=== PATIENT | female | born 1935 | race Caucasian/White ===

== ENCOUNTER → 2016-12-11 | Outpatient (CLI) | payer MEDICARE, OTHER ==
[~2016-12-11] MED LIST: ASP81TEC PO; ATEN50TA PO; CALC-80 PO; CEFD300C PO; CEPH500C PO; CYAN10007 PO; HUMIRA IM; HYDR1TAB PO; IBUP-1773 PO; LISI20TA PO; MTF500T PO; MULT-608 PO; SIMV40TA2 PO; TR025C15 TP; USTE45DI SQ
--- NOTE | 2016-12-11 19:13 | Diagnostic Imaging Report ---
Bilateral diagnostic mammogram. The current study was also evaluated with a Computer Aided Detection (CAD) system. INDICATION: Follow-up complicated cystic lesion in the right breast. COMPARISON: 12/21/2015. FINDINGS: The breasts are composed of heterogeneously dense parenchyma which may decrease mammographic sensitivity. Benign-appearing calcifications are seen. Allowing for technique and positional differences, no suspicious change is seen. IMPRESSION: No significant change. ACR BI-RADS Category 2: Benign findings. Result letter will be mailed to the patient. Note: At least 10% of breast cancer is not imaged by mammography. Dictated by: Dictated on workstation # [id number]
--- NOTE | 2016-12-11 19:30 | Diagnostic Imaging Report ---
EXAMINATION: Right breast ultrasound. INDICATION: Hypoechoic lesion at the 3 o'clock zone. FINDINGS: At the 3:00 zone, 6 cm from the nipple, there is a 4 mm hypoechoic lesion with increased through transmission and no internal vascularity. When compared to November 2015 exam, no significant change is seen. This is suggestive of complicated cyst. It is even minimally smaller compared to prior measurements in favor of benign etiology as well. IMPRESSION: The findings are suggestive of complicated tiny cyst with no adverse development. ACR BI-RADS Category 2: Benign findings. Result letter will be mailed to the patient. Note: At least 10% of breast cancer is not imaged by mammography. Dictated by: Dictated on workstation # [id number]
== END ==
LOC: RAD 13:28
PROVIDERS: ATTEND Family Medicine
DX: Z12.31 Encounter for screening mammogram for malignant neoplasm of breast; R92.1 Mammographic calcification found on diagnostic imaging of breast
CPT/HCPCS: 77066

== ENCOUNTER 2017-03-19 10:15 | Outpatient (CLI) | payer MEDICARE, OTHER ==
[~2017-03-19] VITALS: Ht 157.5 cm; Wt 91.3 kg
[2017-03-19] MEDS ORDERED: CLOB15CR3 TP (10:33)
[2017-03-19] MEDS ORDERED: TOLTA4 PO (10:33)
[2017-03-19] MEDS ORDERED: LISI40TA PO (10:33)
[2017-03-19] MEDS ORDERED: SIMV40TA4 PO (10:33)
[2017-03-19] MEDS ORDERED: MULT1CAP27 PO (10:33)
[2017-03-19] MEDS ORDERED: ASPI-999 PO (10:33)
[2017-03-19] MEDS ORDERED: METF500T4 PO (10:33)
[2017-03-19] MEDS ORDERED: ATEN50TA PO (10:33)
[2017-03-19] MEDS ORDERED: USTE90DI SQ (10:33)
[2017-03-19 10:37] VITALS: BP 179/95
== END 2017-03-19 12:08 | disposition home or self-care (01) ==
LOC: PREOP 10:15
PROVIDERS: ATTEND Orthopaedic Surgery
DX: Z01.818 Encounter for other preprocedural examination (principal); Z11.2 Encounter for screening for other bacterial diseases; M23.201 Derangement of unspecified lateral meniscus due to old tear or injury, left knee; M23.204 Derangement of unspecified medial meniscus due to old tear or injury, left knee
CPT/HCPCS: 87081

== ENCOUNTER 2017-03-26 09:04 | Day surgery (SDC) | payer MEDICARE, OTHER ==
--- NOTE | 2017-03-18 14:08 | HISTORY AND PHYSICAL ---
DATE OF SERVICE: CHIEF COMPLAINT: Left knee arthroscopy. HISTORY OF PRESENT ILLNESS: The patient is a 81-year-old female with progressively worsening left knee pain, catching and locking. She reports pain on the medial aspect of her knee. She has undergone treatment with injections, anti-inflammatories and rest without relief. Radiographs reveal moderate joint space narrowing of the medial compartment. The patient understands that she has underlying arthrosis and that an arthroscopy will not cure her arthritic type symptoms. She understands that she may require total knee arthroplasty in the future, but due to functional impairment and failure to improve with conservative measures the patient has elected to proceed with surgical intervention. REVIEW OF SYSTEMS: No chest pain, no shortness of breath. No dysuria. PAST MEDICAL HISTORY: Hypertension, hyperlipidemia, borderline diabetes, psoriasis. PAST SURGICAL HISTORY: Hysterectomy and right knee arthroscopy. FAMILY HISTORY: Significant for lung disease and cancer. Her primary care provider is Dr. Sanders. MEDICATIONS: 1. Stelara. 2. Atenolol. 3. Metformin. 4. Simvastatin. 5. Lisinopril. 6. Aspirin. 7. Tolterodine. 8. B12. 9. Multivitamin. 10. Clobetasol. ALLERGIES: No known drug allergies. SOCIAL HISTORY: The patient drinks alcohol rarely. Denies tobacco use. PHYSICAL EXAMINATION: GENERAL: The patient is well developed, well-nourished in acute distress. HEENT: Normocephalic, atraumatic. Pupils are equal, round and reactive to light. Oropharynx is clear. NECK: Supple, with no lymphadenopathy. LUNGS: Clear to auscultation bilaterally. HEART: Regular rate and rhythm. ABDOMEN: Soft, nontender, nondistended. EXTREMITIES: The left knee demonstrates a mild effusion. There is no erythema or warmth. Range of motion is 0/2/120. She has negative anterior and posterior drawer. Negative Chapo. No varus valgus laxity. She is tender along the medial joint line, has pain medially with Kerline's. She has crepitus with knee range of motion. 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 PLAN: Left knee arthroscopy with partial meniscectomy. The risks, benefits, options, ramifications and recovery have been discussed at length with the patient. She understands and wishes to proceed. 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
[~2017-03-26] VITALS: Ht 157.5 cm; Wt 91.3 kg
[~2017-03-26 09:04] MED LIST changes: +ASPI-999 PO; +CLOB15CR3 TP; +LISI40TA PO; +METF500T4 PO; +MULT1CAP27 PO; +SIMV40TA4 PO; +TOLTA4 PO; +USTE90DI SQ
--- OUTSIDE RECORDS SUMMARY | 2017-03-26 09:08 | XMS REPORT | Continuity of Care Document ---
Author Author [facility] Organization [facility] Address Unknown Phone Unavailable Allergies Active Description Code Type Severity Reaction Onset Reported/Identified Relationship to Patient Clinical Status Yes No Known Drug Allergies [id number] Drug Allergy Unknown N/A 08/28/2010 Medications There is no data. 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00 09/19/2014 Ot 735.0 09/19/2014 Ot 754.52 09/19/2014 Ot V58.69 09/19/2014 Ot 610.0 09/19/2014 Ot V74.1 09/19/2014 Ot 793.82 09/19/2014 Ot V76.12 09/19/2014 DEZ MONTES DO S Ot V76.12 09/19/2014 VANBECELAERE, VERONICA M [employer] OPERATOR Ot 786.2 09/19/2014 DEZ MONTES DO S Ot 733.90 09/19/2014 VANBECELAERE, VERONICA M [employer] OPERATOR Ot V76.12 10/12/2014 VANBECELAERE, VERONICA M [employer] OPERATOR Ot 429.3 10/12/2014 VANBECELAERE, VERONICA M [employer] OPERATOR Ot 710.2 10/12/2014 VANBECELAERE, VERONICA M [employer] OPERATOR Ot V58.69 11/07/2014 VANBECELAERE, VERONICA M [employer] OPERATOR Ot 429.3 11/07/2014 VANBECELAERE, VERONICA M [employer] OPERATOR Ot 710.2 11/07/2014 VANBECELAERE, VERONICA M [employer] OPERATOR Ot V58.69 11/30/2014 Ot 611.72 11/30/2014 Ot V76.12 11/30/2014 Ot 793.89 11/30/2014 Ot 610.0 11/30/2014 Ot 735.0 11/30/2014 Ot V72.81 11/30/2014 Ot V74.8 11/30/2014 Ot 250.00 11/30/2014 Ot 735.0 11/30/2014 Ot 754.52 11/30/2014 Ot V58.69 11/30/2014 Ot 610.0 11/30/2014 Ot V74.1 11/30/2014 Ot 793.82 11/30/2014 Ot V76.12 11/30/2014 DEZ MONTES DO S Ot V76.12 11/30/2014 VANBECELAERE, VERONICA M [employer] OPERATOR Ot 786.2 11/30/2014 DEZ MONTES DO S Ot 733.90 11/30/2014 VANBECELAERE, VERONICA M [employer] OPERATOR Ot V76.12 11/30/2014 VANBECELAERE, VERONICA M [employer] OPERATOR Ot 429.3 11/30/2014 VANBECELAERE, VERONICA M [employer] OPERATOR Ot 710.2 11/30/2014 VANBECELAERE, VERONICA M [employer] OPERATOR Ot V58.69 11/30/2014 LINDSEYKAT DO, DEZ S Ot V76.12 12/14/2014 ORENDER DO, DEZ S Ot V76.12 03/01/2015 VANBECELAERE, VERONICA M [employer] OPERATOR Ot N95.0 03/01/2015 VANBECELAERE, VERONICA M [employer] OPERATOR Ot R93.4 03/02/2015 Ot 611.72 03/02/2015 Ot V76.12 03/02/2015 Ot 793.89 03/02/2015 Ot 610.0 03/02/2015 Ot 735.0 03/02/2015 Ot V72.81 03/02/2015 Ot V74.8 03/02/2015 Ot 250.00 03/02/2015 Ot 735.0 03/02/2015 Ot 754.52 03/02/2015 Ot V58.69 03/02/2015 Ot 610.0 03/02/2015 Ot V74.1 03/02/2015 Ot 793.82 03/02/2015 Ot V76.12 03/02/2015 [facility] DO, DEZ S Ot V76.12 03/02/2015 VANBECELAERE, VERONICA M [employer] OPERATOR Ot 786.2 03/02/2015 [facility] DO, DEZ S Ot 733.90 03/02/2015 VANBECELAERE, VERONICA M [employer] OPERATOR Ot V76.12 03/02/2015 VANBECELAERE, VERONICA M [employer] OPERATOR Ot 429.3 03/02/2015 VANBECELAERE, VERONICA M [employer] OPERATOR Ot 710.2 03/02/2015 VANBECELAERE, VERONICA M [employer] OPERATOR Ot V58.69 03/02/2015 [facility] DO, DEZ S Ot V76.12 03/02/2015 VANBECELAERE, VERONICA M [employer] OPERATOR Ot N95.0 03/02/2015 VANBECELAERE, VERONICA M [employer] OPERATOR Ot R93.4 03/02/2015 [facility] N93.9 03/02[facility]2015 [facility] Ot R93.8 03/02/2015 [facility] DOARUN Ot Z01.810 03/02/2015 FENECH DO, ARUN Wheeler Ot Z01.811 03/02/2015 FENECH DO, ARUN S Ot Z01.812 03/02/2015 FENECH DO, ARUN S Ot Z11.2 03/02/2015 FENECH DO, ARUN Wheeler Ot E66.9 OBESITY, UNSPECIFIED 03/02/2015 FENECH DO, ARUN S Ot N84.0 POLYP OF CORPUS UTERI 03/02/2015 FENECH DO, ARUN S Ot N95.0 POSTMENOPAUSAL BLEEDING 03/02/2015 FENECH DO, ARUN S Ot R93.8 ABNORMAL FINDINGS ON DIAGNOSTIC IMAGING 03/02/2015 FENECH DO, ARUN Wheeler Ot Z68.38 BODY MASS INDEX (BMI) 38.0-38.9, ADULT 03/02/2015 FENECH DO, ARUN S Ot 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 03/21/2015 VERONICA RUTH [employer] OPERATOR Ot N95.0 03/21/2015 VERONICA RUTH [employer] OPERATOR Ot R93.4 03/23/2015 FENECH DO, ARUN S Ot N93.9 03/23/2015 FENECH DO, ARUN S Ot R93.8 03/23/2015 FENECH DO, ARUN S Ot Z01.810 03/23/2015 FENECH DO, ARUN S Ot Z01.811 03/23/2015 FENECH DO, ARUN S Ot Z01.812 03/23/2015 FENECH DO, ARUN S Ot Z11.2 04/05/2015 FENECH DO, ARUN S Ot N93.9 04/05/2015 FENECH DO, ARUN S Ot R93.8 04/05/2015 FENECH DO, ARUN S Ot Z01.810 04/05/2015 FENECH DO, ARUN S Ot Z01.811 04/05/2015 FENECH DO, ARUN S Ot Z01.812 04/05/2015 FENECH DO, ARUN S Ot Z11.2 10/10/2015 DEZ MONTES DO Ot M25.562 PAIN IN LEFT KNEE 10/27/2015 DEZ MONTES DO Ot M25.562 PAIN IN LEFT KNEE 11/07/2015 Ot 735.0 HALLUX VALGUS 11/07/2015 Ot V72.81 EXAM-PRE- OPERATIVE CARDIOVASCULAR 11/07/2015 Ot V74.8 SCREEN- BACTERIAL DIS NEC 11/07/2015 Ot 250.00 DIAB STEPHANIE WO COMPL, TYPE II OR UNSPEC TY 11/07/2015 Ot 735.0 HALLUX VALGUS 11/07/2015 Ot 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 11/07/2015 Ot V58.69 OTH MED,LT, CURRENT USE 11/07/2015 Ot 610.0 SOLITARY CYST OF BREAST 11/07/2015 Ot V74.1 SCREENING- PULMONARY TB 11/07/2015 Ot 793.82 INCONCLUSIVE MAMMOGRAM 11/07/2015 Ot V76.12 OTH SCREEN MAMMO-MALIGN NEOPLASM OF NICK 11/07/2015 DEZ MONTES DO Ot V76.12 OTH SCREEN MAMMO-MALIGN NEOPLASM OF NICK 11/07/2015 VERONICA RUTH [employer] OPERATOR Ot 786.2 COUGH 11/07/2015 DEZ MONTES DO Ot 733.90 BONE CARTILAGE DIS NOS 11/07/2015 VERONICA RUTH [employer] OPERATOR Ot V76.12 OTH SCREEN MAMMO-MALIGN NEOPLASM OF NICK 11/07/2015 VERONICA RUTH [employer] OPERATOR Ot 429.3 CARDIOMEGALY 11/07/2015 VERONICA RUTH [employer] OPERATOR Ot 710.2 SICCA SYNDROME 11/07/2015 VERONICA RUTH [employer] OPERATOR Ot V58.69 OTH MED,LT,CURRENT USE 11/07/2015 DEZ MONTES DO Ot V76.12 OTH SCREEN MAMMO-MALIGN NEOPLASM OF NICK 11/07/2015 VERONICA RUTH [employer] OPERATOR Ot N95.0 POSTMENOPAUSAL BLEEDING 11/07/2015 VERONICA RUTH [employer] OPERATOR Ot R93.4 ABNORMAL FINDINGS ON DIAGNOSTIC IMAGING 11/07/2015 ARUN GRAHAM DO Ot N93.9 ABNORMAL UTERINE AND VAGINAL BLEEDING, U 11/07/2015 ARUN GRAHAM DO Ot R93.8 ABNORMAL FINDINGS ON DIAGNOSTIC IMAGING 11/07/2015 ARUN GRAHAM DO Ot Z01.810 ENCOUNTER FOR PREPROCEDURAL CARDIOVASCUL 11/07/2015 ARUN GRAHAM DO Ot Z01.811 ENCOUNTER FOR PREPROCEDURAL RESPIRATORY 11/07/2015 ARUN GRAHAM DO Ot Z01.812 ENCOUNTER FOR PREPROCEDURAL LABORATORY E 11/07/2015 ARUN GRAHAM DO Ot Z11.2 ENCOUNTER FOR SCREENING FOR OTHER BACTER 11/07/2015 DEZ MONTES DO Ot M25.562 PAIN IN LEFT KNEE 11/30/2015 Ot 735.0 HALLUX VALGUS 11/30/2015 Ot V72.81 EXAM-PRE- OPERATIVE CARDIOVASCULAR 11/30/2015 Ot V74.8 SCREEN- BACTERIAL DIS NEC 11/30/2015 Ot 250.00 DIAB STEPHANIE WO COMPL, TYPE II OR UNSPEC TY 11/30/2015 Ot 735.0 HALLUX VALGUS 11/30/2015 Ot 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 11/30/2015 Ot V58.69 OTH MED,LT, CURRENT USE 11/30/2015 Ot 610.0 SOLITARY CYST OF BREAST 11/30/2015 Ot V74.1 SCREENING- PULMONARY TB 11/30/2015 Ot 793.82 INCONCLUSIVE MAMMOGRAM 11/30/2015 Ot V76.12 OTH SCREEN MAMMO-MALIGN NEOPLASM OF NICK 11/30/2015 DEZ MONTES DO Ot V76.12 OTH SCREEN MAMMO-MALIGN NEOPLASM OF NICK 11/30/2015 VERONICA RUTH Ot 786.2 COUGH 11/30/2015 DEZ MONTES DO Ot 733.90 BONE CARTILAGE DIS NOS 11/30/2015 VERONICA RUTH [employer] OPERATOR Ot V76.12 OTH SCREEN MAMMO-MALIGN NEOPLASM OF NICK 11/30/2015 VERONICA RUTHP Ot 429.3 CARDIOMEGALY 11/30/2015 VERONICA RUTH [employer] OPERATOR Ot 710.2 SICCA SYNDROME 11/30/2015 VERONICA RUTH [employer] OPERATOR Ot V58.69 OTH MED,LT,CURRENT USE 11/30/2015 DEZ MONTES DO Ot V76.12 OTH SCREEN MAMMO-MALIGN NEOPLASM OF NICK 11/30/2015 VERONICA RUTH [employer] OPERATOR Ot N95.0 POSTMENOPAUSAL BLEEDING 11/30/2015 VERONICA RUTH [employer] OPERATOR Ot R93.4 ABNORMAL FINDINGS ON DIAGNOSTIC IMAGING 11/30/2015 ARUN GRAHAM DO Ot N93.9 ABNORMAL UTERINE AND VAGINAL BLEEDING, U 11/30/2015 ARUN GRAHAM DO Ot R93.8 ABNORMAL FINDINGS ON DIAGNOSTIC IMAGING 11/30/2015 GLADYS SOARES ARUN Wheeler Ot Z01.810 ENCOUNTER FOR PREPROCEDURAL CARDIOVASCUL 11/30/2015 GLADYS SOARES ARUN Wheeler Ot Z01.811 ENCOUNTER FOR PREPROCEDURAL RESPIRATORY 11/30/2015 GLADYS SOARES ARUN Liam Ot Z01.812 ENCOUNTER FOR PREPROCEDURAL LABORATORY E 11/30/2015 GLADYS SOARES ARUN Wheeler Ot Z11.2 ENCOUNTER FOR SCREENING FOR OTHER BACTER 11/30/2015 SIMON SOARESDEZ Ot M25.562 PAIN IN LEFT KNEE 12/01/2015 YOSELYN , DEZ S Ot Z12.31 ENCNTR SCREEN MAMMOGRAM FOR MALIGNANT NE 12/01/2015 YOSELYN DEZ S Ot Z12.31 ENCNTR SCREEN MAMMOGRAM FOR MALIGNANT NE 12/04/[facility] Ot Z12.31 ENCNTR SCREEN MAMMOGRAM FOR MALIGNANT NE 12/05/2015 LINDSEYND , DEZ S Ot Z12.31 ENCNTR SCREEN MAMMOGRAM FOR MALIGNANT NE 12/06/2015 LINDSEYND , DEZ S Ot Z12.31 ENCNTR SCREEN MAMMOGRAM FOR MALIGNANT NE 12/14/2015 YOSELYN , DEZ S Ot 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 12/14/2015 YOSELYN , DEZ S Ot N64.89 OTHER SPECIFIED DISORDERS OF BREAST 12/14/2015 LINDSEYND , DEZ S Ot 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 12/14/2015 LINDSEYND , DEZ S Ot N64.89 OTHER SPECIFIED DISORDERS OF BREAST 12/21/2015 LINDSEYND , DEZ S Ot Z12.31 ENCNTR SCREEN MAMMOGRAM FOR MALIGNANT NE 12/22/2015 YOSELYN , DEZ S Ot 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 12/22/2015 LINDSEYND , DEZ S Ot N64.89 OTHER SPECIFIED DISORDERS OF BREAST 03/13/2016 Ot 610.0 SOLITARY CYST OF BREAST 03/13/2016 Ot V74.1 SCREENING- PULMONARY TB 03/13/2016 Ot 793.82 INCONCLUSIVE MAMMOGRAM 03/13/2016 Ot V76.12 OTH SCREEN MAMMO-MALIGN NEOPLASM OF NICK 03/13/2016 DEZ MONTES DO Ot V76.12 OTH SCREEN MAMMO-MALIGN NEOPLASM OF NICK 03/13/2016 VERONICA RUTH [employer] OPERATOR Ot 786.2 COUGH 03/13/2016 DEZ MONTES DO Ot 733.90 BONE CARTILAGE DIS NOS 03/13/2016 VERONICA RUTH [employer] OPERATOR Ot V76.12 OTH SCREEN MAMMO-MALIGN NEOPLASM OF NICK 03/13/2016 KAYLADIALLO NAYAKSA Hammad E[employer] OPERATOR Ot 429.3 CARDIOMEGALY 03/13/2016 VERONICA RUTH M [employer] OPERATOR Ot 710.2 SICCA SYNDROME 03/13/2016 VERONICA RUTH [employer] OPERATOR Ot V58.69 OTH MED,LT,CURRENT USE 03/13/2016 DEZ MONTES DO Ot V76.12 OTH SCREEN MAMMO-MALIGN NEOPLASM OF NICK 03/13/2016 VERONICA RUTH [employer] OPERATOR Ot N95.0 POSTMENOPAUSAL BLEEDING 03/13/2016 VERONICA RUTH [employer] OPERATOR Ot R93.4 ABNORMAL FINDINGS ON DIAGNOSTIC IMAGING 03/13/2016 ARUN GRAHAM DO Ot N93.9 ABNORMAL UTERINE AND VAGINAL BLEEDING, U 03/13/2016 ARUN GRAHAM DO Ot R93.8 ABNORMAL FINDINGS ON DIAGNOSTIC IMAGING 03/13/2016 ARUN GRHAAM DO Ot Z01.810 ENCOUNTER FOR PREPROCEDURAL CARDIOVASCUL 03/13/2016 ARUN GRAHAM DO Ot Z01.811 ENCOUNTER FOR PREPROCEDURAL RESPIRATORY 03/13/2016 ARUN GRAHAM DO Ot Z01.812 ENCOUNTER FOR PREPROCEDURAL LABORATORY E 03/13/2016 ARUN GRAHAM DO Ot Z11.2 ENCOUNTER FOR SCREENING FOR OTHER BACTER 03/13/2016 DEZ MONTES DO, Ot M25.562 PAIN IN LEFT KNEE 03/13/2016 DEZ MONTES DO Ot Z12.31 ENCNTR SCREEN MAMMOGRAM FOR MALIGNANT NE 03/13/2016 DEZ MONTES DO Ot 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 03/13/2016 DEZ MONTES DO Ot N64.89 OTHER SPECIFIED DISORDERS OF BREAST 03/14/2016 DEZ MONTES DO Ot R92.8 OTH ABN AND INCONCLUSIVE FINDINGS ON DX 03/19/2016 DEZ MONTES DO Ot 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 03/19/2016 DEZ MONTES DO Ot N64.89 OTHER SPECIFIED DISORDERS OF BREAST 04/03/2016 DEZ MONTES DO Ot R92.8 OTH ABN AND INCONCLUSIVE FINDINGS ON DX 04/23/2016 DEZ MONTES DO Ot R92.8 OTH ABN AND INCONCLUSIVE FINDINGS ON DX 12/10/2016 DEZ MONTES DO Ot R92.1 MAMMOGRAPHIC CALCIFCN FOUND ON DIAGNOSTI 12/10/2016 DEZ MONTES DO Ot R92.1 MAMMOGRAPHIC CALCIFCN FOUND ON DIAGNOSTI 12/10/2016 Ot 793.82 INCONCLUSIVE MAMMOGRAM 12/10/2016 Ot V76.12 OTH SCREEN MAMMO-MALIGN NEOPLASM OF NICK 12/10/2016 DEZ MONTES DO Ot V76.12 OTH SCREEN MAMMO-MALIGN NEOPLASM OF NICK 12/10/2016 VERONICA RUTH [employer] OPERATOR Ot 786.2 COUGH 12/10/2016 DEZ MONTES DO S Ot 733.90 BONE CARTILAGE DIS NOS 12/10/2016 VERONICA RUTH [employer] OPERATOR Ot V76.12 OTH SCREEN MAMMO-MALIGN NEOPLASM OF NICK 12/10/2016 VERONICA RUTH [employer] OPERATOR Ot 429.3 CARDIOMEGALY 12/10/2016 VERONICA RUTH [employer] OPERATOR Ot 710.2 SICCA SYNDROME 12/10/2016 VERONICA RUTH [employer] OPERATOR Ot V58.69 OTH MED,LT,CURRENT USE 12/10/2016 DEZ MONTES DO Ot V76.12 OTH SCREEN MAMMO-MALIGN NEOPLASM OF NICK 12/10/2016 VERONICA RUTH [employer] OPERATOR Ot N95.0 POSTMENOPAUSAL BLEEDING 12/10/2016 VERONICA RUTH [employer] OPERATOR Ot R93.4 ABNORMAL FINDINGS ON DIAGNOSTIC IMAGING 12/10/2016 GLADYS SOARESARUN Ot N93.9 ABNORMAL UTERINE AND VAGINAL BLEEDING, U 12/10/2016 GLADYS SOARESARUN Ot R93.8 ABNORMAL FINDINGS ON DIAGNOSTIC IMAGING 12/10/2016 GLADYS SOARESARUN Ot Z01.810 ENCOUNTER FOR PREPROCEDURAL CARDIOVASCUL 12/10/2016 GLADYS SOARESARUN Ot Z01.811 ENCOUNTER FOR PREPROCEDURAL RESPIRATORY 12/10/2016 GLADYS SOARESARUN Ot Z01.812 ENCOUNTER FOR PREPROCEDURAL LABORATORY E 12/10/2016 GLADYS SAORESARUN Ot Z11.2 ENCOUNTER FOR SCREENING FOR OTHER BACTER 12/10/2016 [facility] Ot M25.562 PAIN IN LEFT KNEE [facility] ENCNTR SCREEN MAMMOGRAM FOR MALIGNANT NE 12/10/2016 [facility] 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 12/10/2016 [facility] N64.89 OTHER SPECIFIED DISORDERS OF BREAST 12/10/2016 [facility] R92.8 OTH ABN AND INCONCLUSIVE FINDINGS ON DX 12/10/2016 [facility] R92.1 MAMMOGRAPHIC CALCIFCN FOUND ON DIAGNOSTI 12/11/2016 [facility] DEZ Ot R92.1 MAMMOGRAPHIC CALCIFCN FOUND ON DIAGNOSTI 12/17/2016 [facility] MAMMOGRAPHIC CALCIFCN FOUND ON DIAGNOSTI 12/17/2016 [facility] Z12.31 ENCNTR SCREEN MAMMOGRAM FOR MALIGNANT NE 01/02/2017 [facility] R92.1 MAMMOGRAPHIC CALCIFCN FOUND ON DIAGNOSTI 01/02/2017 [facility] DEZ SOARES Ot Z12.31 ENCNTR SCREEN MAMMOGRAM FOR MALIGNANT NE 02/04/2017 [facility] DEZ SOARES Ot R92.1 MAMMOGRAPHIC CALCIFCN FOUND ON DIAGNOSTI 02/04/2017 [facility] Z12.31 ENCNTR SCREEN MAMMOGRAM FOR MALIGNANT NE Procedures There is no data. Results Test Result Range Methicillin resistant Staphylococcus aureus (MRSA) screening culture - 10:50 Methicillin resistant Staphylococcus aureus (MRSA) screening culture NEG NRG Encounters ACCT No. Visit Date/Time Discharge Status Pt. Type Provider Facility Loc./Unit Complaint [id number] 04/12/2014 14:05:34 04/12/2014 23:59:59 CLS Outpatient Annmarie Chaney [id number] 02/01/2014 12:31:26 02/01/2014 23:59:59 CLS Outpatient Annmarie Chaney [id number] 12/21/2013 11:22:01 12/21/2013 23:59:59 CLS Outpatient Annmarie Chaney [id number] 12/11/2016 13:28:00 12/11/2016 23:59:59 CLS Outpatient DEZ MONTES DO [facility] RAD BILATERAL MAMMOGRAM SCREENING BREAST CALCIFIED [id number] 03/13/2016 08:26:00 03/13/2016 23:59:59 CLS Outpatient DEZ MONTES DO [facility] RAD ABNORMAL MAMMO,RT BREAST DENSITY [id number] 12/13/2015 12:34:00 12/13/2015 23:59:59 CLS Outpatient DEZ MONTES DO [facility] RAD RT MEDICAL BREAST ASYMMETRY [id number] 11/30/2015 10:33:00 11/30/2015 23:59:59 CLS Outpatient DEZ MONTES DO [facility] RAD SCREENING [id number] 09/12/2015 12:17:00 09/12/2015 23:59:59 CLS Outpatient DEZ MONTES DO [facility] RAD LEFT KNEE PAIN [id number] 03/02/2015 09:18:00 03/02/2015 14:59:00 DIS Outpatient ARUN GRAHAM DO [facility] SDC DUB [id number] 02/27/2015 11:07:00 02/27/2015 23:59:59 CLS Outpatient ARUN GRAHAM DO [facility] PREOP DUB [id number] 02/07/2015 13:39:00 02/07/2015 23:59:59 CLS Outpatient VERONICA RUTH [employer] OPERATOR [facility] RAD POSTMENOPAUSAL BLEEDING [id number] 11/24/2014 09:19:00 11/24/2014 23:59:59 CLS Outpatient SIMON DEZ SOARES S [facility] RAD SCREENING [id number] 09/19/2014 11:50:00 09/19/2014 23:59:59 CLS Outpatient VERONICA RUTH [employer] [facility] RAD SENIOR CARE USE OF MEDICATION [id number] 11/18/2013 08:25:00 11/18/2013 23:59:59 CLS Outpatient VERONICA RUTH [employer] [facility] RAD SCREENING [id number] 05/13/2013 09:14:00 05/13/2013 23:59:59 CLS Outpatient LINDSEYKATDREA QUINTIN SOARESLINE S [facility] RAD OSTEOPENIA [id number] 03/02/2013 10:57:00 03/05/2013 12:30:00 DIS Inpatient QUINTIN MONTES DOLINE S [facility] 4TH PNEUMONIA [id number] 03/01/2013 12:08:00 03/01/2013 23:59:59 CLS Outpatient VERONICA RUTHP [facility] RAD COUGH,WHEEZING [id number] 11/17/2012 10:33:00 11/17/2012 23:59:59 CLS Outpatient LINDSEYQUINTIN DIEHL DOLINE S [facility] RAD SCREENING [id number] 03/26/2017 09:45:00 PEN El ENGLAND MD, ARUN Anguiano [facility] SDC LEFT KNEE TORN MEDIAL AND LATERAL MENISCUS [id number] 03/20/2017 15:10:00 Document Registration [id number] 09/19/2014 11:51:00 Document Registration [id number] 11/06/2011 12:44:00 Document Registration [id number] 03/21/2011 08:49:00 Document Registration [id number] 09/03/2010 05:38:00 Document Registration [id number] 08/28/2010 09:51:00 Document Registration [id number] 03/14/2010 12:48:00 Document Registration [id number] 12/06/2009 09:30:00 Document Registration [id number] 11/28/2009 08:33:00 Document Registration
[2017-03-26] MEDS ORDERED: ceFAZolin 1 GM/NS 50 ML IVPB IV ONE ×2 (09:15)
[2017-03-26 09:20] VITALS: BP 176/87
--- NOTE | 2017-03-26 09:32 | Progress Note-Pre Operative ---
Pre-Operative Progress Note H&P Reviewed The H&P was reviewed, patient examined and no changes noted. 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
--- NOTE | 2017-03-26 09:33 | Progress Note-Post Operative ---
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 Post-Operative Diagnosis right knee medial and lateral meniscus tears and chondromalacia of the medial femoral condyle, medial tibial plateau, lateral tibial plateau and patella Procedure & Operative Findings Date of Procedure 03/26/17 Procedure Performed/Findings right knee arthroscopic partial medial and lateral meniscectomies and chondroplasty of the medial femoral condyle, medial tibial plateau, lateral tibial plateau and patella Anesthesia Type GETA Estimated Blood Loss Estimated blood loss (mL): minimal Specimens/Packing Specimens Removed none Packing: none ARUN ENGLAND MD Mar 26, 2017 09:33
[2017-03-26] MEDS ORDERED: LACTATED RINGERS 1,000 ML IV PRN (09:42)
[2017-03-26] MEDS ORDERED: ceFAZolin INJECTION 1,000 MG in NS (IVPB) 50 ML IV ONE (09:45)
[2017-03-26] MEDS ORDERED: LIDOCAINE PF 2% 5 ML (XYLOCAINE) VIAL ONE (09:56)
[2017-03-26] MEDS ORDERED: proPOfol 200 MG/20 ML (DIPRIVAN) VIAL IV ONE (09:56)
[2017-03-26] MEDS ORDERED: ONDANSETRON 4 MG/2 ML (SDV) Z0FRAN ONE (09:56)
[2017-03-26] MEDS ORDERED: SEVOFLURANE (ULTANE) 15 ML INHAL SOLN ONE ×3 (09:56→12:06)
[2017-03-26] MEDS ORDERED: fentaNYL INJECTION 100 MCG/2 ML AMP ONE (09:56)
[2017-03-26] MEDS ORDERED: MIDAZOLAM 10 MG/2 ML (VERSED) VIAL ONE (09:57)
[2017-03-26] MEDS ORDERED: MIDAZOLAM 2 MG/2 ML (VERSED) VIAL ONE (09:57)
[2017-03-26] MEDS ORDERED: BUPIVACAINE 0.25% 30 ML (SENSORCAINE) VIAL ONE (10:07)
[2017-03-26] MEDS ORDERED: morphine PF (DURAMORPH) 10 MG/10 ML AMP ONE (10:07)
[2017-03-26] MEDS ORDERED: HYDROcodone/APAP 7.5 MG/325 MG (LORTAB, LORCET PLUS) TABLET PO PRN (11:30)
[2017-03-26] MEDS ORDERED: ONDANSETRON 4 MG/2 ML (SDV) Z0FRAN IVP PRN (12:15)
[2017-03-26] MEDS ORDERED: MEPERIDINE (DEMEROL) INJ 50 MG/ML IVP PRN (12:15)
[2017-03-26] MEDS ORDERED: fentaNYL INJECTION 100 MCG/2 ML AMP IVP PRN (12:15)
[2017-03-26] MEDS ORDERED: morphine INJ 10 MG/ML 1ML (SYR OR VIAL) IVP PRN (12:15)
[2017-03-26 12:50] VITALS: BP 176/87
[2017-03-26] MEDS ORDERED: HYDR-3816 PO (13:10)
[2017-03-26 13:20] VITALS: BP 175/79
--- NOTE | 2017-03-26 13:55 | Physical Therapy Ortho Eval ---
PT Orthopedic Evaluation Type of Surgery Knee Scope left knee WBAT Prior Level of Function Current Living Status: Spouse Locomotion (Upon Admit): Independent walker Subjective Subjective Patient in bed pre tx, no complaints of pain at rest but has slight pain with activity. Entry Into Home: Stairs With Railing Steps Into Home: 5 Objective Objective left knee flexion 40 degrees, extension +2 degrees Motor Control Motor Control: Motor Control WNL Strength NT Transfer Transfers (B, C, W/C) (FIM): 5 cues for hand placement and safety Gait Gait Assistive Device: Walker Standard Left Lower Extremity: Left Weight Bearing Status LLE: Weight Bearing/Tolerated Gait (FIM): 2 Distance: 100' Gait Level of Assist: 5 Summary/Comments SBA, cues for foot placement and safety, antalgic ambulation with a slightly flexed left knee Treatment Rendered Treatment: Therapeutic Exercises Exercise Instruction: Quad Sets, Heel Slides, Ankle Pumps Assessment/Goals Goal Time Frame: 1 Visit Plan Treatment Plan: Discharge PT/Family Agrees to Plan: Yes Time Time In: 1325 Time Out: 1345 Total Billed Treatment Time: 20 Billed Treatment Time 1 visit EVL 20' Yes PT/OT Therapy GCodes Therapy Functional Limitation: Physical Therapy Test(s)/Tool used to determine: Level of Assistance Scale Functional Limitation-Current Charge Code: MOBCUR Modifier: CI Functional Limitation-Goal Charge Code: MOBGOAL Modifier: CI Functional Limitation-D/C Charge Codes: MOBDC Modifier: CI CHANELL SEPULVEDA PT Mar 26, 2017 13:55
--- NOTE | 2017-03-26 14:33 | OPERATIVE REPORT ---
DATE OF SERVICE: 03/26/2017 PREOPERATIVE DIAGNOSES: 1. Left knee medial meniscal tear. 2. Left knee lateral meniscal tear. 3. Left knee chondromalacia medial femoral condyle. 4. Left knee chondromalacia medial tibial plateau. 5. Left knee chondromalacia of the patella. POSTOPERATIVE DIAGNOSES: 1. Left knee medial meniscal tear. 2. Left knee lateral meniscal tear. 3. Left knee chondromalacia medial femoral condyle. 4. Left knee chondromalacia medial tibial plateau. 5. Left knee chondromalacia of the patella. 6. Left knee chondromalacia of the lateral tibial plateau. PROCEDURES: 1. Left knee arthroscopic partial medial meniscectomy. 2. Left knee arthroscopic partial lateral meniscectomy. 3. Left knee arthroscopic chondroplasty of the medial femoral condyle. 4. Left knee arthroscopic chondroplasty of the medial tibial plateau. 5. Left knee arthroscopic chondroplasty of the patella. 6. Left knee arthroscopic chondroplasty of the lateral tibial plateau. SURGEON: Robert England MD TOUR DIRECTOR: Garth Spencer, who assisted throughout the procedure and closed the incisions. ANESTHESIA: General endotracheal by Sukumar Cole CRNA. TOURNIQUET TIME: Not applicable. ESTIMATED BLOOD LOSS: Minimal. DRAINS: None. COMPLICATIONS: None. POSTOPERATIVE PLANS: Routine arthroscopy protocol. The patient was transferred to the recovery room awake and in stable condition. STATEMENT OF MEDICAL NECESSITY: The patient is a 81-year-old female with complaints of left medial and lateral knee pain. Radiographs revealed advanced osteoarthritis. The patient complained of mechanical symptoms. She understood that a knee arthroplasty would be the ultimate treatment for her symptoms, but the patient did not desire a total knee arthroplasty. She understood that arthroscopy would potentially provide relief of her mechanical symptoms, would not alleviate her arthritic symptoms significantly. Examination under anesthesia revealed range of motion 0/2/130 with negative Chapo, negative anterior and posterior drawer. No varus valgus laxity, negative pivot shift. Arthroscopic findings, the patella demonstrated diffuse grade IV chondral loss centrally and 20 x 20 area with surrounding grade III chondral flaps. The trochlea demonstrated diffuse grade IV chondral loss centrally. The medial and lateral gutters were clear. The lateral compartment demonstrated grade III chondral flap centrally with the tibial plateau a 10 x 10 area. In addition, there was a degenerative horizontal cleavage tear of the posterior horn and body of the lateral meniscus involving approximately 1/3 of the posterior horn and body. The ACL and PCL were intact. Medial compartment demonstrated complex tear of the posterior horn of the medial meniscus from approximately 1/2 the posterior horn extending into the body. There were diffuse grade IV chondral loss over the femoral condyle and tibial plateau and 20 x 20 areas with surrounding grade III chondral flaps at the periphery. PROCEDURE: After risks and benefits of procedure were discussed and questions were answered, informed consent was placed in the chart. The operative site was confirmed preoperatively initialed by surgeon. The patient was then transferred to the operating room. After adequate levels of general endotracheal anesthetic were obtained. Timeout was called confirming the operative site. Examination under anesthesia was performed with the above findings noted. The left lower extremity was then prepped and draped in the usual sterile fashion. The knee joint was injected with 60 mL of fluid. A standard inferolateral portal was placed for the arthroscope and direct visualization and inferior medial portal was created. The menisci and cruciates were carefully probed with the above findings noted. The unstable chondral flaps on the patella were debrided with shaver back to a stable edge. Scope was then redirected into the lateral compartment where the unstable chondral flaps on the lateral tibial plateau were debrided with a shaver back to a stable edge, posterior horn and body lateral meniscus were debrided, body and a shaver removing approximately 1/3 of the posterior horn and body. This was carefully probed with no further tearing or instability noted. The scope was then redirected into the medial compartment. The unstable chondral flaps on the femoral condyle and medial tibial plateau were debrided with shaver back to a stable edge. The unstable medial meniscal tear was debrided with a biter and a shaver removing approximately 1/2 the posterior horn and body. This was carefully probed with no further tearing or instability noted. The knee was copiously irrigated. The portal sites were closed with 4-0 nylon simple interrupted fashion. Port sites were infiltrated with plain Marcaine. A soft dressing was applied and the patient was transferred to the recovery room awake and in stable condition. Job ID: [id number] DocumentID: [id number] Dictated Date: 03/26/2017 12:05:12 Regional Trainer Date: 03/26/2017 14:32:54 Dictated By: ROBERT ENGLAND MD
== END 2017-03-26 13:52 | disposition home or self-care (01) ==
LOC: SDC 09:04
PROVIDERS: ATTEND Orthopaedic Surgery
DX: M23.8X2 Other internal derangements of left knee (principal); M22.42 Chondromalacia patellae, left knee; I10 Essential (primary) hypertension; E78.5 Hyperlipidemia, unspecified; E11.9 Type 2 diabetes mellitus without complications; L40.9 Psoriasis, unspecified; Z79.899 Other long term (current) drug therapy; Z79.84 Long term (current) use of oral hypoglycemic drugs; Z79.82 Long term (current) use of aspirin; E66.9 Obesity, unspecified; Z68.36 Body mass index [BMI] 36.0-36.9, adult
CPT/HCPCS: 82962

== ENCOUNTER → 2017-12-16 | Outpatient (CLI) | payer MEDICARE, OTHER ==
[~2017-12-16] MED LIST changes: +HYDR-34 PO; +METF-397 PO; -METF500T4 PO
--- NOTE | 2017-12-16 13:16 | Diagnostic Imaging Report ---
INDICATION: Screening. TECHNIQUE: Screening digital mammography was performed bilaterally with a Computer Aided Detection (CAD) system. 3D tomosynthesis was also performed and reviewed. COMPARISON: 12/11/2016 back through 11/06/2011. FINDINGS: The fibroglandular tissue is heterogeneously dense bilaterally. There are scattered benign type calcifications. There is no dominant mass, spiculated lesion, or suspicious calcification identified. The skin, nipples, and axillae are unremarkable. IMPRESSION: Benign findings. ACR BI-RADS Category 2: Benign findings. Result letter will be mailed to the patient. Note: At least 10% of breast cancer is not imaged by mammography. Dictated by: Dictated on workstation # [id number]
== END ==
LOC: RAD 07:50
PROVIDERS: ATTEND Family Medicine
DX: Z12.31 Encounter for screening mammogram for malignant neoplasm of breast (principal)
CPT/HCPCS: 77067

== ENCOUNTER → 2018-01-26 | Outpatient (CLI) | payer MEDICARE, OTHER ==
[~2018-01-26] VITALS: Ht 157.5 cm; Wt 91.3 kg
== END | disposition home or self-care (01) ==
LOC: PREOP 06:51
PROVIDERS: ATTEND Specialist
DX: Z01.818 Encounter for other preprocedural examination (principal)

== ENCOUNTER 2018-01-30 09:51 | Day surgery (SDC) | payer MEDICARE, OTHER ==
[~2018-01-30] VITALS: Ht 157.5 cm; Wt 91.3 kg
[2018-01-30] MEDS: TETRACAINE 0.5% OPHTH SOLN 4 ML BTL (SINGLE DOSE ONLY) OU PRN ×4 (10:13→10:30)
[2018-01-30 10:15] VITALS: BP 192/94
[2018-01-30] MEDS ORDERED: MOXIFLOXACIN OPHTH SOLN 5 MG/ML 0.3 ML SYRINGE OP ONE (10:15)
[2018-01-30] MEDS ORDERED: POVIDONE (BETADINE) OPHTH SOLN 5% 30 ML OP ONE (10:15)
[2018-01-30] MEDS ORDERED: LIDOCAINE PF 1% 2 ML AMP IR PRN (10:15)
[2018-01-30] MEDS ORDERED: TIMOLOL MALEATE 0.5% 5 ML (TIMOPTIC) BTL OU PRN (10:15)
[2018-01-30] MEDS ORDERED: MIDAZOLAM 2 MG/2 ML (VERSED) VIAL ONE (10:16)
[2018-01-30] MEDS: PHENYLEPHRINE 10% OPHTH (NEO-SYN) 5 ML BTL OU SCH ×3 (10:21→10:30)
[2018-01-30] MEDS: CYCLOPENTOLATE 1% (CYCLOGYL) 2 ML DROPS OP SCH ×3 (10:21→10:30)
[2018-01-30] MEDS ORDERED: acetaZOLAMIDE ER 500 MG CAP (DIAMOX SEQUELS) PO ONE (11:00)
--- NOTE | 2018-01-30 11:13 | Ophthalmology Operative Report ---
Cataract removal/placement IOL PREOPERATIVE DIAGNOSIS: Cataract Right Eye POSTOPERATIVE DIAGNOSIS: Cataract Right Eye PROCEDURE: Cataract removal and placement of posterior chamber implant, right eye SURGEON: Anton Barrett ANESTHESIA: Topical with sedation COMPLICATIONS: None ESTIMATED BLOOD LOSS: Minimal DESCRIPTION OF PROCEDURE: After proper informed consent was obtained, the patient, a 82 female, was taken to the Operating Room and the right eye was anesthetized with tetracaine. The right eye was then prepped and draped in the usual manner. A wire lid speculum was placed. A paracentesis was made at the left hand position. Preservative free lidocaine was injected into the anterior chamber followed by viscoelastic. A clear corneal incision was made in the temporal position. A capsulorrhexis was preformed and the central nuclear and cortical material were removed. The posterior capsule was polished and Juan C [id number] 17.0 IOL was placed into the capsular bag. The residual viscoelastic was aspirated and balanced saline solution was injected into the anterior chamber. Moxifloxacin was injected into the anterior chamber. The wound was checked and found to be water tight. The patient tolerated the procedure well without complications. ANTON BARRETT MD Jan 30, 2018 11:13
--- NOTE | 2018-01-30 11:13 | Ophthalmologist Pre-Op Note ---
Pre-Operative Progress Note H&P Reviewed The H&P was reviewed, patient examined and no changes noted. Date H&P Reviewed: Jan 30, 2018 Time H&P Reviewed: 10:44 Pre-Op Dx Cataract, Right Eye JUANIS BARRETT MD Jan 30, 2018 11:13
--- NOTE | 2018-01-30 11:17 | Anesthesia-General Post-Op ---
MAC Patient Condition Mental Status/LOC: Same as Preop Cardiovascular: Satisfactory Nausea/Vomiting: Absent Respiratory: Satisfactory Pain: Controlled Complications: Absent Post Op Complications Complications None Follow Up Care/Instructions Patient Instructions None needed. Anesthesiology Discharge Order Discharge Order Patient is doing well, no complaints, stable vital signs, no apparent adverse anesthesia problems. No complications reported per nursing. SALOMÓN SHERMAN CRNA Jan 30, 2018 11:17
[2018-01-30 11:19] VITALS: BP 174/74
== END 2018-01-30 11:19 | disposition home or self-care (01) ==
LOC: SDC 09:51
PROVIDERS: ATTEND Specialist
DX: H25.11 Age-related nuclear cataract, right eye (principal); I10 Essential (primary) hypertension; L40.9 Psoriasis, unspecified; E11.9 Type 2 diabetes mellitus without complications; Z79.84 Long term (current) use of oral hypoglycemic drugs; Z79.82 Long term (current) use of aspirin; Z79.899 Other long term (current) drug therapy
CPT/HCPCS: 82962

== ENCOUNTER 2018-02-17 05:36 | Outpatient (CLI) | payer MEDICARE, OTHER ==
[~2018-02-17] VITALS: Ht 157.5 cm; Wt 91.3 kg
== END 2018-02-17 14:34 | disposition home or self-care (01) ==
LOC: PREOP 05:36
PROVIDERS: ATTEND Specialist
DX: Z01.818 Encounter for other preprocedural examination (principal)

== ENCOUNTER 2018-02-18 10:04 | Day surgery (SDC) | payer MEDICARE, OTHER ==
[~2018-02-18] VITALS: Ht 157.5 cm; Wt 91.3 kg
--- OUTSIDE RECORDS SUMMARY | 2018-02-18 10:09 | XMS REPORT | Continuity of Care Document ---
Author Author [facility] Organization [facility] Address Unknown Phone Unavailable Allergies Active Description Code Type Severity Reaction Onset Reported/Identified Relationship to Patient Clinical Status Yes No Known Drug Allergies [id number] Drug Allergy Unknown N/A 03/19/2017 Medications There is no data. 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79 OTH MALAISE FATIGUE 03/05/2013 SIMON SOARES TIFFANY S Ot 799.02 HYPOXEMIA 09/19/2014 Ot 611.72 09/19/2014 Ot V76.12 09/19/2014 Ot 793.89 09/19/2014 Ot 610.0 09/19/2014 Ot 735.0 09/19/2014 Ot V72.81 09/19/2014 Ot V74.8 09/19/2014 Ot 250.00 09/19/2014 Ot 735.0 09/19/2014 Ot 754.52 09/19/2014 Ot V58.69 09/19/2014 Ot 610.0 09/19/2014 Ot V74.1 09/19/2014 Ot 793.82 09/19/2014 Ot V76.12 09/19/2014 TIFFANY SANDERS DO S Ot V76.12 09/19/2014 VANBECELAERE, VERONICA M [employer] Ot 786.2 09/19/2014 TIFFANY SANDERS DO S Ot 733.90 09/19/2014 VANBECELAERE, VERONICA M [employer] Ot V76.12 10/12/2014 VANBECELAERE, VERONICA M [employer] Ot 429.3 10/12/2014 VANBECELAERE, VERONICA M [employer] Ot 710.2 10/12/2014 VANBECELAERE, VERNOICA M [employer] Ot V58.69 11/07/2014 VANBECELAERE, VERONICA M [employer] Ot 429.3 11/07/2014 VANBECELAERE, VERONICA M [employer] Ot 710.2 11/07/2014 VANBECELAERE, VERONICA M [employer] Ot V58.69 11/30/2014 Ot 611.72 11/30/2014 Ot V76.12 11/30/2014 Ot 793.89 11/30/2014 Ot 610.0 11/30/2014 Ot 735.0 11/30/2014 Ot V72.81 11/30/2014 Ot V74.8 11/30/2014 Ot 250.00 11/30/2014 Ot 735.0 11/30/2014 Ot 754.52 11/30/2014 Ot V58.69 11/30/2014 Ot 610.0 11/30/2014 Ot V74.1 11/30/2014 Ot 793.82 11/30/2014 Ot V76.12 11/30/2014 TIFFANY SANDERS DO S Ot V76.12 11/30/2014 VANBECELAERE, VERONICA M [employer] Ot 786.2 11/30/2014 TIFFANY SANDERS DO S Ot 733.90 11/30/2014 VANBECELAERE, VERONICA M [employer] Ot V76.12 11/30/2014 VANBECELAERE, VERONICA M [employer] Ot 429.3 11/30/2014 VANBECELAERE, VERONICA M [employer] Ot 710.2 11/30/2014 VANBECELAERE, VERONICA M [employer] Ot V58.69 11/30/2014 LINDSEYKAT DO, TIFFANY S Ot V76.12 12/14/2014 ORENDER DO, TIFFANY S Ot V76.12 03/01/2015 VANBECELAERE, VERONICA M [employer] Ot N95.0 03/01/2015 VANBECELAERE, VERONICA M [employer] Ot R93.4 03/02/2015 Ot 611.72 03/02/2015 Ot V76.12 03/02/2015 Ot 793.89 03/02/2015 Ot 610.0 03/02/2015 Ot 735.0 03/02/2015 Ot V72.81 03/02/2015 Ot V74.8 03/02/2015 Ot 250.00 03/02/2015 Ot 735.0 03/02/2015 Ot 754.52 03/02/2015 Ot V58.69 03/02/2015 Ot 610.0 03/02/2015 Ot V74.1 03/02/2015 Ot 793.82 03/02/2015 Ot V76.12 03/02/2015 [facility] DO, TIFFANY S Ot V76.12 03/02/2015 VANBECELAERE, VERONICA M [employer] Ot 786.2 03/02/2015 [facility] DO, TIFFANY S Ot 733.90 03/02/2015 VANBECELAERE, VERONICA M [employer] Ot V76.12 03/02/2015 VANBECELAERE, VERONICA M [employer] Ot 429.3 03/02/2015 VANBECELAERE, VERONICA M [employer] Ot 710.2 03/02/2015 VANBECELAERE, VERONICA M [employer] Ot V58.69 03/02/2015 [facility] DO, TIFFANY S Ot V76.12 03/02/2015 VANBECELAERE, VERONICA M [employer] Ot N95.0 03/02/2015 VANBECELAERE, VERONICA M [employer] Ot R93.4 03/02/2015 [facility] Ot N93.9 03/02/2015 [facility] Ot R93.8 03/02/2015 [facility] DOARUN Ot Z01.810 03/02/2015 FENECH DO, ARUN [...] FENECH DO, ARUN S Ot Z79.899 OTHER FRAME ALIGNER (CURRENT) DRUG THERAPY 03/21/2015 VERONICA RUTH [employer] Ot N95.0 03/21/2015 VERONICA RUTH [employer] Ot R93.4 03/23/2015 FENECH DO, ARUN S [...] FENECH DO, ARUN S Ot Z11.2 10/10/2015 TIFFANY SANDERS DO Ot M25.562 PAIN IN LEFT KNEE 10/27/2015 TIFFANY SANDERS DO Ot M25.562 PAIN IN LEFT KNEE [...] OTH SCREEN MAMMO-MALIGN NEOPLASM OF NICK 11/07/2015 TIFFANY SANDERS DO Ot V76.12 OTH SCREEN MAMMO-MALIGN NEOPLASM OF NICK 11/07/2015 VERONICA RUTH [employer] Ot 786.2 COUGH 11/07/2015 TIFFANY SANDERS DO Ot 733.90 BONE CARTILAGE DIS NOS 11/07/2015 VERONICA RUTH [employer] Ot V76.12 OTH SCREEN MAMMO-MALIGN NEOPLASM OF NICK 11/07/2015 VERONICA RUTH [employer] Ot 429.3 CARDIOMEGALY 11/07/2015 VERONICA RUTH [employer] Ot 710.2 SICCA SYNDROME 11/07/2015 VERONICA RUTH [employer] Ot V58.69 OTH MED,LT,CURRENT USE 11/07/2015 TIFFANY SANDERS DO Ot V76.12 OTH SCREEN MAMMO-MALIGN NEOPLASM OF NICK 11/07/2015 VERONICA RUTH [employer] Ot N95.0 POSTMENOPAUSAL BLEEDING 11/07/2015 VERONICA RUTH [employer] Ot R93.4 ABNORMAL FINDINGS ON DIAGNOSTIC IMAGING [...] ENCOUNTER FOR SCREENING FOR OTHER BACTER 11/07/2015 TIFFANY SANDERS DO Ot M25.562 PAIN IN LEFT KNEE [...] OTH SCREEN MAMMO-MALIGN NEOPLASM OF NICK 11/30/2015 TIFFANY SANDERS DO Ot V76.12 OTH SCREEN MAMMO-MALIGN NEOPLASM OF NICK 11/30/2015 VERONICA RUTH Ot 786.2 COUGH 11/30/2015 TIFFANY SANDERS DO Ot 733.90 BONE CARTILAGE DIS NOS 11/30/2015 VERONICA RUTH [employer] Ot V76.12 OTH SCREEN MAMMO-MALIGN NEOPLASM OF NICK 11/30/2015 VERONICA RUTHP Ot 429.3 CARDIOMEGALY 11/30/2015 VERONICA RUTH [employer] Ot 710.2 SICCA SYNDROME 11/30/2015 VERONICA RUTH [employer] Ot V58.69 OTH MED,LT,CURRENT USE 11/30/2015 TIFFANY SANDERS DO Ot V76.12 OTH SCREEN MAMMO-MALIGN NEOPLASM OF NICK 11/30/2015 VERONICA RUTH [employer] Ot N95.0 POSTMENOPAUSAL BLEEDING 11/30/2015 VERONICA RUTH [employer] Ot R93.4 ABNORMAL FINDINGS ON DIAGNOSTIC IMAGING [...] FOR SCREENING FOR OTHER BACTER 11/30/2015 SIMON SOARESTIFFANY Ot M25.562 PAIN IN LEFT KNEE 12/01/2015 YOSELYN , TIFFANY S Ot Z12.31 ENCNTR SCREEN MAMMOGRAM FOR MALIGNANT NE 12/01/2015 YOSELYN TIFFANY S Ot Z12.31 ENCNTR SCREEN MAMMOGRAM FOR MALIGNANT NE 12/04/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 12/14/2015 LINDSEYND , TIFFANY S Ot N64.89 OTHER SPECIFIED DISORDERS OF BREAST 12/21/2015 LINDSEYND , TIFFANY S Ot Z12.31 ENCNTR SCREEN MAMMOGRAM FOR MALIGNANT NE 12/22/2015 YOSELYN , TIFFANY S Ot 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 12/22/2015 LINDSEYND , TIFFANY S Ot N64.89 OTHER SPECIFIED DISORDERS OF BREAST 03/13/2016 Ot 610.0 SOLITARY CYST OF BREAST 03/13/2016 Ot V74.1 SCREENING- PULMONARY TB 03/13/2016 Ot 793.82 INCONCLUSIVE MAMMOGRAM 03/13/2016 Ot V76.12 OTH SCREEN MAMMO-MALIGN NEOPLASM OF NICK 03/13/2016 TIFFANY SANDERS DO Ot V76.12 OTH SCREEN MAMMO-MALIGN NEOPLASM OF NICK 03/13/2016 VERONICA RUTH [employer] Ot 786.2 COUGH 03/13/2016 TIFFANY SANDERS DO Ot 733.90 BONE CARTILAGE DIS NOS 03/13/2016 VERONICA RUTH [employer] Ot V76.12 OTH SCREEN MAMMO-MALIGN NEOPLASM OF NICK 03/13/2016 KAYLADIALLO NAYAKSA Hammad [employer] Ot 429.3 CARDIOMEGALY 03/13/2016 VERONICA RUTH M [employer] Ot 710.2 SICCA SYNDROME 03/13/2016 VERONICA RUTH [employer] Ot V58.69 OTH MED,LT,CURRENT USE 03/13/2016 TIFFANY SANDERS DO Ot V76.12 OTH SCREEN MAMMO-MALIGN NEOPLASM OF NICK 03/13/2016 VERONICA RUTH [employer] Ot N95.0 POSTMENOPAUSAL BLEEDING 03/13/2016 VERONICA RUTH [employer] Ot R93.4 ABNORMAL FINDINGS ON DIAGNOSTIC IMAGING 03/13/2016 ARUN GRAHAM DO Ot N93.9 ABNORMAL UTERINE AND VAGINAL BLEEDING, U 03/13/2016 ARUN GRAHAM DO Ot R93.8 ABNORMAL FINDINGS ON DIAGNOSTIC IMAGING 03/13/2016 ARUN GRAHAM DO Ot Z01.810 ENCOUNTER FOR PREPROCEDURAL CARDIOVASCUL 03/13/2016 ARUN GRAHAM DO Ot Z01.811 ENCOUNTER FOR PREPROCEDURAL RESPIRATORY 03/13/2016 ARUN GRAHAM DO Ot Z01.812 ENCOUNTER FOR PREPROCEDURAL LABORATORY E 03/13/2016 AURN GRAHAM DO Ot Z11.2 ENCOUNTER FOR SCREENING FOR OTHER BACTER 03/13/2016 TIFFANY SANDERS DO, Ot M25.562 PAIN IN LEFT KNEE 03/13/2016 TIFFANY SANDERS DO Ot Z12.31 ENCNTR SCREEN MAMMOGRAM FOR MALIGNANT NE 03/13/2016 TIFFANY SANDERS DO Ot 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 03/13/2016 TIFFANY SANDERS DO Ot N64.89 OTHER SPECIFIED DISORDERS OF BREAST 03/14/2016 TIFFANY SANDERS DO Ot R92.8 OTH ABN AND INCONCLUSIVE FINDINGS ON DX 03/19/2016 TIFFANY SANDERS DO Ot 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 03/19/2016 TIFFANY SANDERS DO Ot N64.89 OTHER SPECIFIED DISORDERS OF BREAST 04/03/2016 TIFFANY SANDERS DO Ot R92.8 OTH ABN AND INCONCLUSIVE FINDINGS ON DX 04/23/2016 TIFFANY SANDERS DO Ot R92.8 OTH ABN AND INCONCLUSIVE FINDINGS ON DX 12/10/2016 TIFFANY SANDERS DO Ot R92.1 MAMMOGRAPHIC CALCIFCN FOUND ON DIAGNOSTI 12/10/2016 TIFFANY SANDERS DO Ot R92.1 MAMMOGRAPHIC CALCIFCN FOUND ON DIAGNOSTI 12/10/2016 Ot 793.82 INCONCLUSIVE MAMMOGRAM 12/10/2016 Ot V76.12 OTH SCREEN MAMMO-MALIGN NEOPLASM OF NICK 12/10/2016 TIFFANY SANDERS DO Ot V76.12 OTH SCREEN MAMMO-MALIGN NEOPLASM OF NICK 12/10/2016 VERONICA RUTH [employer] Ot 786.2 COUGH 12/10/2016 TIFFANY SANDERS DO S Ot 733.90 BONE CARTILAGE DIS NOS 12/10/2016 VERONICA RUTH [employer] Ot V76.12 OTH SCREEN MAMMO-MALIGN NEOPLASM OF NICK 12/10/2016 VERONICA RUTH [employer] Ot 429.3 CARDIOMEGALY 12/10/2016 VERONICA RUTH [employer] Ot 710.2 SICCA SYNDROME 12/10/2016 VERONICA RUTH [employer] Ot V58.69 OTH MED,LT,CURRENT USE 12/10/2016 TIFFANY SANDERS DO Ot V76.12 OTH SCREEN MAMMO-MALIGN NEOPLASM OF NICK 12/10/2016 VERONICA RUTH [employer] Ot N95.0 POSTMENOPAUSAL BLEEDING 12/10/2016 VERONICA RUTH [employer] Ot R93.4 ABNORMAL FINDINGS ON DIAGNOSTIC IMAGING 12/10/2016 GLADYS SOARES ARUN Liam Ot N93.9 ABNORMAL UTERINE AND VAGINAL BLEEDING, U 12/10/2016 GLADYS SOARESARUN Ot R93.8 ABNORMAL FINDINGS ON DIAGNOSTIC IMAGING 12/10/2016 GLADYS SOARESARUN Ot Z01.810 ENCOUNTER FOR PREPROCEDURAL CARDIOVASCUL 12/10/2016 GLADYS SOARESARUN Ot Z01.811 ENCOUNTER FOR PREPROCEDURAL RESPIRATORY 12/10/2016 GLADYS SOARESARUN Ot Z01.812 ENCOUNTER FOR PREPROCEDURAL LABORATORY E 12/10/2016 GLADYS SOARESARUN Ot Z11.2 ENCOUNTER FOR SCREENING FOR OTHER BACTER 12/10/2016 YOSELYN TIFFANY Ot M25.562 PAIN IN LEFT KNEE 12/10/2016 [facility] TIFFANY Ot Z12.31 ENCNTR SCREEN MAMMOGRAM FOR MALIGNANT NE 12/10/2016 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 TIFFANY Ot R92.1 MAMMOGRAPHIC CALCIFCN FOUND ON DIAGNOSTI 12/11/2016 [facility] TIFF[facility] Ot R92.1 MAMMOGRAPHIC CALCIFCN FOUND ON DIAGNOSTI 12/17/2016 [facility] TIFF[facility] Ot R92.1 MAMMOGRAPHIC CALCIFCN FOUND ON DIAGNOSTI 12/17/2016 [facility] TIFFANY Ot Z12.31 ENCNTR SCREEN MAMMOGRAM FOR MALIGNANT NE 01/02/2017 LINDSEYND TIFFANY Ot R92.1 MAMMOGRAPHIC CALCIFCN FOUND ON DIAGNOSTI 01/02/2017 LINDSEYND TIFFANY SOARES Ot Z12.31 ENCNTR SCREEN MAMMOGRAM FOR MALIGNANT NE 02/04/2017 [facility] TIFF[facility] Ot R92.1 MAMMOGRAPHIC CALCIFCN FOUND ON DIAGNOSTI 02/04/2017 LINDSEYND TIFFANY Ot Z12.31 ENCNTR SCREEN MAMMOGRAM FOR MALIGNANT NE 03/18/2017 Ot 793.82 INCONCLUSIVE MAMMOGRAM 03/18/2017 Ot V76.12 OTH SCREEN MAMMO-MALIGN NEOPLASM OF NICK 03/18/2017 TIFFANY SANDERS DO Ot V76.12 OTH SCREEN MAMMO-MALIGN NEOPLASM OF NICK 03/18/2017 VERONICA RUTH [employer] Ot 786.2 COUGH 03/18/2017 TIFFANY SANDERS DO Ot 733.90 BONE CARTILAGE DIS NOS 03/18/2017 VERONICA RUTH [employer] Ot V76.12 OTH SCREEN MAMMO-MALIGN NEOPLASM OF NICK 03/18/2017 VERONICA RUTH [employer] Ot 429.3 CARDIOMEGALY 03/18/2017 VERONICA RUTH [employer] Ot 710.2 SICCA SYNDROME 03/18/2017 VERONICA RUTH [employer] Ot V58.69 OTH MED,LT,CURRENT USE 03/18/2017 TIFFANY SANDERS DO Ot V76.12 OTH SCREEN MAMMO-MALIGN NEOPLASM OF NICK 03/18/2017 VERONICA RUTH [employer] Ot N95.0 POSTMENOPAUSAL BLEEDING 03/18/2017 VERONICA RUTH [employer] Ot R93.4 ABNORMAL FINDINGS ON DIAGNOSTIC IMAGING 03/18/2017 ARUN GRAHAM DO Ot N93.9 ABNORMAL UTERINE AND VAGINAL BLEEDING, U 03/18/2017 ARUN GRAHAM DO Ot R93.8 ABNORMAL FINDINGS ON DIAGNOSTIC IMAGING 03/18/2017 ARUN GRAHAM DO Ot Z01.810 ENCOUNTER FOR PREPROCEDURAL CARDIOVASCUL 03/18/2017 ARUN GRAHAM DO Ot Z01.811 ENCOUNTER FOR PREPROCEDURAL RESPIRATORY 03/18/2017 ARUN GRAHAM DO Ot Z01.812 ENCOUNTER FOR PREPROCEDURAL LABORATORY E 03/18/2017 ARUN GRAHAM DO Ot Z11.2 ENCOUNTER FOR SCREENING FOR OTHER BACTER 03/18/2017 TIFFANY SANDERS DO Ot M25.562 PAIN IN LEFT KNEE 03/18/2017 TIFFANY SANDERS DO Ot Z12.31 ENCNTR SCREEN MAMMOGRAM FOR MALIGNANT NE 03/18/2017 TIFFANY SANDERS DO Ot 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 03/18/2017 TIFFANY SANDERS DO Ot N64.89 OTHER SPECIFIED DISORDERS OF BREAST 03/18/2017 TIFFANY SANDERS DO Ot R92.8 OTH ABN AND INCONCLUSIVE FINDINGS ON DX 03/18/2017 TIFFANY SANDERS DO Ot R92.1 MAMMOGRAPHIC CALCIFCN FOUND ON DIAGNOSTI 03/18/2017 QUINTIN SANDERS DOLINE Liam Ot Z12.31 ENCNTR SCREEN MAMMOGRAM FOR MALIGNANT NE 03/19/2017 Ot 793.82 INCONCLUSIVE MAMMOGRAM 03/19/2017 Ot V76.12 OTH SCREEN MAMMO-MALIGN NEOPLASM OF NICK 03/19/2017 KEYUR SANDERS DOZANDRA Wheeler Ot V76.12 OTH SCREEN MAMMO-MALIGN NEOPLASM OF NICK 03/19/2017 VERONICA RUTH [employer] Ot 786.2 COUGH 03/19/2017 QUINTIN SANDERS DOLINE Liam Ot 733.90 BONE CARTILAGE DIS NOS 03/19/2017 VERONICA RUTH [employer] Ot V76.12 OTH SCREEN MAMMO-MALIGN NEOPLASM OF NICK 03/19/2017 VERONICA RUTH [employer] Ot 429.3 CARDIOMEGALY 03/19/2017 VERONICA RUTH [employer] Ot 710.2 SICCA SYNDROME 03/19/2017 VERONICA RUTH [employer] Ot V58.69 OTH MED,LT,CURRENT USE 03/19/2017 QUINTIN SANDERS DOLINE Liam Ot V76.12 OTH SCREEN MAMMO-MALIGN NEOPLASM OF NICK 03/19/2017 VERONICA RUTH [employer] Ot N95.0 POSTMENOPAUSAL BLEEDING 03/19/2017 VERONICA RUTH [employer] Ot R93.4 ABNORMAL FINDINGS ON DIAGNOSTIC IMAGING 03/19/2017 ARUN GRAHAM DO Ot N93.9 ABNORMAL UTERINE AND VAGINAL BLEEDING, U 03/19/2017 ARUN GRAHAM DO Ot R93.8 ABNORMAL FINDINGS ON DIAGNOSTIC IMAGING 03/19/2017 AURN GRAHAM DO Ot Z01.810 ENCOUNTER FOR PREPROCEDURAL CARDIOVASCUL 03/19/2017 ARUN GRAHAM DO Ot Z01.811 ENCOUNTER FOR PREPROCEDURAL RESPIRATORY 03/19/2017 ARUN GRAHAM DO Ot Z01.812 ENCOUNTER FOR PREPROCEDURAL LABORATORY E 03/19/2017 ARUN GRAHAM DO Ot Z11.2 ENCOUNTER FOR SCREENING FOR OTHER BACTER 03/19/2017 SIMON SOARES TIFFANY Liam Ot M25.562 PAIN IN LEFT KNEE 03/19/2017 SIMON SOARES TIFFANY Liam Ot Z12.31 ENCNTR SCREEN MAMMOGRAM FOR MALIGNANT NE 03/19/2017 SIMON SOARES TIFFANY Liam Ot 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 03/19/2017 SIMON SOARES TIFFANY Liam Ot N64.89 OTHER SPECIFIED DISORDERS OF BREAST 03/19/2017 SIMON SOARES TIFFANY Liam Ot R92.8 OTH ABN AND INCONCLUSIVE FINDINGS ON DX 03/19/2017 SIMON SOARES TIFFANY S Ot R92.1 MAMMOGRAPHIC CALCIFCN FOUND ON DIAGNOSTI 03/19/2017 SIMON SOARESTIFFANY Ot Z12.31 ENCNTR SCREEN MAMMOGRAM FOR MALIGNANT NE 03/19/2017 ARUN ENGLAND MD Ot M23.201 DERANGEMENT OF UNSP LAT MENSC DUE TO OLD 03/19/2017 ARUN ENGLAND MD Ot M23.204 DERANG OF UNSP MEDIAL MENISCUS DUE TO OL 03/19/2017 ARUN ENGLAND MD Ot Z01.818 ENCOUNTER FOR OTHER PREPROCEDURAL EXAMIN 03/19/2017 ARUN ENGLAND MD Ot Z11.2 ENCOUNTER FOR SCREENING FOR OTHER BACTER 03/20/2017 ARUN ENGLAND MD Ot M23.201 DERANGEMENT OF UNSP LAT MENSC DUE TO OLD 03/20/2017 ARUN ENGLAND MD Ot M23.204 DERANG OF UNSP MEDIAL MENISCUS DUE TO OL 03/20/2017 ARUN ENGLADN MD Ot Z01.818 ENCOUNTER FOR OTHER PREPROCEDURAL EXAMIN 03/20/2017 ARUN ENGLAND MD Ot Z11.2 ENCOUNTER FOR SCREENING FOR OTHER BACTER 03/26/2017 ARUN ENGLAND MD Ot E11.9 TYPE 2 DIABETES MELLITUS WITHOUT COMPLIC 03/26/2017 ARUN ENGLAND MD Ot E66.9 OBESITY, UNSPECIFIED 03/26/2017 ARUN ENGLAND MD Ot E78.5 HYPERLIPIDEMIA, UNSPECIFIED 03/26/2017 ARUN ENGLAND MD Ot I10 ESSENTIAL (PRIMARY) HYPERTENSION 03/26/2017 ARUN ENGLAND MD Ot L40.9 PSORIASIS, UNSPECIFIED 03/26/2017 ARUN ENGLAND MD, Ot M22.42 CHONDROMALACIA PATELLAE, LEFT KNEE 03/26/2017 ARUN ENGLAND MD, Ot M23.8X2 OTHER INTERNAL DERANGEMENTS OF LEFT KNEE 03/26/2017 ARUN ENGLAND MD, Ot Z68.36 BODY MASS INDEX (BMI) 36.0-36.9, ADULT 03/26/2017 ARUN ENGLAND MD, Ot Z79.82 FRAME ALIGNER (CURRENT) USE OF ASPIRIN 03/26/2017 ARUN ENGLAND MD, Ot Z79.84 FRAME ALIGNER (CURRENT) USE OF ORAL HYPOGLYC 03/26/2017 ARUN ENGLAND MD, Ot Z79.899 OTHER PRISON (CURRENT) DRUG THERAPY 03/28/2017 ARUN ENGLAND MD, Ot E11.9 TYPE 2 DIABETES MELLITUS WITHOUT COMPLIC 03/28/2017 ARUN ENGLAND MD Ot E66.9 OBESITY, UNSPECIFIED 03/28/2017 ARUN ENGLAND MD Ot E78.5 HYPERLIPIDEMIA, UNSPECIFIED 03/28/2017 ARUN ENGLAND MD Ot I10 ESSENTIAL (PRIMARY) HYPERTENSION 03/28/2017 ARUN ENGLAND MD Ot L40.9 PSORIASIS, UNSPECIFIED 03/28/2017 ARUN ENGLAND MD, Ot M22.42 CHONDROMALACIA PATELLAE, LEFT KNEE 03/28/2017 ARUN ENGLAND MD, Ot M23.8X2 OTHER INTERNAL DERANGEMENTS OF LEFT KNEE 03/28/2017 ARUN ENGLAND MD, Ot Z68.36 BODY MASS INDEX (BMI) 36.0-36.9, ADULT 03/28/2017 ARUN ENGLAND MD, Ot Z79.82 FRAME ALIGNER (CURRENT) USE OF ASPIRIN 03/28/2017 ARUN ENGLAND MD, Ot Z79.84 FRAME ALIGNER (CURRENT) USE OF ORAL HYPOGLYC 03/28/2017 ARUN ENGLAND MD, Ot Z79.899 OTHER FRAME ALIGNER (CURRENT) DRUG THERAPY 05/11/2017 TIFFANY SANDERS DO Ot R92.1 MAMMOGRAPHIC CALCIFCN FOUND ON DIAGNOSTI 05/11/2017 ORENDER DO, TIFFANY S Ot Z12.31 ENCNTR SCREEN MAMMOGRAM FOR MALIGNANT NE 05/14/2017 SIMON SOARES, TIFFANY S Ot R92.1 MAMMOGRAPHIC CALCIFCN FOUND ON DIAGNOSTI 05/14/2017 LINDSEYNDER , TIFFANY S Ot Z12.31 ENCNTR SCREEN MAMMOGRAM FOR MALIGNANT NE 07/14/2017 LINDSEYND , TIFFANY S Ot R92.1 MAMMOGRAPHIC CALCIFCN FOUND ON DIAGNOSTI 07/14/2017 LINDSEYND , TIFFANY S Ot Z12.31 ENCNTR SCREEN MAMMOGRAM FOR MALIGNANT NE 10/16/2017 LINDSEYND , TIFFANY S Ot R92.1 MAMMOGRAPHIC CALCIFCN FOUND ON DIAGNOSTI 10/16/2017 LINDSEYND , TIFFANY S Ot Z12.31 ENCNTR SCREEN MAMMOGRAM FOR MALIGNANT NE 12/16/2017 SIMON SOARES, TIFFANY S Ot V76.12 OTH SCREEN MAMMO-MALIGN NEOPLASM OF NICK 12/16/2017 ANGELINAPIERCEVERONICA [employer] Ot 786.2 COUGH 12/16/2017 SIMON SOARESTIFFANY S Ot 733.90 BONE CARTILAGE DIS NOS 12/16/2017 KAYLAVERONICA NAYAK M [employer] Ot V76.12 OTH SCREEN MAMMO-MALIGN NEOPLASM OF NICK 12/16/2017 KAYLAMALINIVERONICA [employer] Ot 429.3 CARDIOMEGALY 12/16/2017 VERONICA RUTH [employer] Ot 710.2 SICCA SYNDROME 12/16/2017 VERONICA RUTH [employer] Ot V58.69 OTH MED,LT,CURRENT USE 12/16/2017 SIMON SOARESTIFFANY S Ot V76.12 OTH SCREEN MAMMO-MALIGN NEOPLASM OF NICK 12/16/2017 ANGELINAPAOLOVERONICA FORTUNE [employer] Ot N95.0 POSTMENOPAUSAL BLEEDING 12/16/2017 VERONICA RUTHP Ot R93.4 ABNORMAL FINDINGS ON DIAGNOSTIC IMAGING 12/16/2017 ARUN GRAHAM DO Ot N93.9 ABNORMAL UTERINE AND VAGINAL BLEEDING, U 12/16/2017 ARUN GRAHAM DO Ot R93.8 ABNORMAL FINDINGS ON DIAGNOSTIC IMAGING 12/16/2017 ARUN GRAHAM DO Ot Z01.810 ENCOUNTER FOR PREPROCEDURAL CARDIOVASCUL 12/16/2017 ARUN GRAHAM DO S Ot Z01.811 ENCOUNTER FOR PREPROCEDURAL RESPIRATORY 12/16/2017 GLADYS SOARES, ARUN Wheeler Ot Z01.812 ENCOUNTER FOR PREPROCEDURAL LABORATORY E 12/16/2017 GLADYS SOARESARUN Ot Z11.2 ENCOUNTER FOR SCREENING FOR OTHER BACTER 12/16/2017 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 12/16/2017 [facility], TIFFANY S Ot N64.89 OTHER SPECIFIED DISORDERS OF BREAST 12/16/2017 [facility], TIFFANY S Ot R92.8 OTH ABN AND INCONCLUSIVE FINDINGS ON DX 12/16/2017 [facility] S Ot R92.1 MAMMOGRAPHIC CALCIFCN FOUND ON DIAGNOSTI 12/16/2017 [facility], TIFFANY S Ot Z12.31 ENCNTR SCREEN MAMMOGRAM FOR MALIGNANT NE 12/16/2017 [facility] S Ot Z12.31 ENCNTR SCREEN MAMMOGRAM FOR MALIGNANT NE 12/17/2017 [facility], TIFFANY S Ot Z12.31 ENCNTR SCREEN MAMMOGRAM FOR MALIGNANT NE 01/06/2018 [facility], TIFFANY S Ot Z12.31 ENCNTR SCREEN MAMMOGRAM FOR MALIGNANT NE 01/28/2018 JUANIS BARRETT MD Ot Z01.818 ENCOUNTER FOR OTHER PREPROCEDURAL EXAMIN 01/30/2018 JUANIS BARRETT MD Ot E11.9 TYPE 2 DIABETES MELLITUS WITHOUT COMPLIC 01/30/2018 JUANIS BARRETT MD Ot H25.11 AGE-RELATED NUCLEAR CATARACT, RIGHT EYE 01/30/2018 JUANIS BARRETT MD Ot I10 ESSENTIAL (PRIMARY) HYPERTENSION 01/30/2018 JUANIS BARRETT MD Ot L40.9 PSORIASIS, UNSPECIFIED 01/30/2018 JUANIS BARRETT MD Ot Z79.82 FRAME ALIGNER (CURRENT) USE OF ASPIRIN 01/30/2018 JUANIS BARRETT MD Ot Z79.84 PRISON (CURRENT) USE OF ORAL HYPOGLYC 01/30/2018 JUANIS BARRETT MD Ot Z79.899 OTHER FRAME ALIGNER (CURRENT) DRUG THERAPY 02/03/2018 JUANIS BARRETT MD Ot E11.9 TYPE 2 DIABETES MELLITUS WITHOUT COMPLIC 02/03/2018 JUANIS BARRETT MD Ot H25.11 AGE-RELATED NUCLEAR CATARACT, RIGHT EYE 02/03/2018 JUANIS BARRETT MD Ot I10 ESSENTIAL (PRIMARY) HYPERTENSION 02/03/2018 JUANIS BARRETT MD Ot L40.9 PSORIASIS, UNSPECIFIED 02/03/2018 JUANIS BARRETT MD, Ot Z79.82 PRISON (CURRENT) USE OF ASPIRIN 02/03/2018 JUANIS BARRETT MD Ot Z79.84 PRISON (CURRENT) USE OF ORAL HYPOGLYC 02/03/2018 JUANIS BARRETT MD, Ot Z79.899 OTHER FRAME ALIGNER (CURRENT) DRUG THERAPY Procedures There is no data. Results Test Result Range Methicillin resistant Staphylococcus aureus (MRSA) screening culture - 10:50 Methicillin resistant Staphylococcus aureus (MRSA) screening culture NEG NRG Capillary blood glucose measurement by glucometer (mass/volume) - 03/26/17 09: 16 Capillary blood glucose measurement by glucometer (mass/volume) 99 mg/dL 70-110 Capillary blood glucose measurement by glucometer (mass/volume) - 01/30/18 10: 24 Capillary blood glucose measurement by glucometer (mass/volume) 93 mg/dL 70-110 Encounters ACCT No. Visit Date/Time Discharge Status Pt. Type Provider Facility Loc./Unit Complaint [id number] 04/12/2014 14:05:34 04/12/2014 23:59:59 CLS Outpatient Annmarie Chaney [id number] 02/01/2014 12:31:26 02/01/2014 23:59:59 CLS Outpatient Annmarie Chaney [id number] 12/21/2013 11:22:01 12/21/2013 23:59:59 CLS Outpatient Annmarie Chaney 05/201712/04/2017 23:27:50 12/04/2017 23:59:59 CLS Outpatient Tiffany Sanders [id number] 01/30/2018 09:51:00 01/30/2018 11:19:00 DIS Outpatient JUANIS BARRETT MD Via [facility] CATARACT RIGHT EYE [id number] 01/26/2018 06:51:00 01/26/2018 23:59:59 CLS Outpatient JUANIS BARRETT MD Via [facility] PREOP CATARACT RIGHT EYE [id number] 12/16/2017 07:50:00 12/16/2017 23:59:59 CLS Outpatient TIFFANY SANDERS DO Via [facility] RAD SCREENING [id number] 03/26/2017 09:04:00 03/26/2017 13:52:00 DIS Outpatient ARUN ENGLAND MD Via [facility] LEFT KNEE TORN MEDIAL AND LATERAL MENISCUS [id number] 03/19/2017 10:15:00 03/19/2017 12:08:00 DIS Outpatient ARUN ENGLAND MD Via [facility] PREOP LEFT KNEE TORN MEDIAL AND LATERAL MENISCUS [id number] 12/11/2016 13:28:00 12/11/2016 23:59:59 CLS Outpatient TFIFANY SANDERS DO Via [facility] RAD BILATERAL MAMMOGRAM SCREENING BREAST CALCIFIED [id number] 03/13/2016 08:26:00 03/13/2016 23:59:59 CLS Outpatient TIFFANY SANDERS DO S Via [facility] RAD ABNORMAL MAMMO,RT BREAST DENSITY [id number] 12/13/2015 12:34:00 12/13/2015 23:59:59 CLS Outpatient TIFFANY SANDERS DO S Via [facility] RAD RT MEDICAL BREAST ASYMMETRY [id number] 11/30/2015 10:33:00 11/30/2015 23:59:59 CLS Outpatient TIFFANY SANDERS DO S Via [facility] RAD SCREENING [id number] 09/12/2015 12:17:00 09/12/2015 23:59:59 CLS Outpatient TIFFANY SANDERS DO S Via [facility] RAD LEFT KNEE PAIN [id number] 03/02/2015 09:18:00 03/02/2015 14:59:00 DIS Outpatient ARUN GRAHAM DO S Via [facility] SDC DUB [id number] 02/27/2015 11:07:00 02/27/2015 23:59:59 CLS Outpatient ARUN GRAHAM DO S Via [facility] PREOP DUB [id number] 02/07/2015 13:39:00 02/07/2015 23:59:59 CLS Outpatient VANFUADPAOLOREVERONICA M [employer] Via [facility] RAD POSTMENOPAUSAL BLEEDING [id number] 11/24/2014 09:19:00 11/24/2014 23:59:59 CLS Outpatient TIFFANY SANDERS DO S Via [facility] RAD SCREENING [id number] 09/19/2014 11:50:00 09/19/2014 23:59:59 CLS Outpatient VANVERONICA NAYAK M [employer] Via 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 RAD SCREENING [id number] 05/13/2013 09:14:00 05/13/2013 23:59:59 CLS Outpatient KEYUR SANDERS DOQUELINE S Via [facility] RAD OSTEOPENIA [id number] 03/02/2013 10:57:00 03/05/2013 12:30:00 DIS Inpatient LINDSEYNDQUINTIN SHEPARD DOLINE S Via [facility] 4TH PNEUMONIA [id number] 03/01/2013 12:08:00 03/01/2013 23:59:59 CLS Outpatient VANDIALLO NAYAKSA M [employer] Via [facility] RAD COUGH,WHEEZING [id number] 11/17/2012 10:33:00 11/17/2012 23:59:59 CLS Outpatient SIMON SOARES TIFFANY S Via [facility] RAD SCREENING [id number] 02/18/2018 13:30:00 PEN PreadJUANIS Frederick MD Via [facility] CATARACT LEFT EYE [id number] 09/19/2014 11:51:00 Document Registration [id number] 11/06/2011 12:44:00 Document Registration [id number] 03/21/2011 08:49:00 Document Registration [id number] 09/03/2010 05:38:00 Document Registration [id number] 08/28/2010 09:51:00 Document Registration [id number] 03/14/2010 12:48:00 Document Registration [id number] 12/06/2009 09:30:00 Document Registration [id number] 11/28/2009 08:33:00 Document Registration [id number] 11/25/2014 04:14:27 ACT Document Registration
[2018-02-18 10:12] VITALS: BP 166/94
[2018-02-18] MEDS ORDERED: MOXIFLOXACIN OPHTH SOLN 5 MG/ML 0.3 ML SYRINGE OP ONE (10:15)
[2018-02-18] MEDS ORDERED: POVIDONE (BETADINE) OPHTH SOLN 5% 30 ML OP ONE (10:15)
[2018-02-18] MEDS ORDERED: LIDOCAINE PF 1% 2 ML AMP IR PRN (10:15)
[2018-02-18] MEDS ORDERED: TIMOLOL MALEATE 0.5% 5 ML (TIMOPTIC) BTL OU PRN (10:15)
[2018-02-18] MEDS: TETRACAINE 0.5% OPHTH SOLN 4 ML BTL (SINGLE DOSE ONLY) OU PRN ×4 (10:22→10:52)
[2018-02-18] MEDS: CYCLOPENTOLATE 1% (CYCLOGYL) 2 ML DROPS OP SCH ×3 (10:31→10:52)
[2018-02-18] MEDS: PHENYLEPHRINE 10% OPHTH (NEO-SYN) 5 ML BTL OU SCH ×3 (10:31→10:52)
[2018-02-18] MEDS ORDERED: MIDAZOLAM 2 MG/2 ML (VERSED) VIAL ONE (10:47)
[2018-02-18] MEDS ORDERED: acetaZOLAMIDE ER 500 MG CAP (DIAMOX SEQUELS) PO ONE (11:00)
--- NOTE | 2018-02-18 11:12 | Ophthalmologist Pre-Op Note ---
Pre-Operative Progress Note H&P Reviewed The H&P was reviewed, patient examined and no changes noted. Date H&P Reviewed: Feb 18, 2018 Time H&P Reviewed: 11:11 Pre-Op Dx Cataract, Left Eye JUANIS BARRETT MD Feb 18, 2018 11:12
--- NOTE | 2018-02-18 11:33 | Ophthalmology Operative Report ---
Cataract removal/placement IOL PREOPERATIVE DIAGNOSIS: Cataract Left Eye POSTOPERATIVE DIAGNOSIS: Cataract Left Eye PROCEDURE: Cataract removal and placement of posterior chamber implant, left eye SURGEON: Anton Barrett ANESTHESIA: Topical with sedation COMPLICATIONS: None ESTIMATED BLOOD LOSS: Minimal DESCRIPTION OF PROCEDURE: After proper informed consent was obtained, the patient, a 82 female, was taken to the Operating Room and the left eye was anesthetized with tetracaine. The left eye was then prepped and draped in the usual manner. A wire lid speculum was placed. A paracentesis was made at the left hand position. Preservative free lidocaine was injected into the anterior chamber followed by viscoelastic. A clear corneal incision was made in the temporal position. A capsulorrhexis was preformed and the central nuclear and cortical material were removed. The posterior capsule was polished and an Juan C 16.0 AU00T0 was placed into the capsular bag. The residual viscoelastic was aspirated and balanced saline solution was injected into the anterior chamber. Moxifloxacin was injected into the anterior chamber. The wound was checked and found to be water tight. The patient tolerated the procedure well without complications. ANTON BARRETT MD Feb 18, 2018 11:33
[2018-02-18 11:38] VITALS: BP 150/74
--- NOTE | 2018-02-18 14:40 | Anesthesia-General Post-Op ---
MAC Patient Condition Mental Status/LOC: Same as Preop Cardiovascular: Satisfactory Nausea/Vomiting: Absent Respiratory: Satisfactory Pain: Controlled Complications: Absent Post Op Complications Complications None Follow Up Care/Instructions Patient Instructions None needed. Anesthesiology Discharge Order Discharge Order Patient is doing well, no complaints, stable vital signs, no apparent adverse anesthesia problems. No complications reported per nursing. SALOMÓN SHERMAN CRNA Feb 18, 2018 14:40
== END 2018-02-18 11:42 | disposition home or self-care (01) ==
LOC: SDC 10:04
PROVIDERS: ATTEND Specialist
DX: H25.12 Age-related nuclear cataract, left eye (principal); E11.9 Type 2 diabetes mellitus without complications; I10 Essential (primary) hypertension; E78.00 Pure hypercholesterolemia, unspecified; E78.5 Hyperlipidemia, unspecified; Z79.899 Other long term (current) drug therapy; Z79.82 Long term (current) use of aspirin; Z79.84 Long term (current) use of oral hypoglycemic drugs
CPT/HCPCS: 82962

== ENCOUNTER → 2018-10-23 | Outpatient (CLI) | payer MEDICARE, OTHER | LOC: CARD 13:35 | PROVIDERS: ATTEND Family Medicine | DX: I35.8 Other nonrheumatic aortic valve disorders (principal) | CPT/HCPCS: 93306 ==

== ENCOUNTER → 2020-02-29 | Outpatient (CLI) | payer MEDICARE, OTHER ==
[~2020-02-29] MED LIST changes: +SIMV40TA25 PO; -SIMV40TA4 PO
--- NOTE | 2020-02-29 14:39 | Diagnostic Imaging Report ---
EXAMINATION: Magnetic resonance imaging of the right knee without intravenous contrast. DATE: February 29, 2020. COMPARISON: None. INDICATION: 84-year-old female, right knee pain. TECHNIQUE: Multiplanar, multisequence non contrast enhanced MR imaging was accomplished. FINDINGS: There are motion limitations of the study. MENISCI: There is an oblique tear involving the anterior horn, body, and posterior horn of the medial meniscus. There is medial meniscal extrusion measuring 4 mm. The lateral meniscus is intact. LIGAMENTS AND TENDONS: The anterior and posterior cruciate ligaments are intact. The medial collateral ligament is intact. The iliotibial band, mid third lateral capsular ligament, fibular collateral ligament, biceps femoris tendon, and conjoined tendon are intact. The quadriceps tendon and patella ligament are intact. JOINT: There are broad areas of approximately 50-75% cartilage loss involving the weightbearing portions of the medial femoral condyle and medial tibial plateau. There is a trace knee joint effusion without identified intra-articular body or prominent synovitis. BONE: There is unremarkable bone marrow signal. Specifically, negative for fracture, osteomyelitis, osteonecrosis, or marrow replacing process. BURSAE AND SOFT TISSUES: There is no sizable Whitaker's cyst. There is nonspecific anterior and lateral subcutaneous edema. IMPRESSION: 1. Oblique tear involving the anterior horn, body, and posterior horn of the medial meniscus with 4 mm medial meniscal extrusion. 2. Intact lateral meniscus. 3. Intact anterior and posterior cruciate ligaments. Additional ligaments and tendons are intact. 4. Moderate medial compartment osteoarthritis. Trace knee joint effusion. 5. No acute fracture, bone contusion, or evidence of osteonecrosis. Dictated by: Dictated on workstation # [id number]
== END ==
LOC: RAD 13:08
PROVIDERS: ATTEND Nurse Practitioner
DX: M23.231 Derangement of other medial meniscus due to old tear or injury, right knee (principal); M17.11 Unilateral primary osteoarthritis, right knee; M25.461 Effusion, right knee
CPT/HCPCS: 73721

== ENCOUNTER 2020-03-20 05:31 | Outpatient (RCR) | payer MEDICARE, OTHER ==
[~2020-03-20] VITALS: Ht 157 cm; Wt 92.7 kg
[2020-03-20] MEDS ORDERED: ATEN100T PO (11:22)
[2020-03-20] MEDS ORDERED: METF-397 PO (11:22)
[2020-03-20] MEDS ORDERED: MULT-1136 PO (11:22)
[2020-03-20] MEDS ORDERED: CHOL10007 PO (11:22)
[2020-03-20] MEDS ORDERED: SECU150P2 SQ (11:22)
== END 2020-03-20 11:33 | disposition home or self-care (01) ==
LOC: PREOP 05:31
PROVIDERS: ATTEND Orthopaedic Surgery
DX: Z01.812 Encounter for preprocedural laboratory examination (principal); S83.241A Other tear of medial meniscus, current injury, right knee, initial encounter; Z20.828 Contact with and (suspected) exposure to other viral communicable diseases
CPT/HCPCS: 87635

== ENCOUNTER 2020-03-22 06:06 | Day surgery (SDC) | payer MEDICARE, OTHER ==
--- NOTE | 2020-03-13 11:58 | HISTORY AND PHYSICAL ---
DATE OF SERVICE: ADMISSION HISTORY AND PHYSICAL This will be for outpatient surgery on 03/22/2020 for right knee arthroscopy. HISTORY OF PRESENT ILLNESS: The patient is an 84-year-old female with complaints of right knee pain, catching, locking and swelling. She underwent an MRI, which reveals a large medial meniscus tear. She does have some degenerative changes noted, which the patient does not desire a total knee arthroplasty. She reports popping, catching and locking in her knee. She has tried injections, anti-inflammatories and rest without relief. Due to functional impairment and failure to improve with conservative measures, the patient elected to proceed with surgical intervention. REVIEW OF SYSTEMS: No chest pain, no shortness of breath, no dysuria. PAST MEDICAL HISTORY: Hypertension, hyperlipidemia, psoriasis. PAST SURGICAL HISTORY: Right knee arthroscopy, hysterectomy. FAMILY HISTORY: Significant for lung disease. PRIMARY CARE PROVIDER: Dr. Sanders. MEDICATIONS: Stelara, atenolol, metformin, simvastatin, lisinopril, aspirin, , vitamin B12, clobetasol, hydrocodone. ALLERGIES: No known drug allergies. SOCIAL HISTORY: The patient has never used tobacco. She drinks alcohol rarely. PHYSICAL EXAMINATION: GENERAL: The patient is well-developed, well-nourished, in no acute distress. HEENT: Normocephalic, atraumatic. Pupils are equal, round, reactive to light. Oropharynx is clear. NECK: Supple, no lymphadenopathy. LUNGS: Clear to auscultation bilaterally. HEART: Regular rate and rhythm. ABDOMEN: Soft, nontender, nondistended. EXTREMITIES: The right knee demonstrates tenderness along the medial joint line. She has mild effusion. There is no erythema or warmth. Range of motion 0/2/130. She is tender along the medial joint line. She has pain medially with Kerline's. IMPRESSION: Right knee medial meniscus tear with associated chondromalacia. PLAN: Right knee arthroscopy with chondroplasty and partial medial meniscectomy. The risks, benefits, options, ramifications and recovery were discussed at length with the patient. She understands and wishes to proceed. Job ID: [id number] DocumentID: [id number] Dictated Date: 03/13/2020 11:28:56 Checkout Operator Date: 03/13/2020 11:57:52 Dictated By: ARUN ENGLAND MD
[2020-03-22] VITALS (9 sets, daily range): BP systolic 121–206; BP diastolic 56–100
[~2020-03-22] VITALS: Ht 157 cm; Wt 92.7 kg
[~2020-03-22 06:06] MED LIST changes: +ATEN100T PO; +CHOL10007 PO; +MULT-1136 PO; +SECU150P2 SQ
[2020-03-22] MEDS ORDERED: LACTATED RINGERS 1,000 ML IV PRN (06:15)
[2020-03-22] MEDS ORDERED: ceFAZolin INJECTION 1,000 MG in WATER (STERILE) FOR INJECTION 10 ML IV ONE (06:15)
[2020-03-22] MEDS ORDERED: ceFAZolin INJECTION 1,000 MG ONE (06:44)
[2020-03-22] MEDS ORDERED: WATER (STERILE) FOR INJECTION 10 ML ONE (06:45)
[2020-03-22] MEDS ORDERED: fentaNYL INJECTION 100 MCG/2 ML AMP ONE (06:52)
[2020-03-22] MEDS ORDERED: ONDANSETRON 4 MG/2 ML (SDV) Z0FRAN ONE (06:52)
[2020-03-22] MEDS ORDERED: LIDOCAINE PF 2% 5 ML (XYLOCAINE) VIAL ONE (06:52)
[2020-03-22] MEDS ORDERED: proPOfol 200 MG/20 ML (DIPRIVAN) VIAL IV ONE (06:52)
[2020-03-22] MEDS ORDERED: MIDAZOLAM 2 MG/2 ML (VERSED) VIAL ONE (06:53)
[2020-03-22] MEDS ORDERED: SEVOFLURANE (ULTANE) 15 ML INHAL SOLN ONE ×3 (06:54→08:06)
[2020-03-22] MEDS ORDERED: BUPIVACAINE 0.25% 30 ML (SENSORCAINE) VIAL ONE (06:58)
[2020-03-22] MEDS ORDERED: morphine PF (DURAMORPH) 10 MG/10 ML AMP ONE (06:58)
[2020-03-22] MEDS ORDERED: CATHETER FLUSH 10 ML SYR IV PRN (07:00)
[2020-03-22] MEDS ORDERED: HYDROcodone/APAP 7.5 MG/325 MG (LORTAB, LORCET PLUS) TABLET PO PRN (07:30)
--- NOTE | 2020-03-22 07:37 | Progress Note-Pre Operative ---
Pre-Operative Progress Note H&P Reviewed The H&P was reviewed, patient examined and no changes noted. Date Seen by Provider: Mar 22, 2020 Time Seen by Provider: 07:22 Date H&P Reviewed: Mar 22, 2020 Time H&P Reviewed: 07:11 Pre-Operative Diagnosis: right medial meniscus tear and chondromalacia ARUN ENGLAND MD Mar 22, 2020 07:37
--- NOTE | 2020-03-22 07:38 | Progress Note-Post Operative ---
Post-Operative Progess Note Surgeon (s)/Activity Manager (s) Surgeon ARUN ENGLAND MD Activity Manager: Garth Spencer Pre-Operative Diagnosis right medial meniscus tear and chondromalacia Post-Operative Diagnosis right medial and lateral meniscus tears and chondromalacia of the medial tibial plateau Procedure & Operative Findings Date of Procedure 03/22/20 Procedure Performed/Findings right knee arthroscopic partial medial and lateral meniscectomies and chondroplasty of the medial tibia plateau Anesthesia Type GETA Estimated Blood Loss Estimated blood loss (mL): minimal Specimens/Packing Specimens Removed none Packing: none ARUN ENGLAND MD Mar 22, 2020 07:38
[2020-03-22] MEDS ORDERED: morphine INJ 10 MG/ML 1ML (SYR OR VIAL) IVP ONE (08:30)
[2020-03-22] MEDS ORDERED: HYDR-3817 PO ×2 (08:33→08:39)
--- NOTE | 2020-03-22 09:45 | Anesthesia-General Post-Op ---
General Patient Condition Mental Status/LOC: Same as Preop Cardiovascular: Satisfactory Nausea/Vomiting: Absent Respiratory: Satisfactory Pain: Controlled Complications: Absent Post Op Complications Complications None Follow Up Care/Instructions Patient Instructions None needed. Anesthesia/Patient Condition Patient Condition Patient is doing well, no complaints, stable vital signs, no apparent adverse anesthesia problems. No complications reported per nursing. JUANCARLOS HARTMANN CRNA Mar 22, 2020 09:45
--- NOTE | 2020-03-22 10:27 | Physical Therapy Ortho Eval ---
PT Orthopedic Evaluation Type of Surgery Knee Scope (right) Prior Level of Function Current Living Status: Alone Locomotion (Upon Admit): Independent Established Durable Medical Eq: Standard Walker Subjective Subjective Pt agreeable to PT. Reports she lives alone but will have assist as needed. Entry Into Home: Stairs With Railing Steps Into Home: 3 Motor Control Motor Control: Motor Control WNL ROM ROM: WFL Strength Strength: WFL Transfer SCALE: Activities may be completed with or without assistive devices. 4-Oshdaeuqnp-wodoirr completes the activity by him/herself with no assistance from a helper. 5-Set-up or Clean-up Assistance-helper sets up or cleans up; patient completes activity. [place] assists only prior to or following the activity. 4-Supervision or Touching Assistance-helper provides verbal cues and/or touching/steadying and/or contact guard assistance as patient completes activity. Assistance may be provided throughout the activity or intermittently. 3-Partial/Moderate Assistance-helper does LESS THAN HALF the effort. [place]ounds lifts, holds or supports trunk or limbs, but provides less than half the effort. 2-Substantial/Maximal Assistance-helper does MORE THAN HALF the effort. [place]ounds lifts or holds trunk or limbs and provides more than half the effort. 3-Bmunjctvl-aqeikb does ALL the effort. Patient does none of the effort to complete the activity. Or, the assistance of 2 or more helpers is required for the patient to complete the activity. If activity was not attempted, code reason: 7-Patient Refused. 9-Not Applicable-not attempted and the patient did not perform the activity before the current illness, exacerbation or injury. 10-Not Attempted due to Environmental Limitations-(lack of equipment, weather restraints, etc.). 88-Not Attempted due to Medical Conditions or Safety Concerns. Transfers (B, C, W/C) (QC): 4 (6 post evaluation. ) Gait Gait Assistive Device: Walker Standard Right Lower Extremity: Right Weight Bearing Status RLE: Weight Bearing/Tolerated Left Lower Extremity: Left Weight Bearing Status LLE: Full Weight Bearing Instructed pt to use walker as needed and can discontinue use when she feels ready Gait (QC): 4 (6 post evaluation.) Distance (QC): 3=150 ft Gait Level of Assist: 6 Summary/Comments Safe and steady gait; demonstrated correct use of walker. Able to traverse 1 step without assist with cues for sequencing. Safe and steady Treatment Rendered Treatment: Therapeutic Exercises, Gait Train, Step Train Exercise Instruction: Quad Sets, Straight Leg Raise, Heel Slides demonstrates correct performance. Assessment/Goals Goal Time Frame: 1 Visit Understands HEP: Yes Plan Treatment Plan: Discharge Time Time In: 1000 Time Out: 1023 Total Billed Treatment Time: 23 Billed Treatment Time visit EVM 23 PAKO DHALIWAL PT Mar 22, 2020 10:27
--- NOTE | 2020-03-22 10:30 | NUR ---
SPOT CHECK O2 SAT 95% ON ROOM AIR.
--- NOTE | 2020-03-22 10:40 | OPERATIVE REPORT ---
DATE OF SERVICE: 03/22/2020 PREOPERATIVE DIAGNOSES: 1. Right knee medial meniscus tear. 2. Right knee chondromalacia of the medial femoral condyle. POSTOPERATIVE DIAGNOSES: 1. Right knee medial meniscus tear. 2. Right knee lateral meniscus tear. 3. 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 PROCEDURES PERFORMED: 1. Right knee arthroscopic partial medial meniscectomy. 2. Right knee arthroscopic partial lateral meniscectomy. 3. Right knee arthroscopic chondroplasty of the medial tibial plateau. SURGEON: Robert Troncoso MD. ROUNDING AND BACKING MACHINE OPERATOR: Garth Spencer, who assisted throughout the procedure and closed the incisions. ANESTHESIA: General endotracheal by Austyn Lopez CRNA. TOURNIQUET TIME: Not applicable. DRAINS: None. COMPLICATIONS: None. POSTOPERATIVE PLAN: Routine arthroscopy protocol. The patient was transported to the recovery room awake and in stable condition. STATEMENT OF MEDICAL NECESSITY: The patient is an 84-year-old female with complaints of right medial knee pain, catching, locking and swelling. An MRI revealed a complex tear of the medial meniscus. She also had degenerative changes in her medial and patellofemoral compartments. The patient was counseled that an arthroscopy could help with her mechanical symptoms, but would not cure her arthritic symptoms. She understood this and did not desire a total knee arthroplasty, but due to functional impairment, elected to proceed with an arthroscopy. Examination under anesthesia revealed range of motion of 0/2/130 with negative Chapo, negative anterior and posterior drawer and no varus or valgus laxity, negative pivot shift. ARTHROSCOPIC FINDINGS: The patella and trochlea demonstrated diffuse grade IV chondral loss centrally in a 10 x 10 area. The medial and lateral gutters were clear. The ACL and PCL were intact. Lateral compartment demonstrated a flap tear of the anterior horn of the lateral meniscus involving approximately 20% of the anterior horn. No significant chondral abnormalities were noted laterally. The medial compartment demonstrated grade IV chondral loss of the central portion of femoral condyle in a 20 x 20 area in the central portion of the tibial plateau in a 15 x 15 area with surrounding grade III chondral flaps at the periphery of the tibial plateau. In addition, there was a complex tear of the posterior horn and body of the medial meniscus involving approximately one-third of the posterior horn and body. DESCRIPTION OF PROCEDURE: After risks and benefits of the procedure were discussed and questions were answered, an informed consent was signed and placed on chart and the operative site was confirmed in the preoperative holding area initialed by the surgeon. The patient was then transferred to the operating room. After adequate levels of general endotracheal anesthetic were obtained, a timeout was called, confirming the operative site. Examination under anesthesia was performed with the above findings noted. The right lower extremity was prepped and draped in the usual sterile fashion. The knee joint was injected with 60 mL of fluid and standard inferolateral portal was placed with the arthroscope. Under direct visualization, inferior medial portal was created. The menisci and cruciates carefully probed with the above findings noted. The unstable chondral flaps in the medial tibial plateau were debrided with a shaver back to a stable edge. Posterior horn and body of the medial meniscus were debrided with a shaver and a biter, removing approximately one-third the posterior horn and body. This was carefully probed with no further tearing or instability noted. The scope was redirected into the lateral compartment where the anterior horn of the lateral meniscus was debrided with a biter back to a stable edge. This was carefully probed with no further tearing or instability noted. The knee was copiously irrigated. The port sites were closed with 4-0 nylon in a simple interrupted fashion. Knee was injected with Duramorph. The portal sites were infiltrated with plain Marcaine and soft dressing was applied. The patient was transferred to the recovery room awake and in stable condition. Job ID: [id number] DocumentID: [id number] Dictated Date: 03/22/2020 08:18:58 Offset Plate Preparation Supervisor Date: 03/22/2020 10:39:54 Dictated By: ROBERT TRONCOSO MD
== END 2020-03-22 10:40 | disposition home or self-care (01) ==
LOC: SDC 06:06
PROVIDERS: ATTEND Orthopaedic Surgery
DX: S83.241A Other tear of medial meniscus, current injury, right knee, initial encounter (principal); S83.281A Other tear of lateral meniscus, current injury, right knee, initial encounter; M94.261 Chondromalacia, right knee; I10 Essential (primary) hypertension; E11.9 Type 2 diabetes mellitus without complications; E78.5 Hyperlipidemia, unspecified; E66.9 Obesity, unspecified; Z68.37 Body mass index [BMI] 37.0-37.9, adult; Z79.899 Other long term (current) drug therapy; Z79.82 Long term (current) use of aspirin; Z79.84 Long term (current) use of oral hypoglycemic drugs; Z90.710 Acquired absence of both cervix and uterus
CPT/HCPCS: 82962; 87081

== ENCOUNTER → 2020-04-07 | Outpatient (CLI) | payer MEDICARE, OTHER ==
[~2020-04-07] MED LIST changes: +HYDR-3817 PO
--- NOTE | 2020-04-07 12:04 | Diagnostic Imaging Report ---
Clinical indication: Patient with left carotid bruit. Comparison: None Exam: Real-time carotid Doppler duplex imaging is performed bilaterally. Peak systolic velocity, ICA/CCA peak systolic ratio, spectral analysis, and vascular morphology are studied. Findings: ARTERY VELOCITY Right Left CCA 0.46 m/s 0.57 m/s ICA 0.75 m/s 1.19 m/s ECA 1.00 m/s 0.81 m/s ICA/CCA 1.6 2.1 VERT.ART Antegrade Antegrade There is mild bilateral atherosclerotic disease. Impression: There is no grayscale or Doppler evidence of significant vascular stenosis. Dictated by: Dictated on workstation # [id number]
== END ==
LOC: RAD 10:15
PROVIDERS: ATTEND Family Medicine
DX: R09.89 Other specified symptoms and signs involving the circulatory and respiratory systems (principal)
CPT/HCPCS: 93880

== ENCOUNTER 2020-06-08 12:58 | Outpatient (RCR) | payer MEDICARE, OTHER ==
[~2020-06-08 12:58] MED LIST changes: -LISI40TA PO; +LISI40TA9 PO
== END 2020-07-11 | disposition home or self-care (01) ==
PROVIDERS: ATTEND Nurse Practitioner
DX: M23.231 Derangement of other medial meniscus due to old tear or injury, right knee (principal); M17.11 Unilateral primary osteoarthritis, right knee; Z98.890 Other specified postprocedural states

== ENCOUNTER 2020-08-28 05:30 | Outpatient (RCR) | payer MEDICARE, OTHER ==
[2020-08-17 10:00] VITALS: BP 153/90
--- NOTE | 2020-08-17 11:02 | Diagnostic Imaging Report ---
INDICATION: Preop for total knee replacement. Comparison is made with prior chest from 02/27/2015. Heart is mildly enlarged and stable. There is some blunting of the left costophrenic angle on today's study consistent with small effusion. No right-sided effusion is seen. Lungs appear to be clear. The pulmonary vascularity is normal. IMPRESSION: Cardiomegaly and small left pleural effusion. Dictated by: Dictated on workstation # [id number]
[2020-08-17 11:30] LABS: BILIRUBIN,URINE NEGATIVE (NEGATIVE); CLARITY,URINE CLEAR; COLOR,URINE YELLOW; GLUCOSE, URINE (UA) NEGATIVE (NEGATIVE); KETONES,URINE NEGATIVE (NEGATIVE); NITRITE,URINE NEGATIVE (NEGATIVE); PROTEIN,URINE NEGATIVE (NEGATIVE)
[2020-08-17 11:31] LABS: PROTHROMBIN TIME PATIENT 13.4 SEC (12.2-14.7)
[2020-08-17 11:31] LABS: BACTERIA,URINE TRACE /HPF; LEUKOCYTE ESTERASE ,URINE 1+ (NEGATIVE)
[2020-08-17 11:35] LABS: EOSINOPHILS % (AUTO) 2 % (0-10); HEMATOCRIT 46 % (35-52); HEMOGLOBIN 14.8 G/DL (11.5-16.0); LYMPHOCYTES % (AUTO) 21 % (12-44); MEAN CORPUSCULAR HEMOGLOBIN 31 PG (25-34); MEAN CORPUSCULAR HGB CONC 32 G/DL (32-36); MEAN CORPUSCULAR VOLUME 95 FL (80-99); MEAN PLATELET VOLUME 10.2 FL (7.4-10.4); MONOCYTES % (AUTO) 12 % (0-12); NEUTROPHILS % (AUTO) 64 % (42-75); PLATELET COUNT 278 10^3/uL (130-400); WHITE BLOOD COUNT 6.7 10^3/uL (4.3-11.0)
[2020-08-17 11:36] LABS: BASOPHILS % (AUTO) 1 % (0-10); EOSINOPHILS # (AUTO) 0.2 10^3/uL (0.0-0.3); LYMPHOCYTES # (AUTO) 1.4 X 10^3 (1.0-4.0); MONOCYTES # (AUTO) 0.8 X 10^3 (0.0-1.0); NEUTROPHILS # (AUTO) 4.3 X 10^3 (1.8-7.8)
[2020-08-17 11:49] LABS: ERYTHROCYTE SEDIMENTATION RATE 15 MM/HR (0-30)
[~2020-08-28] VITALS: Ht 152.4 cm; Wt 88.9 kg
[~2020-08-28 05:30] MED LIST changes: +AMLO-250 PO; +SECU150S2 SQ; +SOLI10TA7 PO
== END 2020-08-28 10:08 | disposition home or self-care (01) ==
LOC: PREOP 05:30
PROVIDERS: ATTEND Orthopaedic Surgery
DX: Z01.818 Encounter for other preprocedural examination (principal); M17.11 Unilateral primary osteoarthritis, right knee; I51.7 Cardiomegaly; J90 Pleural effusion, not elsewhere classified
CPT/HCPCS: 36415; 71046; 81000; 85025; 85610; 85652; 86850; 86900; 86901; 87081; 87088; 87635; 93005

== ENCOUNTER 2020-08-30 06:04 | Inpatient (IN) | payer MEDICARE, OTHER ==
--- NOTE | 2020-08-17 11:35 | HISTORY AND PHYSICAL ---
DATE OF SERVICE: ADMISSION HISTORY AND PHYSICAL DATE OF ADMISSION: 08/30/2020. This will be for inpatient admission on 08/30/2020 for right total knee arthroplasty. The patient will require regular inpatient admission due to comorbidities, need for physical therapy, gait abnormalities and pain management. HISTORY OF PRESENT ILLNESS: The patient is an 84-year-old female with longstanding progressive right knee pain. She has undergone treatment with injections as well as arthroscopy without relief. Radiographs revealed severe joint space narrowing in her patellofemoral, medial and lateral compartments. Due to functional impairment and failure to improve with conservative measures, the patient has elected to proceed with surgical intervention. REVIEW OF SYSTEMS: No chest pain, no shortness of breath, and no dysuria. PAST MEDICAL HISTORY: Hypertension, hyperlipidemia, diabetes, psoriasis and nightly oxygen. PAST SURGICAL HISTORY: Hysterectomy and right knee arthroscopy. FAMILY HISTORY: Significant for lung disease. PRIMARY CARE PROVIDER: Dr. Sanders. MEDICATIONS: Stelara, atenolol, metformin, simvastatin, lisinopril, aspirin, tolterodine, vitamin B12, multivitamin, clobetasol, VESIcare and amlodipine. ALLERGIES: No known drug allergies. SOCIAL HISTORY: The patient drinks alcohol rarely and has never used tobacco. PHYSICAL EXAMINATION: GENERAL: The patient is well-developed, well-nourished, in no acute distress. HEENT: Normocephalic and atraumatic. Pupils are equal, round and reactive to light. Oropharynx is clear. NECK: Supple and no lymphadenopathy. LUNGS: Clear to auscultation bilaterally. HEART: Regular rate and rhythm. ABDOMEN: Soft, nontender, and nondistended. EXTREMITIES: The right knee demonstrates varus alignment. She has a slight effusion. There is no erythema or warmth. Range of motion of the knee demonstrates 0/3/110. She has no varus or valgus laxity. Negative anterior and posterior drawer. No skin lesions are noted. She ambulates with an antalgic gait on the right. IMPRESSION: Severe right knee osteoarthritis. PLAN: Right total knee arthroplasty. The risks, benefits, options, ramifications and recovery were discussed at length with the patient. She understands and wishes to proceed. Job ID: [id number] DocumentID: [id number] Dictated Date: 08/17/2020 11:07:20 Regional Engagement Consultant Date: 08/17/2020 11:33:46 Dictated By: ARUN ENGLAND MD
[~2020-08-30] VITALS: Ht 152 cm; Wt 88.9 kg
[2020-08-30] VITALS (14 sets, daily range): BP systolic 127–156; BP diastolic 64–92
[2020-08-30] MEDS ORDERED: CEFUROXIME INJECTION 1,500 MG in WATER (STERILE) FOR INJECTION 15 ML IV ONE (06:15)
[2020-08-30] MEDS ORDERED: fentaNYL INJ 100 MCG/2 ML AMP ONE (06:37)
[2020-08-30] MEDS ORDERED: MIDAZOLAM 2 MG/2 ML (VERSED) VIAL ONE (06:37)
[2020-08-30] MEDS ORDERED: LIDOCAINE PF 2% 5 ML (XYLOCAINE) VIAL ONE (06:44)
[2020-08-30] MEDS ORDERED: ONDANSETRON 4 MG/2 ML (SDV) Z0FRAN ONE (06:44)
[2020-08-30] MEDS ORDERED: proPOfol 200 MG/20 ML (DIPRIVAN) VIAL IV ONE (06:44)
[2020-08-30] MEDS ORDERED: BUPIVACAINE 0.5% 30 ML (SENSORCAINE) VIAL ONE (06:45)
[2020-08-30] MEDS ORDERED: SEVOFLURANE (ULTANE) 15 ML INHAL SOLN ONE ×6 (06:45→08:41)
[2020-08-30] MEDS ORDERED: INTRA-ARTICULAR IU ONE ×5 (07:00)
[2020-08-30] MEDS ORDERED: TRANEXAMIC ACID 100 MG/ML 10 ML INJECTION ONE (07:13)
[2020-08-30] MEDS: LACTATED RINGERS 1,000 ML IV PRN ×2 (07:14→07:25)
--- NOTE | 2020-08-30 07:27 | Progress Note-Pre Operative ---
Pre-Operative Progress Note H&P Reviewed The H&P was reviewed, patient examined and no changes noted. Date Seen by Provider: Aug 30, 2020 Time Seen by Provider: 07:15 Date H&P Reviewed: Aug 30, 2020 Time H&P Reviewed: 07:11 Pre-Operative Diagnosis: right knee primary osteoarthritis ARUN ENGLAND MD Aug 30, 2020 07:27
--- NOTE | 2020-08-30 07:28 | Progress Note-Post Operative ---
Post-Operative Progess Note Surgeon (s)/Kier Drier (s) Surgeon ARUN ENGLAND MD Kier Drier: Garth Spencer Pre-Operative Diagnosis right knee primary osteoarthritis Post-Operative Diagnosis right knee primary osteoarthritis Procedure & Operative Findings Date of Procedure 08/30/20 Procedure Performed/Findings right total knee knee arthroplasty Anesthesia Type GETA Estimated Blood Loss Estimated blood loss (mL): minimal Specimens/Packing Specimens Removed none Packing: none ARUN ENGLAND MD Aug 30, 2020 07:28
[2020-08-30] MEDS ORDERED: morphine PCA 100 MG/100 ML BAG IV PRN (07:30)
[2020-08-30] MEDS ORDERED: ACETAMINOPHEN 325 MG TABLET PO PRN (07:30)
[2020-08-30] MEDS ORDERED: diphenhydrAMINE 50 MG/ML INJ (BENADRYL) IVP PRN (07:30)
[2020-08-30] MEDS ORDERED: ONDANSETRON 4 MG/2 ML (SDV) Z0FRAN IVP PRN ×2 (07:30→09:15)
--- NOTE | 2020-08-30 07:31 | D/C HH Face to Face Order ---
D/C Face to Face Orders Reconcile Patient Problems Problems Reviewed?: Yes Instructions for Patient Via [facility] [employer], Patient Instructions/FollowUp: three weeks Physician to follow Patient: three weeks Discharge Diet for Home: Regular Diet Patient Data-Allergies,Ht & Wt Patient Allergies: Coded Allergies: No Known Drug Allergies (Unverified , 03/20/20) Height (Feet): 5 Height (Inches): 2.00 Weight (Pounds): 201 Weight (Ounces): 6.0 Home Health Need/Face to Face Date of Face to Face: Aug 30, 2020 Clinical Findings: Instability, Muscle weakness, Pain with ambulation, Unsteady gait I have seen Pt [id number]-[id number]: Yes Discharged To: Home Diagnosis/Conditions: right total knee arthroplasty Patient is Homebound due to: Amado fall risk due to instabilty, Pain w/ambulation Homebound Status Due to the above stated illness, injury or surgical procedure (medical condition or diagnosis) and associated clinical findings, the patient is homebound because of his/her inability to leave home except with aid of a supportive device and/or person AND leaving the home requires a considerable and taxing effort or is medically contraindicated. Pt req the following assistanc: Walker Home Health Nursing Orders Home Health Services Order: Physical Therapy-Evaluate & Treat DC right knee oscar and apply steri strips 09/13/20 Home Health Infusion Therapy Line Start Date: Aug 30, 2020 Therapy Orders Therapy Orders: Physical Therapy, PT to assess for OT Therapy Specific Orders: Eval assistive deivces, Teach enviro modifications/safety, Gait training, Increase strength/endurance, Provider maintenance therapy, Restore ROM Certify Stmt I certify that this patient is under my care and that I, a nurse practitioner or a physician; a family services assistant working with me, had a face to face encounter that - meets the physician face to face encounter requirements with this patient as dated. ARUN ENGLAND MD Aug 30, 2020 07:30
[2020-08-30] MEDS ORDERED: morphine INJ 10 MG/ML 1ML (SYR OR VIAL) IVP ONE (09:15)
[2020-08-30] MEDS ORDERED: MEPERIDINE (DEMEROL) INJ 50 MG/ML IVP ONE (09:15)
--- NOTE | 2020-08-30 09:24 | Diagnostic Imaging Report ---
INDICATION: Osteoarthritis. Two views of right knee were obtained. FINDINGS: There are postsurgical changes in the right knee arthroplasty. Hardware is in satisfactory position. Soft tissues are unremarkable. IMPRESSION: Stable postsurgical changes of the right knee arthroplasty. Dictated by: Dictated on workstation # [id number]
--- NOTE | 2020-08-30 09:46 | Progress Note ---
Standard Progress Note Progress Notes/Assess & Plan Date Seen by a Provider: Aug 30, 2020 Time Seen by a Provider: 09:20 Progress/Assessment & Plan post op check no complaints radiographs--HW well positioned without fracture RLE--2 plus DP pulse with brisk cap refill intact DF and PF of toes and ankle. Sensation intact to light touch throughout s/p RTKA mobilize as able ARUN ENGLAND MD Aug 30, 2020 09:46
[2020-08-30] MEDS ORDERED: morphine INJ 10 MG/ML 1ML (SYR OR VIAL) IVP PRN (11:15)
[2020-08-30] MEDS: inSUlin ASPART (NovoLOG) 1 UNIT/0.01 ML (CHARGE PER UNIT) SC SCH ×3 (12:30→20:39)
--- NOTE | 2020-08-30 12:39 | Consultation ---
History of Present Illness History of Present Illness Patient Consulted On(jewell/time) 08/30/20 12:33 Date Seen by Provider: Aug 30, 2020 Time Seen by Provider: 12:33 History of Present Illness This is an 84 year old female with severe right osteoarthritis who underwent right TKA by Dr. Troncoso. She has a history of Hypertension, DMII, Hyperlipidemia and psoriasis. I am asked to consult for medical management. Allergies and Home Medications Allergies Coded Allergies: No Known Drug Allergies (Unverified , 03/20/20) Home Medications Amlodipine Besylate 5 Mg Tablet, 5 MG PO DAILY, (Reported) Last Action: Continued Aspirin 81 Mg Tab.chew, 81 MG PO DAILY, (Reported) Last Action: Continued Atenolol 100 Mg Tablet, 100 MG PO BID, (Reported) Last Action: Converted Cholecalciferol (Vitamin D3) 25 Mcg Capsule, 25 MCG PO DAILY, (Reported) Last Action: Converted Lisinopril 40 Mg Tablet, 40 MG PO DAILY, (Reported) Last Action: Continued Metformin HCl 500 Mg Tablet, 500 MG PO DAILY, (Reported) Last Action: Continued Multivitamin 1 Each Tablet, 1 EACH PO DAILY, (Reported) Last Action: Converted Secukinumab 150 Mg/1 Ml Pen.injctr, 300 MG SQ MONTHLY, (Reported) Simvastatin 40 Mg Tablet, 40 MG PO HS, (Reported) Last Action: Continued Solifenacin Succinate 10 Mg Tablet, 10 MG PO HS, (Reported) Last Action: Converted Patient Home Medication List Home Medication List Reviewed: Yes Past Biirjls-Jdzoer-Zdrggq Hx Past Med/Social Hx: Reviewed Nursing Past Med/Soc Hx Patient Social History Smoking Status: Never a Smoker 2nd Hand Smoke Exposure: No Recent Hopitalizations: No Have you traveled recently?: No Immunizations Up To Date Date of Pneumonia Vaccine: Dec 02, 2016 Date of Influenza Vaccine: Dec 01, 2019 Seasonal Allergies Seasonal Allergies: No Past Medical History Surgeries: Yes ( D&C, BILATERAL FEET, CATARACTS,bilat KNEE SCOPE) Respiratory: No Pneumonia Currently Using CPAP: No (wears oxygen at hs) Currently Using BIPAP: No Cardiac: Yes High Cholesterol, Hypertension Neurological: No Reproductive Disorders: No Sexually Transmitted Disease: No HIV/AIDS: No Genitourinary: No Gastrointestinal: No Musculoskeletal: Yes Arthritis, Chronic Back Pain Endocrine: Yes Diabetes, Non-Insulin dep HEENT: Yes (GLASSES, cataracts removed) Loss of Vision: Denies Hearing Impairment: Denies Cancer: Yes (HAS HAD SKIN CANCER REMOVED) Skin Did You Recieve Any Treatments: Yes What Type of Treatment Did You: Surgical Intervention Psychosocial: No Integumentary: Yes Psoriasis Blood Disorders: No Adverse Reaction/Blood Tranf: No (N/A) Family Medical History Patient reports no known family medical history. Review of Systems Review of Systems General: Fatigue HEENT: No Head Aches, No Visual Changes, No Eye Pain, No Ear Pain, No Dysphasia, No Sinus Congestion, No Post Nasal Drip, No Sore Throat, No Other Pulmonary: No Dyspnea, No Cough, No Pleuritic Chest Pain, No Other Cardiovascular: Edema Gastrointestinal: No: Nausea, Vomiting, Abdominal Pain, Diarrhea, Constipation, Melena, Hematochezia, Other Genitourinary: Incontinence Musculoskeletal: other (right knee pain) Neurological: No: Weakness, Numbness, Incoordination, Change in speech, Confusion, Seizures, Other Physical Exam Vital Signs Vital Signs - First Documented Capillary Refill : Less Than 3 Seconds Height, Weight, BMI Height: 5'2.00" Weight: 201lbs. 6.0oz. [id number]; 38.47 BMI Method: General Appearance: No Apparent Distress HEENT: Normal ENT Inspection Neck: Supple Respiratory: Lungs Clear Cardiovascular: Regular Rate, Rhythm, Systolic Murmur Gastrointestinal: Normal Bowel Sounds, Non Tender, Soft Rectal: Deferred Back: No CVA Tenderness Extremity: Non Tender, No Calf Tenderness, No Pedal Edema Neurologic/Psychiatric: Alert, Oriented x3 Skin: Warm/Dry, Other (dressing in place and dry) Comments Laboratory Tests 08/30/20 09:04: Glucometer 93 Assessment/Plan Assessment/Plan Admission Dx 1. Severe Right Knee OA--S/P R TKA--pain conrol, DVT prophylaxis, monitor post- op H/H, would benefit from inpatient rehab due to age and other comorbidities and living alone 2. Hypertension--restart home meds 3. DMII--restart metformin with Accuchecks with SSI 4. Hyperlipidemia--resume home statin dose 5. Urinary incontinence--resume generic vesicare DEZ MONTES DO Aug 30, 2020 12:39
--- NOTE | 2020-08-30 13:46 | Physical Therapy Evaluation ---
PT Evaluation-General Medical Diagnosis Admission Date Aug 30, 2020 at 06:04 Medical Diagnosis: right TKA Onset Date: Aug 30, 2020 Therapy Diagnosis Therapy Diagnosis: impaired mobility, strength, endurance, ROM Height/Weight Height (Feet): 5 Height (Inches): 2.00 Weight (Pounds): 201 Weight (Ounces): 6.0 Precautions Precautions/Isolations: Fall Prevention, Standard Precautions Weight Bear Status Right Lower Extremity: Right Weight Bearing/Tolerated Referral Physician: Tj Reason for Referral: Evaluation/Treatment Medical History Additional Medical History PAST MEDICAL HISTORY: Hypertension, hyperlipidemia, diabetes, psoriasis and nightly oxygen. PAST SURGICAL HISTORY: Hysterectomy and right knee arthroscopy. Reviewed History: Yes Social History Current Living Status: Alone Entry Into Home: Stairs With Railing PT Steps Into Home: 4 Patient's family member says they are very small steps. Prior Prior Level of Function SCALE: Activities may be completed with or without assistive devices. 0-Ufdlsrvvlp-xxkvmsu completes the activity by him/herself with no assistance from a helper. 5-Set-up or Clean-up Assistance-helper sets up or cleans up; patient completes activity. [place] assists only prior to or following the activity. 4-Supervision or Touching Assistance-helper provides verbal cues and/or touching/steadying and/or contact guard assistance as patient completes activit y. Assistance may be provided throughout the activity or intermittently. 3-Partial/Moderate Assistance-helper does LESS THAN HALF the effort. [place] lifts, holds or supports trunk or limbs, but provides less than half the effort. 2-Substantial/Maximal Assistance-helper does MORE THAN HALF the effort. [place] lifts or holds trunk or limbs and provides more than half the effort. 2-Jdefehusk-blojhg does ALL the effort. Patient does none of the effort to complete the activity. Or, the assistance of 2 or more helpers is required for the patient to complete the activity. If activity was not attempted, code reason: 7-Patient Refused. 9-Not Applicable-not attempted and the patient did not perform the activity before the current illness, exacerbation or injury. 10-Not Attempted due to Environmental Limitations-(lack of equipment, weather restraints, etc.). 88-Not Attempted due to Medical Conditions or Safety Concerns. Bed Mobility: 6 Transfers (B,C,W/C): 6 Gait: 6 Stairs: 6 Indoor Mobility (Ambulation): Independent Stairs: Independent PT Evaluation-Current Subjective Patient in bed pre tx, agrees to PT, has no complaints of pain at rest but does have unrated pain in right knee with activity. Pt/Family Goals to be independent at home Objective Patient Orientation: Person, Place, Situation Attachments: Oxygen ROM/Strength ROM Lower Extremities right knee flexion 65 degrees, patient has full knee extension Sensory Hearing: Functional Sensation Right Lower Extremit: Impaired Sensation Left Lower Extremity: Intact Transfers Roll Left to Right (QC): 6 Sit to Lying (QC): 3 Lying to Sitting/Side of Bed(Q: 3 Sit to Stand (QC): 4 Min assist with right leg getting into and out of bed, cues for positioning and safety Gait Does the Patient Walk?: Yes Mode of Locomotion: Walk Walk 10 feet (QC): 4 Distance: 10' Gait Assistive Device: FWW Comments/Gait Description Patient ambulated 5' forward and 5' back, then sidestepped to the head of the bed a few steps. Patient's knee bore weight just fine, no buckling. Balance Sitting Static: Normal Sitting Dynamic: Normal Standing Static: Good Standing Dynamic: Good Treatment RLE TKA protocol x10 (AP, QS, HS, SAQ, SLR), CPM donned and fit to leg and set to 60/-2 degrees. Assessment/Needs Patient in bed post tx with nurse call, phone, marthay, SCD's on, polar care on, CPM donned, family in room. Patient has impaired mobility, strength, endurance, ROM. Performed well for her first time up, only mild light headedness with supine to sit, none with standing. 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 Goals Time Frame: Sep 06, 2020 Roll Left & Right (QC): 6 Sit to Lying (QC): 4 Lying-Sitting on Side/Bed(QC): 4 Sit to Stand (QC): 4 Chair/Quo-ls-Gnvih Xfer(QC): 4 Walk 10 feet (QC): 4 Walk 50ft with 2 Turns (QC): 4 Walk 150 ft (QC): 4 PT Plan Problem List Problem List: Activity Tolerance, Functional Strength, Safety, Balance, Gait, Transfer, Bed Mobility, ROM Treatment/Plan Treatment Plan: Continue Plan of Care Treatment Plan: Bed Mobility, Education, Functional Activity Rajni, Functional Strength, Gait, Safety, Therapeutic Exercise, Transfers Treatment Duration: Sep 06, 2020 Frequency: 11 times per week Estimated Hrs Per Day: .25 hour per day Patient and/or Family Agrees t: Yes Safety Risks/Education Patient Education: Gait Training, Transfer Techniques, Reviewed Use of Ice, Correct Positioning, Safety Issues Teaching Recipient: Patient Teaching Methods: Demonstration, Discussion Response to Teaching: Reinforcement Needed Discharge Recommendations Plan Patient will perform bed mobility and transfer training, balance and endurance training, functional strengthening, stair training, gait training, and education, to improve functional mobility and independence at home. Therapy Discharge Recommendati: Home & Family, Post Acute PT Time/GCodes Time In: 1313 Time Out: 1334 Total Billed Treatment Time: 21 Total Billed Treatment 1 visit EVJoseph ' CHANELL SEPULVEDA PT Aug 30, 2020 13:46
--- NOTE | 2020-08-30 14:00 | OPERATIVE REPORT ---
DATE OF SERVICE: 08/30/2020 PREOPERATIVE DIAGNOSIS: Right knee primary osteoarthritis. POSTOPERATIVE DIAGNOSIS: Right knee primary osteoarthritis. PROCEDURE: Right total knee arthroplasty. SURGEON: Robert Troncoso MD ORNAMENTAL IRON WORKER HELPER: Garth Spencer, who assisted throughout the procedure and closed the incision. ANESTHESIA: General endotracheal by Austyn Lopez CRNA. TOURNIQUET TIME: 55 minutes at 300 mmHg. ESTIMATED BLOOD LOSS: Minimal. DRAINS: None. COMPLICATIONS: None. POSTOPERATIVE PLAN: Routine total knee arthroplasty protocol. The patient was transferred to the recovery room awake and in stable condition. MATERIALS: Microport cemented size 3 femur, cemented size 3 tibia with 12 mm insert and a cemented size 32 patellar button. STATEMENT OF MEDICAL NECESSITY: The patient is an 84-year-old female with longstanding progressive right knee pain. She has undergone treatment with injections, arthroscopy, anti-inflammatories and rest without relief. Due to functional impairment and failure to improve with conservative measures, the patient elected to proceed with surgical intervention. Radiographs revealed severe medial and patellofemoral arthrosis. DESCRIPTION OF PROCEDURE: After risks and benefits of the procedure were discussed and questions were answered, an informed consent was signed and placed on the chart. The operative site was confirmed in the preoperative holding area and initialed by the surgeon. The patient was then transported to the operating room and after adequate levels of general endotracheal anesthetic were obtained, a timeout was called, confirming the operative site. The right lower extremity was prepped and draped in the usual sterile fashion with the leg elevated and the knee flexed, the tourniquet was inflated to 300 mmHg. Standard anterior approach was utilized. Hemostasis was obtained with cautery. Medial parapatellar arthrotomy was performed leaving 1 cm cuff on the patella for later reattachment. A portion of the fat pad was resected. The ACL was resected. Subperiosteal release was performed on the proximal medial tibia being careful to stay on the bony surface. The intramedullary guide was passed into the femoral canal. The distal cutting block was placed and distal cut was made. The femur sized to a size 3. The 3 cutting block was placed parallel to the epicondylar axis and cuts were made from posterior to anterior. The intramedullary guide was then passed into the tibia after performing a subperiosteal release of the posterior distal femur with a curved osteotome. The cutting block was placed in the tibia. The drop tarik transected the intermalleolar axis and cut was made. A 3 baseplate was placed. The drop tarik transected the intermalleolar axis. The baseplate was then prepared with the drill and keel punch. The femoral trial was placed. The trochlear cut was made. A 12 mm insert was placed. The patella was then prepared by resecting 10 mm off the undersurface using the freehand technique. The peg guide was placed and peg holes were drilled. The trials were inserted. The knee demonstrated full extension, 120 degrees of flexion with gravity was easily obtained. The patella tracked well. There was no anterior/posterior or medial/lateral laxity in flexion or extension. The trials were removed. The joint was irrigated with pulse lavage. Periarticular block was placed in the posterior capsule, medial and lateral retinaculum, extensor mechanism, and subcutaneous tissues. The bone ends were irrigated and dried. The tibial baseplate was cemented into position. Excessive cement was removed. The superior surface was irrigated and dried and the polyethylene insert was placed. The distal femur was then irrigated and dried and the femoral prosthesis was cemented into position. Excessive cement was removed. The knee was brought out into full extension until the cement had cured. The undersurface of patella was irrigated and dried and the polyethylene insert was placed. This was clamped and held into position until the cement had cured. Once the cement had cured, the knee was taken through range of motion. Full extension was easily obtained. A 120 degrees of flexion with gravity was easily obtained. The patella tracked well. There was no anterior/posterior or medial/lateral laxity in flexion or extension. The joint was further irrigated. Knee arthrotomy was closed with #2 Tevdek in hmfjha-vz-rdhdk interrupted fashion and the knee was flexed. The patella tracked well with no undue tension noted at the repair site. Subcutaneous tissues were irrigated using a total of 6 liters throughout the procedure. A 0 Vicryl was used for the deep subcutaneous layer, 2-0 Vicryl for the superficial subcutaneous layers, oscar used on the skin. A soft dressing was applied. The tourniquet was deflated. The patient was transferred to the recovery room awake and in stable condition. Job ID: [id number] DocumentID: [id number] Dictated Date: 08/30/2020 09:01:18 Laundry Tub Maker Date: 08/30/2020 14:00:11 Dictated By: ROBERT TRONCOSO MD
[2020-08-30] MEDS: CEFUROXIME INJECTION 750 MG in WATER (STERILE) FOR INJECTION 10 ML IV SCH ×2 (15:55→23:31)
[2020-08-30] MEDS ORDERED: RT-ALBUTEROL/IPRATROPIUM 3 ML (DUONEB) VIAL INH PRN (16:00)
[2020-08-30] MEDS: NS IV 1000 ML 1,000 ML IV SCH (19:35)
[2020-08-30] MEDS: SENNA W/DOCUSATE (SENOKOT S) TABLET PO SCH (20:37)
[2020-08-30] MEDS: ATENOLOL 50 MG (TENORMIN) TAB PO SCH (20:37)
[2020-08-30] MEDS: TROSPIUM 20 MG (SANCTURA) TAB PO SCH (20:37)
[2020-08-30] MEDS: oxyCODONE/APAP 5/325MG (PERCOCET 5) TABLET PO PRN ×2 (20:41→22:48)
[2020-08-30] MEDS ORDERED: NON-FORMULARY MEDICATION 1 EA EA (Atenolol 100 MG) PO SCH (21:00)
[2020-08-30] MEDS ORDERED: NON-FORMULARY MEDICATION 1 EA EA (Solifenacin Succinate 10 MG) PO SCH (21:00)
[2020-08-30] MEDS ORDERED: SIMvastatin 40 MG (ZOCOR) TAB PO SCH (21:00)
[2020-08-31] VITALS (7 sets, daily range): BP systolic 122–159; BP diastolic 64–83
[2020-08-31] MEDS: oxyCODONE/APAP 5/325MG (PERCOCET 5) TABLET PO PRN ×5 (04:42→20:02)
[2020-08-31] MEDS: SENNA W/DOCUSATE (SENOKOT S) TABLET PO SCH ×3 (05:34→21:08)
[2020-08-31] MEDS: NS IV 1000 ML 1,000 ML IV SCH ×2 (05:35→06:18)
[2020-08-31 05:53] LABS: HEMOGLOBIN 13.5 g/dL (11.5-16.0)
[2020-08-31] MEDS: inSUlin ASPART (NovoLOG) 1 UNIT/0.01 ML (CHARGE PER UNIT) SC SCH ×4 (06:13→21:07)
[2020-08-31] MEDS: MULTIVIT W/MINERALS TAB (THERAGRAN M) PO SCH (06:19)
[2020-08-31] MEDS: metFORMIN 500 MG (GLUCOPHAGE) TAB PO SCH (06:19)
--- NOTE | 2020-08-31 07:48 | Anesthesia-General Post-Op ---
General Patient Condition Mental Status/LOC: Same as Preop Cardiovascular: Satisfactory Nausea/Vomiting: Absent Respiratory: Satisfactory Pain: Controlled Complications: Absent Post Op Complications Complications None Follow Up Care/Instructions Patient Instructions None needed. Anesthesia/Patient Condition Patient Condition Patient is doing well, no complaints, stable vital signs, no apparent adverse anesthesia problems. No complications reported per nursing. D/C home per [facility] Criteria: Yes TORSTEN CARRIZALES CRNA Aug 31, 2020 07:48
--- NOTE | 2020-08-31 08:03 | Progress Note ---
Standard Progress Note Progress Notes/Assess & Plan Date Seen by a Provider: Aug 31, 2020 Time Seen by a Provider: 08:02 Progress/Assessment & Plan post op check no complaints radiographs--HW well positioned without fracture RLE--2 plus DP pulse with brisk cap refill intact DF and PF of toes and ankle. Sensation intact to light touch throughout s/p RTKA mobilize as able Final Diagnosis no complaints Vital Signs Date Time Temp Pulse Resp B/P (MAP) Pulse Ox O2 Delivery O2 Flow Rate FiO2 08/31/20 06:24 91 Nasal Cannula 4.00 08/31/20 04:42 36.2 67 18 141/75 (97) 92 Nasal Cannula 4.00 08/31/20 00:28 36.0 65 18 126/66 (86) 91 Nasal Cannula 4.00 08/30/20 20:40 95 Nasal Cannula 4.00 08/30/20 20:00 36.8 59 20 143/64 (90) 95 Nasal Cannula 4.00 08/30/20 15:49 36.1 56 93 08/30/20 15:48 93 Nasal Cannula 4.00 08/30/20 15:43 36.1 56 18 135/92 (106) 94 Nasal Cannula 4.00 08/30/20 11:20 36.4 60 16 150/71 (97) 97 OxyMask 6.00 08/30/20 10:40 36.8 08/30/20 10:27 58 16 151/70 (97) 08/30/20 10:05 36.4 16 134/78 (96) 93 OxyMask 6 08/30/20 10:05 OxyMask 6 08/30/20 10:00 16 134/78 (96) 93 OxyMask 6 08/30/20 10:00 OxyMask 6 08/30/20 09:50 16 135/77 (96) 94 OxyMask 6 08/30/20 09:45 OxyMask 8 08/30/20 09:40 20 145/70 (95) 92 OxyMask 8 08/30/20 09:30 16 135/81 (99) 91 OxyMask 8 08/30/20 09:30 OxyMask 8 08/30/20 09:20 22 127/66 (86) 89 OxyMask 10 08/30/20 09:15 OxyMask 10 08/30/20 09:10 25 128/67 (87) 91 OxyMask 10 08/30/20 09:00 36.8 24 136/74 (94) 92 OxyMask 10 08/30/20 09:00 OxyMask 10 I & O 08/31/20 07:00 Intake Total 3085 ml Output Total 1625 ml Balance 1460 ml Laboratory Tests Test 08/30/20 09:04 08/30/20 15:46 08/30/20 20:38 08/31/20 05:40 Range/Units Glucometer 93 129 H 108 70-110 MG/DL Hemoglobin 13.5 11.5-16.0 g/dL Hematocrit 43 35-52 % Test 08/31/20 06:12 Range/Units Glucometer 104 70-110 MG/DL RLE--dressing intact. No calf tenderness. Neg Timothy's s/p RTKA PT/OT SUSHMAU ARUN Javier MD Aug 31, 2020 08:03
[2020-08-31] MEDS: VITAMIN D3 25 MCG (1,000 UNITS) TABLET PO SCH (08:33)
[2020-08-31] MEDS: amLODIPine 5 MG (NORVASC) TAB PO SCH (08:33)
[2020-08-31] MEDS: ASPIRIN 81 MG CHEW (CHILDREN'S ASA) PO SCH (08:33)
[2020-08-31] MEDS: ATENOLOL 50 MG (TENORMIN) TAB PO SCH ×2 (08:33→21:08)
[2020-08-31] MEDS: lisINopril 40 MG (PRINIVIL) TABLET PO SCH (08:33)
[2020-08-31] MEDS: ENOXAPARIN 30 MG/0.3 ML (LOVENOX) SYR SC SCH ×2 (08:35→20:01)
[2020-08-31] MEDS ORDERED: NON-FORMULARY MEDICATION 1 EA EA (Cholecalciferol (Vitamin D3) (Vitamin D3) 25 MCG) PO SCH (09:00)
[2020-08-31] MEDS ORDERED: NON-FORMULARY MEDICATION 1 EA EA (Multivitamin 1 EACH) PO SCH (09:00)
[2020-08-31] MEDS ORDERED: ASPIRIN E.C. 81 MG (ECOTRIN) TAB PO SCH (09:00)
--- NOTE | 2020-08-31 10:22 | Physical Therapy Daily Note ---
PT Daily Note-Current Subjective Patient agrees to PT. Pain Numeric Pain Scale: 8 Location: Right Location Body Site: Knee Pain Description: Acute Mental Status Patient Orientation: Normal For Age Attachments: IV Transfers SCALE: Activities may be completed with or without assistive devices. 8-Whpynvbfgq-khcmqqb completes the activity by him/herself with no assistance from a helper. 5-Set-up or Clean-up Assistance-helper sets up or cleans up; patient completes activity. [place] assists only prior to or following the activity. 4-Supervision or Touching Assistance-helper provides verbal cues and/or touching/steadying and/or contact guard assistance as patient completes activity. Assistance may be provided throughout the activity or intermittently. 3-Partial/Moderate Assistance-helper does LESS THAN HALF the effort. [place] lifts, holds or supports trunk or limbs, but provides less than half the effort. 2-Substantial/Maximal Assistance-helper does MORE THAN HALF the effort. [place] lifts or holds trunk or limbs and provides more than half the effort. 2-Nspjeiyji-kqynjw does ALL the effort. Patient does none of the effort to complete the activity. Or, the assistance of 2 or more helpers is required for the patient to complete the activity. If activity was not attempted, code reason: 7-Patient Refused. 9-Not Applicable-not attempted and the patient did not perform the activity before the current illness, exacerbation or injury. 10-Not Attempted due to Environmental Limitations-(lack of equipment, weather restraints, etc.). 88-Not Attempted due to Medical Conditions or Safety Concerns. Lying to Sitting/Side of Bed(Q: 4 Sit to Stand (QC): 4 Chair/Gyc-kx-Wsehj Xfer(QC): 4 Toilet Transfer (QC): 4 Weight Bearing Right Lower Extremity: Right Weight Bearing/Tolerated Gait Training Does the Patient Walk?: Yes Distance: 75' Walk 10 feet (QC): 4 Walk 50 ft with 2 Turns(QC): 4 Gait Assistive Device: FWW slow and antalgic Exercises Supine Ex: Ankle pumps, Quad Set, Heel Slides, Straight leg raise Supine Reps: 10 Seated Therapy Exercises: Long arc quads Seated Reps: 15 Assessment Patient is up in recliner with needs met. PT to increase activity as tolerated by patient. Patient progressing per protocol. PT Photo Cartographer Goals Photo Cartographer Goals PT [facility] Goals Time Frame: Sep 06, 2020 Roll Left & Right (QC): 6 Sit to Lying (QC): 4 Lying-Sitting on Side/Bed(QC): 4 Sit to Stand (QC): 4 Chair/Geu-sn-Hkbfi Xfer(QC): 4 Walk 10 feet (QC): 4 Walk 50ft with 2 Turns (QC): 4 Walk 150 ft (QC): 4 PT Plan Treatment/Plan Treatment Plan: Continue Plan of Care Treatment Plan: Bed Mobility, Education, Functional Activity Rajni, Functional Strength, Gait, Safety, Therapeutic Exercise, Transfers Treatment Duration: Sep 06, 2020 Frequency: 11 times per week Estimated Hrs Per Day: .25 hour per day Patient and/or Family Agrees t: Yes Time/GCodes Time In: 830 Time Out: 857 Total Billed Treatment Time: 27 Total Billed Treatment 1 visit EX 12 min GT 15 min KATIE EUGENE PT Aug 31, 2020 10:22
--- NOTE | 2020-08-31 12:20 | Occupational Therapy Eval ---
OT Evaluation-General/PLF Medical Diagnosis Admission Date Aug 30, 2020 at 06:04 Medical Diagnosis: right TKA Onset Date: Aug 30, 2020 Therapy Diagnosis Therapy Diagnosis: Weakness, Decreased ADL skills Height/Weight Height (Feet): 5 Height (Inches): 2.00 Weight (Pounds): 201 Weight (Ounces): 6.0 Precautions Precautions/Isolations: Fall Prevention, Standard Precautions Weight Bear Status Weight Bearing Restriction: Weight Bearing/Tolerated Referral Physician: Karyna Referral Reason: Activity Tolerance, Self Care, Evaluation/Treatment, Strengthening/ROM Medical History Pertinent Medical History: DM, HTN Additional Medical History Hyperlipidemia, psoriasis, hysterectomy, hyperlipidemia Reviewed History: Yes Social History Home: Single Level Current Living Status: Alone Entry Into Home: Stairs With Railing Steps Into Home: 4 ADL-Prior Level of Function SCALE: Activities may be completed with or without assistive devices. 7-Zcivygxyds-evlkbwk completes the activity by him/herself with no assistance from a helper. 5-Set-up or Clean-up Assistance-helper sets up or cleans up; patient completes activity. [place] assists only prior to or following the activity. 4-Supervision or Touching Assistance-helper provides verbal cues and/or touching/steadying and/or contact guard assistance as patient completes activity. Assistance may be provided throughout the activity or intermittently. 3-Partial/Moderate Assistance-helper does LESS THAN HALF the effort. [place] lifts, holds or supports trunk or limbs, but provides less than half the effort. 2-Substantial/Maximal Assistance-helper does MORE THAN HALF the effort. [place] lifts or holds trunk or limbs and provides more than half the effort. 7-Zdoxgmgef-jbhqrm does ALL the effort. Patient does none of the effort to complete the activity. Or, the assistance of 2 or more helpers is required for the patient to complete the activity. If activity was not attempted, code reason: 7-Patient Refused. 9-Not Applicable-not attempted and the patient did not perform the activity before the current illness, exacerbation or injury. 10-Not Attempted due to Environmental Limitations-(lack of equipment, weather restraints, etc.). 88-Not Attempted due to Medical Conditions or Safety Concerns. ADL PLOF Comments Pt. states that she was independent with daily tasks previous to this hospitalization. She has a walker but only uses it at home "sometimes." Self Care: Independent Functional Cognition: Independent DME/Equipment: Bath Chair, Shower DME/Equipment Comments Walker OT Current Status Subjective Pt. reports 10/10 pain in right knee after ambulating to bathroom. Requested pain medication. OT let nursing know. Mental Status/Objective Patient Orientation: Person, Place, Time, Situation Attachments: Oxygen ADL-Treatment Eating (QC): 5 On/Off Footwear (QC): 2 Toileting Hygiene (QC): 3 (Pt. attempted first while sitting, and was unable to cleanse self. OT assisted with sit-stand, and then balance, and pt. was able to cleanse in stance at walker. Required assist for balance while doffing/donning brief over hips.) Other Treatments Pt. was ambulating to bathroom when OT came into room. She was with nurse aide. OT took over and assisted pt. to bathroom. Cues given for sequencing to slide right LE out, and pull down brief over hips, and slowly lower self. Required min assist to sit on toilet. After toileting, pt. required min assist to stand, and balance self while finishing task. Increased time needed for taking steps with walker to sink to wash hands. Pt. states that she is having pain in right knee, and requests pain pill. After washing hands, pt. ambulates back to chair. Transfers to reclining chair and LE elevated. Polar pack placed and warm blan ket placed. Pt's lunch placed in front and call light placed. Nursing notified pt. would like pain meds. All needs met. Education OT Patient Education: Correct positioning, Modified ADL techniques, Progress toward Goal/Update tx plan, Purpose of tx/functional activities, Reviewed precautions, Rehab process, Transfer techniques Teaching Recipient: Patient Teaching Methods: Demonstration, Discussion Response to Teaching: Verbalize Understanding, Return Demonstration OT Short Term Goals Short Term Goals Time Frame: Sep 07, 2020 Eatin Oral hygiene: 4 Toileting hygiene: 4 Shower/bathe self: 3 Upper body dressin Lower body dressin Putting on/taking off footwear: 3 OT Wraparound Facilitator Goals Skilled Nursing Goals Time Frame: Sep 14, 2020 Eating (QC): 6 Oral Hygiene (QC): 5 Toileting Hygiene (QC): 6 Shower/Bathe Self (QC): 4 Upper Body Dressing (QC): 5 Lower Body Dressing (QC): 5 On/Off Footwear (QC): 6 Additional Goals: 1-Demonstrate ADL Tasks, 2-Verbalize Understanding, 3- ImproveStrength/Rajni 1=Demonstrate adherence to instructed precautions during ADL tasks. 2=Patient will verbalize/demonstrate understanding of assistive device s/modifications for ADL. 3=Patient will improve strength/tolerance for activity to enable patient to perform ADL's. OT Education/Plan Problem List/Assessment Assessment: Decreased Activ Tolerance, Dependent Transfers, Impaired Funct Balance, Impaired I ADL's, Impaired Self-Care Skills Discharge Recommendations Plan/Recommendations: Continue POC Therapy Discharge Recommendati: Post Acute OT Treatment Plan/Plan of Care Treatment,Training & Education: Yes Patient would benefit from OT for education, treatment and training to promote independence in ADL's, mobility, safety and/or upper extremity function for ADL's. Plan of Care: ADL Retraining, Functional Mobility, UE Funct Exercise/Act Treatment Duration: Sep 14, 2020 Frequency: 5 times per week Estimated Hrs Per Day: .25 hour per day Agreement: Yes Rehab Potential: Fair Time/GCodes Start Time: 11:40 Stop Time: 11:55 Total Time Billed (hr/min): 15 Billed Treatment Time 1, SHADY RAANA OT Aug 31, 2020 12:20
--- NOTE | 2020-08-31 12:37 | Progress Note ---
Subjective Date Seen by a Provider: Aug 31, 2020 Time Seen by a Provider: 12:33 Subjective/Events-last exam Fwup Right TKA, HTN, DMII. Is on 4 liters of oxygen. Pain is getting up to 8- 10 at times--required morphine for pain control overnight. Objective Exam Vital Signs Date Time Temp Pulse Resp B/P (MAP) Pulse Ox O2 Delivery O2 Flow Rate FiO2 08/31/20 09:00 Nasal Cannula 4.00 08/31/20 08:00 36.2 73 18 159/83 (108) 93 Nasal Cannula 4.00 08/31/20 06:24 91 Nasal Cannula 4.00 08/31/20 04:42 36.2 67 18 141/75 (97) 92 Nasal Cannula 4.00 08/31/20 00:28 36.0 65 18 126/66 (86) 91 Nasal Cannula 4.00 08/30/20 20:40 95 Nasal Cannula 4.00 08/30/20 20:00 36.8 59 20 143/64 (90) 95 Nasal Cannula 4.00 08/30/20 15:49 36.1 56 93 08/30/20 15:48 93 Nasal Cannula 4.00 08/30/20 15:43 36.1 56 18 135/92 (106) 94 Nasal Cannula 4.00 I & O 08/31/20 07:00 Intake Total 3085 ml Output Total 1625 ml Balance 1460 ml Capillary Refill : Less Than 3 Seconds General Appearance: No Apparent Distress Neck: Supple Respiratory: Crackles, Decreased Breath Sounds Cardiovascular: Regular Rate, Rhythm, Systolic Murmur Gastrointestinal: normal bowel sounds, non tender, soft Extremity: No Calf Tenderness Neurologic/Psychiatric: Alert, Oriented x3 Results Lab Laboratory Tests 08/30/20 15:46: Glucometer 129H 08/30/20 20:38: Glucometer 108 08/31/20 05:40: Hemoglobin 13.5, Hematocrit 43 08/31/20 06:12: Glucometer 104 08/31/20 11:11: Glucometer 122H Assessment/Plan Assessment/Plan Assess & Plan/Chief Complaint 1. R TKA--pain control, PT/OT, DVT prophylaxis with lovenox, rehab on DC 2. Hypertension--restarted home meds but BP is elevated--may be due to pain, will monitor and increase or add meds if needed 3. DMII--on metformin and accuchecks with SSI 4. Hypoxia--discussed importance of IS, requiring 4L of oxygen via NC, Check CXR and CBC and CMP in AM Clinical Quality Measures Admission Status Admission Dx 1. Severe Right Knee OA--S/P R TKA--pain conrol, DVT prophylaxis, monitor post- op H/H, would benefit from inpatient rehab due to age and other comorbidities and living alone 2. Hypertension--restart home meds 3. DMII--restart metformin with Accuchecks with SSI 4. Hyperlipidemia--resume home statin dose 5. Urinary incontinence--resume generic vesicare DEZ MONTES DO Aug 31, 2020 12:37
--- NOTE | 2020-08-31 13:45 | Physical Therapy Daily Note ---
PT Daily Note-Current Subjective Patient agrees to PT. C/o nausea Mental Status Patient Orientation: Normal For Age Attachments: Oxygen (4L) Transfers SCALE: Activities may be completed with or without assistive devices. 2-Gztfjxcdqj-tksgkrx completes the activity by him/herself with no assistance from a helper. 5-Set-up or Clean-up Assistance-helper sets up or cleans up; patient completes activity. [place] assists only prior to or following the activity. 4-Supervision or Touching Assistance-helper provides verbal cues and/or touching/steadying and/or contact guard assistance as patient completes activity. Assistance may be provided throughout the activity or intermittently. 3-Partial/Moderate Assistance-helper does LESS THAN HALF the effort. [place] lifts, holds or supports trunk or limbs, but provides less than half the effort. 2-Substantial/Maximal Assistance-helper does MORE THAN HALF the effort. [place] lifts or holds trunk or limbs and provides more than half the effort. 1-Spxwocthi-ztumxa does ALL the effort. Patient does none of the effort to complete the activity. Or, the assistance of 2 or more helpers is required for the patient to complete the activity. If activity was not attempted, code reason: 7-Patient Refused. 9-Not Applicable-not attempted and the patient did not perform the activity before the current illness, exacerbation or injury. 10-Not Attempted due to Environmental Limitations-(lack of equipment, weather restraints, etc.). 88-Not Attempted due to Medical Conditions or Safety Concerns. Sit to Stand (QC): 4 (SBA) Toilet Transfer (QC): 4 (SBA) Patient toileted self independently Weight Bearing Right Lower Extremity: Right Weight Bearing/Tolerated Gait Training Does the Patient Walk?: Yes Distance: 175' Walk 10 feet (QC): 4 (SBA) Walk 50 ft with 2 Turns(QC): 4 (SBA) Walk 150 ft (QC): 4 (SBA) Gait Assistive Device: FWW slow, functional gait sequence/slightly antalgic Exercises Seated Therapy Exercises: Ankle pumps, Long arc quads, Hip flexion Seated Reps: 15 Assessment Patient c/o nausea during session. Improving with mobility with increase in distance with gait. ROM right knee 0-80 degrees AROM. PT Telegraph Dispatcher Goals Senior Living Goals PT Senior Living Goals Time Frame: Sep 06, 2020 Roll Left & Right (QC): 6 Sit to Lying (QC): 4 Lying-Sitting on Side/Bed(QC): 4 Sit to Stand (QC): 4 Chair/Qjq-ht-Uhzoy Xfer(QC): 4 Walk 10 feet (QC): 4 Walk 50ft with 2 Turns (QC): 4 Walk 150 ft (QC): 4 PT Plan Treatment/Plan Treatment Plan: Continue Plan of Care Treatment Plan: Bed Mobility, Education, Functional Activity Rajni, Functional Strength, Gait, Safety, Therapeutic Exercise, Transfers Treatment Duration: Sep 06, 2020 Frequency: 11 times per week Estimated Hrs Per Day: .25 hour per day Patient and/or Family Agrees t: Yes Time/GCodes Time In: 1313 Time Out: 1336 Total Billed Treatment Time: 23 Total Billed Treatment 1 visit EX 8 min GT 15 min KATIE EUGENE PT Aug 31, 2020 13:45
--- NOTE | 2020-08-31 14:14 | Diagnostic Imaging Report ---
INDICATION: Hypoxia. COMPARISON: 08/17/2020 FINDINGS: Frontal and lateral radiographic views of the chest were obtained and demonstrates interval increase in size of moderate left-sided pleural effusion. There may be trace effusion on the right as well. No pneumothorax is identified. Cardiac silhouette remains enlarged. Pulmonary vasculature is within normal limits. Osseous structures show no gross acute abnormalities. IMPRESSION: 1. Interval increase in moderate left basilar effusion. 2. New trace right basilar effusion. Dictated by: Dictated on workstation # [id number]
[2020-08-31] MEDS ORDERED: FUROSEMIDE 40 MG/4 ML INJ (LASIX) IVP NR (15:00)
[2020-08-31] MEDS ORDERED: SPIRONOLACTONE 25 MG (ALDACTONE) TAB PO NR (15:00)
[2020-08-31] MEDS ORDERED: KCL 20 MEQ TAB (K-DUR) PO NR (15:00)
[2020-08-31] MEDS: TROSPIUM 20 MG (SANCTURA) TAB PO SCH (21:07)
[2020-09-01 04:12] VITALS: BP 149/70
[2020-09-01] MEDS: inSUlin ASPART (NovoLOG) 1 UNIT/0.01 ML (CHARGE PER UNIT) SC SCH ×2 (05:14→11:29)
[2020-09-01 05:46] LABS: HEMATOCRIT 41 % (35-52); HEMOGLOBIN 12.9 g/dL (11.5-16.0); MEAN CORPUSCULAR HEMOGLOBIN 31 pg (25-34); MEAN CORPUSCULAR HGB CONC 32 g/dL (32-36); MEAN CORPUSCULAR VOLUME 96 fL (80-99); MEAN PLATELET VOLUME 10.2 fL (9.0-12.2); PLATELET COUNT 217 10^3/uL (130-400); WHITE BLOOD COUNT 11.6 10^3/uL (4.3-11.0)
[2020-09-01 05:53] LABS: ALBUMIN 3.3 GM/DL (3.2-4.5)
[2020-09-01 05:54] LABS: CHLORIDE 94 MMOL/L (98-107); POTASSIUM 4.3 MMOL/L (3.6-5.0); SODIUM 136 MMOL/L (135-145)
[2020-09-01 05:55] LABS: CALCIUM 9.2 MG/DL (8.5-10.1)
[2020-09-01 05:56] LABS: GLUCOSE 101 MG/DL (70-105); TOTAL PROTEIN 6.9 GM/DL (6.4-8.2)
[2020-09-01 05:57] LABS: CARBON DIOXIDE 31 MMOL/L (21-32)
[2020-09-01 05:58] LABS: BILIRUBIN,TOTAL 0.8 MG/DL (0.1-1.0)
[2020-09-01 05:59] LABS: ALKALINE PHOSPHATASE 66 U/L (40-136)
[2020-09-01 06:00] LABS: GFR ESTIMATED > 60
[2020-09-01 06:01] LABS: BUN/CREATININE RATIO 13
[2020-09-01 06:03] LABS: ALANINE AMINOTRANSFERASE 16 U/L (0-55)
[2020-09-01] MEDS: metFORMIN 500 MG (GLUCOPHAGE) TAB PO SCH (06:33)
[2020-09-01] MEDS: ENOXAPARIN 30 MG/0.3 ML (LOVENOX) SYR SC SCH (06:33)
[2020-09-01] MEDS: oxyCODONE/APAP 5/325MG (PERCOCET 5) TABLET PO PRN ×3 (06:33→13:44)
[2020-09-01] MEDS: MULTIVIT W/MINERALS TAB (THERAGRAN M) PO SCH (06:33)
--- NOTE | 2020-09-01 07:00 | Progress Note ---
Standard Progress Note Progress Notes/Assess & Plan Date Seen by a Provider: Sep 01, 2020 Time Seen by a Provider: 06:59 Progress/Assessment & Plan post op check no complaints radiographs--HW well positioned without fracture RLE--2 plus DP pulse with brisk cap refill intact DF and PF of toes and ankle. Sensation intact to light touch throughout s/p RTKA mobilize as able Final Diagnosis No complaints Vital Signs Date Time Temp Pulse Resp B/P (MAP) Pulse Ox O2 Delivery O2 Flow Rate FiO2 09/01/20 04:12 36.8 74 18 149/70 (96) 91 Nasal Cannula 4.00 08/31/20 23:48 36.2 71 18 147/64 (91) 93 Nasal Cannula 4.00 08/31/20 21:00 Nasal Cannula 4.00 08/31/20 19:44 35.9 61 20 122/78 (93) 94 Nasal Cannula 4.00 08/31/20 15:30 36.2 62 20 126/78 (94) 96 Nasal Cannula 4.00 08/31/20 12:00 36.6 64 16 134/81 (98) 94 Nasal Cannula 4.00 08/31/20 09:00 Nasal Cannula 4.00 08/31/20 08:00 36.2 73 18 159/83 (108) 93 Nasal Cannula 4.00 I & O 09/01/20 07:00 Intake Total 2030 ml Output Total 2550 ml Balance -520 ml Laboratory Tests Test 08/31/20 11:11 08/31/20 17:03 08/31/20 20:28 09/01/20 05:14 Range/Units Glucometer 122 H 140 H 143 H 101 70-110 MG/DL Test 09/01/20 05:25 Range/Units White Blood Count 11.6 H 4.3-11.0 10^3/uL Red Blood Count 4.23 3.80-5.11 10^6/uL Hemoglobin 12.9 11.5-16.0 g/dL Hematocrit 41 35-52 % Mean Corpuscular Volume 96 80-99 fL Mean Corpuscular Hemoglobin 31 25-34 pg Mean Corpuscular Hemoglobin Concent 32 32-36 g/dL Red Cell Distribution Width 12.8 10.0-14.5 % Platelet Count 217 130-400 10^3/uL Mean Platelet Volume 10.2 9.0-12.2 fL Sodium Level 136 135-145 MMOL/L Potassium Level 4.3 3.6-5.0 MMOL/L Chloride Level 94 L 98-107 MMOL/L Carbon Dioxide Level 31 21-32 MMOL/L Anion Gap 11 5-14 MMOL/L Blood Urea Nitrogen 10 7-18 MG/DL Creatinine 0.80 0.60-1.30 MG/DL Estimat Glomerular Filtration Rate > 60 BUN/Creatinine Ratio 13 Glucose Level 101 70-105 MG/DL Calcium Level 9.2 8.5-10.1 MG/DL Corrected Calcium 9.8 8.5-10.1 MG/DL Total Bilirubin 0.8 0.1-1.0 MG/DL Aspartate Amino Transf (AST/SGOT) 18 5-34 U/L Alanine Aminotransferase (ALT/SGPT) 16 0-55 U/L Alkaline Phosphatase 66 40-136 U/L Total Protein 6.9 6.4-8.2 GM/DL Albumin 3.3 3.2-4.5 GM/DL RLE--incision clean and dry. No calf tenderness s/p RTKA PT/OT await disposition ARUN ENGLAND MD Sep 01, 2020 07:00
[2020-09-01 08:00] VITALS: BP 125/63
[2020-09-01] MEDS: ASPIRIN 81 MG CHEW (CHILDREN'S ASA) PO SCH (09:30)
[2020-09-01] MEDS: VITAMIN D3 25 MCG (1,000 UNITS) TABLET PO SCH (09:30)
[2020-09-01] MEDS: ATENOLOL 50 MG (TENORMIN) TAB PO SCH (09:30)
[2020-09-01] MEDS: amLODIPine 5 MG (NORVASC) TAB PO SCH (09:31)
[2020-09-01] MEDS: SENNA W/DOCUSATE (SENOKOT S) TABLET PO SCH (09:31)
[2020-09-01] MEDS: lisINopril 40 MG (PRINIVIL) TABLET PO SCH (09:31)
--- NOTE | 2020-09-01 10:02 | Physical Therapy Daily Note ---
PT Daily Note-Current Subjective Patient agrees to PT. Family present. Pain Numeric Pain Scale: 5-Moderate Pain Location: Right Location Body Site: Knee Pain Description: Acute Mental Status Patient Orientation: Normal For Age Attachments: Oxygen Transfers SCALE: Activities may be completed with or without assistive devices. 6-Aijrgucdya-wfakcnm completes the activity by him/herself with no assistance from a helper. 5-Set-up or Clean-up Assistance-helper sets up or cleans up; patient completes activity. [place] assists only prior to or following the activity. 4-Supervision or Touching Assistance-helper provides verbal cues and/or touchi ng/steadying and/or contact guard assistance as patient completes activity. Assistance may be provided throughout the activity or intermittently. 3-Partial/Moderate Assistance-helper does LESS THAN HALF the effort. [place] lifts, holds or supports trunk or limbs, but provides less than half the effort. 2-Substantial/Maximal Assistance-helper does MORE THAN HALF the effort. [place] lifts or holds trunk or limbs and provides more than half the effort. 2-Qfjjzjdmz-bwjlyu does ALL the effort. Patient does none of the effort to complete the activity. Or, the assistance of 2 or more helpers is required for the patient to complete the activity. If activity was not attempted, code reason: 7-Patient Refused. 9-Not Applicable-not attempted and the patient did not perform the activity before the current illness, exacerbation or injury. 10-Not Attempted due to Environmental Limitations-(lack of equipment, weather restraints, etc.). 88-Not Attempted due to Medical Conditions or Safety Concerns. Lying to Sitting/Side of Bed(Q: 6 Sit to Stand (QC): 4 (SBA) Chair/Sjl-dg-Zccku Xfer(QC): 4 (SBA) Toilet Transfer (QC): 4 (SBA with patient toileting independently) Weight Bearing Right Lower Extremity: Right Weight Bearing/Tolerated Gait Training Does the Patient Walk?: Yes Distance: 200' Walk 10 feet (QC): 4 (SBA) Walk 50 ft with 2 Turns(QC): 4 (SBA) Walk 150 ft (QC): 4 (SBA) Gait Assistive Device: FWW slow, reciprocal pattern Exercises Supine Ex: Ankle pumps, Quad Set, Heel Slides, Straight leg raise Supine Reps: 15 Seated Therapy Exercises: Long arc quads Seated Reps: 15 Assessment Patient up in recliner with needs met. Patient progressing per protocol. 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 PT Weapons Officer [employer] Goals Time Frame: Sep 06, 2020 Roll Left & Right (QC): 6 Sit to Lying (QC): 4 Lying-Sitting on Side/Bed(QC): 4 Sit to Stand (QC): 4 Chair/Ont-ps-Iyrhc Xfer(QC): 4 Walk 10 feet (QC): 4 Walk 50ft with 2 Turns (QC): 4 Walk 150 ft (QC): 4 PT Plan Treatment/Plan Treatment Plan: Continue Plan of Care Treatment Plan: Bed Mobility, Education, Functional Activity Rajni, Functional Strength, Gait, Safety, Therapeutic Exercise, Transfers Treatment Duration: Sep 06, 2020 Frequency: 11 times per week Estimated Hrs Per Day: .25 hour per day Patient and/or Family Agrees t: Yes Time/GCodes Time In: 840 Time Out: 903 Total Billed Treatment Time: 23 Total Billed Treatment 1 visit EX 13 min GT 10 min KATIE EUGENE PT Sep 01, 2020 10:02
[2020-09-01] MEDS ORDERED: FUROSEMIDE 40 MG (LASIX) TAB PO NR (10:30)
[2020-09-01] MEDS ORDERED: KCL 20 MEQ TAB (K-DUR) PO NR (10:30)
--- NOTE | 2020-09-01 10:30 | Progress Note ---
Subjective Date Seen by a Provider: Sep 01, 2020 Time Seen by a Provider: 10:25 Subjective/Events-last exam Fwup Right TKA, HTN, DMII, bilateral pleural effusions with hypoxia. Still on 4 L of oxygen via NC. Did diurese well after IV lasix yesterday. Does complain of some numbness in her right foot. Objective Exam Vital Signs Date Time Temp Pulse Resp B/P (MAP) Pulse Ox O2 Delivery O2 Flow Rate FiO2 09/01/20 04:12 36.8 74 18 149/70 (96) 91 Nasal Cannula 4.00 08/31/20 23:48 36.2 71 18 147/64 (91) 93 Nasal Cannula 4.00 08/31/20 21:00 Nasal Cannula 4.00 08/31/20 19:44 35.9 61 20 122/78 (93) 94 Nasal Cannula 4.00 08/31/20 15:30 36.2 62 20 126/78 (94) 96 Nasal Cannula 4.00 08/31/20 12:00 36.6 64 16 134/81 (98) 94 Nasal Cannula 4.00 I & O 09/01/20 07:00 Intake Total 2030 ml Output Total 2550 ml Balance -520 ml Capillary Refill : Less Than 3 Seconds General Appearance: No Apparent Distress Neck: Supple Respiratory: Decreased Breath Sounds Cardiovascular: Regular Rate, Rhythm, Systolic Murmur Gastrointestinal: normal bowel sounds, non tender, soft Extremity: Non Tender, No Calf Tenderness, No Pedal Edema, Other (dressing dry and in place and ice treatment in place) Neurologic/Psychiatric: Alert, Oriented x3 Results Lab Laboratory Tests 08/31/20 11:11: Glucometer 122H 08/31/20 17:03: Glucometer 140H 08/31/20 20:28: Glucometer 143H 09/01/20 05:14: Glucometer 101 09/01/20 05:25: White Blood Count 11.6H, Red Blood Count 4.23, Hemoglobin 12.9, Hematocrit 41, Mean Corpuscular Volume 96, Mean Corpuscular Hemoglobin 31, Mean Corpuscular Hemoglobin Concent 32, Red Cell Distribution Width 12.8, Platelet Count 217, Mean Platelet Volume 10.2, Sodium Level 136, Potassium Level 4.3, Chloride Level 94L, Carbon Dioxide Level 31, Anion Gap 11, Blood Urea Nitrogen 10, Creatinine 0.80, Estimat Glomerular Filtration Rate > 60, BUN/Creatinine Ratio 13, Glucose Level 101, Calcium Level 9.2, Corrected Calcium 9.8, Total Bilirubin 0.8, Aspartate Amino Transf (AST/SGOT) 18, Alanine Aminotransferase (ALT/SGPT) 16, Alkaline Phosphatase 66, Total Protein 6.9, Albumin 3.3 Assessment/Plan Assessment/Plan Assess & Plan/Chief Complaint 1. R TKA--pain control, PT/OT, DVT prophylaxis with lovenox, rehab on Friday 2. Hypertension--restarted home meds 3. DMII--on metformin and accuchecks with SSI 4. Bilateral Pleural Effusions with Hypoxia--repeat lasix and potassium today, still on 4L of oxygen via [place], repeat CXR in AM, update ECHO 5. Leukocytosis--check UA and recheck CXR in AM, repeat CBC in AM, monitor temp Clinical Quality Measures Admission Status Admission Dx 1. Severe Right Knee OA--S/P R TKA--pain conrol, DVT prophylaxis, monitor post- op H/H, would benefit from inpatient rehab due to age and other comorbidities and living alone 2. Hypertension--restart home meds 3. DMII--restart metformin with Accuchecks with SSI 4. Hyperlipidemia--resume home statin dose 5. Urinary incontinence--resume generic vesicare DEZ MONTES DO Sep 01, 2020 10:30
[2020-09-01 11:45] VITALS: BP 133/73
[2020-09-01 13:53] VITALS: BP 133/73
[2020-09-01 13:56] LABS: BILIRUBIN,URINE NEGATIVE (NEGATIVE); CLARITY,URINE SL CLOUDY; COLOR,URINE YELLOW; GLUCOSE, URINE (UA) NEGATIVE (NEGATIVE); KETONES,URINE NEGATIVE (NEGATIVE); LEUKOCYTE ESTERASE ,URINE 2+ (NEGATIVE); NITRITE,URINE POSITIVE (NEGATIVE); PROTEIN,URINE NEGATIVE (NEGATIVE)
[2020-09-01 14:20] LABS: BACTERIA,URINE LARGE /HPF; WBC,URINE 25-50 /HPF
--- NOTE | 2020-09-02 03:16 | DISCHARGE SUMMARY ---
DATE OF SERVICE: DIAGNOSES: 1. Right knee primary osteoarthritis. 2. Hypertension. 3. Diabetes. 4. Bilateral pleural effusion. HISTORY: The patient is an 84-year-old female who was admitted the day of right total knee arthroplasty. Postoperatively, she did well, but had some shortness of breath. She underwent a chest x-ray, which showed some mild pleural effusions. She underwent diuresis and was improved. At the time of discharge, her wound was clean and dry. She had no calf tenderness and negative Homans sign. CONDITION AT DISCHARGE: Good. DISCHARGE DIET: Regular. DISPOSITION: Transferred to the inpatient rehabilitation unit for continued physical and occupational therapy. 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
== END 2020-09-01 13:57 | disposition home health service (06) | DRG 470 ==
LOC: 4TH 06:04 → SURG 06:05 → 4TH 10:05
PROVIDERS: ADMIT Orthopaedic Surgery; ATTEND Orthopaedic Surgery
PROC: 0SRC0J9 Replacement of Right Knee Joint with Synthetic Substitute, Cemented, Open Approach (ICD-10-PCS; principal; 2020-08-30 07:25)
DX: M17.11 Unilateral primary osteoarthritis, right knee (principal); J90 Pleural effusion, not elsewhere classified; I10 Essential (primary) hypertension; E11.9 Type 2 diabetes mellitus without complications; Z79.82 Long term (current) use of aspirin; Z79.84 Long term (current) use of oral hypoglycemic drugs; Z79.899 Other long term (current) drug therapy; E78.00 Pure hypercholesterolemia, unspecified; G89.29 Other chronic pain; M54.9 Dorsalgia, unspecified; Z85.828 Personal history of other malignant neoplasm of skin; R32 Unspecified urinary incontinence; R09.02 Hypoxemia; D72.829 Elevated white blood cell count, unspecified
CPT/HCPCS: 36415; 71046; 73560; 80053; 81000; 82947; 83880; 85014; 85018; 85027; 86850; 86900; 86901; 87077; 87088; 87186; 93306; 94664; 94760

== ENCOUNTER 2020-09-01 12:31 | Inpatient (IN) | payer MEDICARE, OTHER ==
[~2020-09-01] VITALS: Ht 160 cm; Wt 88.6 kg
--- NOTE | 2020-09-01 12:37 | PM&R Post Admission Assessment ---
PM&R Date of Visit: Sep 01, 2020 Time of Visit: 14:00 History of Present Illness Chief complaint: Recovery from right total knee arthroplasty by Dr. ENGLAND History of present illness: This is an 84-year-old white female clinic patient of Dr. MONTES who presents to inpatient rehab following a right total knee arthroplasty which was uncomplicated but in need of aggressive therapy in order to regain function to live independently at home. She does wear oxygen at home at night but she is currently wearing it 24/ in the hospital. Pain is well controlled. She does have some numbness in her right foot. Daughter at the bedside. Patient reports she is voiding well and denies any significant bowel problems. Her prior level of functioning at home is with a walker. I check meds and labs. Past Vekpcyv-Tluduh-Oirlbd Hx Past Med/Social Hx: Reviewed Nursing Past Med/Soc Hx, Reviewed and Corrections made Patient Social History Marrital Status: single Employed/Student: retired Alcohol Use: Denies Use Smoking Status: Never a Smoker 2nd Hand Smoke Exposure: No Recent Hopitalizations: No Immunizations Up To Date Date of Pneumonia Vaccine: Dec 02, 2016 Date of Influenza Vaccine: Dec 01, 2019 Seasonal Allergies Seasonal Allergies: No Past Medical History Currently Using CPAP: No (wears oxygen at hs) Currently Using BIPAP: No Cardiac: High Cholesterol, Hypertension Reproductive: No Sexually Transmitted Disease: No HIV/AIDS: No Musculoskeletal: Arthritis, Chronic Back Pain Endocrine: Diabetes, Non-Insulin dep Loss of Vision: Denies Hearing Impairment: Denies Cancer: Skin Did You Recieve Any Treatments: Yes What Type of Treatment Did You: Surgical Intervention Skin/Integumentary: Psoriasis History of Blood Disorders: No Adverse Reaction to Blood Reyes: No (N/A) Family History Patient reports no known family medical history. PM&R Allergy/Meds/Data Review Allergies Coded Allergies: No Known Drug Allergies (Unverified , 03/20/20) Home Medications Scheduled Amlodipine Besylate (Amlodipine Besylate), 5 MG PO DAILY, (Reported) Aspirin (Aspirin), 81 MG PO DAILY, (Reported) Atenolol (Atenolol), 100 MG PO BID, (Reported) Cholecalciferol (Vitamin D3) (Vitamin D3), 25 MCG PO DAILY, (Reported) Lisinopril (Lisinopril), 40 MG PO DAILY, (Reported) Metformin HCl (Metformin HCl), 500 MG PO DAILY, (Reported) Multivitamin (Multivitamin), 1 EACH PO DAILY, (Reported) Secukinumab (Cosentyx Pen), 300 MG SQ MONTHLY, (Reported) Simvastatin (Simvastatin), 40 MG PO HS, (Reported) Solifenacin Succinate (Solifenacin Succinate), 10 MG PO HS, (Reported) Current Medications Current Medications Reviewed Review of Systems Constitutional: see HPI, malaise, weakness EENTM: no symptoms reported Respiratory: no symptoms reported Cardiovascular: no symptoms reported Gastrointestinal: no symptoms reported Genitourinary: no symptoms reported Musculoskeletal: joint pain Skin: no symptoms reported Psychiatric/Neurological: No Symptoms Reported All Other Systems Reviewed Negative Unless Noted: Yes Physical Exam Physical Exam Vital Signs Capillary Refill : Height, Weight, BMI Height: 5'2.00" Weight: 201lbs. 6.0oz. [id number]; 38.47 BMI Method: General Appearance: No Apparent Distress, WD/WN, Chronically ill, Obese Eyes: Bilateral Eye Normal Inspection, Bilateral Eye PERRL HEENT: PERRL/EOMI, Normal ENT Inspection, Pharynx Normal Neck: Full Range of Motion, Normal Inspection, Non Tender, Supple, Carotid Bruit Respiratory: Chest Non Tender, Lungs Clear, Normal Breath Sounds, No Accessory Muscle Use, No Respiratory Distress Cardiovascular: Regular Rate, Rhythm, No Edema, No Gallop, No JVD, No Murmur, Normal Peripheral Pulses Gastrointestinal: Normal Bowel Sounds, No Organomegaly, No Pulsatile Mass, Non Tender, Soft Back: Normal Inspection, No CVA Tenderness, No Vertebral Tenderness Extremity: Normal Capillary Refill, Normal Inspection, Normal Range of Motion (Except right leg postop), Non Tender, No Calf Tenderness, No Pedal Edema Neurologic/Psychiatric: Alert, Oriented x3, No Motor/Sensory Deficits, Normal Mood/Affect Skin: Normal Color, Warm/Dry Lymphatic: No Adenopathy PM&R Medical Assessment & Plan REHAB/MEDICAL ASSESSMENT AND PLAN: REHAB IMPAIRMENT GROUP: Right knee arthroplasty ETIOLOGIC DIAGNOSIS: Right knee arthroplasty The comorbidities that impact the patients function and/or functional outcome by: Chronic O2 dependence, right foot numbness, obesity REHAB PLAN: The patient is being admitted to our comprehensive inpatient rehabilitation facility and can tolerate the intensity of service consisting of at least: 180 minutes of therapy a day, 5 out of 7 days a week Rehab treatment will consist of: PT and OT will focus on regaining enough function with ambulatory skills and fall risk prevention and increase independence in ADLs in order to return home independently The patient/family has a good understanding of our discharge process and will benefit from an interdisciplinary inpatient rehabilitation program. The patient has potential to make improvement and is in need of at least two of the following multidisciplinary therapies including but not limited to physical, occupational, speech, and prosthetics and orthotics. Additionally the patient will need services from respiratory, nutritional services, wound care, psychology, etc. (Customize this to each patient). Given the patients complex condition and risk of further medical complications, rehabilitation services cannot be safely or effectively provided at a lower level of care such as a penitentiary facility. BARRIERS TO DISCHARGE: Advanced age ESTIMATED LOS: 7 days DISPOSITION: Home RELEVANT CHANGES SINCE PREADMISSION SCREENING: I have compared the patients medical and functional status at the time of the preadmission screening and there are: no changes PROGNOSIS: Good REHABILITATION GOALS: 1. PT and OT will focus on regaining enough function with ambulatory skills and fall risk prevention and increase independence in ADLs in order to return home independently All the above goals were reviewed with the patient and he/she is in agreement. By signing this document, I acknowledge that I have personally performed a full physical examination on this patient within 24 hours of admission to this inpatient rehabilitation facility and have determined the patient to be able to tolerate the above course of treatment at an intensive level for a reasonable period of time. I will be completing a detailed individualized Plan of Care for this patient by day #4 of the patients stay based upon the Preadmission Screen, the Post-Admission Evaluation, and the therapy evaluations. Admission Dx/Comorbidities: (1) Status post total knee replacement, right ICD Codes: Z96.651 - Presence of right artificial knee joint (2) Nocturnal hypoxia ICD Codes: G47.34 - Idiopathic sleep related nonobstructive alveolar hypoventilation (3) Obesity ICD Codes: E66.9 - Obesity, unspecified (4) Diabetes ICD Codes: E11.9 - Type 2 diabetes mellitus without complications (5) Advanced age ICD Codes: R54 - Age-related physical debility Assessment/Plan Assessment and Plan Assess & Plan/Chief Complaint Assessment: Status post right total knee arthroplasty Chronic nocturnal hypoxia maintain on O2 Obesity Advanced age Diabetes Hypertension Plan: Inpatient rehab protocol O2 Pain control Lovenox for DVT prophylaxis KIERRA ARCHULETA DO Sep 01, 2020 12:37
[2020-09-01] MEDS ORDERED: guaiFENesin/CODEINE (ROBITUSSIN AC) 10ML UDC PO PRN (12:45)
[2020-09-01] MEDS ORDERED: FLEET ENEMA ADULT 1 EA BTL PR PRN (12:45)
[2020-09-01] MEDS ORDERED: HYDROcodone/APAP 5 MG/325 MG (LORTAB) TAB PO PRN (12:45)
[2020-09-01] MEDS ORDERED: LOPERAMIDE 2 MG (IMODIUM) TABLET PO PRN (12:45)
[2020-09-01] MEDS ORDERED: ALPRAZolam 0.25 MG (XANAX) TAB PO PRN (12:45)
[2020-09-01] MEDS ORDERED: BISACODYL 10 MG SUPP (DULCOLAX) PR PRN (12:45)
[2020-09-01] MEDS ORDERED: DOCUSATE SODIUM 100 MG (COLACE) CAP PO PRN (12:45)
[2020-09-01] MEDS ORDERED: LACTULOSE SYRUP 10GM/15ML (ENULOSE) 30ML UDC PO PRN (12:45)
[2020-09-01] MEDS ORDERED: MELATONIN 3 MG TABLET PO PRN (12:45)
[2020-09-01] MEDS ORDERED: CALCIUM CARBONATE 500 MG (TUMS) TAB.CHEW PO PRN (12:45)
[2020-09-01] MEDS ORDERED: diphenhydrAMINE 25 MG TAB (BENADRYL) PO PRN (12:45)
[2020-09-01] MEDS ORDERED: ACETAMINOPHEN 325 MG TABLET PO PRN (12:45)
[2020-09-01] MEDS ORDERED: diphenhydrAMINE 50 MG/ML INJ (BENADRYL) IVP PRN (14:30)
[2020-09-01] MEDS ORDERED: ENOXAPARIN 30 MG/0.3 ML (LOVENOX) SYR SC SCH (14:30)
[2020-09-01] MEDS ORDERED: morphine INJ 10 MG/ML 1ML (SYR OR VIAL) IVP PRN (14:30)
[2020-09-01] MEDS ORDERED: ONDANSETRON 4 MG/2 ML (SDV) Z0FRAN IVP PRN (14:30)
[2020-09-01] MEDS ORDERED: RT-ALBUTEROL/IPRATROPIUM 3 ML (DUONEB) VIAL INH PRN (14:30)
--- NOTE | 2020-09-01 14:38 | Physical Therapy Evaluation ---
PT Evaluation-General Medical Diagnosis Admission Date Sep 01, 2020 at 13:45 Medical Diagnosis: Right TKA Onset Date: Aug 31, 2020 Therapy Diagnosis Therapy Diagnosis: gait deficit, generalized weakness Height/Weight Height (Feet): 5 Height (Inches): 2.00 Weight (Pounds): 201 Weight (Ounces): 6.0 Weight Bear Status Right Lower Extremity: Right Weight Bearing/Tolerated Referral Reason for Referral: Evaluation/Treatment, Strengthening, Gait, Up in Chair, ROM Medical History Pertinent Medical History: DM, HTN Social History Home: Mobile Home Current Living Status: Alone Entry Into Home: Stairs With Railing (5 steps with 1 rail on right ascending) PT Steps Into Home: 5 PT Steps Inside Home: 0 Prior Prior Level of Function SCALE: Activities may be completed with or without assistive devices. 3-Okgennkokh-ucgaltn completes the activity by him/herself with no assistance from a helper. 5-Set-up or Clean-up Assistance-helper sets up or cleans up; patient completes activity. [place] assists only prior to or following the activity. 4-Supervision or Touching Assistance-helper provides verbal cues and/or touching/steadying and/or contact guard assistance as patient completes activity. Assistance may be provided throughout the activity or intermittently. 3-Partial/Moderate Assistance-helper does LESS THAN HALF the effort. [place] lifts, holds or supports trunk or limbs, but provides less than half the effort. 2-Substantial/Maximal Assistance-helper does MORE THAN HALF the effort. [place] lifts or holds trunk or limbs and provides more than half the effort. 6-Wxgjemkbh-unmqup does ALL the effort. Patient does none of the effort to complete the activity. Or, the assistance of 2 or more helpers is required for the patient to complete the activity. If activity was not attempted, code reason: 7-Patient Refused. 9-Not Applicable-not attempted and the patient did not perform the activity before the current illness, exacerbation or injury. 10-Not Attempted due to Environmental Limitations-(lack of equipment, weather restraints, etc.). 88-Not Attempted due to Medical Conditions or Safety Concerns. Bed Mobility: 6 Transfers (B,C,W/C): 6 Gait: 6 Stairs: 6 Wheelchair Mobility: 6 Indoor Mobility (Ambulation): Independent Stairs: Independent Prior Devices Use: Walker Prior Device Use: FWW PT Evaluation-Current Subjective Co-treat with OT as the for skill of 2 clinicians required due to need for heavy assist with physical, tactile, and verbal cues. Time for co-treat from 14:10- 15:15. Pain Numeric Pain Scale: 3 Location: Right Location Body Site: Knee Pain Description: Ache Pt/Family Goals Have less pain, walk better and return home. Objective Patient Orientation: Person, Place, Time, Situation Attachments: Oxygen Neuromuscular (Tone, Coordination, Reflexes) Tone-normal Coordination- normal and intact Sensory Vision: Functional Hearing: Functional Sensation Right Lower Extremit: Impaired (Reports numbness in right Great toe and unable to feel light touch; nurse notified.) Sensation Left Lower Extremity: Intact Transfers Roll Left & Right (QC): 4 Sit to Lying (QC): 4 Lying to Sitting/Side of Bed(Q: 4 Sit to Stand (QC): 4 Chair/Pvl-yn-Dlezj Xfer(QC): 4 Toilet Transfer (QC): 4 Car Transfer (QC): 4 Gait Does the Patient Walk?: Yes Mode of Locomotion: Walk Anticipated Mode of Locomotion: Walk Walk 10 feet (QC): 4 Walk 50 ft with 2 Turns(QC): 4 Walk 150 ft (QC): 4 Walking 10ft/uneven surface-QC: 4 Distance: 150 feet Gait Assistive Device: FWW Wheelchair Training Does the Pt Use a Wheelchair?: No Wheel 50 ft with 2 turns (QC): 9 Wheel 150 ft (QC): 9 Stairs #of Steps: 4 1 Step (curb) (QC): 3 4 Steps (QC): 3 12 Steps (QC): 9 Balance Sitting Static: Good Sitting Dynamic: Good Standing Static: Fair Standing Dynamic: Fair Picking up an Object (QC): 3 Treatment Evaluation, Gait (2), FA (2) Assessment/Needs Patient demonstrates good overall tolerance to activity and evaluation. ROM in supine of right knee is 0 degrees extension and 50 degrees flexion Rehab Potential: Good Equipment Needs FWW, BSC or toilet riser PT Short Term Goals Short Term Goals Time Frame: Sep 15, 2020 Roll Left & Right: 5 Sit to lyin Lying to sitting on side of be: 5 Sit to stand: 5 Chair/luq-pc-ovjnu transfer: 5 Toilet transfer: 5 Car transfer: 5 Walk 10 feet: 5 Walk 50 feet with two turns: 5 Walk 150 feet: 5 Walking 10ft on uneven surface: 5 1 step (curb): 5 4 steps: 4 12 steps: 9 Picking up objects: 4 Does pt use a wc or scooter: No Wheel 50ft w/2 turns: 9 Wheel 150 feet: 9 Type: N/A PT Longterm Goals Longterm Goals PT Longterm Goals Time Frame: Sep 29, 2020 Roll Left & Right (QC): 6 Sit to Lying (QC): 6 Lying-Sitting on Side/Bed(QC): 6 Sit to Stand (QC): 6 Chair/Ijt-eq-Ywfod Xfer(QC): 6 Toilet Transfer (QC): 6 Car Transfer (QC): 6 Does the Patient Walk: Yes Walk 10 feet (QC): 6 Walk 50ft with 2 Turns (QC): 6 Walk 150 ft (QC): 6 Walking 10ft on Uneven Surface: 6 1 Step (curb) (QC): 6 4 Steps (QC): 6 12 Steps (QC): 9 Picking up an Object (QC): 6 Does the Pt use WC or Scooter?: No Wheel 50 feet with 2 turns (QC: 9 Wheel 150 feet: 9 PT Plan Problem List Problem List: Activity Tolerance, Functional Strength, Safety, Balance, Gait, Transfer, Bed Mobility, ROM Treatment/Plan Treatment Plan: Continue Plan of Care Treatment Plan: Bed Mobility, Concurrent Therapy, Education, Functional Activity Rajni, Functional Strength, Group Therapy, Gait, Safety, Transfers Treatment Duration: Sep 29, 2020 Frequency: At least 5 of 7 days/Wk (IRF) Estimated Hrs Per Day: 1.5 hours per day Patient and/or Family Agrees t: Yes Safety Risks/Education Patient Education: Gait Training, Transfer Techniques, Steps, Reviewed Precautions, Instructions to Caregiver, Safety Issues Teaching Recipient: Patient, Family Teaching Methods: Demonstration, Discussion Response to Teaching: Verbalize Understanding, Return Demonstration Time/GCodes Time In: 1345 (Co-Treat from 14:10-15:15) Time Out: 1400 Total Billed Treatment Time: 70 Total Billed Treatment Visit, Jaz Casillas FA TOCCI, JOHN A PT Sep 01, 2020 14:38
--- NOTE | 2020-09-01 15:23 | Occupational Therapy Eval ---
OT Evaluation-General/PLF Medical Diagnosis Admission Date Sep 01, 2020 at 13:45 Medical Diagnosis: Right TKA Onset Date: Aug 31, 2020 Therapy Diagnosis Therapy Diagnosis: Decreased ADL status Height/Weight Height (Feet): 5 Height (Inches): 2.00 Weight (Pounds): 201 Weight (Ounces): 6.0 Referral Physician: Malik Referral Reason: Activity Tolerance, Self Care, Evaluation/Treatment, Strengthening/ROM Medical History Pertinent Medical History: DM, HTN Additional Medical History HTN Current History RTKA Reviewed History: Yes Social History Home: Single Level Current Living Status: Alone Entry Into Home: Stairs With Railing (5 steps with 1 rail on right ascending) Steps Into Home: 5 Steps Inside Home: 0 granddaughter assists with IADLs outside of home. ADL-Prior Level of Function SCALE: Activities may be completed with or without assistive devices. 1-Vwufranzqg-zecgltg completes the activity by him/herself with no assistance from a helper. 5-Set-up or Clean-up Assistance-helper sets up or cleans up; patient completes activity. [place] assists only prior to or following the activity. 4-Supervision or Touching Assistance-helper provides verbal cues and/or touching/steadying and/or contact guard assistance as patient completes activity. Assistance may be provided throughout the activity or intermittently. 3-Partial/Moderate Assistance-helper does LESS THAN HALF the effort. [place] lifts, holds or supports trunk or limbs, but provides less than half the effort. 2-Substantial/Maximal Assistance-helper does MORE THAN HALF the effort. [place] lifts or holds trunk or limbs and provides more than half the effort. 4-Xpwumwjto-davpkf does ALL the effort. Patient does none of the effort to complete the activity. Or, the assistance of 2 or more helpers is required for the patient to complete the activity. If activity was not attempted, code reason: 7-Patient Refused. 9-Not Applicable-not attempted and the patient did not perform the activity before the current illness, exacerbation or injury. 10-Not Attempted due to Environmental Limitations-(lack of equipment, weather restraints, etc.). 88-Not Attempted due to Medical Conditions or Safety Concerns. ADL PLOF Comments Pt was IND with use of walker in the home. 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 Agrees to tx. Granddaughter present in session. Pt states min pain in R knee, however, has tingling/ numbness/ "swollen feeling" in R foot. OT individual tx: [id number] OT/ PT co-tx: [id number]: OT addresses UE strength, ADLs, problem solving, etc. while PT addresses LE strength, ambulation, functional transfers, etc. Total: 75 Mental Status/Objective Patient Orientation: Person, Place, Situation, Normal For Age Attachments: Oxygen (4L) Current Glasses/Contacts: Yes Hearing Aids: No Dentures/Partials: No Hand Dominance: Right Upper Extremity ROM WFL BUE Upper Extremity Coordination WFL BUE Upper Extremity Sensation WFL BUE tingling/ numb of the R foot Upper Extremity Strength WFL BUE Edema: very slight R foot ADL-Treatment Eating (QC): 6 Oral Hygiene (QC): 6 (IND in seat, SBA in stance.) Shower/Bathe Self (QC): 4 (SBA during tasks. S/u for showering/ covering of bandage/ IV. ) Upper Body Dressing (QC): 5 (s/u) Lower Body Dressing (QC): 3 (min A threading RLE/ intermittent LLE. Pt able to stand and hike over hips.) On/Off Footwear (QC): 2 (max at this time due to decreased ROM.) Toileting Hygiene (QC): 4 (SBA) Other Treatments Pt introduced to OT/ OT role/ ARU expectations. Pt bed mob with CGA. Sit to stands with CGA-min A. Pt ambulates through wright/ gym CGA with FWW. Pt agrees to showering; toileting with CGA transfer, CGA ambulation, and CGA shower chair transfers, CGA in stance during bottom care/ pant hike. Pt ambulates to room, sitting in recliner. Pt's socks donned for shoe donning (max A shoe donning). Pt ambulates with PT to car transfer machine, CGA. Back to recliner with all needs met, call light in reach, granddaughter present. Education OT Patient Education: Correct positioning, Purpose of tx/functional activities, Safety issues, Transfer techniques Teaching Recipient: Patient Teaching Methods: Demonstration, Discussion Response to Teaching: Verbalize Understanding, Return Demonstration OT Short Term Goals Short Term Goals Lower body dressin Putting on/taking off footwear: 3 OT Intermediate Goals Skip Load Driver Goals Time Frame: Sep 15, 2020 Eating (QC): 6 Oral Hygiene (QC): 6 Toileting Hygiene (QC): 6 Shower/Bathe Self (QC): 6 Upper Body Dressing (QC): 6 Lower Body Dressing (QC): 6 On/Off Footwear (QC): 6 Additional Goals: 1-Demonstrate ADL Tasks, 2-Verbalize Understanding, 3- ImproveStrength/Rajni 1=Demonstrate adherence to instructed precautions during ADL tasks. 2=Patient will verbalize/demonstrate understanding of assistive devices/modifications for ADL. 3=Patient will improve strength/tolerance for activity to enable patient to perform ADL's. OT Education/Plan Problem List/Assessment Assessment: Decreased Activ Tolerance, Edema, Impaired Bed Mobility, Impaired I ADL's, Impaired Self-Care Skills Discharge Recommendations Plan/Recommendations: Continue POC Therapy Discharge Recommendati: Home & Family Treatment Plan/Plan of Care Treatment,Training & Education: Yes Patient would benefit from OT for education, treatment and training to promote independence in ADL's, mobility, safety and/or upper extremity function for ADL's. Plan of Care: ADL Retraining, Caregiver Training, Functional Mobility, Group Exercise/Act as Ind, UE Funct Exercise/Act Treatment Duration: Sep 15, 2020 Frequency: At least 5 of 7 days/Wk (IRF) Estimated Hrs Per Day: .25 hour per day Agreement: Yes Rehab Potential: Good Time/GCodes Start Time: 14:00 Stop Time: 15:15 Total Time Billed (hr/min): 75 Billed Treatment Time 1, EVL, ADL 4 (75) OT individual tx: [id number] OT/ PT co-tx: [id number]: OT addresses UE strength, ADLs, problem solving, etc. while PT addresses LE strength, ambulation, functional transfers, etc. Total: 75 MARYBEL ADRIAN OTR Sep 01, 2020 15:23
--- NOTE | 2020-09-01 15:29 | ST Cognitive Linguistic Eval ---
Speech Evaluation-General Medical Diagnosis Right TKA Onset Date: Aug 31, 2020 Therapy Diagnosis Therapy Diagnosis: Cognitive-communication Referral Referring Physician: Dr. Gan Medical History Pertinent Medical History: DM, HTN Social History Current Living Status: Alone Speech PLF-Current Status Prior Level of Function Patient lives home alone, however she has very involved family who assist her with her daily needs. Subjective Patient was resting in her recliner following her OT and PT session. Patient was pleasant and cooperative with the cognitive assessment. Language Eval: Auditory Comprehends Simple Yes/No Ques: Functional Indent/Objects Multiple Shukla: Functional Ident/Pics in Multiple Shulka: Functional Follows 1-Step Commands: Functional Follows Complex Directions: Functional Follows General Conversations: Functional Language Eval: Verbal Language Completes Spontaneous Greeting: Functional Produces Auto, Serial Info: Functional Imitates Simple Words/Phrases: Functional Word Finding: Functional Requests Basic Needs: Functional States Basic Personal Info: Functional Expresses Complex Ideas: Functional Objective Cognitive Domain Attention: WNL Memory: WNL Problem Solving: Functional Executive Functions: WNL Visuospatial Skills: WNL Composite Severity Rating: WNL Clock Drawing Severity Rating: WNL Objective Formal/Standardized Tests [facility] Mental Status ([facility]) Results 28/30, within normal limits of function Oral Motor/Speech Production Within Normal Limits Impression Patient is a pleasant 84 y/o female who was admitted to the ARU s/p right knee surgery. Patient was given the SLUMS with a score of 28/30 obtained. The patient's score is within normal range of function and does not indicate the need for further ST services. Speech Patient Assess Expression of Ideas/Wants: Expression (4) Understanding Verbal Content: Understands (4) Brief Interview-Mental Status: Yes Repetition of Three Words: Three (3) Temporal Orientation: Year: Correct (3) Temporal Orientation: Month: Accurate within 5 days(2) Temporal Orientation: Day: Correct (1) Recall : Wear to say "Sock": Yes, no cue required (2) Recall : Color: Yes, no cue required (2) Recall : Bed: Yes,after cueing (1) Memory/Recall Ability: Current season, That he or she is in a hsp/hsp unit Speech-Plan Patient/Family Goals Patient/Family Goals: Patient plans on returning to her home with family support. Treatment Plan Speech Therapy Treatment Plan: Discontinue ST Treatment Duration: Sep 01, 2020 Frequency: 1 time per week Estimated Hrs Per Day: .5 hour per day Rehab Potential: Good Barriers to Learning: None identified Safety Risks/Education Teaching Recipient: Family Teaching Methods: Discussion Response to Teaching: Verbalize Understanding Education Topics Provided: Safety within her room and communication of wants/needs Time Speech Therapy Time In: 15:15 Speech Therapy Time Out: 15:45 Total Billed Time: 30 Billed Treatment Time 1, [facility]ARA [facility] [place] [facility] Sep 01, 2020 15:29
[2020-09-01] MEDS ORDERED: morphine INJ 4 MG/ML 1 ML (VIAL/SYRINGE) IV PRN (15:30)
[2020-09-01] MEDS: oxyCODONE/APAP 5/325MG (PERCOCET 5) TABLET PO PRN ×2 (16:20→21:32)
[2020-09-01] MEDS: inSUlin ASPART (NovoLOG) 1 UNIT/0.01 ML (CHARGE PER UNIT) SC SCH ×2 (16:30→21:00)
[2020-09-01 20:00] VITALS: BP 110/60
[2020-09-01] MEDS: ENOXAPARIN 30 MG/0.3 ML (LOVENOX) SYR SC SCH (20:16)
[2020-09-01] MEDS ORDERED: SENNA W/DOCUSATE (SENOKOT S) TABLET PO SCH (21:00)
[2020-09-01] MEDS: polyethylene glycoL POWDER 17 GM (MIRALAX) PACK PO SCH (21:31)
[2020-09-01] MEDS: SENNA W/DOCUSATE (SENOKOT S) TABLET PO SCH (21:32)
[2020-09-01] MEDS: TROSPIUM 20 MG (SANCTURA) TAB PO SCH (21:32)
[2020-09-01] MEDS: DOCUSATE SODIUM 100 MG (COLACE) CAP PO SCH (21:33)
[2020-09-01] MEDS: ATENOLOL 50 MG (TENORMIN) TAB PO SCH (21:33)
[2020-09-02 06:05] LABS: BASOPHILS % (AUTO) 0 % (0-10); EOSINOPHILS # (AUTO) 0.2 10^3/uL (0.0-0.3); EOSINOPHILS % (AUTO) 2 % (0-10); HEMATOCRIT 41 % (35-52); HEMOGLOBIN 12.9 g/dL (11.5-16.0); LYMPHOCYTES # (AUTO) 1.3 10^3/uL (1.0-4.0); LYMPHOCYTES % (AUTO) 12 % (12-44); MEAN CORPUSCULAR HEMOGLOBIN 30 pg (25-34); MEAN CORPUSCULAR HGB CONC 31 g/dL (32-36); MEAN CORPUSCULAR VOLUME 97 fL (80-99); MEAN PLATELET VOLUME 10.4 fL (9.0-12.2); MONOCYTES # (AUTO) 1.1 10^3/uL (0.0-1.0); MONOCYTES % (AUTO) 10 % (0-12); NEUTROPHILS # (AUTO) 8.1 10^3/uL (1.8-7.8); NEUTROPHILS % (AUTO) 75 % (42-75); PLATELET COUNT 250 10^3/uL (130-400); WHITE BLOOD COUNT 10.8 10^3/uL (4.3-11.0)
[2020-09-02 06:14] LABS: ALBUMIN 3.4 GM/DL (3.2-4.5); CHLORIDE 96 MMOL/L (98-107); SODIUM 137 MMOL/L (135-145)
[2020-09-02 06:16] LABS: CALCIUM 9.7 MG/DL (8.5-10.1)
[2020-09-02 06:17] LABS: GLUCOSE 105 MG/DL (70-105); TOTAL PROTEIN 7.4 GM/DL (6.4-8.2)
[2020-09-02 06:18] LABS: CARBON DIOXIDE 31 MMOL/L (21-32)
[2020-09-02 06:19] LABS: BILIRUBIN,TOTAL 0.7 MG/DL (0.1-1.0)
[2020-09-02 06:20] LABS: ALKALINE PHOSPHATASE 75 U/L (40-136); CREATININE SERUM 0.83 MG/DL (0.60-1.30); GFR ESTIMATED > 60
[2020-09-02 06:21] LABS: BUN/CREATININE RATIO 13
[2020-09-02 06:23] LABS: ALANINE AMINOTRANSFERASE 15 U/L (0-55)
--- NOTE | 2020-09-02 06:34 | PM&R Progress Note ---
Subjective HPI/CC On Admission Date Seen by Provider: Sep 02, 2020 Time Seen by Provider: 12:30 Subjective/Events-last exam 09/02/2020: Patient doing pretty well Settling into rehab very well No bowel movement yet so laxatives were given Up in chair today Using CPM machine as ordered Check meds and labs Daughter at the bedside Slept pretty well Pain is pretty well controlled Review of Systems General: Fatigue, Malaise Musculoskeletal: leg pain Neurological: Weakness Objective Exam Vital Signs Vital Signs Date Time Temp Pulse Resp B/P (MAP) Pulse Ox O2 Delivery O2 Flow Rate FiO2 09/02/20 20:10 Nasal Cannula 2.00 09/02/20 19:32 98 09/02/20 08:00 36.5 63 36 09/02/20 07:18 16 134/65 (88) Capillary Refill : General Appearance: No Apparent Distress, WD/WN, Chronically ill, Obese HEENT: PERRL/EOMI, Normal ENT Inspection, Pharynx Normal Neck: Full Range of Motion, Normal Inspection, Non Tender, Supple, Carotid Bruit Respiratory: Chest Non Tender, Lungs Clear, Normal Breath Sounds, No Accessory Muscle Use, No Respiratory Distress Cardiovascular: Regular Rate, Rhythm, No Edema, No Gallop, No JVD, No Murmur, Normal Peripheral Pulses Gastrointestinal: Normal Bowel Sounds, No Organomegaly, No Pulsatile Mass, Non Tender, Soft Back: Normal Inspection, No CVA Tenderness, No Vertebral Tenderness Extremity: Normal Capillary Refill, Normal Inspection, Normal Range of Motion (Except right leg postop), Non Tender, No Calf Tenderness, No Pedal Edema Neurologic/Psychiatric: Alert, Oriented x3, No Motor/Sensory Deficits, Normal Mood/Affect Skin: Normal Color, Warm/Dry Lymphatic: No Adenopathy Results/Procedures Lab Laboratory Tests 09/02/20 05:32 Patient resulted labs reviewed. FIM Transfers Therapy Code Descriptions/Definitions Functional [place] Measure: 0=Not Assessed/NA 4=Minimal Assistance 1=Total Assistance 5=Supervision or Setup 2=Maximal Assistance 6=Modified [place] 3=Moderate Assistance 7=Complete IndependenceSCALE: Activities may be completed with or without assistive devices. 8-Vrxaxikjxd-onjqpef completes the activity by him/herself with no assistance from a helper. 5-Set-up or Clean-up Assistance-helper sets up or cleans up; patient completes activity. [place] assists only prior to or following the activity. 4-Supervision or Touching Assistance-helper provides verbal cues and/or touching/steadying and/or contact guard assistance as patient completes activity. Assistance may be provided throughout the activity or intermittently. 3-Partial/Moderate Assistance-helper does LESS THAN HALF the effort. [place] lifts, holds or supports trunk or limbs, but provides less than half the effort. 2-Substantial/Maximal Assistance-helper does MORE THAN HALF the effort. [place] lifts or holds trunk or limbs and provides more than half the effort. 2-Grlqstllm-gbgwgr does ALL the effort. Patient does none of the effort to complete the activity. Or, the assistance of 2 or more helpers is required for the patient to complete the activity. If activity was not attempted, code reason: 7-Patient Refused. 9-Not Applicable-not attempted and the patient did not perform the activity before the current illness, exacerbation or injury. 10-Not Attempted due to Environmental Limitations-(lack of equipment, weather restraints, etc.). 88-Not Attempted due to Medical Conditions or Safety Concerns. Roll Left to Right (QC): 4 Sit to Lying (QC): 4 Sit to Stand (QC): 4 Chair/Taq-fi-Zzsvd Xfer(QC): 4 Car Transfer (QC): 4 Gait Training Does the Patient Walk?: Yes Walk 10 feet (QC): 4 Walk 50 ft with 2 Turns(QC): 4 Walk 150 ft (QC): 4 Walking 10ft/uneven surface-QC: 4 Gait Assistive Device: FWW Wheelchair Training Does the Pt Use a Wheelchair?: No Wheel 50 ft with 2 turns (QC): 9 Wheel 150 ft (QC): 9 Stair Training #of Steps: 4 1 Step (curb) (QC): 3 4 Steps (QC): 3 12 Steps (QC): 9 Balance Picking up an Object (QC): 3 ADL-Treatment Eating (QC): 6 Oral Hygiene (QC): 6 (IND in seat, SBA in stance.) Shower/Bathe Self (QC): 4 (SBA during tasks. S/u for showering/ covering of bandage/ IV. ) Upper Body Dressing (QC): 5 (s/u) Lower Body Dressing (QC): 3 (min A threading RLE/ intermittent LLE. Pt able to stand and hike over hips.) On/Off Footwear (QC): 2 (max at this time due to decreased ROM.) Toileting Hygiene (QC): 4 (SBA) Assessment/Plan Assessment and Plan Assess & Plan/Chief Complaint Assessment: Status post right total knee arthroplasty Chronic nocturnal hypoxia maintain on O2 Obesity Advanced age Diabetes Hypertension Plan: Inpatient rehab protocol O2 Pain control Lovenox for DVT prophylaxis 09/02/20: Pain control Monitor closely Fall risk (1) Status post total knee replacement, right (2) Nocturnal hypoxia (3) Obesity (4) Diabetes (5) Advanced age KIERRA ARCHULETA DO Sep 02, 2020 06:34
--- NOTE | 2020-09-02 06:35 | Individualized Plan of Care ---
Individualized Plan of Care Rehab Nursing IPOC Order Admission Date Sep 01, 2020 at 13:45 Current Orders Orders Admission Order(Inpt,Obs,Sdc) (09/01/20 12:35) Vital Signs: Per Unit Policy ( ,16,00 (09/01/20 12:35) Dustin Conner (09/01/20 12:35) Sequential Compression Device .admit (09/01/20 12:35) Fleet Operations Manager-Inpt Rehab Con (09/01/20 12:35) Rehab Nursing Orders-Ipoc (09/01/20 12:35) Physical Therapy Rehab Orders (09/01/20 12:35) Occupational Therapy Rehab Ord (09/01/20 12:35) Speech Therapy Rehab Orders (09/01/20 12:35) Cbc With Automated Diff (09/02/20 06:00) Comprehensive Metabolic Panel (09/02/20 06:00) Precautions (Aru) (09/01/20 12:35) Rehab-Intensity Of Therapy (09/01/20 12:35) Initiate Admission Nursing Pro .admission (09/01/20 12:35) Acetaminophen Tablet/Caplet (Tylenol T (09/01/20 12:45) Alprazolam Tablet (Xanax Tablet) (09/01/20 12:45) Calcium Carbonate Chew Tablet (Antacid C (09/01/20 12:45) Diphenhydramine Tablet (Benadryl Tablet) (09/01/20 12:45) Docusate Sodium Capsule (Colace Capsule) (09/01/20 21:00) Docusate Sodium Capsule (Colace Capsule) (09/01/20 12:45) Bisacodyl Suppository (Dulcolax Supposit (09/01/20 12:45) Lactulose Oral Solution (Enulose Oral So (09/01/20 12:45) Na Phos/Na Biphos Enema (Fleet Enema Herb (09/01/20 12:45) Guaifenesin/Codeine Syrup (Robitussin Ac (09/01/20 12:45) Hydrocodone/Apap 5/325 Tablet (Lortab 5 (09/01/20 12:45) Loperamide Tablet (Imodium Tablet) (09/01/20 12:45) Melatonin Tablet (Melatonin Tablet) (09/01/20 12:45) Polyethylene Glycol Powder Pkt (Miralax (09/01/20 21:00) Ondansetron Oral Dissolve Tab (Zofran (09/01/20 12:45) Senna S Tablet (Senokot S Tablet) (09/01/20 21:00) Initiate Admission Nursing Pro .admission (09/01/20 12:35) Admission Arrival Bed Request (09/01/20 13:48) Code/Resuscitation (09/01/20 14:22) Accucheck Achs ACHS (09/01/20 14:22) Catheter(Urinary) Discontinue (09/01/20:22) Dressing Order (Intervention) DAILY (09/01/20:22) Incentive Spirometry (Nursing) Q2H (09/01/20 14:22) Dustin Hose (09/01/20 14:22) Albuterol/Ipra Inhalation Soln (Duoneb I (09/01/20 14:30) Aspirin Chewable Tablet (Baby Aspirin Ch (09/02/20 09:00) Atenolol Tablet (Tenormin Tablet) (09/01/20 21:00) Atorvastatin Tablet (Lipitor Tablet) (09/01/20 21:00) Cholecalciferol Capsule/Tablet (Vitamin (09/02/20 09:00) Enoxaparin Injection (Lovenox Injection) (09/01/20 14:30) Furosemide Tablet (Lasix Tablet) (09/02/20 10:30) Therapeutic Multivitamin Tab (Vitamins, (09/02/20 07:00) Ondansetron Injection (Zofran Injectio (09/01/20 14:30) Potassium Chloride (Tablet) (K Dur Table (09/02/20 10:30) Senna S Tablet (Senokot S Tablet) (09/01/20 21:00) Trospium Tablet (Sanctura Tablet) (09/01/20 21:00) Acetaminophen Tablet/Caplet (Tylenol T (09/01/20 14:30) Amlodipine Tablet (Norvasc Tablet) (09/02/20 09:00) Diphenhydramine Injection (Benadryl Inje (09/01/20 14:30) Insulin Aspart (Novolog) (Novolog (Charg (09/01/20 16:00) Lisinopril Tablet (Zestril Tablet) (09/02/20 09:00) Metformin Tablet (Glucophage Tablet) (09/02/20 07:00) Morphine Injection (Morphine Injection (09/01/20 14:30) Oxycodone/Apap 5/325mg Tablet (Percocet (09/01/20 14:30) Mat Initiate Protocol (09/01/20 14:22) Svn Small Volume Nebulizer (09/01/20 14:22) Patient Visit (09/01/20 ) Pt Eval Low Complexity (09/01/20 ) Functional Activities, Ea 15 (09/01/20 ) Gait Training, Ea 15 Min (09/01/20 ) Morphine Injection (Morphine Injection (09/01/20 15:30) Patient Visit (09/01/20 ) Speech Sound Lang Comp (09/01/20 ) Treat. Speech/Lang/Voice (09/01/20 ) Enoxaparin Injection (Lovenox Injection) (09/01/20 19:30) General/Regular (09/01/20 Dinner) Patient Visit (09/02/20 ) Gait Training, Ea 15 Min (09/02/20 ) Exercise Therap, Ea 15 Min (09/02/20 ) Rehab Nursing Orders: Ongoing Assess. of Cognitive Status, Ongoing Assess. of Function Status, Bladder Management, Bladder Scan, Bladder Training, Bowel Management, Bowel Training, Disease Management & Educaiton, DVT Prophylaxis, Fall Prevention, Fluid/Electrolyte/Nutrition Mgmt, Infection Prevention, Medication Management & Education, Management of Risks & Complications, Manag ement of Skin Intergrity, Nutrition Management, Pain Management, Patient/Family Support, Wound Management Intensity of Therapy to be met Patient to be seen: Min.3h per day/5 of 7d PT IPOC Problem List: Activity Tolerance, Functional Strength, Safety, Balance, Gait, Transfer, Bed Mobility, ROM Treatment Plan: Continue Plan of Care Bed Mobility, Concurrent Therapy, Education, Functional Activity Rajni, Functional Strength, Group Therapy, Gait, Safety, Transfers Treatment Duration: Sep 29, 2020 Frequency: At least 5 of 7 days/Wk (IRF) Estimated Hrs Per Day: 1.5 hours per day OT IPOC Problems: Decreased Activ Tolerance, Edema, Impaired Bed Mobility, Impaired I ADL's, Impaired Self-Care Skills OT Treatment, Training and Edu: Yes Plan of Care: ADL Retraining, Caregiver Training, Functional Mobility, Group Exercise/Act as Ind, UE Funct Exercise/Act Treatment Duration: Sep 15, 2020 Frequency: At least 5 of 7 days/Wk (IRF) Estimated Hrs Per Day: .[address] IPOC Speech Therapy Treatment Plan: Discontinue ST Treatment Duration: Sep 01, 2020 Frequency: 1 time per week Estimated Hrs Per Day: .5 hour per day Fleet Operations Manager/Case Mgmt Fleet Operations Manager/Case Managemen: Discharge Planning Dietitian/Inseminator Dietitian/Inseminator to monitor nutritional status and make changes and/or recommendations as needed and work with speech pathology on dietary upgrades as the occur. Physician IPOC Medical Issues being managed closely and that require the 24 hour availability of a physician: Recent knee replacement with advanced age and chronic hypoxemia requiring O2 supplementation will be at high risk for decompensation and complicated medical issues. Medical Issues: Bowel/Bladder Function, DVT Prophylaxis, Falls Precautions, Fluid/Electrolyte/Nutrition Balance, Infection Protection, Pain Management, Wound Care Brief Synthesis of Preadmission Screen, Post-Admission Evaluation, and Therapy Evaluations: PT and OT will help increase ambulatory ability along with increasing independence in ADLs in order to return home to live independently Medical Prognosis: Good Anticipated Length of Stay: 7 days KIERRA ARCHULETA DO Sep 02, 2020 06:35
[2020-09-02] MEDS: ENOXAPARIN 30 MG/0.3 ML (LOVENOX) SYR SC SCH ×2 (06:51→19:28)
[2020-09-02] MEDS: MULTIVIT W/MINERALS TAB (THERAGRAN M) PO SCH (06:51)
[2020-09-02] MEDS: metFORMIN 500 MG (GLUCOPHAGE) TAB PO SCH (06:51)
--- NOTE | 2020-09-02 06:53 | Progress Note ---
Standard Progress Note Progress Notes/Assess & Plan Date Seen by a Provider: Sep 02, 2020 Time Seen by a Provider: 06:50 Progress/Assessment & Plan c/o R foot pain with ambulation. Denies pain at rest. Reports it is better today. no trauma Laboratory Tests Test 09/01/20 15:23 09/01/20 20:55 09/02/20 05:32 Range/Units Glucometer 136 H 140 H 70-110 MG/DL White Blood Count 10.8 4.3-11.0 10^3/uL Red Blood Count 4.25 3.80-5.11 10^6/uL Hemoglobin 12.9 11.5-16.0 g/dL Hematocrit 41 35-52 % Mean Corpuscular Volume 97 80-99 fL Mean Corpuscular Hemoglobin 30 25-34 pg Mean Corpuscular Hemoglobin Concent 31 L 32-36 g/dL Red Cell Distribution Width 13.0 10.0-14.5 % Platelet Count 250 130-400 10^3/uL Mean Platelet Volume 10.4 9.0-12.2 fL Immature Granulocyte % (Auto) 1 % Neutrophils (%) (Auto) 75 42-75 % Lymphocytes (%) (Auto) 12 12-44 % Monocytes (%) (Auto) 10 0-12 % Eosinophils (%) (Auto) 2 0-10 % Basophils (%) (Auto) 0 0-10 % Neutrophils # (Auto) 8.1 H 1.8-7.8 10^3/uL Lymphocytes # (Auto) 1.3 1.0-4.0 10^3/uL Monocytes # (Auto) 1.1 H 0.0-1.0 10^3/uL Eosinophils # (Auto) 0.2 0.0-0.3 10^3/uL Basophils # (Auto) 0.0 0.0-0.1 10^3/uL Immature Granulocyte # (Auto) 0.1 0.0-0.1 10^3/uL Sodium Level 137 135-145 MMOL/L Potassium Level 4.0 3.6-5.0 MMOL/L Chloride Level 96 L 98-107 MMOL/L Carbon Dioxide Level 31 21-32 MMOL/L Anion Gap 10 5-14 MMOL/L Blood Urea Nitrogen 11 7-18 MG/DL Creatinine 0.83 0.60-1.30 MG/DL Estimat Glomerular Filtration Rate > 60 BUN/Creatinine Ratio 13 Glucose Level 105 70-105 MG/DL Calcium Level 9.7 8.5-10.1 MG/DL Corrected Calcium 10.2 H 8.5-10.1 MG/DL Total Bilirubin 0.7 0.1-1.0 MG/DL Aspartate Amino Transf (AST/SGOT) 17 5-34 U/L Alanine Aminotransferase (ALT/SGPT) 15 0-55 U/L Alkaline Phosphatase 75 40-136 U/L Total Protein 7.4 6.4-8.2 GM/DL Albumin 3.4 3.2-4.5 GM/DL RLE--incision with sl bloody DC . No erythema or warmth. R foot without erythema or warmth. Non tender to palpation. No pain with ROM s/p RTKA foot pain likely secondary to positioning in OR. No need for xray. If continues, cushioined heel pad in bed continue PT/OT ARUN ENGLAND MD Sep 02, 2020 06:52
[2020-09-02] MEDS: inSUlin ASPART (NovoLOG) 1 UNIT/0.01 ML (CHARGE PER UNIT) SC SCH ×4 (06:55→21:13)
[2020-09-02 07:18] VITALS: BP 134/65
[2020-09-02 08:00] VITALS: BP 134/65
[2020-09-02] MEDS: DOCUSATE SODIUM 100 MG (COLACE) CAP PO SCH ×2 (08:56→21:13)
[2020-09-02] MEDS: ASPIRIN 81 MG CHEW (CHILDREN'S ASA) PO SCH (08:56)
[2020-09-02] MEDS: amLODIPine 5 MG (NORVASC) TAB PO SCH (08:56)
[2020-09-02] MEDS: lisINopril 40 MG (PRINIVIL) TABLET PO SCH (08:56)
[2020-09-02] MEDS: SENNA W/DOCUSATE (SENOKOT S) TABLET PO SCH ×2 (08:56→21:13)
[2020-09-02] MEDS: VITAMIN D3 25 MCG (1,000 UNITS) TABLET PO SCH (08:56)
[2020-09-02] MEDS: ATENOLOL 50 MG (TENORMIN) TAB PO SCH ×2 (08:57→21:13)
[2020-09-02] MEDS: polyethylene glycoL POWDER 17 GM (MIRALAX) PACK PO SCH ×2 (08:57→21:13)
[2020-09-02] MEDS ORDERED: FUROSEMIDE 40 MG (LASIX) TAB PO NR (10:30)
[2020-09-02] MEDS ORDERED: KCL 20 MEQ TAB (K-DUR) PO NR (10:30)
--- NOTE | 2020-09-02 11:55 | Physical Therapy Daily Note ---
PT Daily Note-Current Subjective Pain rated 1-2/10 at rest, 7-8/10 with walking and exercises in the R knee. Mental Status Attachments: Oxygen (4L) Transfers SCALE: Activities may be completed with or without assistive devices. 9-Amxxofcksi-peddmth completes the activity by him/herself with no assistance from a helper. 5-Set-up or Clean-up Assistance-helper sets up or cleans up; patient completes activity. [place] assists only prior to or following the activity. 4-Supervision or Touching Assistance-helper provides verbal cues and/or touching/steadying and/or contact guard assistance as patient completes activity. Assistance may be provided throughout the activity or intermittently. 3-Partial/Moderate Assistance-helper does LESS THAN HALF the effort. [place] lifts, holds or supports trunk or limbs, but provides less than half the effort. 2-Substantial/Maximal Assistance-helper does MORE THAN HALF the effort. [place] lifts or holds trunk or limbs and provides more than half the effort. 1-Bvlawcxar-qwbabw does ALL the effort. Patient does none of the effort to complete the activity. Or, the assistance of 2 or more helpers is required for the patient to complete the activity. If activity was not attempted, code reason: 7-Patient Refused. 9-Not Applicable-not attempted and the patient did not perform the activity before the current illness, exacerbation or injury. 10-Not Attempted due to Environmental Limitations-(lack of equipment, weather restraints, etc.). 88-Not Attempted due to Medical Conditions or Safety Concerns. Sit to Lying (QC): 4 Lying to Sitting/Side of Bed(Q: 4 Sit to Stand (QC): 4 Weight Bearing Right Lower Extremity: Right Weight Bearing/Tolerated Gait Training Does the Patient Walk?: Yes Distance: 2 x 75 ft Gait Persons Needed: 1 Gait Assistive Device: FWW slow gait speed and decreased foot clearance on R Exercises Supine Ex: Quad Set, Short Arc Quads, Straight leg raise Supine Reps: 20 Seated Therapy Exercises: Ankle pumps, Hamstring Curls Seated Reps: 20 Treatments gait, TKA exercises on R Assessment Current Status: Good Progress Pt. is slow but steady with ambulation, fatigues with 75 ft of ambulation with increased SOB on 4L O2. She has a good quad activation with QS, SAQ, and SLR. Pt. has more difficulty with flexion activities, performed knee flexion exercises best in seated position. Pt. returned to bedside chair for lunch post session, knee elevated and CP in place, all needs met. Pt. instructed to have nursing place CPM on R LE when return to bed after lunch. PT Short Term Goals Short Term Goals Time Frame: Sep 15, 2020 Roll Left & Right: 5 Sit to lyin Lying to sitting on side of be: 5 Sit to stand: 5 Chair/xco-ri-lgemm transfer: 5 Toilet transfer: 5 Car transfer: 5 Walk 10 feet: 5 Walk 50 feet with two turns: 5 Walk 150 feet: 5 Walking 10ft on uneven surface: 5 1 step (curb): 5 4 steps: 4 12 steps: 9 Picking up objects: 4 Does pt use a wc or scooter: No Wheel 50ft w/2 turns: 9 Wheel 150 feet: 9 Type: N/A PT [facility] Goals Physical Therapy Director Goals PT Physical Therapy Director Goals Time Frame: Sep 29, 2020 Roll Left & Right (QC): 6 Sit to Lying (QC): 6 Lying-Sitting on Side/Bed(QC): 6 Sit to Stand (QC): 6 Chair/Lno-am-Fbpgo Xfer(QC): 6 Toilet Transfer (QC): 6 Car Transfer (QC): 6 Does the Patient Walk: Yes Walk 10 feet (QC): 6 Walk 50ft with 2 Turns (QC): 6 Walk 150 ft (QC): 6 Walking 10ft on Uneven Surface: 6 1 Step (curb) (QC): 6 4 Steps (QC): 6 12 Steps (QC): 9 Picking up an Object (QC): 6 Does the Pt use WC or Scooter?: No Wheel 50 feet with 2 turns (QC: 9 Wheel 150 feet: 9 PT Plan Treatment/Plan Treatment Plan: Continue Plan of Care Treatment Plan: Bed Mobility, Concurrent Therapy, Education, Functional Activity Rajni, Functional Strength, Group Therapy, Gait, Safety, Transfers Treatment Duration: Sep 29, 2020 Frequency: At least 5 of 7 days/Wk (IRF) Estimated Hrs Per Day: 1.5 hours per day Patient and/or Family Agrees t: Yes Time/GCodes Time In: 1130 Time Out: 1205 Total Billed Treatment Time: 35 Total Billed Treatment 1, GT 15', Ex 20' COLTEN DAILEY PT Sep 02, 2020 11:55
[2020-09-02] MEDS: ONDANSETRON 4 MG (ZOFRAN) ORAL DISSOLVE TAB PO PRN (15:53)
[2020-09-02 20:00] VITALS: BP 107/65
[2020-09-02] MEDS: TROSPIUM 20 MG (SANCTURA) TAB PO SCH (21:13)
[2020-09-03] MEDS: inSUlin ASPART (NovoLOG) 1 UNIT/0.01 ML (CHARGE PER UNIT) SC SCH (06:00)
[2020-09-03] MEDS: MULTIVIT W/MINERALS TAB (THERAGRAN M) PO SCH (07:05)
[2020-09-03] MEDS: metFORMIN 500 MG (GLUCOPHAGE) TAB PO SCH (07:05)
[2020-09-03 07:13] VITALS: BP 132/66
[2020-09-03] MEDS: ENOXAPARIN 30 MG/0.3 ML (LOVENOX) SYR SC SCH ×2 (07:43→18:39)
[2020-09-03] MEDS: lisINopril 40 MG (PRINIVIL) TABLET PO SCH (09:40)
[2020-09-03] MEDS: amLODIPine 5 MG (NORVASC) TAB PO SCH (09:40)
[2020-09-03] MEDS: ASPIRIN 81 MG CHEW (CHILDREN'S ASA) PO SCH (09:40)
[2020-09-03] MEDS: ATENOLOL 50 MG (TENORMIN) TAB PO SCH ×2 (09:40→21:07)
[2020-09-03] MEDS: VITAMIN D3 25 MCG (1,000 UNITS) TABLET PO SCH (09:40)
[2020-09-03] MEDS: SENNA W/DOCUSATE (SENOKOT S) TABLET PO SCH ×2 (09:41→21:08)
[2020-09-03] MEDS: polyethylene glycoL POWDER 17 GM (MIRALAX) PACK PO SCH ×2 (09:41→21:08)
[2020-09-03] MEDS: DOCUSATE SODIUM 100 MG (COLACE) CAP PO SCH ×2 (09:41→21:08)
--- NOTE | 2020-09-03 09:43 | PM&R Progress Note ---
Subjective HPI/CC On Admission Date Seen by Provider: Sep 03, 2020 Time Seen by Provider: 10:45 Subjective/Events-last exam 09/03/2020: Patient doing pretty well Has no complaints Pain is improved Incontinent of urine at night Up in chair now Dressing changes in the incision looks good Using her ice pack 2 L of oxygen maintain 24/7 Bowels moved today 09/02/2020: Patient doing pretty well Settling into rehab very well No bowel movement yet so laxatives were given Up in chair today Using CPM machine as ordered Check meds and labs Daughter at the bedside Slept pretty well Pain is pretty well controlled Review of Systems General: Fatigue, Malaise Musculoskeletal: leg pain Objective Exam Vital Signs Vital Signs Date Time Temp Pulse Resp B/P (MAP) Pulse Ox O2 Delivery O2 Flow Rate FiO2 09/03/20 08:41 Nasal Cannula 2.00 09/03/20 07:13 36.4 86 18 132/66 (88) 95 09/02/20 08:00 36 Capillary Refill : General Appearance: No Apparent Distress, WD/WN, Chronically ill, Obese HEENT: PERRL/EOMI, Normal ENT Inspection, Pharynx Normal Neck: Full Range of Motion, Normal Inspection, Non Tender, Supple, Carotid Bruit Respiratory: Chest Non Tender, Lungs Clear, Normal Breath Sounds, No Accessory Muscle Use, No Respiratory Distress Cardiovascular: Regular Rate, Rhythm, No Edema, No Gallop, No JVD, No Murmur, Normal Peripheral Pulses Gastrointestinal: Normal Bowel Sounds, No Organomegaly, No Pulsatile Mass, Non Tender, Soft Back: Normal Inspection, No CVA Tenderness, No Vertebral Tenderness Extremity: Normal Capillary Refill, Normal Inspection, Normal Range of Motion (Except right leg postop), Non Tender, No Calf Tenderness, No Pedal Edema Neurologic/Psychiatric: Alert, Oriented x3, No Motor/Sensory Deficits, Normal Mood/Affect Skin: Normal Color, Warm/Dry Lymphatic: No Adenopathy Results/Procedures Lab Patient resulted labs reviewed. FIM Transfers Therapy Code Descriptions/Definitions Functional [place] Measure: 0=Not Assessed/NA 4=Minimal Assistance 1=Total Assistance 5=Supervision or Setup 2=Maximal Assistance 6=Modified [place] 3=Moderate Assistance 7=Complete IndependenceSCALE: Activities may be completed with or without assistive devices. 0-Phhmbtapfq-szbmjas completes the activity by him/herself with no assistance from a helper. 5-Set-up or Clean-up Assistance-helper sets up or cleans up; patient completes activity. [place] assists only prior to or following the activity. 4-Supervision or Touching Assistance-helper provides verbal cues and/or touching/steadying and/or contact guard assistance as patient completes activity. Assistance may be provided throughout the activity or intermittently. 3-Partial/Moderate Assistance-helper does LESS THAN HALF the effort. [place] lifts, holds or supports trunk or limbs, but provides less than half the effort. 2-Substantial/Maximal Assistance-helper does MORE THAN HALF the effort. [place] lifts or holds trunk or limbs and provides more than half the effort. 3-Mgkikulkn-dljcfu does ALL the effort. Patient does none of the effort to complete the activity. Or, the assistance of 2 or more helpers is required for the patient to complete the activity. If activity was not attempted, code reason: 7-Patient Refused. 9-Not Applicable-not attempted and the patient did not perform the activity before the current illness, exacerbation or injury. 10-Not Attempted due to Environmental Limitations-(lack of equipment, weather restraints, etc.). 88-Not Attempted due to Medical Conditions or Safety Concerns. Roll Left to Right (QC): 4 Sit to Lying (QC): 4 Sit to Stand (QC): 4 Chair/Lmn-nh-Kqwac Xfer(QC): 4 Car Transfer (QC): 4 Gait Training Does the Patient Walk?: Yes Distance: 2 x 75 ft Walk 10 feet (QC): 4 Walk 50 ft with 2 Turns(QC): 4 Walk 150 ft (QC): 4 Walking 10ft/uneven surface-QC: 4 Gait Persons Needed: 1 Gait Assistive Device: FWW Wheelchair Training Does the Pt Use a Wheelchair?: No Wheel 50 ft with 2 turns (QC): 9 Wheel 150 ft (QC): 9 Stair Training #of Steps: 4 1 Step (curb) (QC): 3 4 Steps (QC): 3 12 Steps (QC): 9 Balance Picking up an Object (QC): 3 ADL-Treatment Eating (QC): 6 Oral Hygiene (QC): 6 (IND in seat, SBA in stance.) Shower/Bathe Self (QC): 4 (SBA during tasks. S/u for showering/ covering of bandage/ IV. ) Upper Body Dressing (QC): 5 (s/u) Lower Body Dressing (QC): 3 (min A threading RLE/ intermittent LLE. Pt able to stand and hike over hips.) On/Off Footwear (QC): 2 (max at this time due to decreased ROM.) Toileting Hygiene (QC): 4 (SBA) Assessment/Plan Assessment and Plan Assess & Plan/Chief Complaint Assessment: Status post right total knee arthroplasty Chronic nocturnal hypoxia maintain on O2 Obesity Advanced age Diabetes Hypertension Plan: Inpatient rehab protocol O2 Pain control Lovenox for DVT prophylaxis 09/02/20: Pain control Monitor closely Fall risk 09/03/2020: Monitor pain Fall risk Incontinence care (1) Status post total knee replacement, right (2) Nocturnal hypoxia (3) Obesity (4) Diabetes (5) Advanced age KIERRA ARCHULETA DO Sep 03, 2020 09:43
[2020-09-03] MEDS: ACETAMINOPHEN 325 MG TABLET PO PRN (09:49)
[2020-09-03] MEDS: oxyCODONE/APAP 5/325MG (PERCOCET 5) TABLET PO PRN ×2 (12:38→21:07)
[2020-09-03 19:57] VITALS: BP 105/57
[2020-09-03] MEDS: TROSPIUM 20 MG (SANCTURA) TAB PO SCH (21:06)
[2020-09-04] MEDS: ACETAMINOPHEN 325 MG TABLET PO PRN ×2 (05:36→14:17)
[2020-09-04 05:50] LABS: BASOPHILS % (AUTO) 0 % (0-10); EOSINOPHILS # (AUTO) 0.3 10^3/uL (0.0-0.3); EOSINOPHILS % (AUTO) 4 % (0-10); HEMATOCRIT 37 % (35-52); HEMOGLOBIN 11.7 g/dL (11.5-16.0); LYMPHOCYTES # (AUTO) 1.3 10^3/uL (1.0-4.0); LYMPHOCYTES % (AUTO) 18 % (12-44); MEAN CORPUSCULAR HEMOGLOBIN 30 pg (25-34); MEAN CORPUSCULAR HGB CONC 32 g/dL (32-36); MEAN CORPUSCULAR VOLUME 96 fL (80-99); MEAN PLATELET VOLUME 9.7 fL (9.0-12.2); MONOCYTES % (AUTO) 13 % (0-12); NEUTROPHILS # (AUTO) 4.8 10^3/uL (1.8-7.8); NEUTROPHILS % (AUTO) 65 % (42-75); PLATELET COUNT 270 10^3/uL (130-400); WHITE BLOOD COUNT 7.4 10^3/uL (4.3-11.0)
[2020-09-04 06:15] LABS: CHLORIDE 96 MMOL/L (98-107); POTASSIUM 4.4 MMOL/L (3.6-5.0); SODIUM 139 MMOL/L (135-145)
[2020-09-04 06:16] LABS: CALCIUM 9.2 MG/DL (8.5-10.1)
[2020-09-04 06:17] LABS: GLUCOSE 100 MG/DL (70-105)
[2020-09-04 06:18] LABS: TOTAL PROTEIN 6.6 GM/DL (6.4-8.2)
[2020-09-04 06:19] LABS: CARBON DIOXIDE 33 MMOL/L (21-32)
[2020-09-04 06:20] LABS: BILIRUBIN,TOTAL 0.7 MG/DL (0.1-1.0)
[2020-09-04 06:21] LABS: ALKALINE PHOSPHATASE 63 U/L (40-136); CREATININE SERUM 0.79 MG/DL (0.60-1.30); GFR ESTIMATED > 60
[2020-09-04 06:22] LABS: BUN/CREATININE RATIO 23
[2020-09-04 06:24] LABS: ALANINE AMINOTRANSFERASE 14 U/L (0-55)
--- NOTE | 2020-09-04 06:35 | PM&R Progress Note ---
Subjective HPI/CC On Admission Date Seen by Provider: Sep 04, 2020 Time Seen by Provider: 10:45 Subjective/Events-last exam 09/04/2020: Pt doing pretty well Discontinued the heplock Discontinue the night-hose because there is blisters on her thighs Weaning oxygen Bicarbonate is 33 indicating long-term respiratory failure baseline IS use is only getting up to 250 09/03/2020: Patient doing pretty well Has no complaints Pain is improved Incontinent of urine at night Up in chair now Dressing changes in the incision looks good Using her ice pack 2 L of oxygen maintain 24/7 Bowels moved today 09/02/2020: Patient doing pretty well Settling into rehab very well No bowel movement yet so laxatives were given Up in chair today Using CPM machine as ordered Check meds and labs Daughter at the bedside Slept pretty well Pain is pretty well controlled Review of Systems General: Fatigue, Malaise Musculoskeletal: leg pain Objective Exam Vital Signs Vital Signs Date Time Temp Pulse Resp B/P (MAP) Pulse Ox O2 Delivery O2 Flow Rate FiO2 09/04/20 21:35 92 Nasal Cannula 2.00 09/04/20 21:28 84 18 127/65 (85) 09/04/20 19:56 36.2 09/02/20 08:00 36 Capillary Refill : General Appearance: No Apparent Distress, WD/WN, Chronically ill, Obese HEENT: PERRL/EOMI, Normal ENT Inspection, Pharynx Normal Neck: Full Range of Motion, Normal Inspection, Non Tender, Supple, Carotid Bruit Respiratory: Chest Non Tender, Lungs Clear, Normal Breath Sounds, No Accessory Muscle Use, No Respiratory Distress Cardiovascular: Regular Rate, Rhythm, No Edema, No Gallop, No JVD, No Murmur, Normal Peripheral Pulses Gastrointestinal: Normal Bowel Sounds, No Organomegaly, No Pulsatile Mass, Non Tender, Soft Back: Normal Inspection, No CVA Tenderness, No Vertebral Tenderness Extremity: Normal Capillary Refill, Normal Inspection, Normal Range of Motion (Except right leg postop), Non Tender, No Calf Tenderness, No Pedal Edema Neurologic/Psychiatric: Alert, Oriented x3, No Motor/Sensory Deficits, Normal Mood/Affect Skin: Normal Color, Warm/Dry Lymphatic: No Adenopathy Results/Procedures Lab Patient resulted labs reviewed. FIM Transfers Therapy Code Descriptions/Definitions Functional [place] Measure: 0=Not Assessed/NA 4=Minimal Assistance 1=Total Assistance 5=Supervision or Setup 2=Maximal Assistance 6=Modified [place] 3=Moderate Assistance 7=Complete IndependenceSCALE: Activities may be completed with or without assistive devices. 8-Smwkuzlvrs-yqcntvt completes the activity by him/herself with no assistance from a helper. 5-Set-up or Clean-up Assistance-helper sets up or cleans up; patient completes activity. [place] assists only prior to or following the activity. 4-Supervision or Touching Assistance-helper provides verbal cues and/or touching/steadying and/or contact guard assistance as patient completes a ctivity. Assistance may be provided throughout the activity or intermittently. 3-Partial/Moderate Assistance-helper does LESS THAN HALF the effort. [place] lifts, holds or supports trunk or limbs, but provides less than half the effort. 2-Substantial/Maximal Assistance-helper does MORE THAN HALF the effort. [place] lifts or holds trunk or limbs and provides more than half the effort. 5-Bjerjqzms-nwwqxt does ALL the effort. Patient does none of the effort to complete the activity. Or, the assistance of 2 or more helpers is required for the patient to complete the activity. If activity was not attempted, code reason: 7-Patient Refused. 9-Not Applicable-not attempted and the patient did not perform the activity before the current illness, exacerbation or injury. 10-Not Attempted due to Environmental Limitations-(lack of equipment, weather restraints, etc.). 88-Not Attempted due to Medical Conditions or Safety Concerns. Roll Left to Right (QC): 4 Sit to Lying (QC): 4 Sit to Stand (QC): 4 Chair/Oqu-pu-Vxdom Xfer(QC): 4 Car Transfer (QC): 4 Gait Training Does the Patient Walk?: Yes Distance: 2 x 75 ft Walk 10 feet (QC): 4 Walk 50 ft with 2 Turns(QC): 4 Walk 150 ft (QC): 4 Walking 10ft/uneven surface-QC: 4 Gait Persons Needed: 1 Gait Assistive Device: FWW Wheelchair Training Does the Pt Use a Wheelchair?: No Wheel 50 ft with 2 turns (QC): 9 Wheel 150 ft (QC): 9 Stair Training #of Steps: 4 1 Step (curb) (QC): 3 4 Steps (QC): 3 12 Steps (QC): 9 Balance Picking up an Object (QC): 3 ADL-Treatment Eating (QC): 6 Oral Hygiene (QC): 6 (IND in seat, SBA in stance.) Shower/Bathe Self (QC): 4 (SBA during tasks. S/u for showering/ covering of bandage/ IV. ) Upper Body Dressing (QC): 5 (s/u) Lower Body Dressing (QC): 3 (min A threading RLE/ intermittent LLE. Pt able to stand and hike over hips.) On/Off Footwear (QC): 2 (max at this time due to decreased ROM.) Toileting Hygiene (QC): 4 (SBA) Assessment/Plan Assessment and Plan Assess & Plan/Chief Complaint Assessment: Status post right total knee arthroplasty Chronic nocturnal hypoxia maintain on O2 Obesity Advanced age Diabetes Hypertension Plan: Inpatient rehab protocol O2 Pain control Lovenox for DVT prophylaxis 09/02/20: Pain control Monitor closely Fall risk 09/03/2020: Monitor pain Fall risk Incontinence care 09/04/2020: Continue pain control CPM machine Ambulate (1) Status post total knee replacement, right (2) Nocturnal hypoxia (3) Obesity (4) Diabetes (5) Advanced age KIERRA ARCHULETA DO Sep 04, 2020 06:35
[2020-09-04] MEDS: metFORMIN 500 MG (GLUCOPHAGE) TAB PO SCH (06:42)
[2020-09-04] MEDS: MULTIVIT W/MINERALS TAB (THERAGRAN M) PO SCH (06:42)
[2020-09-04] MEDS: ENOXAPARIN 30 MG/0.3 ML (LOVENOX) SYR SC SCH ×2 (06:45→18:47)
[2020-09-04 08:00] VITALS: BP 116/62
[2020-09-04] MEDS: VITAMIN D3 25 MCG (1,000 UNITS) TABLET PO SCH (08:05)
[2020-09-04] MEDS: ASPIRIN 81 MG CHEW (CHILDREN'S ASA) PO SCH (08:05)
[2020-09-04] MEDS: SENNA W/DOCUSATE (SENOKOT S) TABLET PO SCH ×2 (08:05→21:33)
[2020-09-04] MEDS: lisINopril 40 MG (PRINIVIL) TABLET PO SCH (08:06)
[2020-09-04] MEDS: ATENOLOL 50 MG (TENORMIN) TAB PO SCH ×2 (08:06→21:32)
[2020-09-04] MEDS: amLODIPine 5 MG (NORVASC) TAB PO SCH (08:06)
[2020-09-04] MEDS: DOCUSATE SODIUM 100 MG (COLACE) CAP PO SCH ×2 (08:08→21:32)
[2020-09-04] MEDS: polyethylene glycoL POWDER 17 GM (MIRALAX) PACK PO SCH ×2 (08:09→21:35)
--- NOTE | 2020-09-04 09:58 | Physical Therapy Daily Note ---
PT Daily Note-Current Subjective Patient agrees to PT. Pain Numeric Pain Scale: 5-Moderate Pain Location: Right Location Body Site: Knee Pain Description: Acute Mental Status Patient Orientation: Normal For Age Attachments: Oxygen (2L) Transfers SCALE: Activities may be completed with or without assistive devices. 5-Aowofhpfxo-cqkkhbr completes the activity by him/herself with no assistance from a helper. 5-Set-up or Clean-up Assistance-helper sets up or cleans up; patient completes activity. [place] assists only prior to or following the activity. 4-Supervision or Touching Assistance-helper provides verbal cues and/or touching/steadying and/or contact guard assistance as patient completes activity. Assistance may be provided throughout the activity or intermittently. 3-Partial/Moderate Assistance-helper does LESS THAN HALF the effort. [place] lifts, holds or supports trunk or limbs, but provides less than half the effort. 2-Substantial/Maximal Assistance-helper does MORE THAN HALF the effort. [place] lifts or holds trunk or limbs and provides more than half the effort. 2-Ikhdbwxma-lnmdil does ALL the effort. Patient does none of the effort to complete the activity. Or, the assistance of 2 or more helpers is required for the patient to complete the activity. If activity was not attempted, code reason: 7-Patient Refused. 9-Not Applicable-not attempted and the patient did not perform the activity before the current illness, exacerbation or injury. 10-Not Attempted due to Environmental Limitations-(lack of equipment, weather restraints, etc.). 88-Not Attempted due to Medical Conditions or Safety Concerns. Roll Left & Right (QC): 6 Sit to Lying (QC): 6 Lying to Sitting/Side of Bed(Q: 6 Sit to Stand (QC): 5 Chair/Vwk-vp-Agmmr Xfer(QC): 5 Toilet Transfer (QC): 5 Weight Bearing Right Lower Extremity: Right Weight Bearing/Tolerated Gait Training Does the Patient Walk?: Yes Distance: 200' x 4 Walk 10 feet (QC): 4 (SBA) Walk 50 ft with 2 Turns(QC): 4 (SBA) Walk 150 ft (QC): 4 (SBA) Gait Assistive Device: FWW slow and antalgic Exercises Supine Ex: Ankle pumps, Quad Set, Glut sets, Heel Slides, Short Arc Quads, Straight leg raise Supine Reps: 15 Seated Therapy Exercises: Ankle pumps, Long arc quads Seated Reps: 15 NuStep Minutes: 13 NuStep Workload: 3 (to improve right knee ROM and to promote increased functional mobility) Assessment Patient toilets and dresses self. Patient tolerated treatment well and is up in recliner with polar pack on right knee with pillow case to protect. PT Short Term Goals Short Term Goals Time Frame: Sep 15, 2020 Roll Left & Right: 5 Sit to lyin Lying to sitting on side of be: 5 Sit to stand: 5 Chair/eqs-jn-rfzbv transfer: 5 Toilet transfer: 5 Car transfer: 5 Walk 10 feet: 5 Walk 50 feet with two turns: 5 Walk 150 feet: 5 Walking 10ft on uneven surface: 5 1 step (curb): 5 4 steps: 4 12 steps: 9 Picking up objects: 4 Does pt use a wc or scooter: No Wheel 50ft w/2 turns: 9 Wheel 150 feet: 9 Type: N/A PT Detention Goals Instructor Warper Goals PT Detention Goals Time Frame: Sep 29, 2020 Roll Left & Right (QC): 6 Sit to Lying (QC): 6 Lying-Sitting on Side/Bed(QC): 6 Sit to Stand (QC): 6 Chair/Zyy-op-Ampma Xfer(QC): 6 Toilet Transfer (QC): 6 Car Transfer (QC): 6 Does the Patient Walk: Yes Walk 10 feet (QC): 6 Walk 50ft with 2 Turns (QC): 6 Walk 150 ft (QC): 6 Walking 10ft on Uneven Surface: 6 1 Step (curb) (QC): 6 4 Steps (QC): 6 12 Steps (QC): 9 Picking up an Object (QC): 6 Does the Pt use WC or Scooter?: No Wheel 50 feet with 2 turns (QC: 9 Wheel 150 feet: 9 PT Plan Treatment/Plan Treatment Plan: Continue Plan of Care Treatment Plan: Bed Mobility, Concurrent Therapy, Education, Functional Activity Rajni, Functional Strength, Group Therapy, Gait, Safety, Transfers Treatment Duration: Sep 29, 2020 Frequency: At least 5 of 7 days/Wk (IRF) Estimated Hrs Per Day: 1.5 hours per day Patient and/or Family Agrees t: Yes Time/GCodes Time In: 755 Time Out: 855 Total Billed Treatment Time: 60 Total Billed Treatment 1 visit EX x 2 32 min GT x 2 28 min KATIE EUGENE PT Sep 04, 2020 09:58
--- NOTE | 2020-09-04 12:11 | Occupational Ther Daily Note ---
OT Current Status-Daily Note Subjective No pain reported but pt. states that she is tired. Mental Status/Objective Patient Orientation: Person, Place, Time, Situation ADL-Treatment Therapy Code Descriptions/Definitions Functional [place] Measure: 0=Not Assessed/NA 4=Minimal Assistance 1=Total Assistance 5=Supervision or Setup 2=Maximal Assistance 6=Modified [place] 3=Moderate Assistance 7=Complete IndependenceSCALE: Activities may be completed with or without assistive devices. 4-Tkamfelqjw-atwykpe completes the activity by him/herself with no assistance from a helper. 5-Set-up or Clean-up Assistance-helper sets up or cleans up; patient completes activity. [place] assists only prior to or following the activity. 4-Supervision or Touching Assistance-helper provides verbal cues and/or touching/steadying and/or contact guard assistance as patient completes activity. Assistance may be provided throughout the activity or intermittently. 3-Partial/Moderate Assistance-helper does LESS THAN HALF the effort. [place] lifts, holds or supports trunk or limbs, but provides less than half the effort. 2-Substantial/Maximal Assistance-helper does MORE THAN HALF the effort. [place] lifts or holds trunk or limbs and provides more than half the effort. 0-Nihyfabrk-bancjt does ALL the effort. Patient does none of the effort to complete the activity. Or, the assistance of 2 or more helpers is required for the patient to complete the activity. If activity was not attempted, code reason: 7-Patient Refused. 9-Not Applicable-not attempted and the patient did not perform the activity be fore the current illness, exacerbation or injury. 10-Not Attempted due to Environmental Limitations-(lack of equipment, weather restraints, etc.). 88-Not Attempted due to Medical Conditions or Safety Concerns. Upper Body Dressing (QC): 4 (Per PT and pt., pt. able to dress UE with SBA during PT session.) Lower Body Dressing (QC): 4 (Per PT and pt., pt. able to don shorts with SBA during PT session.) On/Off Footwear: 4 (With practice and SBA/cues, pt. able to don/doff socks and shoes using adaptive equipment.) Toileting Hygiene (QC): 4 (CGA) Toilet Transfer (QC): 4 Other Treatment After practicing socks and shoes with AE multiple times, and toileting, pt. completed bilateral UE exercises with red theraband, x 3 exercises, x 15 reps each in all planes. This was to work on UE strength and overall endurance. Pt. tolerated well with all needs met at end of session. Education OT Patient Education: Correct positioning, Exercise program, Modified ADL techniques, Progress toward Goal/Update tx plan, Purpose of tx/functional activities, Reviewed precautions, Rehab process, Transfer techniques, Use of adapted equipment Teaching Recipient: Patient Teaching Methods: Demonstration, Discussion Response to Teaching: Verbalize Understanding, Return Demonstration OT Short Term Goals Short Term Goals Lower body dressin Putting on/taking off footwear: 3 OT Tandem Operator Goals Half-Way Goals Time Frame: Sep 15, 2020 Eating (QC): 6 Oral Hygiene (QC): 6 Toileting Hygiene (QC): 6 Shower/Bathe Self (QC): 6 Upper Body Dressing (QC): 6 Lower Body Dressing (QC): 6 On/Off Footwear (QC): 6 Additional Goals: 1-Demonstrate ADL Tasks, 2-Verbalize Understanding, 3- ImproveStrength/Rajni 1=Demonstrate adherence to instructed precautions during ADL tasks. 2=Patient will verbalize/demonstrate understanding of assistive devices/modifications for ADL. 3=Patient will improve strength/tolerance for activity to enable patient to perform ADL's. OT Education/Plan Problem List/Assessment Assessment: Decreased Activ Tolerance, Decreased UE Strength, Dependent Transfers, Impaired I ADL's, Impaired Self-Care Skills Discharge Recommendations Plan/Recommendations: Continue POC Therapy Discharge Recommendati: Home & Family, Post Acute OT Equpiment Recommendations-D/C: Hip Kit Treatment Plan/Plan of Care Treatment,Training & Education: Yes Patient would benefit from OT for education, treatment and training to promote independence in ADL's, mobility, safety and/or upper extremity function for ADL's. Plan of Care: ADL Retraining, Caregiver Training, Functional Mobility, Group Exercise/Act as Ind, UE Funct Exercise/Act Treatment Duration: Sep 15, 2020 Frequency: At least 5 of 7 days/Wk (IRF) Estimated Hrs Per Day: .25 hour per day Agreement: Yes Rehab Potential: Good Time/GCodes Start Time: 11:00 Stop Time: 12:00 Total Time Billed (hr/min): 60 Billed Treatment Time 1, ADL x 45minutes, Ex x 15minutes SHADY HARRIS OT Sep 04, 2020 12:11
--- NOTE | 2020-09-04 12:40 | Progress Note ---
Subjective Date Seen by a Provider: Sep 04, 2020 Time Seen by a Provider: 12:38 Subjective/Events-last exam Fwup Right TKA, HTN, DMII, bilateral pleural effusions with hypoxia. Sitting up in chair. Pain well controlled. Down to 2L NC. Objective Exam Vital Signs Date Time Temp Pulse Resp B/P (MAP) Pulse Ox O2 Delivery O2 Flow Rate FiO2 09/04/20 09:09 94 Nasal Cannula 2.00 09/04/20 08:00 36.2 84 18 116/62 (80) 94 Nasal Cannula 2.00 09/03/20 21:10 94 Nasal Cannula 2.00 09/03/20 19:57 36.4 79 18 105/57 (73) 94 Nasal Cannula 2.00 Capillary Refill : General Appearance: No Apparent Distress Respiratory: Lungs Clear, Decreased Breath Sounds Cardiovascular: Regular Rate, Rhythm, Systolic Murmur Gastrointestinal: normal bowel sounds, non tender, soft Extremity: Non Tender, No Calf Tenderness, No Pedal Edema Neurologic/Psychiatric: Alert, Oriented x3 Results Lab Laboratory Tests 09/03/20 15:34: Glucometer 101 09/04/20 05:26: White Blood Count 7.4, Red Blood Count 3.87, Hemoglobin 11.7, Hematocrit 37, Mean Corpuscular Volume 96, Mean Corpuscular Hemoglobin 30, Mean Corpuscular Hemoglobin Concent 32, Red Cell Distribution Width 13.1, Platelet Count 270, Mean Platelet Volume 9.7, Immature Granulocyte % (Auto) 0, Neutrophils (%) (Auto) 65, Lymphocytes (%) (Auto) 18, Monocytes (%) (Auto) 13H, Eosinophils (%) (Auto) 4, Basophils (%) (Auto) 0, Neutrophils # (Auto) 4.8, Lymphocytes # (Auto) 1.3, Monocytes # (Auto) 1.0, Eosinophils # (Auto) 0.3, Basophils # (Auto) 0.0, Immature Granulocyte # (Auto) 0.0, Sodium Level 139, Potassium Level 4.4, Chloride Level 96L, Carbon Dioxide Level 33H, Anion Gap 10, Blood Urea Nitrogen 18, Creatinine 0.79, Estimat Glomerular Filtration Rate > 60, BUN/Creatinine Ratio 23, Glucose Level 100, Calcium Level 9.2, Corrected Calcium 10.0, Total Bilirubin 0.7, Aspartate Amino Transf (AST/SGOT) 22, Alanine Aminotransferase (ALT/SGPT) 14, Alkaline Phosphatase 63, Total Protein 6.6, Albumin 3.0L Assessment/Plan Assessment/Plan Assess & Plan/Chief Complaint 1. Right TKA--PT/OT, lovenox for DVT prophylaxis 2. Hypertension--back on home meds 3. DMII--on metformin and SSI 4. Pleural effusions with hypoxia--repeat CXR DEZ MONTES DO Sep 04, 2020 12:40
--- NOTE | 2020-09-04 14:26 | Therapy Group Daily Note ---
Therapy Daily Group Note Patient Education Topic Home Safety, Exercises Exercises LE Seated Exercise, UE Exercise Session Ratio (pt:therapist): 4:1 Goal of Session: Home Safety Strategies, UE/LE Strengthing Goal Met for this Session: Yes Pt Benefit of Group: Contributions to Others, F/U Use of Strategies @Home, Increased Functional Safety, Increased Functional Strength, Improved Cognition, Recognition of Peers, Socialization Other/Notes Pt ambulated using FWW to therapy gym for OT/PT group. Group consisted of introductions (name and ice breaker questions), socialization, seated B UE/LE exercises, critical thinking activity and memory of home safety education. Pt introduced self appropriately and actively listened to peers. Pt able to complete B UE exercises and required modifications for B LE exercises. Pt participated in critical thinking activity. Pt was able to give own strategies and experience with home safety education. After therapy, pt sitting in recliner with call light/phone in reach. All needs met in room. Start Time: 13:00 Stop Time: 14:00 Total Billed Treatment Time: 60 Total Billed Treatment 1-GRP PAKO COLE Sep 04, 2020 14:26
[2020-09-04 19:56] VITALS: BP 97/52
[2020-09-04 21:28] VITALS: BP 127/65
[2020-09-04] MEDS: TROSPIUM 20 MG (SANCTURA) TAB PO SCH (21:32)
[2020-09-04] MEDS: oxyCODONE/APAP 5/325MG (PERCOCET 5) TABLET PO PRN (21:33)
[2020-09-05] MEDS: MULTIVIT W/MINERALS TAB (THERAGRAN M) PO SCH (06:26)
[2020-09-05] MEDS: metFORMIN 500 MG (GLUCOPHAGE) TAB PO SCH (06:26)
[2020-09-05] MEDS: ACETAMINOPHEN 325 MG TABLET PO PRN ×2 (06:27→12:53)
[2020-09-05] MEDS: ENOXAPARIN 30 MG/0.3 ML (LOVENOX) SYR SC SCH ×2 (06:29→18:37)
--- NOTE | 2020-09-05 06:38 | PM&R Progress Note ---
Subjective HPI/CC On Admission Date Seen by Provider: Sep 05, 2020 Time Seen by Provider: 10:30 Subjective/Events-last exam 09/05/2020: Pt doing pretty well Dr. Sanders ordered a chest X-ray that shows a very small pleural effusion Weaning of O2 Knee high rajendra hose maintained since the thigh high gave blisters Right arm nodule noted to me as small lipoma 09/04/2020: Pt doing pretty well Discontinued the heplock Discontinue the night-hose because there is blisters on her thighs Weaning oxygen Bicarbonate is 33 indicating long-term respiratory failure baseline IS use is only getting up to 250 09/03/2020: Patient doing pretty well Has no complaints Pain is improved Incontinent of urine at night Up in chair now Dressing changes in the incision looks good Using her ice pack 2 L of oxygen maintain 24/7 Bowels moved today 09/02/2020: Patient doing pretty well Settling into rehab very well No bowel movement yet so laxatives were given Up in chair today Using CPM machine as ordered Check meds and labs Daughter at the bedside Slept pretty well Pain is pretty well controlled Review of Systems General: Fatigue Pulmonary: Dyspnea Musculoskeletal: leg pain Objective Exam Vital Signs Vital Signs Date Time Temp Pulse Resp B/P (MAP) Pulse Ox O2 Delivery O2 Flow Rate FiO2 09/05/20 21:27 94 Nasal Cannula 2.00 09/05/20 20:00 36.6 84 20 118/59 (78) 09/05/20 18:35 93 Capillary Refill : General Appearance: No Apparent Distress, WD/WN, Chronically ill, Obese HEENT: PERRL/EOMI, Normal ENT Inspection, Pharynx Normal Neck: Full Range of Motion, Normal Inspection, Non Tender, Supple, Carotid Bruit Respiratory: Chest Non Tender, Lungs Clear, Normal Breath Sounds, No Accessory Muscle Use, No Respiratory Distress Cardiovascular: Regular Rate, Rhythm, No Edema, No Gallop, No JVD, No Murmur, Normal Peripheral Pulses Gastrointestinal: Normal Bowel Sounds, No Organomegaly, No Pulsatile Mass, Non Tender, Soft Back: Normal Inspection, No CVA Tenderness, No Vertebral Tenderness Extremity: Normal Capillary Refill, Normal Inspection, Normal Range of Motion (Except right leg postop), Non Tender, No Calf Tenderness, No Pedal Edema Neurologic/Psychiatric: Alert, Oriented x3, No Motor/Sensory Deficits, Normal Mood/Affect Skin: Normal Color, Warm/Dry Lymphatic: No Adenopathy Results/Procedures Lab Patient resulted labs reviewed. FIM Transfers Therapy Code Descriptions/Definitions Functional [place] Measure: 0=Not Assessed/NA 4=Minimal Assistance 1=Total Assistance 5=Supervision or Setup 2=Maximal Assistance 6=Modified [place] 3=Moderate Assistance 7=Complete IndependenceSCALE: Activities may be completed with or without assistive devices. 3-Ttdrmsrpaf-eqwmjxl completes the activity by him/herself with no assistance from a helper. 5-Set-up or Clean-up Assistance-helper sets up or cleans up; patient completes activity. [place] assists only prior to or following the activity. 4-Supervision or Touching Assistance-helper provides verbal cues and/or touching/steadying and/or contact guard assistance as patient completes activity. Assistance may be provided throughout the activity or intermittently. 3-Partial/Moderate Assistance-helper does LESS THAN HALF the effort. [place] lifts, holds or supports trunk or limbs, but provides less than half the effort. 2-Substantial/Maximal Assistance-helper does MORE THAN HALF the effort. [place] lifts or holds trunk or limbs and provides more than half the effort. 5-Iodwwcpxb-ppaptr does ALL the effort. Patient does none of the effort to complete the activity. Or, the assistance of 2 or more helpers is required for the patient to complete the activity. If activity was not attempted, code reason: 7-Patient Refused. 9-Not Applicable-not attempted and the patient did not perform the activity before the current illness, exacerbation or injury. 10-Not Attempted due to Environmental Limitations-(lack of equipment, weather restraints, etc.). 88-Not Attempted due to Medical Conditions or Safety Concerns. Roll Left to Right (QC): 6 Sit to Lying (QC): 6 Sit to Stand (QC): 5 Chair/Xtr-vh-Fymtb Xfer(QC): 5 Car Transfer (QC): 4 Gait Training Does the Patient Walk?: Yes Distance: 200' x 4 Walk 10 feet (QC): 4 (SBA) Walk 50 ft with 2 Turns(QC): 4 (SBA) Walk 150 ft (QC): 4 (SBA) Walking 10ft/uneven surface-QC: 4 Gait Persons Needed: 1 Gait Assistive Device: FWW Wheelchair Training Does the Pt Use a Wheelchair?: No Wheel 50 ft with 2 turns (QC): 9 Wheel 150 ft (QC): 9 Stair Training #of Steps: 4 1 Step (curb) (QC): 3 4 Steps (QC): 3 12 Steps (QC): 9 Balance Picking up an Object (QC): 3 ADL-Treatment Eating (QC): 6 Oral Hygiene (QC): 6 (IND in seat, SBA in stance.) Shower/Bathe Self (QC): 4 (SBA during tasks. S/u for showering/ covering of bandage/ IV. ) Upper Body Dressing (QC): 4 (Per PT and pt., pt. able to dress UE with SBA during PT session.) Lower Body Dressing (QC): 4 (Per PT and pt., pt. able to don shorts with SBA during PT session.) On/Off Footwear (QC): 4 (With practice and SBA/cues, pt. able to don/doff socks and shoes using adaptive equipment.) Toileting Hygiene (QC): 4 (CGA) Toilet Transfer (QC): 4 Assessment/Plan Assessment and Plan Assess & Plan/Chief Complaint Assessment: Status post right total knee arthroplasty Chronic nocturnal hypoxia maintain on O2 Obesity Advanced age Diabetes Hypertension Plan: Inpatient rehab protocol O2 Pain control Lovenox for DVT prophylaxis 09/02/20: Pain control Monitor closely Fall risk 09/03/2020: Monitor pain Fall risk Incontinence care 09/04/2020: Continue pain control CPM machine Ambulate 09/05/2020: Pain control Monitor oxygen level while weaning (1) Status post total knee replacement, right (2) Nocturnal hypoxia (3) Obesity (4) Diabetes (5) Advanced age KIERRA ARCHULETA DO Sep 05, 2020 06:38
[2020-09-05 07:52] VITALS: BP 124/58
[2020-09-05] MEDS: lisINopril 40 MG (PRINIVIL) TABLET PO SCH (08:55)
[2020-09-05] MEDS: ATENOLOL 50 MG (TENORMIN) TAB PO SCH ×2 (08:55→21:26)
[2020-09-05] MEDS: SENNA W/DOCUSATE (SENOKOT S) TABLET PO SCH ×2 (08:55→21:26)
[2020-09-05] MEDS: amLODIPine 5 MG (NORVASC) TAB PO SCH (08:56)
[2020-09-05] MEDS: DOCUSATE SODIUM 100 MG (COLACE) CAP PO SCH ×2 (08:56→21:26)
[2020-09-05] MEDS: ASPIRIN 81 MG CHEW (CHILDREN'S ASA) PO SCH (08:56)
[2020-09-05] MEDS: VITAMIN D3 25 MCG (1,000 UNITS) TABLET PO SCH (08:56)
[2020-09-05] MEDS: polyethylene glycoL POWDER 17 GM (MIRALAX) PACK PO SCH ×2 (08:59→21:27)
--- NOTE | 2020-09-05 09:00 | Physical Therapy Daily Note ---
PT Daily Note-Current Subjective Patient agrees to PT. Patient reports fatigue. Pain Numeric Pain Scale: 5-Moderate Pain Location: Right Location Body Site: Knee Pain Description: Acute Mental Status Patient Orientation: Normal For Age Transfers SCALE: Activities may be completed with or without assistive devices. 5-Nsepeqcomk-hqkaaty completes the activity by him/herself with no assistance from a helper. 5-Set-up or Clean-up Assistance-helper sets up or cleans up; patient completes activity. [place] assists only prior to or following the activity. 4-Supervision or Touching Assistance-helper provides verbal cues and/or touching/steadying and/or contact guard assistance as patient completes activity. Assistance may be provided throughout the activity or intermittently. 3-Partial/Moderate Assistance-helper does LESS THAN HALF the effort. [place] lifts, holds or supports trunk or limbs, but provides less than half the effort. 2-Substantial/Maximal Assistance-helper does MORE THAN HALF the effort. [place] lifts or holds trunk or limbs and provides more than half the effort. 0-Tfeoixphq-qfrztv does ALL the effort. Patient does none of the effort to complete the activity. Or, the assistance of 2 or more helpers is required for the patient to complete the activity. If activity was not attempted, code reason: 7-Patient Refused. 9-Not Applicable-not attempted and the patient did not perform the activity before the current illness, exacerbation or injury. 10-Not Attempted due to Environmental Limitations-(lack of equipment, weather restraints, etc.). 88-Not Attempted due to Medical Conditions or Safety Concerns. Roll Left & Right (QC): 6 Lying to Sitting/Side of Bed(Q: 6 Sit to Stand (QC): 6 Chair/Crm-hc-Xzhfl Xfer(QC): 6 Toilet Transfer (QC): 6 Weight Bearing Right Lower Extremity: Right Weight Bearing/Tolerated Gait Training Does the Patient Walk?: Yes Distance: 275' x 2 Walk 10 feet (QC): 6 Walk 50 ft with 2 Turns(QC): 6 Walk 150 ft (QC): 6 Gait Assistive Device: FWW slow, antalgic, reciprocal pattern Stair Training Stair Training: Handrails/: 2 handrails #of Steps: 8 1 Step (curb) (QC): 6 4 Steps (QC): 6 Stairs: Pattern: Step to Exercises Supine Ex: Ankle pumps, Quad Set, Heel Slides, Straight leg raise Supine Reps: 15 Seated Therapy Exercises: Ankle pumps, Long arc quads Seated Reps: 15 Standing: Heel/toe raises, Marching Standing Reps: 15 NuStep Minutes: 15 NuStep Workload: 4 Assessment Patient progressing with treatment plan. Patient desires to return to home this week. PT Short Term Goals Short Term Goals Time Frame: Sep 15, 2020 Roll Left & Right: 5 Sit to lyin Lying to sitting on side of be: 5 Sit to stand: 5 Chair/mjj-gb-mfmcm transfer: 5 Toilet transfer: 5 Car transfer: 5 Walk 10 feet: 5 Walk 50 feet with two turns: 5 Walk 150 feet: 5 Walking 10ft on uneven surface: 5 1 step (curb): 5 4 steps: 4 12 steps: 9 Picking up objects: 4 Does pt use a wc or scooter: No Wheel 50ft w/2 turns: 9 Wheel 150 feet: 9 Type: N/A PT Assisted Goals Manager Sales And Marketing Goals PT Assisted Goals Time Frame: Sep 29, 2020 Roll Left & Right (QC): 6 Sit to Lying (QC): 6 Lying-Sitting on Side/Bed(QC): 6 Sit to Stand (QC): 6 Chair/Dws-az-Fpzqy Xfer(QC): 6 Toilet Transfer (QC): 6 Car Transfer (QC): 6 Does the Patient Walk: Yes Walk 10 feet (QC): 6 Walk 50ft with 2 Turns (QC): 6 Walk 150 ft (QC): 6 Walking 10ft on Uneven Surface: 6 1 Step (curb) (QC): 6 4 Steps (QC): 6 12 Steps (QC): 9 Picking up an Object (QC): 6 Does the Pt use WC or Scooter?: No Wheel 50 feet with 2 turns (QC: 9 Wheel 150 feet: 9 PT Plan Treatment/Plan Treatment Plan: Continue Plan of Care Treatment Plan: Bed Mobility, Concurrent Therapy, Education, Functional Activity Rajni, Functional Strength, Group Therapy, Gait, Safety, Transfers Treatment Duration: Sep 29, 2020 Frequency: At least 5 of 7 days/Wk (IRF) Estimated Hrs Per Day: 1.5 hours per day Patient and/or Family Agrees t: Yes Time/GCodes Time In: 755 Time Out: 855 Total Billed Treatment Time: 60 Total Billed Treatment 1 visit EX x 3 45 min FA 15 min KATIE EUGENE PT Sep 05, 2020 09:00
--- NOTE | 2020-09-05 10:03 | Occupational Ther Daily Note ---
OT Current Status-Daily Note Subjective No pain reported. Appearance Pt. up in chair. Agrees to work with OT. Mental Status/Objective Patient Orientation: Person, Place, Time, Situation ADL-Treatment Therapy Code Descriptions/Definitions Functional [place] Measure: 0=Not Assessed/NA 4=Minimal Assistance 1=Total Assistance 5=Supervision or Setup 2=Maximal Assistance 6=Modified [place] 3=Moderate Assistance 7=Complete IndependenceSCALE: Activities may be completed with or without assistive devices. 7-Oxdsoplllt-aybwqcf completes the activity by him/herself with no assistance from a helper. 5-Set-up or Clean-up Assistance-helper sets up or cleans up; patient completes activity. [place] assists only prior to or following the activity. 4-Supervision or Touching Assistance-helper provides verbal cues and/or touching/steadying and/or contact guard assistance as patient completes activity. Assistance may be provided throughout the activity or intermittently. 3-Partial/Moderate Assistance-helper does LESS THAN HALF the effort. [place] lifts, holds or supports trunk or limbs, but provides less than half the effort. 2-Substantial/Maximal Assistance-helper does MORE THAN HALF the effort. [place] lifts or holds trunk or limbs and provides more than half the effort. 8-Mthnsytdq-kzmvfm does ALL the effort. Patient does none of the effort to complete the activity. Or, the assistance of 2 or more helpers is required for the patient to complete the activity. If activity was not attempted, code reason: 7-Patient Refused. 9-Not Applicable-not attempted and the patient did not perform the activity before the current illness, exacerbation or injury. 10-Not Attempted due to Environmental Limitations-(lack of equipment, weather restraints, etc.). 88-Not Attempted due to Medical Conditions or Safety Concerns. Eating (QC): 6 Oral Hygiene (QC): 5 (Seated at sink.) Shower/Bathe Self (QC): 4 (SBA in shower.) Upper Body Dressing (QC): 5 Lower Body Dressing (QC): 3 (Min assist with use of AE.) On/Off Footwear: 3 (Min assist with use of AE for shoes only. Pt. able to don socks.) Education OT Patient Education: Correct positioning, Modified ADL techniques, Progress toward Goal/Update tx plan, Purpose of tx/functional activities, Reviewed precautions, Rehab process, Transfer techniques Teaching Recipient: Patient Teaching Methods: Demonstration, Discussion Response to Teaching: Verbalize Understanding, Return Demonstration OT Short Term Goals Short Term Goals Lower body dressin Putting on/taking off footwear: 3 OT Private Advisor Goals Private Advisor Goals Time Frame: Sep 15, 2020 Eating (QC): 6 Oral Hygiene (QC): 6 Toileting Hygiene (QC): 6 Shower/Bathe Self (QC): 6 Upper Body Dressing (QC): 6 Lower Body Dressing (QC): 6 On/Off Footwear (QC): 6 Additional Goals: 1-Demonstrate ADL Tasks, 2-Verbalize Understanding, 3-Improv eStrength/Rajni 1=Demonstrate adherence to instructed precautions during ADL tasks. 2=Patient will verbalize/demonstrate understanding of assistive devices/modifications for ADL. 3=Patient will improve strength/tolerance for activity to enable patient to p erform ADL's. OT Education/Plan Problem List/Assessment Assessment: Decreased Activ Tolerance, Impaired I ADL's, Impaired Self-Care Skills Discharge Recommendations Plan/Recommendations: Continue POC Equpiment Recommendations-D/C: Hip Kit Treatment Plan/Plan of Care Treatment,Training & Education: Yes Patient would benefit from OT for education, treatment and training to promote independence in ADL's, mobility, safety and/or upper extremity function for ADL's. Plan of Care: ADL Retraining, Caregiver Training, Functional Mobility, Group Exercise/Act as Ind, UE Funct Exercise/Act Treatment Duration: Sep 15, 2020 Frequency: At least 5 of 7 days/Wk (IRF) Estimated Hrs Per Day: .25 hour per day Agreement: Yes Rehab Potential: Good Time/GCodes Start Time: 09:00 Stop Time: 10:00 Total Time Billed (hr/min): 60 Billed Treatment Time 1, ADL x 4 SHADY HARRIS OT Sep 05, 2020 10:03
--- NOTE | 2020-09-05 10:08 | Diagnostic Imaging Report ---
INDICATION: Pleural effusion. Follow-up. COMPARISON: 08/31/2020 FINDINGS: Frontal and lateral radiographic views of the chest were obtained and show persistent, but diminished left basilar effusion. Right lung remains relatively clear. No pneumothorax is seen on either side. Cardiac silhouette remains mildly enlarged. Pulmonary vasculature is within normal limits. Osseous structures show no gross acute abnormalities. IMPRESSION: 1. Persistent, but diminished small left basilar effusion. 2. Cardiomegaly. Dictated by: Dictated on workstation # [id number]
--- NOTE | 2020-09-05 14:03 | Occupational Ther Daily Note ---
OT Current Status-Daily Note Subjective No pain reported. Mental Status/Objective Patient Orientation: Person, Place, Time, Situation ADL-Treatment Therapy Code Descriptions/Definitions Functional [place] Measure: 0=Not Assessed/NA 4=Minimal Assistance 1=Total Assistance 5=Supervision or Setup 2=Maximal Assistance 6=Modified [place] 3=Moderate Assistance 7=Complete IndependenceSCALE: Activities may be completed with or without assistive devices. 8-Sosszfpfnw-irwnsvf completes the activity by him/herself with no assistance from a helper. 5-Set-up or Clean-up Assistance-helper sets up or cleans up; patient completes activity. [place] assists only prior to or following the activity. 4-Supervision or Touching Assistance-helper provides verbal cues and/or touching/steadying and/or contact guard assistance as patient completes activity. Assistance may be provided throughout the activity or intermittently. 3-Partial/Moderate Assistance-helper does LESS THAN HALF the effort. [place] lifts, holds or supports trunk or limbs, but provides less than half the effort. 2-Substantial/Maximal Assistance-helper does MORE THAN HALF the effort. [place] lifts or holds trunk or limbs and provides more than half the effort. 6-Uldtjiawg-wujiel does ALL the effort. Patient does none of the effort to complete the activity. Or, the assistance of 2 or more helpers is required for the patient to complete the activity. If activity was not attempted, code reason: 7-Patient Refused. 9-Not Applicable-not attempted and the patient did not perform the activity before the current illness, exacerbation or injury. 10-Not Attempted due to Environmental Limitations-(lack of equipment, weather restraints, etc.). 88-Not Attempted due to Medical Conditions or Safety Concerns. Other Treatment Pt. up in chair. Agrees to work with OT. Completed bilateral UE exercises with red theraband, x 3 exercises, in all planes, x 15 reps each. Rest breaks in between each exercise needed. Completed exercises to increase overall strength and endurance. Tolerated treatment well. Education OT Patient Education: Correct positioning, Exercise program, Purpose of tx/functional activities, Reviewed precautions, Rehab process Teaching Recipient: Patient Teaching Methods: Demonstration, Discussion Response to Teaching: Verbalize Understanding, Return Demonstration OT Short Term Goals Short Term Goals Lower body dressin Putting on/taking off footwear: 3 OT Detention Goals Sales And Service Consultant Goals Time Frame: Sep 15, 2020 Eating (QC): 6 Oral Hygiene (QC): 6 Toileting Hygiene (QC): 6 Shower/Bathe Self (QC): 6 Upper Body Dressing (QC): 6 Lower Body Dressing (QC): 6 On/Off Footwear (QC): 6 Additional Goals: 1-Demonstrate ADL Tasks, 2-Verbalize Understanding, 3- ImproveStrength/Rajni 1=Demonstrate adherence to instructed precautions during ADL tasks. 2=Patient will verbalize/demonstrate understanding of assistive devices/modifications for ADL. 3=Patient will improve strength/tolerance for activity to enable patient to perform ADL's. OT Education/Plan Problem List/Assessment Assessment: Decreased Activ Tolerance, Decreased UE Strength Discharge Recommendations Plan/Recommendations: Continue POC Treatment Plan/Plan of Care Treatment,Training & Education: Yes Patient would benefit from OT for education, treatment and training to promote independence in ADL's, mobility, safety and/or upper extremity function for ADL's. Plan of Care: ADL Retraining, Caregiver Training, Functional Mobility, Group Exercise/Act as Ind, UE Funct Exercise/Act Treatment Duration: Sep 15, 2020 Frequency: At least 5 of 7 days/Wk (IRF) Estimated Hrs Per Day: .25 hour per day Agreement: Yes Rehab Potential: Good Time/GCodes Start Time: 13:30 Stop Time: 14:00 Total Time Billed (hr/min): 30 Billed Treatment Time 1, Ex x 2 SHADY HARRIS OT Sep 05, 2020 14:03
--- NOTE | 2020-09-05 14:13 | Physical Therapy Daily Note ---
PT Daily Note-Current Subjective Patient agrees to PT. Pain Numeric Pain Scale: 5-Moderate Pain Location: Right Location Body Site: Knee Mental Status Patient Orientation: Normal For Age Transfers SCALE: Activities may be completed with or without assistive devices. 6-Cujbpaaclt-yrjtwbx completes the activity by him/herself with no assistance from a helper. 5-Set-up or Clean-up Assistance-helper sets up or cleans up; patient completes activity. [place] assists only prior to or following the activity. 4-Supervision or Touching Assistance-helper provides verbal cues and/or touching/steadying and/or contact guard assistance as patient completes activity. Assistance may be provided throughout the activity or intermittently. 3-Partial/Moderate Assistance-helper does LESS THAN HALF the effort. [place] lifts, holds or supports trunk or limbs, but provides less than half the effort. 2-Substantial/Maximal Assistance-helper does MORE THAN HALF the effort. [place] lifts or holds trunk or limbs and provides more than half the effort. 2-Rvpbhzfdc-duuwqi does ALL the effort. Patient does none of the effort to complete the activity. Or, the assistance of 2 or more helpers is required for the patient to complete the activity. If activity was not attempted, code reason: 7-Patient Refused. 9-Not Applicable-not attempted and the patient did not perform the activity before the current illness, exacerbation or injury. 10-Not Attempted due to Environmental Limitations-(lack of equipment, weather restraints, etc.). 88-Not Attempted due to Medical Conditions or Safety Concerns. Sit to Stand (QC): 6 Weight Bearing Right Lower Extremity: Right Weight Bearing/Tolerated Gait Training Does the Patient Walk?: Yes Distance: 225' x 2 Walk 10 feet (QC): 6 Walk 50 ft with 2 Turns(QC): 6 Walk 150 ft (QC): 6 Gait Assistive Device: FWW slow and antalgic Exercises Seated Therapy Exercises: Ankle pumps, Long arc quads Seated Reps: 15 NuStep Minutes: 15 NuStep Workload: 5 (to increase ROM right knee ) Assessment Patient has been instructed to be up ad sonny during the day to ensure safe return to home. Patient continues to desire to return to home this week. PT Short Term Goals Short Term Goals Time Frame: Sep 15, 2020 Roll Left & Right: 5 Sit to lyin Lying to sitting on side of be: 5 Sit to stand: 5 Chair/xwq-qv-xsxet transfer: 5 Toilet transfer: 5 Car transfer: 5 Walk 10 feet: 5 Walk 50 feet with two turns: 5 Walk 150 feet: 5 Walking 10ft on uneven surface: 5 1 step (curb): 5 4 steps: 4 12 steps: 9 Picking up objects: 4 Does pt use a wc or scooter: No Wheel 50ft w/2 turns: 9 Wheel 150 feet: 9 Type: N/A PT Correctional Corporal Goals Correctional Corporal Goals PT Care Home Goals Time Frame: Sep 29, 2020 Roll Left & Right (QC): 6 Sit to Lying (QC): 6 Lying-Sitting on Side/Bed(QC): 6 Sit to Stand (QC): 6 Chair/Kcg-ej-Uqxgb Xfer(QC): 6 Toilet Transfer (QC): 6 Car Transfer (QC): 6 Does the Patient Walk: Yes Walk 10 feet (QC): 6 Walk 50ft with 2 Turns (QC): 6 Walk 150 ft (QC): 6 Walking 10ft on Uneven Surface: 6 1 Step (curb) (QC): 6 4 Steps (QC): 6 12 Steps (QC): 9 Picking up an Object (QC): 6 Does the Pt use WC or Scooter?: No Wheel 50 feet with 2 turns (QC: 9 Wheel 150 feet: 9 PT Plan Treatment/Plan Treatment Plan: Continue Plan of Care Treatment Plan: Bed Mobility, Concurrent Therapy, Education, Functional Activity Rajni, Functional Strength, Group Therapy, Gait, Safety, Transfers Treatment Duration: Sep 29, 2020 Frequency: At least 5 of 7 days/Wk (IRF) Estimated Hrs Per Day: 1.5 hours per day Patient and/or Family Agrees t: Yes Time/GCodes Time In: 1300 Time Out: 1330 Total Billed Treatment Time: 30 Total Billed Treatment 1 visit EX 17 min FA 13 min KATIE EUGENE PT Sep 05, 2020 14:13
--- NOTE | 2020-09-05 16:46 | Progress Note ---
Subjective Date Seen by a Provider: Sep 05, 2020 Time Seen by a Provider: 12:35 Subjective/Events-last exam Fwup Right TKA, HTN, DMII, bilateral pleural effusions with hypoxia. Off oxygen. Pain controlled. Objective Exam Vital Signs Date Time Temp Pulse Resp B/P (MAP) Pulse Ox O2 Delivery O2 Flow Rate FiO2 09/05/20 09:00 Nasal Cannula 2.00 09/05/20 07:52 36.5 83 20 124/58 (80) 98 Nasal Cannula 2.00 09/05/20 07:29 97 Nasal Cannula 2.00 09/04/20 21:35 92 Nasal Cannula 2.00 09/04/20 21:28 84 18 127/65 (85) 95 Nasal Cannula 2.00 09/04/20 20:20 92 Nasal Cannula 2.00 09/04/20 19:56 36.2 72 16 97/52 (67) 92 Nasal Cannula 2.00 Capillary Refill : General Appearance: No Apparent Distress Neck: Supple Respiratory: Lungs Clear Cardiovascular: Regular Rate, Rhythm, Systolic Murmur Gastrointestinal: normal bowel sounds, non tender, soft Extremity: Non Tender, No Calf Tenderness, No Pedal Edema Neurologic/Psychiatric: Alert, Oriented x3 Assessment/Plan Assessment/Plan Assess & Plan/Chief Complaint 1. Right TKA--PT/OT, lovenox for DVT prophylaxis 2. Hypertension--back on home meds 3. DMII--on metformin and SSI 4. Pleural effusions with hypoxia--repeat CXR shows improving, trying to go without oxygen during the day DEZ MONTES DO Sep 05, 2020 16:46
[2020-09-05] MEDS: ONDANSETRON 4 MG (ZOFRAN) ORAL DISSOLVE TAB PO PRN (18:36)
[2020-09-05 20:00] VITALS: BP 118/59
[2020-09-05] MEDS: TROSPIUM 20 MG (SANCTURA) TAB PO SCH (21:26)
[2020-09-05] MEDS: oxyCODONE/APAP 5/325MG (PERCOCET 5) TABLET PO PRN (21:27)
[2020-09-06] MEDS: oxyCODONE/APAP 5/325MG (PERCOCET 5) TABLET PO PRN ×3 (01:22→20:53)
--- NOTE | 2020-09-06 06:21 | PM&R Progress Note ---
Subjective HPI/CC On Admission Date Seen by Provider: Sep 06, 2020 Time Seen by Provider: 10:00 Subjective/Events-last exam 09/06/20: Pt doing pretty well Hesitant about going home Had some bleeding per rectum yesterday but now no longer an issue so holding Lovenox Bowels moved today Percocet given on a regular basis Oxygen off during the day now and only at night DC 09/0909/05/2020: Pt doing pretty well Dr. Sanders ordered a chest X-ray that shows a very small pleural effusion Weaning of O2 Knee high rajendra hose maintained since the thigh high gave blisters Right arm nodule noted to me as small lipoma 09/04/2020: Pt doing pretty well Discontinued the heplock Discontinue the night-hose because there is blisters on her thighs Weaning oxygen Bicarbonate is 33 indicating long-term respiratory failure baseline IS use is only getting up to 250 09/03/2020: Patient doing pretty well Has no complaints Pain is improved Incontinent of urine at night Up in chair now Dressing changes in the incision looks good Using her ice pack 2 L of oxygen maintain 24/7 Bowels moved today 09/02/2020: Patient doing pretty well Settling into rehab very well No bowel movement yet so laxatives were given Up in chair today Using CPM machine as ordered Check meds and labs Daughter at the bedside Slept pretty well Pain is pretty well controlled Review of Systems Musculoskeletal: leg pain Objective Exam Vital Signs Vital Signs Date Time Temp Pulse Resp B/P (MAP) Pulse Ox O2 Delivery O2 Flow Rate FiO2 09/06/20 21:00 Nasal Cannula 2.00 09/06/20 20:00 36.2 65 20 116/56 (76) 95 09/06/20 08:51 28 Capillary Refill : General Appearance: No Apparent Distress, WD/WN, Chronically ill, Obese HEENT: PERRL/EOMI, Normal ENT Inspection, Pharynx Normal Neck: Full Range of Motion, Normal Inspection, Non Tender, Supple, Carotid Bruit Respiratory: Chest Non Tender, Lungs Clear, Normal Breath Sounds, No Accessory Muscle Use, No Respiratory Distress Cardiovascular: Regular Rate, Rhythm, No Edema, No Gallop, No JVD, No Murmur, Normal Peripheral Pulses Gastrointestinal: Normal Bowel Sounds, No Organomegaly, No Pulsatile Mass, Non Tender, Soft Back: Normal Inspection, No CVA Tenderness, No Vertebral Tenderness Extremity: Normal Capillary Refill, Normal Inspection, Normal Range of Motion (Except right leg postop), Non Tender, No Calf Tenderness, No Pedal Edema Neurologic/Psychiatric: Alert, Oriented x3, No Motor/Sensory Deficits, Normal Mood/Affect Skin: Normal Color, Warm/Dry Lymphatic: No Adenopathy Results/Procedures Lab Patient resulted labs reviewed. FIM Transfers Therapy Code Descriptions/Definitions Functional [place] Measure: 0=Not Assessed/NA 4=Minimal Assistance 1=Total Assistance 5=Supervision or Setup 2=Maximal Assistance 6=Modified [place] 3=Moderate Assistance 7=Complete IndependenceSCALE: Activities may be completed with or without assistive devices. 4-Eaxxqmamdz-ncdiaye completes the activity by him/herself with no assistance from a helper. 5-Set-up or Clean-up Assistance-helper sets up or cleans up; patient completes activity. [place] assists only prior to or following the activity. 4-Supervision or Touching Assistance-helper provides verbal cues and/or touching/steadying and/or contact guard assistance as patient completes activity. Assistance may be provided throughout the activity or intermittently. 3-Partial/Moderate Assistance-helper does LESS THAN HALF the effort. [place] lifts, holds or supports trunk or limbs, but provides less than half the effort. 2-Substantial/Maximal Assistance-helper does MORE THAN HALF the effort. [place] lifts or holds trunk or limbs and provides more than half the effort. 0-Zibfpedhh-vhigea does ALL the effort. Patient does none of the effort to complete the activity. Or, the assistance of 2 or more helpers is required for the patient to complete the activity. If activity was not attempted, code reason: 7-Patient Refused. 9-Not Applicable-not attempted and the patient did not perform the activity befo re the current illness, exacerbation or injury. 10-Not Attempted due to Environmental Limitations-(lack of equipment, weather re straints, etc.). 88-Not Attempted due to Medical Conditions or Safety Concerns. Roll Left to Right (QC): 6 Sit to Lying (QC): 6 Sit to Stand (QC): 6 Chair/Wnx-xx-Iuapg Xfer(QC): 6 Car Transfer (QC): 4 Gait Training Does the Patient Walk?: Yes Distance: 225' x 2 Walk 10 feet (QC): 6 Walk 50 ft with 2 Turns(QC): 6 Walk 150 ft (QC): 6 Walking 10ft/uneven surface-QC: 4 Gait Persons Needed: 1 Gait Assistive Device: FWW Wheelchair Training Does the Pt Use a Wheelchair?: No Wheel 50 ft with 2 turns (QC): 9 Wheel 150 ft (QC): 9 Stair Training Stair Training: Handrails/: 2 handrails #of Steps: 8 1 Step (curb) (QC): 6 4 Steps (QC): 6 12 Steps (QC): 9 Stairs: Pattern: Step to Balance Picking up an Object (QC): 3 ADL-Treatment Eating (QC): 6 Oral Hygiene (QC): 5 (Seated at sink.) Shower/Bathe Self (QC): 4 (SBA in shower.) Upper Body Dressing (QC): 5 Lower Body Dressing (QC): 3 (Min assist with use of AE.) On/Off Footwear (QC): 3 (Min assist with use of AE for shoes only. Pt. able to don socks.) Toileting Hygiene (QC): 4 (CGA) Toilet Transfer (QC): 4 Assessment/Plan Assessment and Plan Assess & Plan/Chief Complaint Assessment: Status post right total knee arthroplasty Chronic nocturnal hypoxia maintain on O2 Obesity Advanced age Diabetes Hypertension Plan: Inpatient rehab protocol O2 Pain control Lovenox for DVT prophylaxis 09/02/20: Pain control Monitor closely Fall risk 09/03/2020: Monitor pain Fall risk Incontinence care 09/04/2020: Continue pain control CPM machine Ambulate 09/05/2020: Pain control Monitor oxygen level while weaning 09/06/20: Doing well Weaned O2 during daytime DC 09/09 (1) Status post total knee replacement, right (2) Nocturnal hypoxia (3) Obesity (4) Diabetes (5) Advanced age KIERRA ARCHULETA DO Sep 06, 2020 06:21
[2020-09-06] MEDS: MULTIVIT W/MINERALS TAB (THERAGRAN M) PO SCH (06:24)
[2020-09-06] MEDS: metFORMIN 500 MG (GLUCOPHAGE) TAB PO SCH (06:24)
[2020-09-06] MEDS: ACETAMINOPHEN 325 MG TABLET PO PRN ×2 (06:25→17:46)
[2020-09-06 07:40] VITALS: BP 130/61
[2020-09-06] MEDS: amLODIPine 5 MG (NORVASC) TAB PO SCH (08:37)
[2020-09-06] MEDS: lisINopril 40 MG (PRINIVIL) TABLET PO SCH (08:37)
[2020-09-06] MEDS: ASPIRIN 81 MG CHEW (CHILDREN'S ASA) PO SCH (08:37)
[2020-09-06] MEDS: VITAMIN D3 25 MCG (1,000 UNITS) TABLET PO SCH (08:37)
[2020-09-06] MEDS: SENNA W/DOCUSATE (SENOKOT S) TABLET PO SCH ×3 (08:37→20:52)
[2020-09-06] MEDS: DOCUSATE SODIUM 100 MG (COLACE) CAP PO SCH ×3 (08:37→20:53)
[2020-09-06] MEDS: ATENOLOL 50 MG (TENORMIN) TAB PO SCH ×2 (08:38→20:53)
[2020-09-06] MEDS: polyethylene glycoL POWDER 17 GM (MIRALAX) PACK PO SCH ×2 (08:38→20:53)
[2020-09-06 08:51] VITALS: BP 130/61
--- NOTE | 2020-09-06 09:22 | Physical Therapy Daily Note ---
PT Daily Note-Current Subjective Pt agreeable to PT. Pt requests BR privileges. Pt rates pain 0/10 at rest and 5/10 with ambulation (R) knee. Mental Status Patient Orientation: Person, Place, Situation Transfers SCALE: Activities may be completed with or without assistive devices. 0-Kpxrztkkho-rxgjycp completes the activity by him/herself with no assistance from a helper. 5-Set-up or Clean-up Assistance-helper sets up or cleans up; patient completes activity. [place] assists only prior to or following the activity. 4-Supervision or Touching Assistance-helper provides verbal cues and/or touching/steadying and/or contact guard assistance as patient completes activity. Assistance may be provided throughout the activity or intermittently. 3-Partial/Moderate Assistance-helper does LESS THAN HALF the effort. [place] lifts, holds or supports trunk or limbs, but provides less than half the effort. 2-Substantial/Maximal Assistance-helper does MORE THAN HALF the effort. [place] lifts or holds trunk or limbs and provides more than half the effort. 3-Hhmdadnqx-xdeevu does ALL the effort. Patient does none of the effort to complete the activity. Or, the assistance of 2 or more helpers is required for the patient to complete the activity. If activity was not attempted, code reason: 7-Patient Refused. 9-Not Applicable-not attempted and the patient did not perform the activity before the current illness, exacerbation or injury. 10-Not Attempted due to Environmental Limitations-(lack of equipment, weather restraints, etc.). 88-Not Attempted due to Medical Conditions or Safety Concerns. Weight Bearing Right Lower Extremity: Right Weight Bearing/Tolerated Gait Training Gait Assistive Device: FWW Pt amb with FWW 2 x 100ft at slow steady speed, CGA Stair Training Stairs: Pattern: Step to Pt practiced steps 8 steps up/down with CGA. Exercises Supine Ex: LE Protocol Supine Reps: 20 Treatments BR use required assist with pericare. CPM set 0-60deg Assessment Current Status: Good Progress Pt progressing appropriately toward goals. Knee ext 0 degrees. PT Short Term Goals Short Term Goals Time Frame: Sep 15, 2020 Roll Left & Right: 5 Sit to lyin Lying to sitting on side of be: 5 Sit to stand: 5 Chair/kpp-ef-cffti transfer: 5 Toilet transfer: 5 Car transfer: 5 Walk 10 feet: 5 Walk 50 feet with two turns: 5 Walk 150 feet: 5 Walking 10ft on uneven surface: 5 1 step (curb): 5 4 steps: 4 12 steps: 9 Picking up objects: 4 Does pt use a wc or scooter: No Wheel 50ft w/2 turns: 9 Wheel 150 feet: 9 Type: N/A PT Jail Goals Jail Goals PT Code Enforcement Officer Goals Time Frame: Sep 29, 2020 Roll Left & Right (QC): 6 Sit to Lying (QC): 6 Lying-Sitting on Side/Bed(QC): 6 Sit to Stand (QC): 6 Chair/Lkv-xj-Ujpve Xfer(QC): 6 Toilet Transfer (QC): 6 Car Transfer (QC): 6 Does the Patient Walk: Yes Walk 10 feet (QC): 6 Walk 50ft with 2 Turns (QC): 6 Walk 150 ft (QC): 6 Walking 10ft on Uneven Surface: 6 1 Step (curb) (QC): 6 4 Steps (QC): 6 12 Steps (QC): 9 Picking up an Object (QC): 6 Does the Pt use WC or Scooter?: No Wheel 50 feet with 2 turns (QC: 9 Wheel 150 feet: 9 PT Plan Treatment/Plan Treatment Plan: Continue Plan of Care Treatment Plan: Bed Mobility, Concurrent Therapy, Education, Functional Activity Rajni, Functional Strength, Group Therapy, Gait, Safety, Transfers Treatment Duration: Sep 29, 2020 Frequency: At least 5 of 7 days/Wk (IRF) Estimated Hrs Per Day: 1.5 hours per day Patient and/or Family Agrees t: Yes Time/GCodes Time In: 805 Time Out: 850 Total Billed Treatment Time: 45 Total Billed Treatment 1, Ther ex 15', FA 15, gait 15'' [facility] Sep 06, 2020 09:22
--- NOTE | 2020-09-06 11:51 | Occupational Ther Daily Note ---
OT Current Status-Daily Note Subjective No pain reported. Appearance Pt. up in chair. Agrees to work with OT. Mental Status/Objective Patient Orientation: Person, Place, Time, Situation ADL-Treatment Therapy Code Descriptions/Definitions Functional [place] Measure: 0=Not Assessed/NA 4=Minimal Assistance 1=Total Assistance 5=Supervision or Setup 2=Maximal Assistance 6=Modified [place] 3=Moderate Assistance 7=Complete IndependenceSCALE: Activities may be completed with or without assistive devices. 0-Rdkfcmliny-kzwhoih completes the activity by him/herself with no assistance from a helper. 5-Set-up or Clean-up Assistance-helper sets up or cleans up; patient completes activity. [place] assists only prior to or following the activity. 4-Supervision or Touching Assistance-helper provides verbal cues and/or touching/steadying and/or contact guard assistance as patient completes activity. Assistance may be provided throughout the activity or intermittently. 3-Partial/Moderate Assistance-helper does LESS THAN HALF the effort. [place] lifts, holds or supports trunk or limbs, but provides less than half the effort. 2-Substantial/Maximal Assistance-helper does MORE THAN HALF the effort. [place] lifts or holds trunk or limbs and provides more than half the effort. 1-Nxlbxvwhb-rvuafw does ALL the effort. Patient does none of the effort to complete the activity. Or, the assistance of 2 or more helpers is required for the patient to complete the activity. If activity was not attempted, code reason: 7-Patient Refused. 9-Not Applicable-not attempted and the patient did not perform the activity before the current illness, exacerbation or injury. 10-Not Attempted due to Environmental Limitations-(lack of equipment, weather restraints, etc.). 88-Not Attempted due to Medical Conditions or Safety Concerns. Eating (QC): 6 Upper Body Dressing (QC): 5 Lower Body Dressing (QC): 4 Other Treatment Pt. up in chair. Agrees to work with OT. She declines showering this date. Agrees to dress. After dressing, pt. stands with SBA and walker and ambulates to therapy gym. OT dons 1 lb. wrist weights and completes bilateral UE activity with reaching for pegs to put into peg board. Pt. fatigues with this and takes rest breaks. Doffed wrist weights and completed dumbbell exercises x 2 lbs. x 3 exercises x 15 reps each in all planes. Tolerated treatment well. Ambulated back to room. All needs met in chair. Education OT Patient Education: Correct positioning, Exercise program, Modified ADL techniques, Progress toward Goal/Update tx plan, Purpose of tx/functional activities, Reviewed precautions, Rehab process, Transfer techniques Teaching Recipient: Patient Teaching Methods: Demonstration, Discussion Response to Teaching: Verbalize Understanding, Return Demonstration OT Short Term Goals Short Term Goals Lower body dressin Putting on/taking off footwear: 3 OT Chcf Goals Chcf Goals Time Frame: Sep 15, 2020 Eating (QC): 6 Oral Hygiene (QC): 6 Toileting Hygiene (QC): 6 Shower/Bathe Self (QC): 6 Upper Body Dressing (QC): 6 Lower Body Dressing (QC): 6 On/Off Footwear (QC): 6 Additional Goals: 1-Demonstrate ADL Tasks, 2-Verbalize Understanding, 3- ImproveStrength/Rajni 1=Demonstrate adherence to instructed precautions during ADL tasks. 2=Patient will verbalize/demonstrate understanding of assistive devices/modifications for ADL. 3=Patient will improve strength/tolerance for activity to enable patient to perform ADL's. OT Education/Plan Problem List/Assessment Assessment: Decreased Activ Tolerance, Impaired I ADL's, Impaired Self-Care Skills Discharge Recommendations Plan/Recommendations: Continue POC Treatment Plan/Plan of Care Treatment,Training & Education: Yes Patient would benefit from OT for education, treatment and training to promote independence in ADL's, mobility, safety and/or upper extremity function for ADL's. Plan of Care: ADL Retraining, Caregiver Training, Functional Mobility, Group Exercise/Act as Ind, UE Funct Exercise/Act Treatment Duration: Sep 15, 2020 Frequency: At least 5 of 7 days/Wk (IRF) Estimated Hrs Per Day: .25 hour per day Agreement: Yes Rehab Potential: Good Time/GCodes Start Time: 10:00 Stop Time: 11:00 Total Time Billed (hr/min): 60 Billed Treatment Time 1, ADL x 30minutes, FA x 30minutes SHADY HARRIS OT Sep 06, 2020 11:51
--- NOTE | 2020-09-06 12:03 | Progress Note ---
Standard Progress Note Progress Notes/Assess & Plan Date Seen by a Provider: Sep 06, 2020 Time Seen by a Provider: 12:03 Progress/Assessment & Plan c/o R foot pain with ambulation. Denies pain at rest. Reports it is better today. no trauma Laboratory Tests Test 09/01/20 15:23 09/01/20 20:55 09/02/20 05:32 Range/Units Glucometer 136 H 140 H 70-110 MG/DL White Blood Count 10.8 4.3-11.0 10^3/uL Red Blood Count 4.25 3.80-5.11 10^6/uL Hemoglobin 12.9 11.5-16.0 g/dL Hematocrit 41 35-52 % Mean Corpuscular Volume 97 80-99 fL Mean Corpuscular Hemoglobin 30 25-34 pg Mean Corpuscular Hemoglobin Concent 31 L 32-36 g/dL Red Cell Distribution Width 13.0 10.0-14.5 % Platelet Count 250 130-400 10^3/uL Mean Platelet Volume 10.4 9.0-12.2 fL Immature Granulocyte % (Auto) 1 % Neutrophils (%) (Auto) 75 42-75 % Lymphocytes (%) (Auto) 12 12-44 % Monocytes (%) (Auto) 10 0-12 % Eosinophils (%) (Auto) 2 0-10 % Basophils (%) (Auto) 0 0-10 % Neutrophils # (Auto) 8.1 H 1.8-7.8 10^3/uL Lymphocytes # (Auto) 1.3 1.0-4.0 10^3/uL Monocytes # (Auto) 1.1 H 0.0-1.0 10^3/uL Eosinophils # (Auto) 0.2 0.0-0.3 10^3/uL Basophils # (Auto) 0.0 0.0-0.1 10^3/uL Immature Granulocyte # (Auto) 0.1 0.0-0.1 10^3/uL Sodium Level 137 135-145 MMOL/L Potassium Level 4.0 3.6-5.0 MMOL/L Chloride Level 96 L 98-107 MMOL/L Carbon Dioxide Level 31 21-32 MMOL/L Anion Gap 10 5-14 MMOL/L Blood Urea Nitrogen 11 7-18 MG/DL Creatinine 0.83 0.60-1.30 MG/DL Estimat Glomerular Filtration Rate > 60 BUN/Creatinine Ratio 13 Glucose Level 105 70-105 MG/DL Calcium Level 9.7 8.5-10.1 MG/DL Corrected Calcium 10.2 H 8.5-10.1 MG/DL Total Bilirubin 0.7 0.1-1.0 MG/DL Aspartate Amino Transf (AST/SGOT) 17 5-34 U/L Alanine Aminotransferase (ALT/SGPT) 15 0-55 U/L Alkaline Phosphatase 75 40-136 U/L Total Protein 7.4 6.4-8.2 GM/DL Albumin 3.4 3.2-4.5 GM/DL RLE--incision with sl bloody DC . No erythema or warmth. R foot without erythema or warmth. Non tender to palpation. No pain with ROM s/p RTKA foot pain likely secondary to positioning in OR. No need for xray. If continues, cushioined heel pad in bed continue PT/OT Final Diagnosis no complaints incision clean and dry. No calf tendereness. Neg Timothy's s/p RTKA doing well continue PT/OT ARUN ENGLAND MD Sep 06, 2020 12:03
--- NOTE | 2020-09-06 12:36 | Progress Note ---
Subjective Date Seen by a Provider: Sep 06, 2020 Time Seen by a Provider: 12:34 Subjective/Events-last exam Fwup Right TKA, HTN, DMII, bilateral pleural effusions with hypoxia. Back on oxygen at 2L NC. Pain controlled. Objective Exam Vital Signs Date Time Temp Pulse Resp B/P (MAP) Pulse Ox O2 Delivery O2 Flow Rate FiO2 09/06/20 08:51 36.1 75 95 28 09/06/20 08:32 Nasal Cannula 2.00 09/06/20 07:40 36.1 74 22 130/61 (84) 94 Nasal Cannula 2.00 09/06/20 07:28 95 Nasal Cannula 2.00 09/05/20 21:27 94 Nasal Cannula 2.00 09/05/20 20:00 36.6 84 20 118/59 (78) 94 09/05/20 18:35 Nasal Cannula 2.00 93 Capillary Refill : General Appearance: No Apparent Distress Respiratory: Lungs Clear, Decreased Breath Sounds Cardiovascular: Regular Rate, Rhythm, Systolic Murmur Gastrointestinal: normal bowel sounds, non tender, soft Extremity: Non Tender, No Calf Tenderness, No Pedal Edema, Other (dressing dry) Neurologic/Psychiatric: Alert, Oriented x3 Assessment/Plan Assessment/Plan Assess & Plan/Chief Complaint 1. Right TKA--PT/OT, lovenox for DVT prophylaxis 2. Hypertension--back on home meds 3. DMII--on metformin and SSI 4. Pleural effusions with hypoxia--repeat CXR shows improving, on oxygen at 2L NC, does likely have sleep apnea but has refused sleep study in past and opted for oxygen at night DEZ MONTES DO Sep 06, 2020 12:36
--- NOTE | 2020-09-06 14:47 | Therapy Group Daily Note ---
Therapy Daily Group Note Patient Education Topic Other List Below (memory) Exercises LE Seated Exercise, UE Exercise Session Ratio (pt:therapist): 4:1 Goal of Session: Education on ARU Expectations, Memory Strategies, UE/LE Strengthing Goal Met for this Session: Yes Pt Benefit of Group: Contributions to Others, F/U Use of Strategies @Home, Increased Functional Safety, Increased Functional Strength, Improved Cognition, Recognition of Peers, Socialization Other/Notes Pt ambulated using FWW to [facility] area for OT/PT group. Group consisted of introductions (name, place living, happiest place), socialization, seated B UE/LE exercises, education on ARU and memory. Pt introduced self appropriately and actively listened to peers. Pt able to complete exercises correctly and tolerated well. Pt acknowledged understanding of educational topics by affirmative gestures and giving own personal examples/strategies. After session, pt lying in bed with call light/phone in reach. All needs met in room. Start Time: 13:00 Stop Time: 14:15 Total Billed Treatment Time: 75 Total Billed Treatment 1-[facility] Sep 06, 2020 14:47
[2020-09-06 20:00] VITALS: BP 116/56
[2020-09-06] MEDS: TROSPIUM 20 MG (SANCTURA) TAB PO SCH (20:53)
--- NOTE | 2020-09-07 05:56 | PM&R Progress Note ---
Subjective HPI/CC On Admission Date Seen by Provider: Sep 07, 2020 Time Seen by Provider: 12:00 Subjective/Events-last exam 09/07/2020: Patient doing pretty well Lovenox discontinued since she is ambulating well No more blood from rectum Pain is well controlled Discharge plan for Friday Pain pill works well 09/06/20: Pt doing pretty well Hesitant about going home Had some bleeding per rectum yesterday but now no longer an issue so holding Lovenox Bowels moved today Percocet given on a regular basis Oxygen off during the day now and only at night DC 09/0909/05/2020: Pt doing pretty well Dr. Sanders ordered a chest X-ray that shows a very small pleural effusion Weaning of O2 Knee high rajendra hose maintained since the thigh high gave blisters Right arm nodule noted to me as small lipoma 09/04/2020: Pt doing pretty well Discontinued the heplock Discontinue the night-hose because there is blisters on her thighs Weaning oxygen Bicarbonate is 33 indicating long-term respiratory failure baseline IS use is only getting up to 250 09/03/2020: Patient doing pretty well Has no complaints Pain is improved Incontinent of urine at night Up in chair now Dressing changes in the incision looks good Using her ice pack 2 L of oxygen maintain 24/7 Bowels moved today 09/02/2020: Patient doing pretty well Settling into rehab very well No bowel movement yet so laxatives were given Up in chair today Using CPM machine as ordered Check meds and labs Daughter at the bedside Slept pretty well Pain is pretty well controlled Review of Systems General: Fatigue Musculoskeletal: leg pain Objective Exam Vital Signs Vital Signs Date Time Temp Pulse Resp B/P (MAP) Pulse Ox O2 Delivery O2 Flow Rate FiO2 09/07/20 19:43 Room Air 09/07/20 09:00 92 09/07/20 07:46 36.0 78 16 130/61 (84) 2.00 09/06/20 08:51 28 Capillary Refill : General Appearance: No Apparent Distress, WD/WN, Chronically ill, Obese HEENT: PERRL/EOMI, Normal ENT Inspection, Pharynx Normal Neck: Full Range of Motion, Normal Inspection, Non Tender, Supple, Carotid Bruit Respiratory: Chest Non Tender, Lungs Clear, Normal Breath Sounds, No Accessory Muscle Use, No Respiratory Distress Cardiovascular: Regular Rate, Rhythm, No Edema, No Gallop, No JVD, No Murmur, Normal Peripheral Pulses Gastrointestinal: Normal Bowel Sounds, No Organomegaly, No Pulsatile Mass, Non Tender, Soft Back: Normal Inspection, No CVA Tenderness, No Vertebral Tenderness Extremity: Normal Capillary Refill, Normal Inspection, Normal Range of Motion, Non Tender, No Calf Tenderness, No Pedal Edema Neurologic/Psychiatric: Alert, Oriented x3, No Motor/Sensory Deficits, Normal Mood/Affect Skin: Normal Color, Warm/Dry Lymphatic: No Adenopathy Results/Procedures Lab Patient resulted labs reviewed. FIM Transfers Therapy Code Descriptions/Definitions Functional [place] Measure: 0=Not Assessed/NA 4=Minimal Assistance 1=Total Assistance 5=Supervision or Setup 2=Maximal Assistance 6=Modified [place] 3=Moderate Assistance 7=Complete IndependenceSCALE: Activities may be completed with or without assistive devices. 6-Gjamgzroli-gyoyuae completes the activity by him/herself with no assistance from a helper. 5-Set-up or Clean-up Assistance-helper sets up or cleans up; patient completes activity. [place] assists only prior to or following the activity. 4-Supervision or Touching Assistance-helper provides verbal cues and/or touching/steadying and/or contact guard assistance as patient completes acti vity. Assistance may be provided throughout the activity or intermittently. 3-Partial/Moderate Assistance-helper does LESS THAN HALF the effort. [place] lifts, holds or supports trunk or limbs, but provides less than half the effort. 2-Substantial/Maximal Assistance-helper does MORE THAN HALF the effort. [place] lifts or holds trunk or limbs and provides more than half the effort. 2-Jgzxyqwlz-nctiwn does ALL the effort. Patient does none of the effort to complete the activity. Or, the assistance of 2 or more helpers is required for the patient to complete the activity. If activity was not attempted, code reason: 7-Patient Refused. 9-Not Applicable-not attempted and the patient did not perform the activity before the current illness, exacerbation or injury. 10-Not Attempted due to Environmental Limitations-(lack of equipment, weather restraints, etc.). 88-Not Attempted due to Medical Conditions or Safety Concerns. Roll Left to Right (QC): 6 Sit to Lying (QC): 6 Sit to Stand (QC): 6 Chair/Ogu-zu-Aqwqm Xfer(QC): 6 Car Transfer (QC): 4 Gait Training Does the Patient Walk?: Yes Distance: 225' x 2 Walk 10 feet (QC): 6 Walk 50 ft with 2 Turns(QC): 6 Walk 150 ft (QC): 6 Walking 10ft/uneven surface-QC: 4 Gait Persons Needed: 1 Gait Assistive Device: FWW Wheelchair Training Does the Pt Use a Wheelchair?: No Wheel 50 ft with 2 turns (QC): 9 Wheel 150 ft (QC): 9 Stair Training Stair Training: Handrails/: 2 handrails #of Steps: 8 1 Step (curb) (QC): 6 4 Steps (QC): 6 12 Steps (QC): 9 Stairs: Pattern: Step to Balance Picking up an Object (QC): 3 ADL-Treatment Eating (QC): 6 Oral Hygiene (QC): 5 (Seated at sink.) Shower/Bathe Self (QC): 4 (SBA in shower.) Upper Body Dressing (QC): 5 Lower Body Dressing (QC): 4 On/Off Footwear (QC): 3 (Min assist with use of AE for shoes only. Pt. able to don socks.) Toileting Hygiene (QC): 4 (CGA) Toilet Transfer (QC): 4 Assessment/Plan Assessment and Plan Assess & Plan/Chief Complaint Assessment: Status post right total knee arthroplasty Chronic nocturnal hypoxia maintain on O2 Obesity Advanced age Diabetes Hypertension Plan: Inpatient rehab protocol O2 Pain control Lovenox for DVT prophylaxis 09/02/20: Pain control Monitor closely Fall risk 09/03/2020: Monitor pain Fall risk Incontinence care 09/04/2020: Continue pain control CPM machine Ambulate 09/05/2020: Pain control Monitor oxygen level while weaning 09/06/20: Doing well Weaned O2 during daytime DC 09/0909/07/2020: Continue aggressive therapy Discharge Friday home (1) Status post total knee replacement, right (2) Nocturnal hypoxia (3) Obesity (4) Diabetes (5) Advanced age KIERRA ARCHULETA DO Sep 07, 2020 05:56
[2020-09-07] MEDS: MULTIVIT W/MINERALS TAB (THERAGRAN M) PO SCH (06:13)
[2020-09-07] MEDS: metFORMIN 500 MG (GLUCOPHAGE) TAB PO SCH (06:13)
[2020-09-07] MEDS: oxyCODONE/APAP 5/325MG (PERCOCET 5) TABLET PO PRN ×4 (07:38→18:03)
[2020-09-07] MEDS: VITAMIN D3 25 MCG (1,000 UNITS) TABLET PO SCH (07:39)
[2020-09-07] MEDS: ASPIRIN 81 MG CHEW (CHILDREN'S ASA) PO SCH (07:39)
[2020-09-07] MEDS: ATENOLOL 50 MG (TENORMIN) TAB PO SCH ×2 (07:39→20:38)
[2020-09-07] MEDS: DOCUSATE SODIUM 100 MG (COLACE) CAP PO SCH ×2 (07:39→21:27)
[2020-09-07] MEDS: amLODIPine 5 MG (NORVASC) TAB PO SCH (07:39)
[2020-09-07] MEDS: SENNA W/DOCUSATE (SENOKOT S) TABLET PO SCH ×2 (07:39→21:27)
[2020-09-07] MEDS: lisINopril 40 MG (PRINIVIL) TABLET PO SCH (07:39)
[2020-09-07 07:46] VITALS: BP 130/61
[2020-09-07] MEDS: polyethylene glycoL POWDER 17 GM (MIRALAX) PACK PO SCH ×2 (09:18→21:27)
--- NOTE | 2020-09-07 10:21 | Physical Therapy Daily Note ---
PT Daily Note-Current Subjective Pt sitting in recliner upon arrival. Pt agrees to PT. Pt asks to use BR. Pain Numeric Pain Scale: 4 Location: Right, Incisional Location Body Site: Knee Pain Description: Ache, Tightness Mental Status Patient Orientation: Person, Place, Time, Situation Transfers SCALE: Activities may be completed with or without assistive devices. 6-Hmbnrxagyp-gpdpkkx completes the activity by him/herself with no assistance from a helper. 5-Set-up or Clean-up Assistance-helper sets up or cleans up; patient completes activity. [place] assists only prior to or following the activity. 4-Supervision or Touching Assistance-helper provides verbal cues and/or touching/steadying and/or contact guard assistance as patient completes activity. Assistance may be provided throughout the activity or intermittently. 3-Partial/Moderate Assistance-helper does LESS THAN HALF the effort. [place] lifts, holds or supports trunk or limbs, but provides less than half the effort. 2-Substantial/Maximal Assistance-helper does MORE THAN HALF the effort. [place] lifts or holds trunk or limbs and provides more than half the effort. 4-Zsahyhdrk-opnirw does ALL the effort. Patient does none of the effort to complete the activity. Or, the assistance of 2 or more helpers is required for the patient to complete the activity. If activity was not attempted, code reason: 7-Patient Refused. 9-Not Applicable-not attempted and the patient did not perform the activity before the current illness, exacerbation or injury. 10-Not Attempted due to Environmental Limitations-(lack of equipment, weather restraints, etc.). 88-Not Attempted due to Medical Conditions or Safety Concerns. Sit to Stand (QC): 5 Toilet Transfer (QC): 5 Weight Bearing Right Lower Extremity: Right Weight Bearing/Tolerated Gait Training Does the Patient Walk?: Yes Distance: 75' x2 Walk 10 feet (QC): 5 Walk 50 ft with 2 Turns(QC): 5 Walk 150 ft (QC): 5 Gait Persons Needed: 1 Gait Assistive Device: FWW Exercises NuStep Minutes: 15 NuStep Workload: 4 Treatments TF to standing and uses BR. Pt amb. in hallway and to Therapy Gym. Pt uses NuStep then amb. back to room. All needs met,OT works with pt from here. Assessment Current Status: Good Progress Pt is improving with amb. with each tx. PT Short Term Goals Short Term Goals Time Frame: Sep 15, 2020 Roll Left & Right: 5 Sit to lyin Lying to sitting on side of be: 5 Sit to stand: 5 Chair/gky-gv-lfnzn transfer: 5 Toilet transfer: 5 Car transfer: 5 Walk 10 feet: 5 Walk 50 feet with two turns: 5 Walk 150 feet: 5 Walking 10ft on uneven surface: 5 1 step (curb): 5 4 steps: 4 12 steps: 9 Picking up objects: 4 Does pt use a wc or scooter: No Wheel 50ft w/2 turns: 9 Wheel 150 feet: 9 Type: N/A PT Skilled Nursing Goals Skilled Nursing Goals PT Driver License Technician Goals Time Frame: Sep 29, 2020 Roll Left & Right (QC): 6 Sit to Lying (QC): 6 Lying-Sitting on Side/Bed(QC): 6 Sit to Stand (QC): 6 Chair/Erk-dm-Reshq Xfer(QC): 6 Toilet Transfer (QC): 6 Car Transfer (QC): 6 Does the Patient Walk: Yes Walk 10 feet (QC): 6 Walk 50ft with 2 Turns (QC): 6 Walk 150 ft (QC): 6 Walking 10ft on Uneven Surface: 6 1 Step (curb) (QC): 6 4 Steps (QC): 6 12 Steps (QC): 9 Picking up an Object (QC): 6 Does the Pt use WC or Scooter?: No Wheel 50 feet with 2 turns (QC: 9 Wheel 150 feet: 9 PT Plan Problem List Problem List: Gait Treatment/Plan Treatment Plan: Continue Plan of Care Treatment Plan: Bed Mobility, Concurrent Therapy, Education, Functional Activity Rajni, Functional Strength, Group Therapy, Gait, Safety, Transfers Treatment Duration: Sep 29, 2020 Frequency: At least 5 of 7 days/Wk (IRF) Estimated Hrs Per Day: 1.5 hours per day Patient and/or Family Agrees t: Yes Safety Risks/Education Patient Education: Gait Training, Correct Positioning Teaching Recipient: Patient Teaching Methods: Discussion Response to Teaching: Verbalize Understanding Time/GCodes Time In: 930 Time Out: 1015 Total Billed Treatment Time: 45 Total Billed Treatment Co-treat with PT ([id number]), 2 clinicians required for skilled instruction and modifications for higher level balance activities for functional daily tasks. PT focusing on transfers, ambulation and dynamic standing balance while OT focusing on functional mobility and ADLs. 1, GT (20m), EX (15m) & FA (10m) [employer] ASSISTANT DIRECTOR Sep 07, 2020 10:21
--- NOTE | 2020-09-07 11:26 | Occupational Ther Daily Note ---
OT Current Status-Daily Note Subjective Pt alert, working with PT. Co-treat with PT ([phone]), 2 clinicians required for skilled instruction and modifications for higher level balance activities for functional daily tasks. Mental Status/Objective Patient Orientation: Person, Place, Time, Situation ADL-Treatment PT focusing on transfers, ambulation and dynamic standing balance while OT focusing on functional mobility and ADLs. Pt ambulated from therapy gym to room using FWW. Pt able to reach to open closet doors and retrieve clothing from bag in closet. Pt then transported clothing draped over FWW to bathroom. Pt doffed clothing independently sitting on toilet. Transferred to toilet with SBA and completed toilet hygiene and clothing manipulation independently. Pt transferred into shower independently using FWW and grabbars. Pt sat on shower chair, used LH sponge, hand held shower and grabbars to complete shower by self after supplies for shower were gathered. Dressed upper body independent. Used AE to don lower body clothing and socks by self. Pt stood at sink to complete oral care and grooming by self. Therapy Code Descriptions/Definitions Functional [place] Measure: 0=Not Assessed/NA 4=Minimal Assistance 1=Total Assistance 5=Supervision or Setup 2=Maximal Assistance 6=Modified [place] 3=Moderate Assistance 7=Complete IndependenceSCALE: Activities may be completed with or without assistive devices. 8-Bhavebprzf-ezqztzp completes the activity by him/herself with no assistance from a helper. 5-Set-up or Clean-up Assistance-helper sets up or cleans up; patient completes activity. [place] assists only prior to or following the activity. 4-Supervision or Touching Assistance-helper provides verbal cues and/or touching/steadying and/or contact guard assistance as patient completes activity. Assistance may be provided throughout the activity or intermittently. 3-Partial/Moderate Assistance-helper does LESS THAN HALF the effort. [place] lifts, holds or supports trunk or limbs, but provides less than half the effort. 2-Substantial/Maximal Assistance-helper does MORE THAN HALF the effort. [place] lifts or holds trunk or limbs and provides more than half the effort. 7-Rzvdylhwf-rhdqrt does ALL the effort. Patient does none of the effort to complete the activity. Or, the assistance of 2 or more helpers is required for the patient to complete the activity. If activity was not attempted, code reason: 7-Patient Refused. 9-Not Applicable-not attempted and the patient did not perform the activity before the current illness, exacerbation or injury. 10-Not Attempted due to Environmental Limitations-(lack of equipment, weather restraints, etc.). 88-Not Attempted due to Medical Conditions or Safety Concerns. Oral Hygiene (QC): 6 Shower/Bathe Self (QC): 5 Upper Body Dressing (QC): 4 (SBA only to gather clothing.) Lower Body Dressing (QC): 4 (SBA only to gather clothing) On/Off Footwear: 4 (SBA for only to gather clothing) Toileting Hygiene (QC): 6 Toilet Transfer (QC): 4 Other Treatment Pt completed B UE strength exercises, gross and fine motor, to increase strength for daily functional tasks. Medium resistance theraputty-finding small objects( 15), gross grasp and pinch. Using 1# wrist wts applied to wrists, pt completed bicep curls(3 sets 10 reps), horizontal chest press alternating UE's (3 sets 10 reps), touching opposite shldr with hand (3 sets 10 reps). Resistive clothes pins 1x each hand. Pt then ambulated with FWW around [employer] areas 1x and stated that she was tired. After therapy, pt sitting in recliner with call light/phone in reach. Cold pack in place. All needs met in room. OT Short Term Goals Short Term Goals Lower body dressin Putting on/taking off footwear: 3 OT Retail Team Leader Goals Skilled Nursing Goals Time Frame: Sep 15, 2020 Eating (QC): 6 Oral Hygiene (QC): 6 Toileting Hygiene (QC): 6 Shower/Bathe Self (QC): 6 Upper Body Dressing (QC): 6 Lower Body Dressing (QC): 6 On/Off Footwear (QC): 6 Additional Goals: 1-Demonstrate ADL Tasks, 2-Verbalize Understanding, 3-ImproveStrength/Rajni 1=Demonstrate adherence to instructed precautions during ADL tasks. 2=Patient will verbalize/demonstrate understanding of assistive devices/modifications for ADL. 3=Patient will improve strength/tolerance for activity to enable patient to per form ADL's. OT Education/Plan Problem List/Assessment Assessment: Decreased Activ Tolerance, Decreased UE Strength, Impaired Self- Care Skills Discharge Recommendations Plan/Recommendations: Continue POC Treatment Plan/Plan of Care Patient would benefit from OT for education, treatment and training to promote independence in ADL's, mobility, safety and/or upper extremity function for ADL's. Plan of Care: ADL Retraining, Caregiver Training, Functional Mobility, Group Exercise/Act as Ind, UE Funct Exercise/Act Treatment Duration: Sep 15, 2020 Frequency: At least 5 of 7 days/Wk (IRF) Estimated Hrs Per Day: .25 hour per day Agreement: Yes Rehab Potential: Good Time/GCodes Start Time: 10:00 Stop Time: 11:30 Total Time Billed (hr/min): 90 Billed Treatment Time 1 visit-ADL 3 (45 min) FA 1 (20 min) EX 2 (25 min) co-treat with PT [id number] [phone], individual [id number] PAKO COLE Sep 07, 2020 11:26
--- NOTE | 2020-09-07 16:11 | Physical Therapy Daily Note ---
PT Daily Note-Current Subjective Pt sitting in recliner upon arrival. Pt agrees to PT. Pain Numeric Pain Scale: 4 Location: Right, Incisional Location Body Site: Knee Pain Description: Ache, Tightness Mental Status Patient Orientation: Person, Place, Time, Situation Transfers SCALE: Activities may be completed with or without assistive devices. 2-Qcdfmeeufm-sjljbxr completes the activity by him/herself with no assistance from a helper. 5-Set-up or Clean-up Assistance-helper sets up or cleans up; patient completes activity. [place] assists only prior to or following the activity. 4-Supervision or Touching Assistance-helper provides verbal cues and/or touching /steadying and/or contact guard assistance as patient completes activity. Assistance may be provided throughout the activity or intermittently. 3-Partial/Moderate Assistance-helper does LESS THAN HALF the effort. [place] lifts, holds or supports trunk or limbs, but provides less than half the effort. 2-Substantial/Maximal Assistance-helper does MORE THAN HALF the effort. [place] lifts or holds trunk or limbs and provides more than half the effort. 1-Bfslqrjga-trlnme does ALL the effort. Patient does none of the effort to complete the activity. Or, the assistance of 2 or more helpers is required for the patient to complete the activity. If activity was not attempted, code reason: 7-Patient Refused. 9-Not Applicable-not attempted and the patient did not perform the activity before the current illness, exacerbation or injury. 10-Not Attempted due to Environmental Limitations-(lack of equipment, weather restraints, etc.). 88-Not Attempted due to Medical Conditions or Safety Concerns. Sit to Lying (QC): 5 Sit to Stand (QC): 5 Weight Bearing Right Lower Extremity: Right Weight Bearing/Tolerated Exercises Supine Ex: Ankle pumps, Quad Set, Glut sets, Heel Slides, Short Arc Quads, Straight leg raise, Hip abd/add Supine Reps: 15 Treatments TF to standing and lays Supine in bed. Pt completes Supine Ex with RB as needed. TUBE HANDLER gives instruction on Polar Pack workings and how to use for home. Pt resting at end of tx with all needs met, call light in hand. Assessment Current Status: Good Progress Pt continues to improve with ROM and mobility of R knee. Pt reports tingling in bottom of R foot during Ex. PT Short Term Goals Short Term Goals Time Frame: Sep 15, 2020 Roll Left & Right: 5 Sit to lyin Lying to sitting on side of be: 5 Sit to stand: 5 Chair/ezs-oh-wphkw transfer: 5 Toilet transfer: 5 Car transfer: 5 Walk 10 feet: 5 Walk 50 feet with two turns: 5 Walk 150 feet: 5 Walking 10ft on uneven surface: 5 1 step (curb): 5 4 steps: 4 12 steps: 9 Picking up objects: 4 Does pt use a wc or scooter: No Wheel 50ft w/2 turns: 9 Wheel 150 feet: 9 Type: N/A PT Penitentiary Goals Penitentiary Goals PT Social Work Program Coordinator Goals Time Frame: Sep 29, 2020 Roll Left & Right (QC): 6 Sit to Lying (QC): 6 Lying-Sitting on Side/Bed(QC): 6 Sit to Stand (QC): 6 Chair/Pxd-ce-Gwnkd Xfer(QC): 6 Toilet Transfer (QC): 6 Car Transfer (QC): 6 Does the Patient Walk: Yes Walk 10 feet (QC): 6 Walk 50ft with 2 Turns (QC): 6 Walk 150 ft (QC): 6 Walking 10ft on Uneven Surface: 6 1 Step (curb) (QC): 6 4 Steps (QC): 6 12 Steps (QC): 9 Picking up an Object (QC): 6 Does the Pt use WC or Scooter?: No Wheel 50 feet with 2 turns (QC: 9 Wheel 150 feet: 9 PT Plan Treatment/Plan Treatment Plan: Continue Plan of Care Treatment Plan: Bed Mobility, Concurrent Therapy, Education, Functional Ac tivity Rajni, Functional Strength, Group Therapy, Gait, Safety, Transfers Treatment Duration: Sep 29, 2020 Frequency: At least 5 of 7 days/Wk (IRF) Estimated Hrs Per Day: 1.5 hours per day Patient and/or Family Agrees t: Yes Safety Risks/Education Patient Education: Reviewed Use of Ice, Correct Positioning, Safety Issues Teaching Recipient: Patient Teaching Methods: Demonstration, Discussion Response to Teaching: Verbalize Understanding, Return Demonstration Time/GCodes Time In: 1515 Time Out: 1600 Total Billed Treatment Time: 45 Total Billed Treatment 1, EX x2 (25m) & FA (20m) SALVADOR [place] TUBE HANDLER Sep 07, 2020 16:11
--- NOTE | 2020-09-07 17:31 | Progress Note ---
Subjective Date Seen by a Provider: Sep 07, 2020 Time Seen by a Provider: 12:45 Subjective/Events-last exam Fwup Right TKA, HTN, DMII, bilateral pleural effusions with hypoxia. Off O2 during day and just using at night. Feeling good. Excited that gets to go home Friday. Objective Exam Vital Signs Date Time Temp Pulse Resp B/P (MAP) Pulse Ox O2 Delivery O2 Flow Rate FiO2 09/07/20 09:00 92 Room Air 09/07/20 07:46 36.0 78 16 130/61 (84) 94 Nasal Cannula 2.00 09/06/20 21:00 Nasal Cannula 2.00 09/06/20 20:00 36.2 65 20 116/56 (76) 95 Nasal Cannula 2.00 09/06/20 18:27 92 Nasal Cannula 2.00 Capillary Refill : General Appearance: No Apparent Distress Neck: Supple Respiratory: Lungs Clear Cardiovascular: Regular Rate, Rhythm Gastrointestinal: normal bowel sounds, non tender, soft Extremity: Non Tender, No Calf Tenderness, Pedal Edema Neurologic/Psychiatric: Alert, Oriented x3 Skin: Warm/Dry Assessment/Plan Assessment/Plan Assess & Plan/Chief Complaint 1. Right TKA--PT/OT, lovenox for DVT prophylaxis 2. Hypertension--back on home meds 3. DMII--on metformin and SSI 4. Pleural effusions with hypoxia--repeat CXR shows improving, on oxygen at 2L NC q PM, does likely have sleep apnea but has refused sleep study in past and opted for oxygen at night DEZ MONTES DO Sep 07, 2020 17:30
[2020-09-07 20:00] VITALS: BP 139/65
[2020-09-07] MEDS: TROSPIUM 20 MG (SANCTURA) TAB PO SCH (20:38)
[2020-09-08] MEDS: oxyCODONE/APAP 5/325MG (PERCOCET 5) TABLET PO PRN ×4 (02:55→20:31)
--- NOTE | 2020-09-08 05:51 | PM&R Progress Note ---
Subjective HPI/CC On Admission Date Seen by Provider: Sep 08, 2020 Time Seen by Provider: 12:00 Subjective/Events-last exam 09/08/2020: Patient doing really well Has some questions about home health at discharge Bowels moved 2 days ago Uses [facility] for pharmacy 09/07/2020: Patient doing pretty well Lovenox discontinued since she is ambulating well No more blood from rectum Pain is well controlled Discharge plan for Friday Pain pill works well 09/06/20: Pt doing pretty well Hesitant about going home Had some bleeding per rectum yesterday but now no longer an issue so holding Lovenox Bowels moved today Percocet given on a regular basis Oxygen off during the day now and only at night DC 09/0909/05/2020: Pt doing pretty well Dr. Sanders ordered a chest X-ray that shows a very small pleural effusion Weaning of O2 Knee high rajendra hose maintained since the thigh high gave blisters Right arm nodule noted to me as small lipoma 09/04/2020: Pt doing pretty well Discontinued the heplock Discontinue the night-hose because there is blisters on her thighs Weaning oxygen Bicarbonate is 33 indicating long-term respiratory failure baseline IS use is only getting up to 250 09/03/2020: Patient doing pretty well Has no complaints Pain is improved Incontinent of urine at night Up in chair now Dressing changes in the incision looks good Using her ice pack 2 L of oxygen maintain 24/7 Bowels moved today 09/02/2020: Patient doing pretty well Settling into rehab very well No bowel movement yet so laxatives were given Up in chair today Using CPM machine as ordered Check meds and labs Daughter at the bedside Slept pretty well Pain is pretty well controlled Review of Systems Musculoskeletal: leg pain Objective Exam Vital Signs Vital Signs Date Time Temp Pulse Resp B/P (MAP) Pulse Ox O2 Delivery O2 Flow Rate FiO2 09/08/20 20:24 Room Air 09/08/20 07:35 35.8 77 18 171/76 (107) 94 09/07/20 20:24 2.00 09/06/20 08:51 28 Capillary Refill : General Appearance: No Apparent Distress, WD/WN, Chronically ill, Obese HEENT: PERRL/EOMI, Normal ENT Inspection, Pharynx Normal Neck: Full Range of Motion, Normal Inspection, Non Tender, Supple, Carotid Bruit Respiratory: Chest Non Tender, Lungs Clear, Normal Breath Sounds, No Accessory Muscle Use, No Respiratory Distress Cardiovascular: Regular Rate, Rhythm, No Edema, No Gallop, No JVD, No Murmur, Normal Peripheral Pulses Gastrointestinal: Normal Bowel Sounds, No Organomegaly, No Pulsatile Mass, Non Tender, Soft Back: Normal Inspection, No CVA Tenderness, No Vertebral Tenderness Extremity: Normal Capillary Refill, Normal Inspection, Normal Range of Motion, Non Tender, No Calf Tenderness, No Pedal Edema Neurologic/Psychiatric: Alert, Oriented x3, No Motor/Sensory Deficits, Normal Mood/Affect Skin: Normal Color, Warm/Dry Lymphatic: No Adenopathy Results/Procedures Lab Patient resulted labs reviewed. FIM Transfers Therapy Code Descriptions/Definitions Functional [place] Measure: 0=Not Assessed/NA 4=Minimal Assistance 1=Total Assistance 5=Supervision or Setup 2=Maximal Assistance 6=Modified [place] 3=Moderate Assistance 7=Complete IndependenceSCALE: Activities may be completed with or without assistive devices. 6-Llhskuxeuv-tcglxae completes the activity by him/herself with no assistance from a helper. 5-Set-up or Clean-up Assistance-helper sets up or cleans up; patient completes activity. [place] assists only prior to or following the activity. 4-Supervision or Touching Assistance-helper provides verbal cues and/or touching/steadying and/or contact guard assistance as patient completes activity. Assistance may be provided throughout the activity or intermittently. 3-Partial/Moderate Assistance-helper does LESS THAN HALF the effort. [place] lifts, holds or supports trunk or limbs, but provides less than half the effort. 2-Substantial/Maximal Assistance-helper does MORE THAN HALF the effort. [place] lifts or holds trunk or limbs and provides more than half the effort. 8-Awbuffnzm-etjgpq does ALL the effort. Patient does none of the effort to complete the activity. Or, the assistance of 2 or more helpers is required for the patient to complete the activity. If activity was not attempted, code reason: 7-Patient Refused. 9-Not Applicable-not attempted and the patient did not perform the activity before the current illness, exacerbation or injury. 10-Not Attempted due to Environmental Limitations-(lack of equipment, weather restraints, etc.). 88-Not Attempted due to Medical Conditions or Safety Concerns. Roll Left to Right (QC): 6 Sit to Lying (QC): 5 Sit to Stand (QC): 5 Chair/Xai-ii-Ufeyj Xfer(QC): 6 Car Transfer (QC): 4 Gait Training Does the Patient Walk?: Yes Distance: 75' x2 Walk 10 feet (QC): 5 Walk 50 ft with 2 Turns(QC): 5 Walk 150 ft (QC): 5 Walking 10ft/uneven surface-QC: 4 Gait Persons Needed: 1 Gait Assistive Device: FWW Wheelchair Training Does the Pt Use a Wheelchair?: No Wheel 50 ft with 2 turns (QC): 9 Wheel 150 ft (QC): 9 Stair Training Stair Training: Handrails/: 2 handrails #of Steps: 8 1 Step (curb) (QC): 6 4 Steps (QC): 6 12 Steps (QC): 9 Stairs: Pattern: Step to Balance Picking up an Object (QC): 3 ADL-Treatment Eating (QC): 6 Oral Hygiene (QC): 6 Shower/Bathe Self (QC): 5 Upper Body Dressing (QC): 4 (SBA only to gather clothing.) Lower Body Dressing (QC): 4 (SBA only to gather clothing) On/Off Footwear (QC): 4 (SBA for only to gather clothing) Toileting Hygiene (QC): 6 Toilet Transfer (QC): 4 Assessment/Plan Assessment and Plan Assess & Plan/Chief Complaint Assessment: Status post right total knee arthroplasty Chronic nocturnal hypoxia maintain on O2 Obesity Advanced age Diabetes Hypertension Plan: Inpatient rehab protocol O2 Pain control Lovenox for DVT prophylaxis 09/02/20: Pain control Monitor closely Fall risk 09/03/2020: Monitor pain Fall risk Incontinence care 09/04/2020: Continue pain control CPM machine Ambulate 09/05/2020: Pain control Monitor oxygen level while weaning 09/06/20: Doing well Weaned O2 during daytime DC 09/0909/07/2020: Continue aggressive therapy Discharge Friday home 09/08/2020: Home health at discharge Discharge Friday Monitor bowel regimen (1) Status post total knee replacement, right (2) Nocturnal hypoxia (3) Obesity (4) Diabetes (5) Advanced age KIERRA ARCHULETA DO Sep 08, 2020 05:51
[2020-09-08] MEDS: metFORMIN 500 MG (GLUCOPHAGE) TAB PO SCH (06:47)
[2020-09-08] MEDS: MULTIVIT W/MINERALS TAB (THERAGRAN M) PO SCH (06:48)
[2020-09-08 07:35] VITALS: BP 171/76
[2020-09-08] MEDS: VITAMIN D3 25 MCG (1,000 UNITS) TABLET PO SCH (07:53)
[2020-09-08] MEDS: ASPIRIN 81 MG CHEW (CHILDREN'S ASA) PO SCH (07:53)
[2020-09-08] MEDS: SENNA W/DOCUSATE (SENOKOT S) TABLET PO SCH ×2 (07:53→20:23)
[2020-09-08] MEDS: ATENOLOL 50 MG (TENORMIN) TAB PO SCH ×2 (07:54→20:21)
[2020-09-08] MEDS: lisINopril 40 MG (PRINIVIL) TABLET PO SCH (07:54)
[2020-09-08] MEDS: amLODIPine 5 MG (NORVASC) TAB PO SCH (07:54)
[2020-09-08] MEDS: DOCUSATE SODIUM 100 MG (COLACE) CAP PO SCH ×2 (08:49→20:22)
[2020-09-08] MEDS: polyethylene glycoL POWDER 17 GM (MIRALAX) PACK PO SCH ×2 (08:50→20:23)
--- NOTE | 2020-09-08 08:59 | Occupational Ther Daily Note ---
OT Current Status-Daily Note Subjective Pt AxO, upright in recliner, no c/o pain, agrees to tx. Pt states end of session R foot beginning to become tingly, expresses better than prior. Mental Status/Objective Patient Orientation: Person, Place, Situation, Normal For Age ADL-Treatment Therapy Code Descriptions/Definitions Functional [place] Measure: 0=Not Assessed/NA 4=Minimal Assistance 1=Total Assistance 5=Supervision or Setup 2=Maximal Assistance 6=Modified [place] 3=Moderate Assistance 7=Complete IndependenceSCALE: Activities may be completed with or without assistive devices. 1-Gflhfwfgaz-qjkauqc completes the activity by him/herself with no assistance from a helper. 5-Set-up or Clean-up Assistance-helper sets up or cleans up; patient completes activity. [place] assists only prior to or following the activity. 4-Supervision or Touching Assistance-helper provides verbal cues and/or touching/steadying and/or contact guard assistance as patient completes activity. Assistance may be provided throughout the activity or intermittently. 3-Partial/Moderate Assistance-helper does LESS THAN HALF the effort. [place] lifts, holds or supports trunk or limbs, but provides less than half the effort. 2-Substantial/Maximal Assistance-helper does MORE THAN HALF the effort. [place] lifts or holds trunk or limbs and provides more than half the effort. 7-Mbeugezga-wrlboc does ALL the effort. Patient does none of the effort to complete the activity. Or, the assistance of 2 or more helpers is required for the patient to complete the activity. If activity was not attempted, code reason: 7-Patient Refused. 9-Not Applicable-not attempted and the patient did not perform the activity before the current illness, exacerbation or injury. 10-Not Attempted due to Environmental Limitations-(lack of equipment, weather restraints, etc.). 88-Not Attempted due to Medical Conditions or Safety Concerns. Eating (QC): 6 Oral Hygiene (QC): 6 (IND in stance at sink.) Bathing Location: L Arm, R Arm, L Upper Leg, R Upper Leg, Chest, Abdomen, Buttocks, Perineal Area Shower/Bathe Self (QC): 5 (s/u sponge bath. Pt completes all areas safely, s/u per clinical judgment) Upper Body Dressing (QC): 6 (gathers clothing, dons IND.) Lower Body Dressing (QC): 6 (gathers clothing, dons IND) On/Off Footwear: 5 (s/u (sock aide given to pt)) Toileting Hygiene (QC): 6 (IND in bathroom without needed SBA.) Toilet Transfer (QC): 6 (IND in bathroom without needed SBA.) Other Treatment Pt completes all sit to stands with mod I, ambulation mod I with walker. Completes sponge bath/ dressing tasks with QC's gathered. Post oral care/ hair care, pt rests. Pt requires intermittent rest breaks through session, educated on EC and importance of rest. Pt completes FA of making bed, working on balance, EC, and overall endurance. Pt completes without difficulty, rest break post task. Ambulates to gym, sits EOM to complete weighted bar ex with 2# weight. Pt completes 3 sets of 10 reps of shoulder flexion/ bicep curls. Pt expresses fatigue; pt is educated on importnace of continuation of ex at home, returns to room, sits in recliner, all needs met, call light in reach. Education OT Patient Education: Correct positioning, Energy conservation, Exercise program, Modified ADL techniques, Progress toward Goal/Update tx plan, Purpose of tx/functional activities, Safety issues, Use of adapted equipment Teaching Recipient: Patient Teaching Methods: Demonstration, Discussion Response to Teaching: Verbalize Understanding, Return Demonstration OT Short Term Goals Short Term Goals Lower body dressin Putting on/taking off footwear: 3 OT Group Home Goals Child Center Assistant Goals Time Frame: Sep 15, 2020 Eating (QC): 6 Oral Hygiene (QC): 6 Toileting Hygiene (QC): 6 Shower/Bathe Self (QC): 6 Upper Body Dressing (QC): 6 Lower Body Dressing (QC): 6 On/Off Footwear (QC): 6 Additional Goals: 1-Demonstrate ADL Tasks, 2-Verbalize Understanding, 3-Impr oveStrength/Rajni 1=Demonstrate adherence to instructed precautions during ADL tasks. 2=Patient will verbalize/demonstrate understanding of assistive devices/modifications for ADL. 3=Patient will improve strength/tolerance for activity to enable patient to perform ADL's. OT Education/Plan Problem List/Assessment Assessment: Decreased Activ Tolerance, Decreased UE Strength, Impaired I ADL's Discharge Recommendations Plan/Recommendations: Continue POC Therapy Discharge Recommendati: Home & Family Equpiment Recommendations-D/C: Needle Grinder, Sock Aide Treatment Plan/Plan of Care Treatment,Training & Education: Yes Patient would benefit from OT for education, treatment and training to promote independence in ADL's, mobility, safety and/or upper extremity function for ADL's. Plan of Care: ADL Retraining, Caregiver Training, Functional Mobility, Group Exercise/Act as Ind, UE Funct Exercise/Act Treatment Duration: Sep 15, 2020 Frequency: At least 5 of 7 days/Wk (IRF) Estimated Hrs Per Day: .25 hour per day Agreement: Yes Rehab Potential: Good Time/GCodes Start Time: 08:00 Stop Time: 09:00 Total Time Billed (hr/min): 60 Billed Treatment Time 1, ADL 2 (30), FA (15), EX (15)= 60 MARYBEL ADRIAN OTR Sep 08, 2020 08:59
--- NOTE | 2020-09-08 10:00 | Physical Therapy Daily Note ---
PT Daily Note-Current Subjective Pt sitting in recliner upon arrival. Pt agrees to PT. Pain Numeric Pain Scale: 4 Location: Right, Incisional Location Body Site: Knee Pain Description: Ache, Tightness Mental Status Patient Orientation: Person, Place, Time, Situation Attachments: Polar Pack Transfers SCALE: Activities may be completed with or without assistive devices. 8-Bawrlvuipv-fajoybr completes the activity by him/herself with no assistance from a helper. 5-Set-up or Clean-up Assistance-helper sets up or cleans up; patient completes activity. [place] assists only prior to or following the activity. 4-Supervision or Touching Assistance-helper provides verbal cues and/or touching/steadying and/or contact guard assistance as patient completes activity. Assistance may be provided throughout the activity or intermittently. 3-Partial/Moderate Assistance-helper does LESS THAN HALF the effort. [place] lifts, holds or supports trunk or limbs, but provides less than half the effort. 2-Substantial/Maximal Assistance-helper does MORE THAN HALF the effort. [place] lifts or holds trunk or limbs and provides more than half the effort. 5-Ptcyqsnfs-jjidth does ALL the effort. Patient does none of the effort to complete the activity. Or, the assistance of 2 or more helpers is required for the patient to complete the activity. If activity was not attempted, code reason: 7-Patient Refused. 9-Not Applicable-not attempted and the patient did not perform the activity before the current illness, exacerbation or injury. 10-Not Attempted due to Environmental Limitations-(lack of equipment, weather restraints, etc.). 88-Not Attempted due to Medical Conditions or Safety Concerns. Roll Left & Right (QC): 6 Sit to Lying (QC): 6 Lying to Sitting/Side of Bed(Q: 6 Sit to Stand (QC): 6 Chair/Azu-dy-Rrkzp Xfer(QC): 6 Toilet Transfer (QC): 6 Car Transfer (QC): 6 Weight Bearing Right Lower Extremity: Right Weight Bearing/Tolerated Gait Training Does the Patient Walk?: Yes Distance: 75' x2 Walk 10 feet (QC): 6 Walk 50 ft with 2 Turns(QC): 6 Walk 150 ft (QC): 6 Walking 10ft/uneven surface-QC: 6 Gait Persons Needed: 0 Gait Assistive Device: FWW Pt walks with slow shivam but is steady. Wheelchair Training Does the Pt Use a Wheelchair?: No Stair Training Stair Training: Handrails/: 2 handrails #of Steps: 4 1 Step (curb) (QC): 6 4 Steps (QC): 6 12 Steps (QC): 7 Stairs: Pattern: Step to Balance Picking up an Object (QC): 7 Special Test Comments Pt will use government gauger at home. Exercises NuStep Minutes: 15 NuStep Workload: 4 Treatments Pt completes QC scoring items listed above as well as uses NuStep. Pt returns to room to use BR then resting in recliner with polar pack on. All needs met, call light in hand. Assessment Current Status: Good Progress Pt has improved with mobility and excited for Friday d/c. PT Short Term Goals Short Term Goals Time Frame: Sep 15, 2020 Roll Left & Right: 5 Sit to lyin Lying to sitting on side of be: 5 Sit to stand: 5 Chair/gru-ya-lcwnq transfer: 5 Toilet transfer: 5 Car transfer: 5 Walk 10 feet: 5 Walk 50 feet with two turns: 5 Walk 150 feet: 5 Walking 10ft on uneven surface: 5 1 step (curb): 5 4 steps: 4 12 steps: 9 Picking up objects: 4 Does pt use a wc or scooter: No Wheel 50ft w/2 turns: 9 Wheel 150 feet: 9 Type: N/A PT Usp Goals Veterinary Livestock Inspector Goals PT Usp Goals Time Frame: Sep 29, 2020 Roll Left & Right (QC): 6 Sit to Lying (QC): 6 Lying-Sitting on Side/Bed(QC): 6 Sit to Stand (QC): 6 Chair/Lwe-yl-Fgpma Xfer(QC): 6 Toilet Transfer (QC): 6 Car Transfer (QC): 6 Does the Patient Walk: Yes Walk 10 feet (QC): 6 Walk 50ft with 2 Turns (QC): 6 Walk 150 ft (QC): 6 Walking 10ft on Uneven Surface: 6 1 Step (curb) (QC): 6 4 Steps (QC): 6 12 Steps (QC): 9 Picking up an Object (QC): 6 Does the Pt use WC or Scooter?: No Wheel 50 feet with 2 turns (QC: 9 Wheel 150 feet: 9 PT Plan Treatment/Plan Treatment Plan: Continue Plan of Care Treatment Plan: Bed Mobility, Concurrent Therapy, Education, Functional Activity Rajni, Functional Strength, Group Therapy, Gait, Safety, Transfers Treatment Duration: Sep 29, 2020 Frequency: At least 5 of 7 days/Wk (IRF) Estimated Hrs Per Day: 1.5 hours per day Patient and/or Family Agrees t: Yes Safety Risks/Education Patient Education: Steps, Correct Positioning, Safety Issues Teaching Recipient: Patient Teaching Methods: Discussion Response to Teaching: Verbalize Understanding Time/GCodes Time In: 900 Time Out: 1000 Total Billed Treatment Time: 60 Total Billed Treatment 1, GT (15m) & FA x3 (45m) SALVADOR [employer] COMBER TENDER Sep 08, 2020 10:00
--- NOTE | 2020-09-08 13:24 | Progress Note ---
Subjective Date Seen by a Provider: Sep 08, 2020 Time Seen by a Provider: 13:23 Subjective/Events-last exam Fwup Right TKA, HTN, DMII, bilateral pleural effusions with hypoxia. Sitting up in group therapy. No complaints Objective Exam Vital Signs Date Time Temp Pulse Resp B/P (MAP) Pulse Ox O2 Delivery O2 Flow Rate FiO2 09/08/20 08:00 Room Air 09/08/20 07:35 35.8 77 18 171/76 (107) 94 Room Air 09/07/20 20:24 Nasal Cannula 2.00 09/07/20 20:00 36.4 81 20 139/65 (89) 93 Nasal Cannula 2.00 09/07/20 19:43 Room Air Capillary Refill : General Appearance: No Apparent Distress Neck: Supple Extremity: Non Tender, No Calf Tenderness, No Pedal Edema Neurologic/Psychiatric: Alert, Oriented x3 Assessment/Plan Assessment/Plan Assess & Plan/Chief Complaint 1. Right TKA--PT/OT, lovenox for DVT prophylaxis, home with Home Health and Home PT in 2 days 2. Hypertension--back on home meds 3. DMII--on metformin and SSI 4. Pleural effusions with hypoxia--repeat CXR shows improving, on oxygen at 2L NC q PM, does likely have sleep apnea but has refused sleep study in past and opted for oxygen at night DEZ MONTES DO Sep 08, 2020 13:24
--- NOTE | 2020-09-08 15:09 | Therapy Group Daily Note ---
Therapy Daily Group Note Patient Education Topic Home Safety, Fall Prevention, Home Safety, Exercises Exercises LE Seated Exercise, Gross Motor, UE Exercise Session Ratio (pt:therapist): 4:1 Goal of Session: Home Safety Strategies, Memory Strategies, UE/LE Strengthing Goal Met for this Session: Yes Pt Benefit of Group: Contributions to Others, F/U Use of Strategies @Home, Increased Functional Safety, Increased Functional Strength, Recognition of Peers, Socialization Other/Notes Pt ambulated using W to [facility] for OT/PT group. Group consisted of introductions (name, place living, happy memory), socialization, seated B UE/LE exercises, education on home safety and UE/ LE exercises. Pt introduced self appropriately and actively listened to peers. Pt able to complete exercises correctly and tolerated well. Pt acknowledged understanding of educational topics by affirmative gestures and giving own personal examples/strategies. After session, pt ambulates with walker, desires toilet and is instructed to press call light upon completion. Start Time: 13:00 Stop Time: 14:00 Total Billed Treatment Time: 60 Total Billed Treatment 1, GRP MARYBEL ADRIAN OTR Sep 08, 2020 15:09
[2020-09-08 20:00] VITALS: BP 119/56
[2020-09-08] MEDS: TROSPIUM 20 MG (SANCTURA) TAB PO SCH (20:21)
[2020-09-09] MEDS: MULTIVIT W/MINERALS TAB (THERAGRAN M) PO SCH (06:19)
[2020-09-09] MEDS: metFORMIN 500 MG (GLUCOPHAGE) TAB PO SCH (06:19)
[2020-09-09 07:21] VITALS: BP 140/69
--- NOTE | 2020-09-09 07:33 | Progress Note ---
Standard Progress Note Progress Notes/Assess & Plan Date Seen by a Provider: Sep 09, 2020 Time Seen by a Provider: 07:32 Progress/Assessment & Plan c/o R foot pain with ambulation. Denies pain at rest. Reports it is better today. no trauma Laboratory Tests Test 09/01/20 15:23 09/01/20 20:55 09/02/20 05:32 Range/Units Glucometer 136 H 140 H 70-110 MG/DL White Blood Count 10.8 4.3-11.0 10^3/uL Red Blood Count 4.25 3.80-5.11 10^6/uL Hemoglobin 12.9 11.5-16.0 g/dL Hematocrit 41 35-52 % Mean Corpuscular Volume 97 80-99 fL Mean Corpuscular Hemoglobin 30 25-34 pg Mean Corpuscular Hemoglobin Concent 31 L 32-36 g/dL Red Cell Distribution Width 13.0 10.0-14.5 % Platelet Count 250 130-400 10^3/uL Mean Platelet Volume 10.4 9.0-12.2 fL Immature Granulocyte % (Auto) 1 % Neutrophils (%) (Auto) 75 42-75 % Lymphocytes (%) (Auto) 12 12-44 % Monocytes (%) (Auto) 10 0-12 % Eosinophils (%) (Auto) 2 0-10 % Basophils (%) (Auto) 0 0-10 % Neutrophils # (Auto) 8.1 H 1.8-7.8 10^3/uL Lymphocytes # (Auto) 1.3 1.0-4.0 10^3/uL Monocytes # (Auto) 1.1 H 0.0-1.0 10^3/uL Eosinophils # (Auto) 0.2 0.0-0.3 10^3/uL Basophils # (Auto) 0.0 0.0-0.1 10^3/uL Immature Granulocyte # (Auto) 0.1 0.0-0.1 10^3/uL Sodium Level 137 135-145 MMOL/L Potassium Level 4.0 3.6-5.0 MMOL/L Chloride Level 96 L 98-107 MMOL/L Carbon Dioxide Level 31 21-32 MMOL/L Anion Gap 10 5-14 MMOL/L Blood Urea Nitrogen 11 7-18 MG/DL Creatinine 0.83 0.60-1.30 MG/DL Estimat Glomerular Filtration Rate > 60 BUN/Creatinine Ratio 13 Glucose Level 105 70-105 MG/DL Calcium Level 9.7 8.5-10.1 MG/DL Corrected Calcium 10.2 H 8.5-10.1 MG/DL Total Bilirubin 0.7 0.1-1.0 MG/DL Aspartate Amino Transf (AST/SGOT) 17 5-34 U/L Alanine Aminotransferase (ALT/SGPT) 15 0-55 U/L Alkaline Phosphatase 75 40-136 U/L Total Protein 7.4 6.4-8.2 GM/DL Albumin 3.4 3.2-4.5 GM/DL RLE--incision with sl bloody DC . No erythema or warmth. R foot without erythema or warmth. Non tender to palpation. No pain with ROM s/p RTKA foot pain likely secondary to positioning in OR. No need for xray. If continues, cushioined heel pad in bed continue PT/OT Final Diagnosis doing well RLE without tenderness. SLR improved s/p RTKA continue PT/OT ARUN ENGLAND MD Sep 09, 2020 07:33
[2020-09-09] MEDS: DOCUSATE SODIUM 100 MG (COLACE) CAP PO SCH ×2 (08:25→21:00)
[2020-09-09] MEDS: SENNA W/DOCUSATE (SENOKOT S) TABLET PO SCH ×2 (08:25→21:00)
[2020-09-09] MEDS: ATENOLOL 50 MG (TENORMIN) TAB PO SCH ×2 (08:25→20:16)
[2020-09-09] MEDS: polyethylene glycoL POWDER 17 GM (MIRALAX) PACK PO SCH ×2 (08:25→21:00)
[2020-09-09] MEDS: ASPIRIN 81 MG CHEW (CHILDREN'S ASA) PO SCH (08:25)
[2020-09-09] MEDS: lisINopril 40 MG (PRINIVIL) TABLET PO SCH (08:25)
[2020-09-09] MEDS: VITAMIN D3 25 MCG (1,000 UNITS) TABLET PO SCH (08:25)
[2020-09-09] MEDS: amLODIPine 5 MG (NORVASC) TAB PO SCH (08:25)
--- NOTE | 2020-09-09 08:41 | PM&R Progress Note ---
Subjective HPI/CC On Admission Date Seen by Provider: Sep 09, 2020 Time Seen by Provider: 12:00 Subjective/Events-last exam 09/09/2020: Patient doing really well Chronic urinary frequency Bowels moved today Discharge plan for tomorrow 09/08/2020: Patient doing really well Has some questions about home health at discharge Bowels moved 2 days ago Uses [employer] for pharmacy 09/07/2020: Patient doing pretty well Lovenox discontinued since she is ambulating well No more blood from rectum Pain is well controlled Discharge plan for Friday Pain pill works well 09/06/20: Pt doing pretty well Hesitant about going home Had some bleeding per rectum yesterday but now no longer an issue so holding Lovenox Bowels moved today Percocet given on a regular basis Oxygen off during the day now and only at night DC 09/0909/05/2020: Pt doing pretty well Dr. Sanders ordered a chest X-ray that shows a very small pleural effusion Weaning of O2 Knee high rajendra hose maintained since the thigh high gave blisters Right arm nodule noted to me as small lipoma 09/04/2020: Pt doing pretty well Discontinued the heplock Discontinue the night-hose because there is blisters on her thighs Weaning oxygen Bicarbonate is 33 indicating long-term respiratory failure baseline IS use is only getting up to 250 09/03/2020: Patient doing pretty well Has no complaints Pain is improved Incontinent of urine at night Up in chair now Dressing changes in the incision looks good Using her ice pack 2 L of oxygen maintain 24/7 Bowels moved today 09/02/2020: Patient doing pretty well Settling into rehab very well No bowel movement yet so laxatives were given Up in chair today Using CPM machine as ordered Check meds and labs Daughter at the bedside Slept pretty well Pain is pretty well controlled Review of Systems Musculoskeletal: leg pain Objective Exam Vital Signs Vital Signs Date Time Temp Pulse Resp B/P (MAP) Pulse Ox O2 Delivery O2 Flow Rate FiO2 09/09/20 10:22 Room Air 09/09/20 07:21 36.4 76 18 140/69 (92) 92 09/07/20 20:24 2.00 09/06/20 08:51 28 Capillary Refill : General Appearance: No Apparent Distress, WD/WN, Chronically ill, Obese HEENT: PERRL/EOMI, Normal ENT Inspection, Pharynx Normal Neck: Full Range of Motion, Normal Inspection, Non Tender, Supple, Carotid Bruit Respiratory: Chest Non Tender, Lungs Clear, Normal Breath Sounds, No Accessory Muscle Use, No Respiratory Distress Cardiovascular: Regular Rate, Rhythm, No Edema, No Gallop, No JVD, No Murmur, Normal Peripheral Pulses Gastrointestinal: Normal Bowel Sounds, No Organomegaly, No Pulsatile Mass, Non Tender, Soft Back: Normal Inspection, No CVA Tenderness, No Vertebral Tenderness Extremity: Normal Capillary Refill, Normal Inspection, Normal Range of Motion, Non Tender, No Calf Tenderness, No Pedal Edema Neurologic/Psychiatric: Alert, Oriented x3, No Motor/Sensory Deficits, Normal Mood/Affect Skin: Normal Color, Warm/Dry Lymphatic: No Adenopathy Results/Procedures Lab Patient resulted labs reviewed. FIM Transfers Therapy Code Descriptions/Definitions Functional [place] Measure: 0=Not Assessed/NA 4=Minimal Assistance 1=Total Assistance 5=Supervision or Setup 2=Maximal Assistance 6=Modified [place] 3=Moderate Assistance 7=Complete IndependenceSCALE: Activities may be completed with or without assistive devices. 3-Edhjttkzcv-hzjhwgz completes the activity by him/herself with no assistance from a helper. 5-Set-up or Clean-up Assistance-helper sets up or cleans up; patient completes activity. [place] assists only prior to or following the activity. 4-Supervision or Touching Assistance-helper provides verbal cues and/or touching/steadying and/or contact guard assistance as patient completes activity. Assistance may be provided throughout the activity or intermittently. 3-Partial/Moderate Assistance-helper does LESS THAN HALF the effort. [place] lifts, holds or supports trunk or limbs, but provides less than half the effort. 2-Substantial/Maximal Assistance-helper does MORE THAN HALF the effort. [place] lifts or holds trunk or limbs and provides more than half the effort. 1-Aklvlkqnn-yjaahv does ALL the effort. Patient does none of the effort to complete the activity. Or, the assistance of 2 or more helpers is required for the patient to complete the activity. If activity was not attempted, code reason: 7-Patient Refused. 9-Not Applicable-not attempted and the patient did not perform the activity before the current illness, exacerbation or injury. 10-Not Attempted due to Environmental Limitations-(lack of equipment, weather restraints, etc.). 88-Not Attempted due to Medical Conditions or Safety Concerns. Roll Left to Right (QC): 6 Sit to Lying (QC): 6 Sit to Stand (QC): 6 Chair/Akh-ox-Zgpix Xfer(QC): 6 Car Transfer (QC): 6 Gait Training Does the Patient Walk?: Yes Distance: 75' x2 Walk 10 feet (QC): 6 Walk 50 ft with 2 Turns(QC): 6 Walk 150 ft (QC): 6 Walking 10ft/uneven surface-QC: 6 Gait Persons Needed: 0 Gait Assistive Device: FWW Wheelchair Training Does the Pt Use a Wheelchair?: No Wheel 50 ft with 2 turns (QC): 9 Wheel 150 ft (QC): 9 Stair Training Stair Training: Handrails/: 2 handrails #of Steps: 4 1 Step (curb) (QC): 6 4 Steps (QC): 6 12 Steps (QC): 7 Stairs: Pattern: Step to Balance Picking up an Object (QC): 7 ADL-Treatment Eating (QC): 6 Oral Hygiene (QC): 6 (IND in stance at sink.) Bathing Location: L Arm, R Arm, L Upper Leg, R Upper Leg, Chest, Abdomen, Buttocks, Perineal Area Shower/Bathe Self (QC): 5 (s/u sponge bath. Pt completes all areas safely, s/u per clinical judgment) Upper Body Dressing (QC): 6 (gathers clothing, dons IND.) Lower Body Dressing (QC): 6 (gathers clothing, dons IND) On/Off Footwear (QC): 5 (s/u (sock aide given to pt)) Toileting Hygiene (QC): 6 (IND in bathroom without needed SBA.) Toilet Transfer (QC): 6 (IND in bathroom without needed SBA.) Assessment/Plan Assessment and Plan Assess & Plan/Chief Complaint Assessment: Status post right total knee arthroplasty Chronic nocturnal hypoxia maintain on O2 Obesity Advanced age Diabetes Hypertension Plan: Inpatient rehab protocol O2 Pain control Lovenox for DVT prophylaxis 09/02/20: Pain control Monitor closely Fall risk 09/03/2020: Monitor pain Fall risk Incontinence care 09/04/2020: Continue pain control CPM machine Ambulate 09/05/2020: Pain control Monitor oxygen level while weaning 09/06/20: Doing well Weaned O2 during daytime DC 09/0909/07/2020: Continue aggressive therapy Discharge Friday home 09/08/2020: Home health at discharge Discharge Friday Monitor bowel regimen 09/09/2020: Pain control Monitor closely Discharge tomorrow (1) Status post total knee replacement, right (2) Nocturnal hypoxia (3) Obesity (4) Diabetes (5) Advanced age KIERRA ARCHULETA DO Sep 09, 2020 08:41
--- NOTE | 2020-09-09 11:18 | Physical Therapy Daily Note ---
PT Daily Note-Current Subjective Pain rated 0/10. Pt agreeable. Pt issued copy of HEP as she reports she is going home tomorrow. Pt states she is "confident with stairs since we have been practicing them". Transfers SCALE: Activities may be completed with or without assistive devices. 0-Jcwkjbdqqg-kzkuxjn completes the activity by him/herself with no assistance from a helper. 5-Set-up or Clean-up Assistance-helper sets up or cleans up; patient completes activity. [place] assists only prior to or following the activity. 4-Supervision or Touching Assistance-helper provides verbal cues and/or touching/steadying and/or contact guard assistance as patient completes activity. Assistance may be provided throughout the activity or intermittently. 3-Partial/Moderate Assistance-helper does LESS THAN HALF the effort. [place] lifts, holds or supports trunk or limbs, but provides less than half the effort. 2-Substantial/Maximal Assistance-helper does MORE THAN HALF the effort. [place] lifts or holds trunk or limbs and provides more than half the effort. 4-Rydmdgzwh-cimusd does ALL the effort. Patient does none of the effort to complete the activity. Or, the assistance of 2 or more helpers is required for the patient to complete the activity. If activity was not attempted, code reason: 7-Patient Refused. 9-Not Applicable-not attempted and the patient did not perform the activity before the current illness, exacerbation or injury. 10-Not Attempted due to Environmental Limitations-(lack of equipment, weather restraints, etc.). 88-Not Attempted due to Medical Conditions or Safety Concerns. Pt mod (I) with all transfers Weight Bearing Right Lower Extremity: Right Weight Bearing/Tolerated Gait Training Gait Assistive Device: FWW Pt amb with FWW x 125ft, CGA Exercises Supine Ex: LE Protocol Supine Reps: 20 Treatments CPM 0 - 65 deg Assessment Pt grace well. Pt in bed with CPM, call light and all needs met. PT Short Term Goals Short Term Goals Time Frame: Sep 15, 2020 Roll Left & Right: 5 Sit to lyin Lying to sitting on side of be: 5 Sit to stand: 5 Chair/nth-uj-hxqvf transfer: 5 Toilet transfer: 5 Car transfer: 5 Walk 10 feet: 5 Walk 50 feet with two turns: 5 Walk 150 feet: 5 Walking 10ft on uneven surface: 5 1 step (curb): 5 4 steps: 4 12 steps: 9 Picking up objects: 4 Does pt use a wc or scooter: No Wheel 50ft w/2 turns: 9 Wheel 150 feet: 9 Type: N/A PT Alf Goals Alf Goals PT Key Operator Goals Time Frame: Sep 29, 2020 Roll Left & Right (QC): 6 Sit to Lying (QC): 6 Lying-Sitting on Side/Bed(QC): 6 Sit to Stand (QC): 6 Chair/Rip-lv-Bbrvj Xfer(QC): 6 Toilet Transfer (QC): 6 Car Transfer (QC): 6 Does the Patient Walk: Yes Walk 10 feet (QC): 6 Walk 50ft with 2 Turns (QC): 6 Walk 150 ft (QC): 6 Walking 10ft on Uneven Surface: 6 1 Step (curb) (QC): 6 4 Steps (QC): 6 12 Steps (QC): 9 Picking up an Object (QC): 6 Does the Pt use WC or Scooter?: No Wheel 50 feet with 2 turns (QC: 9 Wheel 150 feet: 9 PT Plan Treatment/Plan Treatment Plan: Continue Plan of Care Treatment Plan: Bed Mobility, Concurrent Therapy, Education, Functional Activity Rajni, Functional Strength, Group Therapy, Gait, Safety, Transfers Treatment Duration: Sep 29, 2020 Frequency: At least 5 of 7 days/Wk (IRF) Estimated Hrs Per Day: 1.5 hours per day Patient and/or Family Agrees t: Yes Time/GCodes Time In: 800 Time Out: 823 Total Billed Treatment Time: 23 Total Billed Treatment 1, ther ex 15', gait 8' JACKELIN MORENO CPTA Sep 09, 2020 11:18
[2020-09-09] MEDS ORDERED: OXYC1TAB87 PO (16:39)
[2020-09-09] MEDS ORDERED: TROS20TA3 PO (16:39)
[2020-09-09] MEDS ORDERED: POLY17PO54 PO (16:39)
[2020-09-09] MEDS ORDERED: SENN1TAB76 PO (16:39)
--- NOTE | 2020-09-09 16:40 | D/C HH Face to Face Order ---
D/C Face to Face Orders Reconcile Patient Problems Problems Reviewed?: Yes Instructions for Patient Home Health Patient Instructions/FollowUp: PCP 1 week Physician to follow Patient: Tommy Discharge Diet for Home: No Restrictions Patient Problems: knee replacement Patient Data-Allergies,Ht & Wt Patient Allergies: Coded Allergies: No Known Drug Allergies (Unverified , 03/20/20) Height (Feet): 5 Height (Inches): 2.00 Weight (Pounds): 201 Weight (Ounces): 6.0 Home Health Need/Face to Face Date of Face to Face: Sep 09, 2020 Clinical Findings: Generalized weakness and fatigue, Instability, Muscle weakness, Pain with ambulation, Unsteady gait I have seen Pt xvwd-ue-bvoi: Yes Discharged To: Home Diagnosis/Conditions: knee replacement Patient is Homebound due to: [place] fall risk due to instabilty, Muscle weakness, Pain w/ambulation Homebound Status Due to the above stated illness, injury or surgical procedure (medical c ondition or diagnosis) and associated clinical findings, the patient is homebound because of his/her inability to leave home except with aid of a supportive device and/or person AND leaving the home requires a considerable and taxing effort or is medically contraindicated. Pt req the following assistanc: Walker Home Health Nursing Orders Home Health Services Order: Nursing Services, Camera Tuning Engineer-Evaluate & Treat, Physical Therapy-Evaluate & Treat Certify Stmt I certify that this patient is under my care and that I, a nurse practitioner or a physician; a assistant finance director working with me, had a face to face encounter that - meets the physician face to face encounter requirements with this patient as dated. KIERRA ARCHULETA DO Sep 09, 2020 16:40
[2020-09-09 20:00] VITALS: BP 130/63
[2020-09-09] MEDS: TROSPIUM 20 MG (SANCTURA) TAB PO SCH (20:15)
[2020-09-10] MEDS: oxyCODONE/APAP 5/325MG (PERCOCET 5) TABLET PO PRN ×2 (00:46→10:28)
--- NOTE | 2020-09-10 05:56 | PM&R Progress Note ---
Subjective HPI/CC On Admission Date Seen by Provider: Sep 10, 2020 Subjective/Events-last exam 09/09/2020: Patient doing really well Chronic urinary frequency Bowels moved today Discharge plan for tomorrow 09/08/2020: Patient doing really well Has some questions about home health at discharge Bowels moved 2 days ago Uses [facility] for pharmacy 09/07/2020: Patient doing pretty well Lovenox discontinued since she is ambulating well No more blood from rectum Pain is well controlled Discharge plan for Friday Pain pill works well 09/06/20: Pt doing pretty well Hesitant about going home Had some bleeding per rectum yesterday but now no longer an issue so holding Lovenox Bowels moved today Percocet given on a regular basis Oxygen off during the day now and only at night DC 09/0909/05/2020: Pt doing pretty well Dr. Sanders ordered a chest X-ray that shows a very small pleural effusion Weaning of O2 Knee high rajendra hose maintained since the thigh high gave blisters Right arm nodule noted to me as small lipoma 09/04/2020: Pt doing pretty well Discontinued the heplock Discontinue the night-hose because there is blisters on her thighs Weaning oxygen Bicarbonate is 33 indicating long-term respiratory failure baseline IS use is only getting up to 250 09/03/2020: Patient doing pretty well Has no complaints Pain is improved Incontinent of urine at night Up in chair now Dressing changes in the incision looks good Using her ice pack 2 L of oxygen maintain 24/7 Bowels moved today 09/02/2020: Patient doing pretty well Settling into rehab very well No bowel movement yet so laxatives were given Up in chair today Using CPM machine as ordered Check meds and labs Daughter at the bedside Slept pretty well Pain is pretty well controlled Objective Exam Vital Signs Vital Signs Date Time Temp Pulse Resp B/P (MAP) Pulse Ox O2 Delivery O2 Flow Rate FiO2 09/09/20 21:00 Room Air 09/09/20 20:00 36.2 64 20 130/63 (85) 93 09/09/20 18:51 2.00 09/06/20 08:51 28 Capillary Refill : General Appearance: No Apparent Distress, WD/WN, Chronically ill, Obese HEENT: PERRL/EOMI, Normal ENT Inspection, Pharynx Normal Neck: Full Range of Motion, Normal Inspection, Non Tender, Supple, Carotid Bruit Respiratory: Chest Non Tender, Lungs Clear, Normal Breath Sounds, No Accessory Muscle Use, No Respiratory Distress Cardiovascular: Regular Rate, Rhythm, No Edema, No Gallop, No JVD, No Murmur, Normal Peripheral Pulses Gastrointestinal: Normal Bowel Sounds, No Organomegaly, No Pulsatile Mass, Non Tender, Soft Back: Normal Inspection, No CVA Tenderness, No Vertebral Tenderness Extremity: Normal Capillary Refill, Normal Inspection, Normal Range of Motion, Non Tender, No Calf Tenderness, No Pedal Edema Neurologic/Psychiatric: Alert, Oriented x3, No Motor/Sensory Deficits, Normal Mood/Affect Skin: Normal Color, Warm/Dry Lymphatic: No Adenopathy Results/Procedures Lab Patient resulted labs reviewed. FIM Transfers Therapy Code Descriptions/Definitions Functional Lucas Measure: 0=Not Assessed/NA 4=Minimal Assistance 1=Total Assistance 5=Supervision or Setup 2=Maximal Assistance 6=Modified Lucas 3=Moderate Assistance 7=Complete IndependenceSCALE: Activities may be completed with or without assistive devices. 1-Lqioajjphb-zeyrrmu completes the activity by him/herself with no assistance from a helper. 5-Set-up or Clean-up Assistance-helper sets up or cleans up; patient completes activity. Antimony assists only prior to or following the activity. 4-Supervision or Touching Assistance-helper provides verbal cues and/or touching/steadying and/or contact guard assistance as patient completes activity. Assistance may be provided throughout the activity or intermittently. 3-Partial/Moderate Assistance-helper does LESS THAN HALF the effort. Antimony lifts, holds or supports trunk or limbs, but provides less than half the effort. 2-Substantial/Maximal Assistance-helper does MORE THAN HALF the effort. Antimony lifts or holds trunk or limbs and provides more than half the effort. 3-Pzcsohjcv-kvnvcg does ALL the effort. Patient does none of the effort to complete the activity. Or, the assistance of 2 or more helpers is required for the patient to complete the activity. If activity was not attempted, code reason: 7-Patient Refused. 9-Not Applicable-not attempted and the patient did not perform the activity before the current illness, exacerbation or injury. 10-Not Attempted due to Environmental Limitations-(lack of equipment, weather restraints, etc.). 88-Not Attempted due to Medical Conditions or Safety Concerns. Roll Left to Right (QC): 6 Sit to Lying (QC): 6 Sit to Stand (QC): 6 Chair/Vbi-am-Vjwuk Xfer(QC): 6 Car Transfer (QC): 6 Gait Training Does the Patient Walk?: Yes Distance: 75' x2 Walk 10 feet (QC): 6 Walk 50 ft with 2 Turns(QC): 6 Walk 150 ft (QC): 6 Walking 10ft/uneven surface-QC: 6 Gait Persons Needed: 0 Gait Assistive Device: FWW Wheelchair Training Does the Pt Use a Wheelchair?: No Wheel 50 ft with 2 turns (QC): 9 Wheel 150 ft (QC): 9 Stair Training Stair Training: Handrails/: 2 handrails #of Steps: 4 1 Step (curb) (QC): 6 4 Steps (QC): 6 12 Steps (QC): 7 Stairs: Pattern: Step to Balance Picking up an Object (QC): 7 ADL-Treatment Eating (QC): 6 Oral Hygiene (QC): 6 (IND in stance at sink.) Bathing Location: L Arm, R Arm, L Upper Leg, R Upper Leg, Chest, Abdomen, Buttocks, Perineal Area Shower/Bathe Self (QC): 5 (s/u sponge bath. Pt completes all areas safely, s/u per clinical judgment) Upper Body Dressing (QC): 6 (gathers clothing, dons IND.) Lower Body Dressing (QC): 6 (gathers clothing, dons IND) On/Off Footwear (QC): 5 (s/u (sock aide given to pt)) Toileting Hygiene (QC): 6 (IND in bathroom without needed SBA.) Toilet Transfer (QC): 6 (IND in bathroom without needed SBA.) Assessment/Plan Assessment and Plan Assess & Plan/Chief Complaint Assessment: Status post right total knee arthroplasty Chronic nocturnal hypoxia maintain on O2 Obesity Advanced age Diabetes Hypertension Plan: Inpatient rehab protocol O2 Pain control Lovenox for DVT prophylaxis 09/02/20: Pain control Monitor closely Fall risk 09/03/2020: Monitor pain Fall risk Incontinence care 09/04/2020: Continue pain control CPM machine Ambulate 09/05/2020: Pain control Monitor oxygen level while weaning 09/06/20: Doing well Weaned O2 during daytime DC 09/0909/07/2020: Continue aggressive therapy Discharge Friday home 09/08/2020: Home health at discharge Discharge Friday Monitor bowel regimen 09/09/2020: Pain control Monitor closely Discharge tomorrow (1) Status post total knee replacement, right (2) Nocturnal hypoxia (3) Obesity (4) Diabetes (5) Advanced age KIERRA ARCHULETA DO Sep 10, 2020 05:56
--- NOTE | 2020-09-10 05:57 | Discharge Summary ---
Diagnosis/Chief Complaint Date of Admission Sep 01, 2020 at 13:45 Date of Discharge Discharge Date: Sep 10, 2020 Discharge Diagnosis Assessment: Status post right total knee arthroplasty Chronic nocturnal hypoxia maintain on O2 Obesity Advanced age Diabetes Hypertension Plan: Inpatient rehab protocol O2 Pain control Lovenox for DVT prophylaxis 09/02/20: Pain control Monitor closely Fall risk 09/03/2020: Monitor pain Fall risk Incontinence care 09/04/2020: Continue pain control CPM machine Ambulate 09/05/2020: Pain control Monitor oxygen level while weaning 09/06/20: Doing well Weaned O2 during daytime DC 09/0909/07/2020: Continue aggressive therapy Discharge Friday home 09/08/2020: Home health at discharge Discharge Friday Monitor bowel regimen 09/09/2020: Pain control Monitor closely Discharge tomorrow (1) Status post total knee replacement, right (2) Nocturnal hypoxia (3) Obesity (4) Diabetes (5) Advanced age Discharge Summary Discharge Physical Examination Allergies: Coded Allergies: No Known Drug Allergies (Unverified , 03/20/20) Vitals & I&Os Vital Signs Date Time Temp Pulse Resp B/P (MAP) Pulse Ox O2 Delivery O2 Flow Rate FiO2 09/10/20 10:40 36.2 69 18 139/75 95 Room Air 09/09/20 18:51 2.00 09/06/20 08:51 28 General Appearance: Alert, Oriented X3, Cooperative Respiratory: Clear to Auscultation Cardiovascular: Regular Rate Psych/Mental Status: Mental Status NL Hospital Course Was the Problem List Reviewed?: Yes Hospital course: Patient had an uneventful hospital course after she was admitted after knee replacement surgery uncomplicated by Dr. ENGLAND. Her primary care provider Dr. Sanders was consulted. Blood pressure remained stable. Oxygen was ultimately weaned to only at night as previous. Pain was well controlled. Bowel function returned back to normal. Patient was deemed stable for discharge. Labs (last 24 hrs) Laboratory Tests 09/01/20 15:23: Glucometer 136H 09/01/20 20:55: Glucometer 140H 09/02/20 05:32: White Blood Count 10.8, Red Blood Count 4.25, Hemoglobin 12.9, Hematocrit 41, Mean Corpuscular Volume 97, Mean Corpuscular Hemoglobin 30, Mean Corpuscular Hemoglobin Concent 31L, Red Cell Distribution Width 13.0, Platelet Count 250, Mean Platelet Volume 10.4, Immature Granulocyte % (Auto) 1, Neutrophils (%) (Auto) 75, Lymphocytes (%) (Auto) 12, Monocytes (%) (Auto) 10, Eosinophils (%) (Auto) 2, Basophils (%) (Auto) 0, Neutrophils # (Auto) 8.1H, Lymphocytes # (Auto) 1.3, Monocytes # (Auto) 1.1H, Eosinophils # (Auto) 0.2, Basophils # (Auto) 0.0, Immature Granulocyte # (Auto) 0.1, Sodium Level 137, Potassium Level 4.0, Chloride Level 96L, Carbon Dioxide Level 31, Anion Gap 10, Blood Urea Nitrogen 11, Creatinine 0.83, Estimat Glomerular Filtration Rate > 60, BUN/Creatinine Ratio 13, Glucose Level 105, Calcium Level 9.7, Corrected Calcium 10.2H, Total Bilirubin 0.7, Aspartate Amino Transf (AST/SGOT) 17, Alanine Aminotransferase (ALT/SGPT) 15, Alkaline Phosphatase 75, Total Protein 7.4, Albumin 3.4 09/02/20 10:44: Glucometer 96 09/02/20 15:59: Glucometer 100 09/02/20 20:59: Glucometer 96 09/03/20 05:56: Glucometer 87 09/03/20 15:34: Glucometer 101 09/04/20 05:26: White Blood Count 7.4, Red Blood Count 3.87, Hemoglobin 11.7, Hematocrit 37, Mean Corpuscular Volume 96, Mean Corpuscular Hemoglobin 30, Mean Corpuscular Hemoglobin Concent 32, Red Cell Distribution Width 13.1, Platelet Count 270, Mean Platelet Volume 9.7, Immature Granulocyte % (Auto) 0, Neutrophils (%) (Auto) 65, Lymphocytes (%) (Auto) 18, Monocytes (%) (Auto) 13H, Eosinophils (%) (Auto) 4, Basophils (%) (Auto) 0, Neutrophils # (Auto) 4.8, Lymphocytes # (Auto) 1.3, Monocytes # (Auto) 1.0, Eosinophils # (Auto) 0.3, Basophils # (Auto) 0.0, Immature Granulocyte # (Auto) 0.0, Sodium Level 139, Potassium Level 4.4, Chloride Level 96L, Carbon Dioxide Level 33H, Anion Gap 10, Blood Urea Nitrogen 18, Creatinine 0.79, Estimat Glomerular Filtration Rate > 60, BUN/Creatinine Ratio 23, Glucose Level 100, Calcium Level 9.2, Corrected Calcium 10.0, Total Bilirubin 0.7, Aspartate Amino Transf (AST/SGOT) 22, Alanine Aminotransferase (ALT/SGPT) 14, Alkaline Phosphatase 63, Total Protein 6.6, Albumin 3.0L Pending Labs Laboratory Tests 09/01/20 15:23: Glucometer 136 09/01/20 20:55: Glucometer 140 09/02/20 05:32: White Blood Count 10.8, Red Blood Count 4.25, Hemoglobin 12.9, Hematocrit 41, Mean Corpuscular Volume 97, Mean Corpuscular Hemoglobin 30, Mean Corpuscular Hemoglobin Concent 31, Red Cell Distribution Width 13.0, Platelet Count 250, Mean Platelet Volume 10.4, Immature Granulocyte % (Auto) 1, Neutrophils (%) (Auto) 75, Lymphocytes (%) (Auto) 12, Monocytes (%) (Auto) 10, Eosinophils (%) (Auto) 2, Basophils (%) (Auto) 0, Neutrophils # (Auto) 8.1, Lymphocytes # (Auto) 1.3, Monocytes # (Auto) 1.1, Eosinophils # (Auto) 0.2, Basophils # (Auto) 0.0, Immature Granulocyte # (Auto) 0.1, Sodium Level 137, Potassium Level 4.0, Chloride Level 96, Carbon Dioxide Level 31, Anion Gap 10, Blood Urea Nitrogen 11, Creatinine 0.83, Estimat Glomerular Filtration Rate > 60, BUN/Creatinine Ratio 13, Glucose Level 105, Calcium Level 9.7, Corrected Calcium 10.2, Total Bilirubin 0.7, Aspartate Amino Transf (AST/SGOT) 17, Alanine Aminotransferase (ALT/SGPT) 15, Alkaline Phosphatase 75, Total Protein 7.4, Albumin 3.4 09/02/20 10:44: Glucometer 96 09/02/20 15:59: Glucometer 100 09/02/20 20:59: Glucometer 96 09/03/20 05:56: Glucometer 87 09/03/20 15:34: Glucometer 101 09/04/20 05:26: White Blood Count 7.4, Red Blood Count 3.87, Hemoglobin 11.7, Hematocrit 37, Mean Corpuscular Volume 96, Mean Corpuscular Hemoglobin 30, Mean Corpuscular Hemoglobin Concent 32, Red Cell Distribution Width 13.1, Platelet Count 270, Mean Platelet Volume 9.7, Immature Granulocyte % (Auto) 0, Neutrophils (%) (Auto) 65, Lymphocytes (%) (Auto) 18, Monocytes (%) (Auto) 13, Eosinophils (%) (Auto) 4, Basophils (%) (Auto) 0, Neutrophils # (Auto) 4.8, Lymphocytes # (Auto) 1.3, Monocytes # (Auto) 1.0, Eosinophils # (Auto) 0.3, Basophils # (Auto) 0.0, Immature Granulocyte # (Auto) 0.0, Sodium Level 139, Potassium Level 4.4, Chloride Level 96, Carbon Dioxide Level 33, Anion Gap 10, Blood Urea Nitrogen 18, Creatinine 0.79, Estimat Glomerular Filtration Rate > 60, BUN/Creatinine Ratio 23, Glucose Level 100, Calcium Level 9.2, Corrected Calcium 10.0, Total Bilirubin 0.7, Aspartate Amino Transf (AST/SGOT) 22, Alanine Aminotransferase (ALT/SGPT) 14, Alkaline Phosphatase 63, Total Protein 6.6, Albumin 3.0 Discharge Home Medications: Active Scripts Active Trospium Chloride 20 Mg Tablet 20 Mg PO HS Polyethylene Glycol 3350 17 Gm Powd.pack 17 Gm PO BID Stool Softener-Laxative Tablet (Sennosides/Docusate Sodium) 1 Each Tablet 2 Ea PO BID Percocet 5-325 mg Tablet (Oxycodone HCl/Acetaminophen) 1 Each Tablet 1 Tab PO Q2HR PRN Reported Lisinopril 40 Mg Tablet 40 Mg PO DAILY Amlodipine Besylate 5 Mg Tablet 5 Mg PO DAILY Cosentyx Pen (Secukinumab) 150 Mg/1 Ml Pen.injctr 300 Mg SQ MONTHLY Vitamin D3 (Cholecalciferol (Vitamin D3)) 25 Mcg Capsule 25 Mcg PO DAILY Multivitamin 1 Each Tablet 1 Each PO DAILY Metformin HCl 500 Mg Tablet 500 Mg PO DAILY Atenolol 100 Mg Tablet 100 Mg PO BID Simvastatin 40 Mg Tablet 40 Mg PO HS Aspirin 81 Mg Tab.chew 81 Mg PO DAILY Instructions to patient/family Please see electronic discharge instructions given to patient. Diagnosis/Problems Diagnosis/Problems (1) Status post total knee replacement, right (2) Nocturnal hypoxia (3) Obesity (4) Diabetes (5) Advanced age KIERRA ARCHULETA DO Sep 10, 2020 05:57
[2020-09-10] MEDS: metFORMIN 500 MG (GLUCOPHAGE) TAB PO SCH (06:38)
[2020-09-10] MEDS: MULTIVIT W/MINERALS TAB (THERAGRAN M) PO SCH (06:38)
[2020-09-10 07:14] VITALS: BP 139/75
[2020-09-10] MEDS: ASPIRIN 81 MG CHEW (CHILDREN'S ASA) PO SCH (08:18)
[2020-09-10] MEDS: DOCUSATE SODIUM 100 MG (COLACE) CAP PO SCH (08:18)
[2020-09-10] MEDS: amLODIPine 5 MG (NORVASC) TAB PO SCH (08:18)
[2020-09-10] MEDS: ATENOLOL 50 MG (TENORMIN) TAB PO SCH (08:18)
[2020-09-10] MEDS: VITAMIN D3 25 MCG (1,000 UNITS) TABLET PO SCH (08:18)
[2020-09-10] MEDS: lisINopril 40 MG (PRINIVIL) TABLET PO SCH (08:18)
[2020-09-10] MEDS: polyethylene glycoL POWDER 17 GM (MIRALAX) PACK PO SCH (08:18)
[2020-09-10] MEDS: SENNA W/DOCUSATE (SENOKOT S) TABLET PO SCH (08:19)
[2020-09-10 10:40] VITALS: BP 139/75
--- NOTE | 2020-09-11 14:36 | Therapy Team Discharge Summary ---
Therapy Discharge Summary Discharge Recommendations Date of Discharge Sep 10, 2020 at 10:40 Physical Therapy Patient came to rehab following a right TKA. Upon evaluation patient performed bed mobility and transfers with CGA, car transfer CGA, ambulated 150' with a rolling walker with CGA (including 50' with at least 2 turns of 90 degrees and 10' over an uneven surface), picked up an object from the floor with min assist, and went up and down 4 steps using 2 handrails with min assist. Patient has been performing bed mobility and transfer training, balance and endurance training, functional strengthening, stair training, gait training, and education. Patient has made good progress and has met all of her correction goals except for picking up an object from the floor which she refused to do. Now, patient performs bed mobility and transfers with independence, independent with car transfer, ambulates 150' with a rolling walker with independence ( including 50' with at least 2 turns of 90 degrees and 10' over an uneven surface), and can go up and down 4 steps using 2 handrails with independence. Patient has been discharged from this facility and will be discharged from PT at this time. Occupational Therapy Decreased Activ Tolerance, Decreased UE Strength, Impaired I ADL's PT Certified Appliance Service Technician Goals Custodial Goals PT Certified Appliance Service Technician Goals Time Frame: Sep 29, 2020 Roll Left to Right (QC): 6 Sit to Lying (QC): 6 Lying-Sitting on Side/Bed(QC): 6 Sit to Stand (QC): 6 Chair/Zmw-my-Vthqk Xfer(QC): 6 Car Transfer (QC): 6 Does the Patient Walk: Yes Walk 10 feet (QC): 6 Walk 10ft-Uneven Surface(QC): 6 Walk 50ft with 2 Turns (QC): 6 Walk 150 ft (QC): 6 Does the Pt use WC or Scooter?: No Wheel 50 feet with 2 turns (QC: 9 1 Step (curb) (QC): 6 4 Steps (QC): 6 12 Steps (QC): 9 Picking up an Object (QC): 6 OT Custodial Goals Certified Appliance Service Technician Goals Time Frame: Sep 15, 2020 Eating (QC): 6 Oral Hygiene (QC): 6 Shower/Bathe Self (QC): 6 Upper Body Dressing (QC): 6 Lower Body Dressing (QC): 6 On/Off Footwear (QC): 6 Toileting Hygiene (QC): 6 Toilet/Commode Transfer (QC): 6 Additional Goals: 1-Demonstrate ADL Tasks, 2-Verbalize Understanding, 3- ImproveStrength/Rajni 1=Demonstrate adherence to instructed precautions during ADL tasks. 2=Patient will verbalize/demonstrate understanding of assistive devices/modifications for ADL. 3=Patient will improve strength/tolerance for activity to enable patient to perform ADL's. CHANELL SEPULVEDA PT Sep 11, 2020 14:36
--- NOTE | 2020-09-11 14:50 | Therapy Team Discharge Summary ---
Therapy Discharge Summary Discharge Recommendations Date of Discharge Sep 10, 2020 at 10:40 Therapy D/C Recommendations: Home w/ Family Support, Occupational Therapy Home Care Occupational Therapy Pt. seen for Occupational therapy to increase overall strength and independence with daily skills. Pt. has met most goals. Would recommend continued care with OT for safety and independence within the home. Recommend hip kit as well. Decreased Activ Tolerance, Impaired I ADL's PT Patient Portal Representative Goals Alf Goals PT Patient Portal Representative Goals Time Frame: Sep 29, 2020 Roll Left to Right (QC): 6 Sit to Lying (QC): 6 Lying-Sitting on Side/Bed(QC): 6 Sit to Stand (QC): 6 Chair/Jib-ws-Wlafu Xfer(QC): 6 Car Transfer (QC): 6 Does the Patient Walk: Yes Walk 10 feet (QC): 6 Walk 10ft-Uneven Surface(QC): 6 Walk 50ft with 2 Turns (QC): 6 Walk 150 ft (QC): 6 Does the Pt use WC or Scooter?: No Wheel 50 feet with 2 turns (QC: 9 1 Step (curb) (QC): 6 4 Steps (QC): 6 12 Steps (QC): 9 Picking up an Object (QC): 6 OT Patient Portal Representative Goals Alf Goals Time Frame: Sep 15, 2020 Eating (QC): 6 (met) Oral Hygiene (QC): 6 (met) Shower/Bathe Self (QC): 6 (not met) Upper Body Dressing (QC): 6 (met) Lower Body Dressing (QC): 6 (met) On/Off Footwear (QC): 6 (not met) Toileting Hygiene (QC): 6 (met) Toilet/Commode Transfer (QC): 6 (met) Additional Goals: 1-Demonstrate ADL Tasks, 2-Verbalize Understanding, 3- ImproveStrength/Rajni 1=Demonstrate adherence to instructed precautions during ADL tasks. 2=Patient will verbalize/demonstrate understanding of assistive devices/modifica tions for ADL. 3=Patient will improve strength/tolerance for activity to enable patient to perform ADL's. SHADY HARRIS OT Sep 11, 2020 14:50
--- NOTE | 2020-09-13 12:25 | Physician Query Clarification ---
PQ-Intro New Diagnosis Admission/Discharge Admission Date: Sep 01, 2020 at 13:45 Discharge Date: Sep 10, 2020 at 10:40 Dr. Gan, The medical record reflects the following clinical scenario: History/Risk Factors: s/p RT TKR Clinical Findings: jt pain Treatment: rt TKR Question: What condition best reflects the above clinical scenario? Please document a response in the Progress Noter or Discharge Summary. 1. DJD Rt Knee 2. S/P Rt TKR etiology unknown 3. Other, with explanation of the clinical findings. 4. Clinically undetermined, no explanation for the clinical findings. PHYSICIAN RESPONSE What condition reflects above: 1 Please remember a lack of response to the above will prompt a phone page by CDI/Coding staff. In responding to this query, please exercise your independent professional judgment. The purpose of this communication is to more accurately reflect the complexity of your patients condition. The fact that a question is asked does not imply that any particular answer is desired or expected. Thank you for your timely response to this clarification. Requestors name: Cheli THIS PHYSICIAN QUERY FORM IS A PERMANENT PART OF THE MEDICAL RECORD CHELI PARK Sep 13, 2020 12:25 KIERRA GAN DO Sep 13, 2020 12:42
== END 2020-09-10 10:40 | disposition home health service (06) | DRG 560 ==
PROVIDERS: ADMIT Internal Medicine; ATTEND Internal Medicine
DX: Z47.1 Aftercare following joint replacement surgery (principal); J90 Pleural effusion, not elsewhere classified; Z96.651 Presence of right artificial knee joint; M79.671 Pain in right foot; R32 Unspecified urinary incontinence; R35.0 Frequency of micturition; M19.91 Primary osteoarthritis, unspecified site; E78.00 Pure hypercholesterolemia, unspecified; I10 Essential (primary) hypertension; R09.02 Hypoxemia; E66.9 Obesity, unspecified; D17.21 Benign lipomatous neoplasm of skin and subcutaneous tissue of right arm; E11.9 Type 2 diabetes mellitus without complications; Z68.34 Body mass index [BMI] 34.0-34.9, adult; Z99.81 Dependence on supplemental oxygen; Z79.84 Long term (current) use of oral hypoglycemic drugs; Z79.82 Long term (current) use of aspirin
CPT/HCPCS: 36415; 71046; 80053; 82947; 85025; 94760

== ENCOUNTER 2020-12-14 14:30 | Outpatient (RCR) | payer MEDICARE, OTHER ==
[~2020-12-14 14:30] MED LIST changes: +OXYC1TAB87 PO; +POLY17PO54 PO; +SENN1TAB76 PO; +TROS20TA3 PO
== END 2020-12-17 | disposition home or self-care (01) ==
PROVIDERS: ATTEND Orthopaedic Surgery
DX: M17.11 Unilateral primary osteoarthritis, right knee (principal); I10 Essential (primary) hypertension; Z96.651 Presence of right artificial knee joint

== ENCOUNTER → 2020-12-19 | Outpatient (CLI) | payer MEDICARE, OTHER ==
--- NOTE | 2020-12-19 13:49 | Diagnostic Imaging Report ---
CLINICAL INDICATION: Patient with overactive bladder. EXAM: Bladder ultrasound with pre- and post-void imaging. COMPARISON: None. FINDINGS AND IMPRESSION: The bladder is unremarkable as visualized. Bilateral ureteral jets are seen. The pre-void bladder volume is 84 cc. The post-void bladder volume is 14 cc. Dictated by: Dictated on workstation # [id number]
== END ==
LOC: RAD 10:30
PROVIDERS: ATTEND Urology
DX: N32.81 Overactive bladder (principal); N39.41 Urge incontinence; Z96.0 Presence of urogenital implants
CPT/HCPCS: 76857

== ENCOUNTER 2020-12-22 12:36 | Outpatient (RCR) | payer MEDICARE, OTHER | END 2021-03-08 10:00 | disposition home or self-care (01) | PROVIDERS: ATTEND Orthopaedic Surgery | DX: Z47.1 Aftercare following joint replacement surgery (principal); I10 Essential (primary) hypertension; Z96.651 Presence of right artificial knee joint ==

== ENCOUNTER → 2020-12-28 | Outpatient (CLI) | payer MEDICARE, OTHER | LOC: LABNPT 08:03 | PROVIDERS: ATTEND Family Medicine | DX: G47.33 Obstructive sleep apnea (adult) (pediatric) (principal); I10 Essential (primary) hypertension; Z20.822 Contact with and (suspected) exposure to COVID-19 | CPT/HCPCS: 87635 ==

== ENCOUNTER 2020-12-30 19:24 | Outpatient (CLI) | payer MEDICARE, OTHER | END 2020-12-31 06:45 | disposition home or self-care (01) | LOC: SLEEP 19:24 | PROVIDERS: ATTEND Family Medicine | DX: Z23 Encounter for immunization (principal); G47.33 Obstructive sleep apnea (adult) (pediatric); I10 Essential (primary) hypertension; E78.2 Mixed hyperlipidemia; E11.9 Type 2 diabetes mellitus without complications; L40.9 Psoriasis, unspecified; R32 Unspecified urinary incontinence | CPT/HCPCS: 95810 ==

== ENCOUNTER 2021-09-19 16:01 | Inpatient (IN) | payer MEDICARE, OTHER ==
[~2021-09-19] VITALS: Ht 160 cm; Wt 90.3 kg
[2021-09-19] MEDS ORDERED: cefTRIAXone 1 GM PRE-MIX 50 ML IV STA (16:17)
--- NOTE | 2021-09-19 16:24 | ED Cough/URI ---
General Chief Complaint: COVID19 Suspect/Confirmed Stated Complaint: COVID POSITIVE, SOB Source: patient Exam Limitations: no limitations (KASIE XIAO) History of Present Illness Date Seen by Provider: Sep 19, 2021 Time Seen by Provider: 16:20 Initial Comments Patient is a 85-year-old female who presents to the ED for shortness of breath and cough. Symptoms started this past Friday. She states she started not to feel well. Started having body aches, fatigue and weakness on Friday. Start developing a dry deep cough. Started feeling short of breath the day. She took 2 at home test for COVID tested positive. She states she received her COVID booster last . She denies having COVID previously. Patient on arrival oxygen 72%. Patient Was placed on 3 L with improvement to over 93%. Denies history of coronary artery disease, CHF, COPD. She denies of any known fever at home. Denies vomiting, diarrhea, headache, dizziness, chest pain, abdominal pain, sore throat, ear pain. Patient reports using cough drops, nasal spray and Tylenol. (KASIE XIAO) Allergies and Home Medications Allergies Coded Allergies: No Known Drug Allergies (Unverified , 03/20/20) Patient Home Medication List Home Medication List Reviewed: Yes (KASIE XIAO) Amlodipine Besylate (Amlodipine Besylate) 5 Mg Tablet, 5 MG PO DAILY, (Reported) Entered as Reported by: AYLIN HUANG on 08/17/20 1006 Last Action: Reviewed Aspirin (Aspirin) 81 Mg Tab.chew, 81 MG PO DAILY, (Reported) Entered as Reported by: ANALI SNELL on 03/19/17 1033 Last Action: Reviewed Atenolol (Atenolol) 100 Mg Tablet, 100 MG PO BID, (Reported) Entered as Reported by: ANALI SNELL on 03/20/20 1122 Last Action: Reviewed Cholecalciferol (Vitamin D3) (Vitamin D3) 25 Mcg Capsule, 25 MCG PO DAILY, (Reported) Entered as Reported by: AANLI SNELL on 03/20/20 1122 Last Action: Reviewed Lisinopril (Lisinopril) 40 Mg Tablet, 40 MG PO DAILY, (Reported) Entered as Reported by: AYLIN HUANG on 08/17/20 1006 Last Action: Reviewed Multivitamin (Multivitamin) 1 Each Tablet, 1 EACH PO DAILY, (Reported) Entered as Reported by: ANALI SNELL on 03/20/20 112 Last Action: Reviewed Risankizumab-Rzaa (Skyrizi) 150 Mg/Ml Syringe, 150 MG SC EVERY 3 MONTHS, (Reported) Entered as Reported by: IGGY NICOLE on 09/20/21 1513 Last Action: Reviewed Simvastatin (Simvastatin) 40 Mg Tablet, 40 MG PO HS, (Reported) Entered as Reported by: ANALI SNELL on 03/19/17 1033 Last Action: Reviewed Discontinued Medications Metformin HCl (Metformin HCl) 500 Mg Tablet, 500 MG PO DAILY, (Reported) Discontinued Reason: No Longer Taking Entered as Reported by: ANALI SNELL on 03/20/201121 Last Action: Discontinued Oxycodone HCl/Acetaminophen (Percocet 5-325 mg Tablet) 1 Each Tablet, 1 TAB PO Q2HR PRN for PAIN-MODERATE (5-7) Discontinued Reason: No Longer Taking Prescribed by: KIERRA ARCHULETA on 09/09/201638 Last Action: Discontinued Polyethylene Glycol 3350 (Polyethylene Glycol 3350) 17 Gm Powd.pack, 17 GM PO BID Discontinued Reason: No Longer Taking Prescribed by: KIERRA ARCHULETA on 09/09/201638 Last Action: Discontinued Secukinumab (Cosentyx Pen) 150 Mg/1 Ml Pen.injctr, 300 MG SQ MONTHLY, (Reported) Discontinued Reason: No Longer Taking Entered as Reported by: ANALI SNELL on 03/20/20 112 Last Action: Discontinued Sennosides/Docusate Sodium (Stool Softener-Laxative Tablet) 1 Each Tablet, 2 EA PO BID Discontinued Reason: No Longer Taking Prescribed by: KIERRA ARCHULETA on 09/09/201638 Last Action: Discontinued Trospium Chloride (Trospium Chloride) 20 Mg Tablet, 20 MG PO HS Discontinued Reason: Duplicate Order Prescribed by: KIERRA ARCHULETA on 09/09/201638 Last Action: Discontinued Review of Systems Review of Systems Constitutional: chills; No diaphoresis; malaise EENTM: No blurred vision, No double vision, No throat pain, No throat swelling Respiratory: cough Cardiovascular: No chest pain Gastrointestinal: No abdominal pain, No diarrhea, No nausea, No vomiting Genitourinary: No decreased output, No discharge Musculoskeletal: No back pain, No joint pain Skin: No change in color, No change in hair/nails (KASIE XIAO) All Other Systems Reviewed Negative Unless Noted: Yes (KASIE XIAO) Past Wvyphza-Ywkmns-Fnrjxe Hx Patient Social History Tobacco Use?: No Use of E-Cig and/or Vaping dev: No Substance use?: No Alcohol Use?: No Pt feels they are or have been: No (KASIE XIAO) Immunizations Up To Date First/Initial COVID19 Vaccinat: 2020 Second COVID19 Vaccination Amari: 2020 (KASIE XIAO) Seasonal Allergies Seasonal Allergies: No (KASIE XIAO) Past Medical History Surgeries: Yes ( D&C, BILATERAL FEET, CATARACTS,bilat KNEE SCOPE) Respiratory: No Pneumonia Currently Using CPAP: No (wears oxygen at hs) Currently Using BIPAP: No Cardiac: Yes High Cholesterol, Hypertension Neurological: No Reproductive Disorders: No Sexually Transmitted Disease: No HIV/AIDS: No Genitourinary: No Gastrointestinal: No Musculoskeletal: Yes Arthritis, Chronic Back Pain Endocrine: Yes Diabetes, Non-Insulin dep HEENT: Yes (GLASSES, cataracts removed) Loss of Vision: Denies Hearing Impairment: Denies Cancer: Yes (HAS HAD SKIN CANCER REMOVED) Skin Did You Recieve Any Treatments: Yes What Type of Treatment Did You: Surgical Intervention Psychosocial: No Integumentary: Yes Psoriasis Blood Disorders: No Adverse Reaction/Blood Tranf: No (N/A) (KASIE XIAO) Family Medical History Patient reports no known family medical history. Physical Exam Vital Signs - First Documented (LC AYALA MD) Capillary Refill : (KASIE XIAO) Height: 5'2.00" Weight: 201lbs. 6.0oz. 91.259767wj; 35.03 BMI Method: General Appearance: WD/WN, no apparent distress Eyes: Bilateral Eye Normal Inspection, Bilateral Eye PERRL, Bilateral Eye EOMI HEENT: PERRL/EOMI, normal ENT inspection, TMs normal, pharynx normal Neck: non-tender, full range of motion, supple Respiratory: chest non-tender, normal breath sounds, no respiratory distress, wheezing (Right lower quad) Cardiovascular: regular rate, rhythm, no edema, no gallop, no JVD Gastrointestinal: normal bowel sounds, non tender, soft Extremities: normal range of motion, non-tender, normal inspection Neurologic/Psychiatric: circuit manager II-XII nml as tested, no motor/sensory deficits, alert Skin: normal color, warm/dry (KASIE XIAO) Focused Exam Lactate Level 09/19/21 16:25: Lactic Acid Level 1.01 (LC AYALA MD) Lactic Acid Level Laboratory Tests Test 09/19/21 16:25 Lactic Acid Level 1.01 MMOL/L (0.50-2.00) (LC AYALA MD) Progress/Results/Core Measures Suspected Sepsis SIRS Temperature: Pulse: Respiratory Rate: Laboratory Tests 09/19/21 16:25: White Blood Count 7.2 Blood Pressure / Mean: 09/19/21 16:25: Lactic Acid Level 1.01 Laboratory Tests 09/19/21 16:25: Creatinine 0.75, Platelet Count 220, Total Bilirubin 0.6 (KASIE XIAO) Results/Orders Lab Results Laboratory Tests Test 09/19/21 16:25 09/19/21 16:57 Range/Units White Blood Count 7.2 4.3-11.0 10^3/uL Red Blood Count 5.16 H 3.80-5.11 10^6/uL Hemoglobin 15.4 11.5-16.0 g/dL Hematocrit 48 35-52 % Mean Corpuscular Volume 93 80-99 fL Mean Corpuscular Hemoglobin 30 25-34 pg Mean Corpuscular Hemoglobin Concent 32 32-36 g/dL Red Cell Distribution Width 13.4 10.0-14.5 % Platelet Count 220 130-400 10^3/uL Mean Platelet Volume 9.6 9.0-12.2 fL Immature Granulocyte % (Auto) 0 % Neutrophils (%) (Auto) 73 42-75 % Lymphocytes (%) (Auto) 14 12-44 % Monocytes (%) (Auto) 12 0-12 % Eosinophils (%) (Auto) 1 0-10 % Basophils (%) (Auto) 0 0-10 % Neutrophils # (Auto) 5.2 1.8-7.8 10^3/uL Lymphocytes # (Auto) 1.0 1.0-4.0 10^3/uL Monocytes # (Auto) 0.8 0.0-1.0 10^3/uL Eosinophils # (Auto) 0.1 0.0-0.3 10^3/uL Basophils # (Auto) 0.0 0.0-0.1 10^3/uL Immature Granulocyte # (Auto) 0.0 0.0-0.1 10^3/uL D-Dimer 0.43 0.00-0.49 UG/ML Sodium Level 138 135-145 MMOL/L Potassium Level 4.0 3.6-5.0 MMOL/L Chloride Level 96 L 98-107 MMOL/L Carbon Dioxide Level 30 21-32 MMOL/L Anion Gap 12 5-14 MMOL/L Blood Urea Nitrogen 15 7-18 MG/DL Creatinine 0.75 0.60-1.30 MG/DL Estimat Glomerular Filtration Rate 79 BUN/Creatinine Ratio 20 Glucose Level 155 H 70-105 MG/DL Lactic Acid Level 1.01 0.50-2.00 MMOL/L Calcium Level 9.2 8.5-10.1 MG/DL Corrected Calcium 9.4 8.5-10.1 MG/DL Total Bilirubin 0.6 0.1-1.0 MG/DL Aspartate Amino Transf (AST/SGOT) 25 5-34 U/L Alanine Aminotransferase (ALT/SGPT) 18 0-55 U/L Alkaline Phosphatase 88 40-136 U/L Troponin I < 0.028 <0.028 NG/ML C-Reactive Protein High Sensitivity 6.77 H 0.00-0.50 MG/DL B-Type Natriuretic Peptide 321.0 H <100.0 PG/ML Total Protein 7.7 6.4-8.2 GM/DL Albumin 3.8 3.2-4.5 GM/DL Procalcitonin 0.04 <0.10 NG/ML Influenza Type A (RT-PCR) Not Detected Not Detecte Influenza Type B (RT-PCR) Not Detected Not Detecte SARS-CoV-2 RNA (RT-PCR) Detected H Not Detecte (LC AYALA MD) Micro Results Microbiology 09/19/21 Blood Culture - Preliminary, Resulted No growth 09/19/21 Blood Culture - Preliminary, Resulted No growth (LC AYALA MD) My Orders Orders - LC AYALA MD Cbc With Automated Diff (09/19/21 16:08) Comprehensive Metabolic Panel (09/19/21 16:08) Hs C Reactive Protein (09/19/21 16:08) Fibrin Degradation Products (09/19/21 16:08) Procalcitonin (Pct) (09/19/21 16:08) Ed Iv/Invasive Line Start (09/19/21 16:08) Chest 1 View, Ap/Pa Only (09/19/21 16:08) (LC AYALA MD) Vital Signs/I&O 09/19/21 09/19/21 09/19/21 16:09 16:09 17:37 Pulse 60 58 Resp 36 27 B/P (MAP) 202/109 (140) Pulse Ox 93 94 O2 Delivery Nasal Cannula Room Air O2 Flow Rate 3.00 100.00 (LC AYALA MD) Vital Signs/I&O Capillary Refill : (KASIE XIAO) Progress Note : Progress Note I assisted with the management of this patient when she suddenly developed worsening respiratory failure. Despite high flow mask she was hypoxic with saturations in the high 70s. Confirmed with patient that she desired full CODE STATUS. Patient was exhibiting symptoms of obstructive disease with wheezing and accessory muscle use for forced expiration. BiPAP was initiated with immediate improvement in her oxygenation and comfort of breathing. She was given nebulizer treatments through BiPAP. I suspected that she suddenly d eveloped bronchospasm and/or pulmonary edema causing this abrupt change in respiratory status. I discussed this case with PIETRO Burton. I agree with his approach to care. I agree with administration of dexamethasone, continued BiPAP, and admission to the ICU. Proning was also recommended. Repeat x-ray was obtained but did not show a notable increase in pulmonary edema. Patient was also significantly hypertensive at the time prompting use of Nitropaste. (LC AYALA MD) ECG Comment Sinus rhythm, right bundle branch block, left anterior fascicular block, T wave inversions in the lateral leads. 60 bpm, QRS duration 150 MS, QTc 474 MS. (KASIE XIAO) Critical Care Note Critical Care Start Time: 17:00 Stop Time: 17:30 Total Time (minutes) 30 Progress Patient required BiPAP for worsening respiratory failure (KASIE XIAO) Departure Communication (Admissions) Time/Spoke to Admitting Phy: 17:53 Patient was discussed with Dr. SANDERS who accepts patient Time/Spoke to Consulting Phy: 18:[address] Alatorre who recommends 40 mg IV Lasix and will consult (KASIE XIAO) Communication (PCP) Patient with flulike symptoms. On arrival she was hypertensive at 177/100. Denies of any chest pain but shortness of breath. Oxygen 71% on room air. Patient Was placed on 3 L of nasal cannula with improvement of her symptoms to 95%. She was not having labored breathing once oxygen improved. Reports COVID positive at home with in-home test. Positive here negative for flu. Sepsis protocol was initiated secondary to hypoxia. Normal white blood count. No known history of CHF, coronary artery disease. Last echocardiogram was in 2007 with normal ejection fraction 60%. No presenting leg swelling. Does not appear to be a CHF pattern. Concerning for pneumonia with some wheezing/rhonchi noted to the right lower lobe of the lung. Chest x-ray with pulmonary vascular congestion concerning for pulmonary edema with opacities. Possible superimposed infection. Patient Was given Rocephin and IV Decadron. She is requesting small amount of fluids. Do not want to give excessive fluid due to COVID. She denies history of CHF. Did provide 1 L fluid. Patient EKG without evidence of ST elevation or depression. Right bundle branch block. T wave inversion in the lateral leads. Normal troponin but elevated BNP of 300. After patient received small amount of the IV fluids around 600-700 mls patient started to have a increase blood pressure around 215/120 and became hypoxic around 70%. Patient was placed on BiPAP and was given Nitropaste with improvement. Concerning for flash pulmonary edema. Symptoms continue improved. Blood pressure improved. Patient was discussed with Dr. Sanders who accepts patient for ICU admission. Patient was discussed with Dr. Alatorre who recommends 40 mg IV Lasix which was given. (KASIE XIAO) Impression Primary Impression: COVID-19 Additional Impressions: Hypoxia Respiratory failure Qualified Codes: J96.01 - Acute respiratory failure with hypoxia Disposition: ADMITTED INPATIENT Condition: Stable Admissions Decision to Admit Reason: Admit from ER (General) Decision to Admit/Date: Sep 19, 2021 Time/Decision to Admit Time: 17:53 (KASIE XIAO) Departure-Patient Inst. Referrals: DEZ SANDERS DO (PCP/Family) Primary Care Physician ATTENDING PHYSICIAN NOTE: I was physically present as attending physician in the emergency department during the care of this patient. I participated in the care of this patient as described above. (LC AYALA MD) KASIE XIAO Sep 19, 2021 16:24 LC AYALA MD Sep 19, 2021 21:32
[2021-09-19] MEDS ORDERED: NS IV 1000 ML 1,000 ML IV STA (16:29)
[2021-09-19 16:38] LABS: BASOPHILS % (AUTO) 0 % (0-10); EOSINOPHILS # (AUTO) 0.1 10^3/uL (0.0-0.3); EOSINOPHILS % (AUTO) 1 % (0-10); HEMATOCRIT 48 % (35-52); HEMOGLOBIN 15.4 g/dL (11.5-16.0); LYMPHOCYTES % (AUTO) 14 % (12-44); MEAN CORPUSCULAR HEMOGLOBIN 30 pg (25-34); MEAN CORPUSCULAR HGB CONC 32 g/dL (32-36); MEAN CORPUSCULAR VOLUME 93 fL (80-99); MEAN PLATELET VOLUME 9.6 fL (9.0-12.2); MONOCYTES # (AUTO) 0.8 10^3/uL (0.0-1.0); MONOCYTES % (AUTO) 12 % (0-12); NEUTROPHILS # (AUTO) 5.2 10^3/uL (1.8-7.8); NEUTROPHILS % (AUTO) 73 % (42-75); PLATELET COUNT 220 10^3/uL (130-400); WHITE BLOOD COUNT 7.2 10^3/uL (4.3-11.0)
[2021-09-19 16:52] LABS: ALBUMIN 3.8 GM/DL (3.2-4.5); CHLORIDE 96 MMOL/L (98-107); SODIUM 138 MMOL/L (135-145)
[2021-09-19 16:53] LABS: CALCIUM 9.2 MG/DL (8.5-10.1)
[2021-09-19 16:54] LABS: GLUCOSE 155 MG/DL (70-105)
[2021-09-19 16:55] LABS: TOTAL PROTEIN 7.7 GM/DL (6.4-8.2)
--- NOTE | 2021-09-19 16:55 | Diagnostic Imaging Report ---
INDICATION: Shortness of air FINDINGS: The heart is enlarged, increased from prior. There is pulmonary vascular congestion and there is 5 lobe interstitial and patchy airspace pulmonary opacities suspicious for pulmonary edema. Pneumonia superimposed in the appropriate clinical scenario could not be excluded. There is an at least small left-sided pleural effusion having increased. IMPRESSION: There is a failure pattern as described, pneumonia superimposed could not be excluded. Dictated by: Dictated on workstation # [id number]
[2021-09-19 16:56] LABS: BILIRUBIN,TOTAL 0.6 MG/DL (0.1-1.0); CARBON DIOXIDE 30 MMOL/L (21-32)
[2021-09-19 16:58] LABS: ALKALINE PHOSPHATASE 88 U/L (40-136); CREATININE SERUM 0.75 MG/DL (0.60-1.30); GFR ESTIMATED 79
[2021-09-19 16:59] LABS: BUN/CREATININE RATIO 20
[2021-09-19 17:01] LABS: ALANINE AMINOTRANSFERASE 18 U/L (0-55)
[2021-09-19] MEDS ORDERED: RT-ALBUTEROL HFA 8.5 GM INHALER IH ONE (17:26)
[2021-09-19] MEDS ORDERED: NITROGLYCERIN 2% OINT 1 GM UNIT DOSE PACKET ONE (17:31)
[2021-09-19] MEDS ORDERED: NITROGLYCERIN 2% OINT 1 GM UNIT DOSE PACKET TOP ONE (17:45)
[2021-09-19] MEDS ORDERED: FUROSEMIDE 40 MG/4 ML INJ (LASIX) ONE (17:49)
[2021-09-19] MEDS: FUROSEMIDE 40 MG/4 ML INJ (LASIX) IVP SCH (18:03)
--- NOTE | 2021-09-19 18:20 | Diagnostic Imaging Report ---
EXAMINATION: Chest 1 view. HISTORY: Chest pain COMPARISON: 09/19/2021. FINDINGS: Stable enlargement of the cardiac silhouette and prominence of the pulmonary vasculature. Stable diffuse interstitial opacities seen throughout both lungs. No significant pleural effusion or pneumothorax. The osseous structures are intact. IMPRESSION: Stable cardiomegaly and diffuse interstitial opacities. Dictated by: Dictated on workstation # [id number]
[2021-09-19] MEDS ORDERED: CATHETER FLUSH 10 ML SYR IVP PRN (19:00)
[2021-09-19] MEDS ORDERED: ACETAMINOPHEN 325 MG TABLET PO PRN (20:15)
--- NOTE | 2021-09-19 20:20 | Tele-ICU Progress Note ---
Subjective Date Seen by a Provider: Sep 19, 2021 Time Seen by a Provider: 20:19 Subjective/Events-last exam see a/p Sepsis Event Evaluation Height, Weight, BMI Height: 5'2.00" Weight: 201lbs. 6.0oz. 91.367565vl; 35.11 BMI Method: Focused Exam Lactate Level 09/19/21 16:25: Lactic Acid Level 1.01 Lactic Acid Level Laboratory Tests Test 09/19/21 16:25 Lactic Acid Level 1.01 MMOL/L (0.50-2.00) Exam Exam Patient acknowledged, consented, and participated in this virtual visit which was conducted using real time audio/video Vital Signs Date Time Temp Pulse Resp B/P (MAP) Pulse Ox O2 Delivery O2 Flow Rate FiO2 09/19/21 19:02 51 09/19/21 18:50 50 17 122/78 94 NIV Bilevel 09/19/21 17:37 58 27 94 100.00 09/19/21 16:09 Room Air 09/19/21 16:09 60 36 202/109 (140) 93 Nasal Cannula 3.00 Height & Weight Height: 5'2.00" Weight: 201lbs. 6.0oz. 91.748856up; 35.11 BMI Method: General Appearance: Moderate Distress Capillary Refill: Less Than 3 Seconds Gastrointestinal: normal bowel sounds, non tender, soft Results Lab Laboratory Tests 09/19/21 16:25 Assessment/Plan Assessment/Plan ICU remote monitoring new admission. please note, provider is not bedside. 85 yo female presented with sob and cough for 5 days. Stated symptoms started friday and also included body aches, fatigue and weakness. Patient also complaining of a cough. Sat 72 percent on room air. No hx of covid or exposures. no other omcplaints. + covid vaccine and booster, although booster was 2 days ago. +covid test x 2 at home and came to ER. Patient is now seen in the ICU over camera. She is on bipap and not verbal. Therefore hx is taken from the ER notes. PMHX htn, dm, pain, dyslipidemia PSHX nc Fam hx NC Allergies NKDA Ros for peritinent posiitives see above FULL CODE vitals see emar HR 40-50s sat 94 exam deffered. i am remotely monitoring patient from [facility] and am not bedside to perform exam. patient seen over video. currently on 08/01 80 percent bipap. patient appears to be lying comfortably in bed. Labs see emar LA 1 wbc 7.2 ddimer negative pct negative COVID + ECG Comment Sinus rhythm, right bundle branch block, left anterior fascicular block, T wave inversions in the lateral leads. 60 bpm, QRS duration 150 MS, QTc 474 MS. CXR IMPRESSION: Stable cardiomegaly and diffuse interstitial opacities. 1. Covid19 Pneumonia 2. Acute resp failure on Bipap currently 08/01 80 percent repeat abg in am maintain sats > 90 as tolerated will attempt to avoid intubation as patient is obese and high risk for terminal worker ventilation with covid. will assess resp status and work closely with nursing and bedside staff to intubate patient is needed. patient is a full code. decadron dosing 6 mg q24 anticoag started - lovenox isolation per covid protocols am labs as ordered follow up CXR patient was given rocephin in ED, we wlll reassess its need cultures ordered MRSA screen ordered see further orders in [facility] icu admission order set NPO for now further orders per nursing requests video assessment done as patient is currently in the room Critical Care: Critically Ill Patient KARIN PHAM DO Sep 19, 2021 20:19
[2021-09-19] MEDS ORDERED: ENOXAPARIN 40 MG/0.4 ML (LOVENOX) SYR SC SCH (20:30)
[2021-09-19] MEDS: inSUlin ASPART (NovoLOG) 1 UNIT/0.01 ML (CHARGE PER UNIT) SC SCH (21:24)
[2021-09-19] MEDS: FAMOTIDINE 20MG/2ML IV (PEPCID) IVP SCH (22:27)
[2021-09-19] MEDS: ENOXAPARIN 40 MG/0.4 ML (LOVENOX) SYR SC SCH (22:27)
[2021-09-19] MEDS: CATHETER FLUSH 10 ML SYR IVP SCH (22:28)
[2021-09-20 04:06] VITALS: BP 116/47
[2021-09-20] MEDS ORDERED: RT-ALBUTEROL/IPRATROPIUM 3 ML (DUONEB) VIAL INH PRN (04:30)
[2021-09-20 05:16] LABS: BASOPHILS % (AUTO) 0 % (0-10); EOSINOPHILS % (AUTO) 0 % (0-10); HEMATOCRIT 45 % (35-52); HEMOGLOBIN 14.2 g/dL (11.5-16.0); LYMPHOCYTES # (AUTO) 0.7 10^3/uL (1.0-4.0); LYMPHOCYTES % (AUTO) 20 % (12-44); MEAN CORPUSCULAR HEMOGLOBIN 30 pg (25-34); MEAN CORPUSCULAR HGB CONC 32 g/dL (32-36); MEAN CORPUSCULAR VOLUME 94 fL (80-99); MEAN PLATELET VOLUME 9.6 fL (9.0-12.2); MONOCYTES # (AUTO) 0.2 10^3/uL (0.0-1.0); MONOCYTES % (AUTO) 6 % (0-12); NEUTROPHILS # (AUTO) 2.8 10^3/uL (1.8-7.8); NEUTROPHILS % (AUTO) 74 % (42-75); PLATELET COUNT 210 10^3/uL (130-400); WHITE BLOOD COUNT 3.7 10^3/uL (4.3-11.0)
[2021-09-20 05:45] LABS: ABG BASE EXCESS 6.1 MMOL/L (-2.5-2.5); ABG OXYGEN SATURATION 99 % (94-100); ABG PCO2 57 MMHG (35-45); ABG PH 7.36 (7.37-7.43); ABG PO2 102 MMHG (79-93); ABG TCO2 33.5 MMOL/L (21.0-31.0)
[2021-09-20 05:46] LABS: ALBUMIN 3.5 GM/DL (3.2-4.5); POTASSIUM 4.5 MMOL/L (3.6-5.0)
[2021-09-20 05:47] LABS: CALCIUM 8.9 MG/DL (8.5-10.1)
[2021-09-20 05:47] LABS: ALLENS TEST YES-POS; INSPIRED O2 60% BIPAP
[2021-09-20 05:48] LABS: VENTILATOR NO
[2021-09-20 05:50] LABS: BILIRUBIN,TOTAL 0.5 MG/DL (0.1-1.0)
[2021-09-20 05:52] LABS: CREATININE SERUM 0.81 MG/DL (0.60-1.30); PHOSPHORUS 4.3 MG/DL (2.3-4.7)
[2021-09-20 05:55] LABS: MAGNESIUM 1.8 MG/DL (1.6-2.4)
[2021-09-20] MEDS ORDERED: RT-ALBUTEROL/IPRATROPIUM 3 ML (DUONEB) VIAL INH SCH (06:00)
[2021-09-20] MEDS: CATHETER FLUSH 10 ML SYR IVP SCH ×3 (06:53→21:00)
[2021-09-20] MEDS: inSUlin ASPART (NovoLOG) 1 UNIT/0.01 ML (CHARGE PER UNIT) SC SCH ×4 (07:28→20:55)
--- NOTE | 2021-09-20 08:16 | Diagnostic Imaging Report ---
INDICATION: Pulmonary edema. Time of Exam: 2:29 AM Correlation is made with prior chest 1 day earlier. Heart is enlarged but stable. There are continued findings of congestive failure. There may be some pleural fluid in the left base. No pneumothorax is seen. IMPRESSION: Continued congestive changes with bilateral predominantly perihilar and left basilar infiltrates. Dictated by: Dictated on workstation # [id number]
[2021-09-20 08:20] VITALS: BP 147/75
[2021-09-20] MEDS ORDERED: RT-ALBUTEROL HFA 8.5 GM INHALER IH SCH (09:00)
[2021-09-20] MEDS: FUROSEMIDE 40 MG/4 ML INJ (LASIX) IVP SCH (09:36)
[2021-09-20] MEDS: FAMOTIDINE 20MG/2ML IV (PEPCID) IVP SCH ×2 (09:37→20:45)
--- NOTE | 2021-09-20 12:43 | Tele-ICU Progress Note ---
Subjective Date Seen by a Provider: Sep 20, 2021 Time Seen by a Provider: 12:43 Subjective/Events-last exam (Tele-ICU Physician , Progress Note ) Available chart/ vitals / labs / Images reviewed Video assessment done using teleICU camera, rest of exam as per RN Discussed with RN , EXAM PER RN Events overnight : Afebrile FiO2 - VT 25L 70 % I/O = even Drips: Pressors: , hemodynamically stable A/P 1. Covid19 Pneumonia ( s/p booster on , symptoms on friday ) 2. Acute resp failure ( COVID PNA with possible component of pulm edema on Bipap 08/01 60 % last ni8ght - now on VT , not in resp distrress ABG with mild compensated hypercarbia maintain sats > 90 as tolerated will attempt to avoid intubation as patient is obese and high risk for senior living ventilation with covid. will assess resp status and work closely with nursing and bedside staff to intubate patient is needed. patient is a full code. decadron dosing 6 mg q24 anticoag started - proph dose lovenox ( low ddimer ) follow up CXR PCT low - as per bedside MD icu admission order set Plans in collaboration with bedside consultants and IM MDs. Discussed with RN to reach out if any questions or concerns A total of 20 minutes of critical care time was devoted to this patient today, required to treat and/or prevent further deterioration of critical care condition ( as above) . Sepsis Event Evaluation Height, Weight, BMI Height: 5'2.00" Weight: 201lbs. 6.0oz. 91.431445up; 35.66 BMI Method: Focused Exam Lactate Level 09/19/21 16:25: Lactic Acid Level 1.01 Exam Exam Patient acknowledged, consented, and participated in this virtual visit which was conducted using real time audio/video Vital Signs Date Time Temp Pulse Resp B/P (MAP) Pulse Ox O2 Delivery O2 Flow Rate FiO2 09/20/21 11:35 36.0 09/20/21 11:24 93 Vapotherm 25.00 70 09/20/21 11:00 62 16 148/87 96 NIV Bilevel 60.00 09/20/21 10:00 53 20 135/76 95 NIV Bilevel 60.00 09/20/21 09:00 63 20 132/64 95 NIV Bilevel 60.00 09/20/21 08:20 36.0 47 95 09/20/21 08:08 47 19 95 60.00 09/20/21 08:00 36.0 09/20/21 08:00 49 18 112/63 97 NIV Bilevel 60.00 09/20/21 07:54 95 NIV Bilevel 60 09/20/21 07:00 48 16 112/61 97 NIV Bilevel 60.00 09/20/21 07:00 52 09/20/21 06:00 50 20 147/75 96 NIV Bilevel 60.00 09/20/21 05:00 50 16 144/77 95 NIV Bilevel 60.00 09/20/21 04:06 47 94 60 09/20/21 04:00 36.0 09/20/21 04:00 49 21 144/79 95 NIV Bilevel 60.00 09/20/21 04:00 95 NIV Bilevel 60 09/20/21 03:25 48 19 94 60.00 09/20/21 03:00 48 18 163/82 94 NIV Bilevel 60.00 09/20/21 02:00 52 24 129/70 95 NIV Bilevel 60.00 09/20/21 01:00 45 16 105/71 94 NIV Bilevel 60.00 09/20/21 01:00 45 09/20/21 00:30 NIV Bilevel 60.00 09/20/21 00:00 95 NIV Bilevel 80 09/20/21 00:00 46 21 116/67 94 NIV Bilevel 80.00 09/19/21 23:41 36.1 09/19/21 23:00 45 19 134/78 94 NIV Bilevel 80.00 09/19/21 22:53 46 19 94 60.00 09/19/21 22:00 48 23 106/64 95 NIV Bilevel 80.00 09/19/21 21:00 44 16 112/65 95 NIV Bilevel 80.00 09/19/21 20:00 92 NIV Bilevel 80 09/19/21 20:00 47 15 108/64 93 NIV Bilevel 80.00 09/19/21 19:02 51 09/19/21 19:00 49 15 135/73 96 NIV Bilevel 80.00 09/19/21 18:50 50 17 122/78 94 NIV Bilevel 09/19/21 18:47 76 21 144/104 92 NIV Bilevel 80.00 09/19/21 17:37 58 27 94 100.00 09/19/21 16:09 Room Air 09/19/21 16:09 60 36 202/109 (140) 93 Nasal Cannula 3.00 I & O 09/20/21 07:00 Intake Total 1050 ml Output Total 1000 ml Balance 50 ml Height & Weight Height: 5'2.00" Weight: 201lbs. 6.0oz. 91.238475ho; 35.66 BMI Method: General Appearance: Moderate Distress Capillary Refill: Less Than 3 Seconds Gastrointestinal: normal bowel sounds, non tender, soft Results Lab Laboratory Tests 09/19/21 16:25 09/20/21 05:04 Assessment/Plan Assessment/Plan 1 RIVER FARFAN MD Sep 20, 2021 12:43
[2021-09-20] MEDS ORDERED: AZITHROMYCIN INJECTION 500 MG in NS (IVPB) 250 ML IV NR (13:00)
[2021-09-20] MEDS ORDERED: TOCILIZUMAB INJECTION (NON-FOR 400 MG, TOCILIZUMAB INJECTION 200 MG in NS (IVPB) 70 ML IV ONE (13:30)
[2021-09-20] MEDS: cefTRIAXone 1 GM PRE-MIX 50 ML IV SCH (13:45)
[2021-09-20] MEDS: RT-ALBUTEROL HFA 8.5 GM INHALER IH SCH ×2 (15:01→19:35)
[2021-09-20] MEDS ORDERED: RISA150S2 SC (15:13)
--- NOTE | 2021-09-20 17:45 | History & Physical ---
History of Present Illness History of Present Illness Reason for visit/HPI This is an 85 year old female who presented to the emergency room due to worsening shortness of air. She started feeling ill with bodyaches and fatigue about 6 days ago. She then developed cough. She had 2 positive at home COVID tests. She had made an appointment at my office but started having worsening cough with shortness of air so she presented to the emergency room where she was found to be hypoxic with an oxygen saturation of 78%. She was initially put on oxygen via NC and this raised her oxygen saturation to 93%. Her CXR showed bilateral infiltrates vs pulmonary edema. She was given IVFs because she was clinically dry and then her respiratory status worsened and her oxygen saturation dropped requiring BIPAP. A repeat CXR showed worsening pulmonary edema. It was felt that she likely had flash pulmonary edema. She was given IV lasix 40mg x1 and placed on a nitropatch due to a blood pressure of 202/109. She was admitted to the ICU for further evaluation and treatment. Date of Admission Sep 19, 2021 at 17:44 Date Seen by a Provider: Sep 20, 2021 Time Seen by a Provider: 12:45 I consulted on this patient on 09/20/21 17:32 Attending Physician Dez Sanders DO Admitting Physician Admitting Physician: Dez Sanders DO Attending Physician: Dez Sanders DO Consult Allergies and Home Medications Allergies Coded Allergies: No Known Drug Allergies (Unverified , 03/20/20) Patient Home Medication List Home Medication List Reviewed: Yes Amlodipine Besylate (Amlodipine Besylate) 5 Mg Tablet, 5 MG PO DAILY, (Reported) Entered as Reported by: AYLIN HUANG on 08/17/20 1006 Last Action: Reviewed Aspirin (Aspirin) 81 Mg Tab.chew, 81 MG PO DAILY, (Reported) Entered as Reported by: ANALI SNELL on 03/19/17 1033 Last Action: Reviewed Atenolol (Atenolol) 100 Mg Tablet, 100 MG PO BID, (Reported) Entered as Reported by: ANALI SNELL on 03/20/20 1122 Last Action: Reviewed Cholecalciferol (Vitamin D3) (Vitamin D3) 25 Mcg Capsule, 25 MCG PO DAILY, (Reported) Entered as Reported by: ANALI SNELL on 03/20/20 1122 Last Action: Reviewed Lisinopril (Lisinopril) 40 Mg Tablet, 40 MG PO DAILY, (Reported) Entered as Reported by: AYLIN HUANG on 08/17/20 1006 Last Action: Reviewed Multivitamin (Multivitamin) 1 Each Tablet, 1 EACH PO DAILY, (Reported) Entered as Reported by: ANALI SNELL on 03/20/20 1122 Last Action: Reviewed Risankizumab-Rzaa (Skyrizi) 150 Mg/Ml Syringe, 150 MG SC EVERY 3 MONTHS, (Reported) Entered as Reported by: IGGY NICOLE on 09/20/21 1513 Last Action: Reviewed Simvastatin (Simvastatin) 40 Mg Tablet, 40 MG PO HS, (Reported) Entered as Reported by: ANALI SNELL on 03/19/17 1033 Last Action: Reviewed Discontinued Medications Metformin HCl (Metformin HCl) 500 Mg Tablet, 500 MG PO DAILY, (Reported) Discontinued Reason: No Longer Taking Entered as Reported by: ANALI SNELL on 03/20/20 1122 Last Action: Discontinued Oxycodone HCl/Acetaminophen (Percocet 5-325 mg Tablet) 1 Each Tablet, 1 TAB PO Q2HR PRN for PAIN-MODERATE (5-7) Discontinued Reason: No Longer Taking Prescribed by: KIERRA ARCHULETA on 09/09/20 1639 Last Action: Discontinued Polyethylene Glycol 3350 (Polyethylene Glycol 3350) 17 Gm Powd.pack, 17 GM PO BID Discontinued Reason: No Longer Taking Prescribed by: KIERRA ARCHULETA on 09/09/20 1639 Last Action: Discontinued Secukinumab (Cosentyx Pen) 150 Mg/1 Ml Pen.injctr, 300 MG SQ MONTHLY, (Reported) Discontinued Reason: No Longer Taking Entered as Reported by: ANALI SNELL on 03/20/20 1122 Last Action: Discontinued Sennosides/Docusate Sodium (Stool Softener-Laxative Tablet) 1 Each Tablet, 2 EA PO BID Discontinued Reason: No Longer Taking Prescribed by: KIERRA ARCHULETA on 09/09/20 1639 Last Action: Discontinued Trospium Chloride (Trospium Chloride) 20 Mg Tablet, 20 MG PO HS Discontinued Reason: Duplicate Order Prescribed by: KIERRA ARCHULETA on 09/09/20 3509 Last Action: Discontinued Past [id number]-[id number] Hx Patient Social History Marrital Status: Employed/Student: retired Tobacco Use?: No Use of E-Cig and/or Vaping dev: No Substance use?: No Alcohol Use?: No Pt feels they are or have been: No Immunizations Up To Date Date of Influenza Vaccine: Dec 01, 2019 First/Initial COVID19 Vaccinat: 2020 Second COVID19 Vaccination Amari: 2020 Tetanus Booster (TDap): Unknown Hepatitis A: No Hepatitis B: No Date of Pneumonia Vaccine: Dec 02, 2016 Seasonal Allergies Seasonal Allergies: No Current Status status: No status: No Advance Directives: Yes Advance Directive Location: Home Communicates: Verbally Primary Language: Danish Preferred Spoken Language: Danish Is interpretation needed?: No Sensory deficits: Vision impairment Implanted or Applied Medical D: Orthopedic hardware Past Medical History Pneumonia Currently Using CPAP: No (wears oxygen at hs) Currently Using BIPAP: No High Cholesterol, Hypertension Sexually Transmitted Disease: No HIV/AIDS: No Arthritis, Chronic Back Pain Diabetes, Non-Insulin dep Loss of Vision: Denies Hearing Impairment: Denies Skin Did You Recieve Any Treatments: Yes What Type of Treatment Did You: Surgical Intervention Psoriasis Blood Disorders: No Adverse Reaction/Blood Tranf: No (N/A) Family Medical History Patient reports no known family medical history. Review of Systems Constitutional: weakness EENTM: nose congestion Respiratory: cough, dyspnea on exertion, short of breath Cardiovascular: No no symptoms reported, No see HPI, No chest pain, No edema, No Hx of Intervention, No palpitations, No syncope, No vascular heart diseas, No other Gastrointestinal: No RUQ, No LUQ, No RLQ, No LLQ, No no symptoms reported, No see HPI, No abdominal pain, No constipation, No diarrhea, No dysphagia, No hematemesis, No heartburn, No jaundice, No loss of appetite, No melena, No nausea, No vomiting, No other Genitourinary: No no symptoms reported, No see HPI, No decreased output, No discharge, No dysuria, No frequency, No hematuria, No hesitancy, No incontinence, No nocturia, No pain, No other Musculoskeletal: muscle weakness Skin: No no symptoms reported, No see HPI, No change in color, No change in hair/nails, No dryness, No hx of skin cancer, No lesions, No lumps, No pruritus, No rash, No other Psychiatric/Neurological: Weakness Physical Exam Vital Signs Vital Signs - First Documented 09/19/21 09/19/21 20:00 23:41 Temp 36.1 FiO2 80 Capillary Refill : Less Than 3 Seconds Height, Weight, BMI Height: 5'2.00" Weight: 201lbs. 6.0oz. 91.780494ob; 35.66 BMI Method: General Appearance: Mild Distress HEENT: Pharyngeal Erythema Neck: Supple Respiratory: Decreased Breath Sounds Cardiovascular: Regular Rate, Rhythm, Gallop/S4 Gastrointestinal: Normal Bowel Sounds, Non Tender, Soft Rectal: Deferred Back: No CVA Tenderness Extremity: Non Tender, No Calf Tenderness, No Pedal Edema Neurologic/Psychiatric: Alert, Oriented x3 Skin: Warm/Dry Comments Laboratory Tests 09/19/21 21:21: Glucometer 159H 09/20/21 05:04: White Blood Count 3.7L, Red Blood Count 4.76, Hemoglobin 14.2, Hematocrit 45, Mean Corpuscular Volume 94, Mean Corpuscular Hemoglobin 30, Mean Corpuscular Hemoglobin Concent 32, Red Cell Distribution Width 13.2, Platelet Count 210, Mean Platelet Volume 9.6, Immature Granulocyte % (Auto) 1, Neutrophils (%) (Auto) 74, Lymphocytes (%) (Auto) 20, Monocytes (%) (Auto) 6, Eosinophils (%) (Auto) 0, Basophils (%) (Auto) 0, Neutrophils # (Auto) 2.8, Lymphocytes # (Auto) 0.7L, Monocytes # (Auto) 0.2, Eosinophils # (Auto) 0.0, Basophils # (Auto) 0.0, Immature Granulocyte # (Auto) 0.0, Sodium Level 137, Potassium Level 4.5, Chloride Level 97L, Carbon Dioxide Level 29, Anion Gap 11, Blood Urea Nitrogen 17, Creatinine 0.81, Estimat Glomerular Filtration Rate 72, BUN/Creatinine Ratio 21, Glucose Level 134H, Calcium Level 8.9, Corrected Calcium 9.3, Phosphorus Level 4.3, Magnesium Level 1.8, Total Bilirubin 0.5, Aspartate Amino Transf (AST/SGOT) 20, Alanine Aminotransferase (ALT/SGPT) 16, Alkaline Phosphatase 78, Total Protein 7.0, Albumin 3.5 6/30/22 05:20: Blood Gas Puncture Site R BRACHIAL, Blood Gas Patient Temperature 36.0, Arterial Blood pH 7.36L, Arterial Blood Partial Pressure CO2 57H, Arterial Blood Partial Pressure O2 102H, Arterial Blood HCO3 32H, Arterial Blood Total CO2 33.5H, Arterial Blood Oxygen Saturation 99, Arterial Blood Base Excess 6.1H, Ananth Test YES-POS, Blood Gas Ventilator Setting NO, Blood Gas Inspired Oxygen 60% BIPAP 09/20/21 10:25: Glucometer 115H Microbiology 09/19/21 Blood Culture - Preliminary, Resulted No growth Assessment/Plan Assessment and Plan 1. Acute Respiratory Failure--admit to ICU on BIPAP 2. Flash Pulmonary Edema--IV lasix and monitor diuresis and CXR, continue nitropaste 3. Hypertensive Urgency--on nitropaste, resume lisinopril in AM 4. COVID-19 with infiltrates on CXR--Decadron, lovenox for DVT prophylaxis, IS, Albuterol and Incruse, start actemra as is high risk, cover with rocephin and zithromax for secondary bacterial pneumonia 5. DMII--on accuchecks with SSI Admission Diagnosis Admission Status: Inpatient Order (span 2 midnights) Reason for Inpatient Admission: Will need ICU for at least 48hrs or more DEZ SANDERS DO Sep 20, 2021 17:45
[2021-09-20] MEDS: ACYCLOVIR 400 MG TABLET (ZOVIRAX) PO SCH (20:46)
[2021-09-20] MEDS: ENOXAPARIN 40 MG/0.4 ML (LOVENOX) SYR SC SCH (20:46)
[2021-09-21 04:53] LABS: ABG BASE EXCESS 7.7 MMOL/L (-2.5-2.5); ABG OXYGEN SATURATION 98 % (94-100); ABG PCO2 51 MMHG (35-45); ABG PH 7.42 (7.37-7.43); ABG PO2 117 MMHG (79-93); ABG TCO2 34.1 MMOL/L (21.0-31.0)
[2021-09-21 04:54] LABS: ALLENS TEST POSITIVE; INSPIRED O2 60% BIPAP; VENTILATOR NO
[2021-09-21 04:55] LABS: BASOPHILS % (AUTO) 0 % (0-10); EOSINOPHILS % (AUTO) 0 % (0-10); HEMATOCRIT 42 % (35-52); HEMOGLOBIN 13.6 g/dL (11.5-16.0); LYMPHOCYTES # (AUTO) 0.7 10^3/uL (1.0-4.0); LYMPHOCYTES % (AUTO) 10 % (12-44); MEAN CORPUSCULAR HEMOGLOBIN 30 pg (25-34); MEAN CORPUSCULAR HGB CONC 32 g/dL (32-36); MEAN CORPUSCULAR VOLUME 92 fL (80-99); MONOCYTES # (AUTO) 0.6 10^3/uL (0.0-1.0); MONOCYTES % (AUTO) 9 % (0-12); NEUTROPHILS # (AUTO) 5.6 10^3/uL (1.8-7.8); NEUTROPHILS % (AUTO) 81 % (42-75); PLATELET COUNT 222 10^3/uL (130-400); WHITE BLOOD COUNT 6.9 10^3/uL (4.3-11.0)
[2021-09-21 05:03] LABS: ALBUMIN 3.3 GM/DL (3.2-4.5)
[2021-09-21 05:06] LABS: TOTAL PROTEIN 6.7 GM/DL (6.4-8.2)
[2021-09-21 05:08] LABS: BILIRUBIN,TOTAL 0.4 MG/DL (0.1-1.0)
[2021-09-21 05:09] LABS: PHOSPHORUS 3.1 MG/DL (2.3-4.7)
[2021-09-21 05:10] LABS: CREATININE SERUM 0.86 MG/DL (0.60-1.30)
[2021-09-21 05:13] LABS: MAGNESIUM 1.9 MG/DL (1.6-2.4)
[2021-09-21] MEDS: CATHETER FLUSH 10 ML SYR IVP SCH ×3 (05:23→20:25)
[2021-09-21] MEDS ORDERED: LABETALOL HCL 20 MG/4 ML VIAL ONE (05:50)
[2021-09-21] MEDS: LABETALOL HCL 20 MG/4 ML VIAL IV PRN (05:54)
[2021-09-21] MEDS: inSUlin ASPART (NovoLOG) 1 UNIT/0.01 ML (CHARGE PER UNIT) SC SCH ×4 (06:24→20:24)
[2021-09-21] MEDS: RT-ALBUTEROL HFA 8.5 GM INHALER IH SCH ×5 (06:51→22:21)
[2021-09-21] MEDS: UMECLIDINIUM BROMIDE (INCRUSE ELLIPTA) 7'S IH SCH (06:52)
--- NOTE | 2021-09-21 08:03 | Diagnostic Imaging Report ---
INDICATION: COVID pneumonia, pulmonary edema, ICU care management. TECHNIQUE: Single view chest 5:05 AM. CORRELATION STUDY: 09/20/2021 FINDINGS: Heart size remains enlarged. Component vascular congestion overall has diminished and improved from prior. Asymmetric opacity over the left hilum and left lung base could reflect asymmetric pneumonia versus edema. Probable left pleural effusion. IMPRESSION: 1. Findings of fluid overload or failure do persist but overall are improved from prior. 2. Asymmetric opacity left hilum and lung base may reflect asymmetric infiltrate versus edema along with probable left pleural effusion. Report was faxed to [facility] by irma at 8:02AM. Dictated by: Dictated on workstation # [id number]
[2021-09-21] MEDS: ACYCLOVIR 400 MG TABLET (ZOVIRAX) PO SCH ×2 (08:39→20:24)
[2021-09-21] MEDS: FUROSEMIDE 40 MG/4 ML INJ (LASIX) IVP SCH (08:40)
[2021-09-21] MEDS: FAMOTIDINE 20MG/2ML IV (PEPCID) IVP SCH (08:40)
[2021-09-21 08:42] VITALS: BP 139/76
--- NOTE | 2021-09-21 09:56 | Tele-ICU Progress Note ---
Subjective Date Seen by a Provider: Sep 21, 2021 Time Seen by a Provider: 09:51 Subjective/Events-last exam Available chart/vitals/labs/images reviewed. Video assessment done using telemetry ICU camera, rest of exam as per RN. Discussion with the RN, exam as per RN. Hospital course Patient today is more alert and less short of breath. She is on a Vapotherm and tolerating well. Apparently she was given Lasix earlier and she is diuresing well. Denies any chest pain. Review of Systems ROS PER RN Sepsis Event Evaluation Height, Weight, BMI Height: 5'2.00" Weight: 201lbs. 6.0oz. 91.501647rx; 35.70 BMI Method: Focused Exam Lactate Level 09/19/21 16:25: Lactic Acid Level 1.01 Exam Exam Patient acknowledged, consented, and participated in this virtual visit which was conducted using real time audio/video Vital Signs Date Time Temp Pulse Resp B/P (MAP) Pulse Ox O2 Delivery O2 Flow Rate FiO2 09/21/21 09:00 71 139/69 91 Vapotherm 20.00 60.00 09/21/21 08:54 36.6 Vapotherm 20.00 60.00 09/21/21 08:52 93 Vapotherm 20.00 60 09/21/21 08:42 36.6 61 91 60 09/21/21 08:00 66 18 139/76 92 NIV Bilevel 60.00 09/21/21 07:00 59 09/21/21 07:00 64 23 130/69 93 NIV Bilevel 60.00 09/21/21 06:58 92 Vapotherm 20.00 60 09/21/21 06:52 91 Vapotherm 30.00 60 09/21/21 06:00 55 20 172/77 92 NIV Bilevel 60.00 09/21/21 05:00 53 21 189/90 95 NIV Bilevel 60.00 09/21/21 04:00 45 20 156/78 94 NIV Bilevel 60.00 09/21/21 03:53 95 NIV Bilevel 60 09/21/21 03:05 49 25 96 60.00 09/21/21 03:00 50 16 165/79 95 NIV Bilevel 60.00 09/21/21 02:00 50 25 159/85 95 NIV Bilevel 60.00 09/21/21 01:00 49 20 153/70 95 NIV Bilevel 60.00 09/21/21 01:00 49 09/21/21 00:07 95 NIV Bilevel 60 09/21/21 00:00 53 22 129/68 95 NIV Bilevel 60.00 09/20/21 23:22 54 26 95 60.00 09/20/21 23:00 57 20 135/72 96 NIV Bilevel 60.00 09/20/21 22:00 60 24 129/72 96 NIV Bilevel 60.00 09/20/21 21:31 36.6 NIV Bilevel 60.00 09/20/21 21:00 75 32 123/69 90 Vapotherm 30.00 60.00 09/20/21 20:00 70 30 138/82 90 Vapotherm 30.00 60.00 09/20/21 19:40 Vapotherm 30.00 60 09/20/21 19:39 92 Vapotherm 25.00 60 09/20/21 19:36 71 18 143/82 92 Vapotherm 30.00 60.00 09/20/21 19:00 63 09/20/21 19:00 Vapotherm 25.00 70.00 09/20/21 19:00 63 32 126/49 94 Vapotherm 25.00 70.00 09/20/21 18:00 75 16 146/74 92 NIV Bilevel 60.00 09/20/21 17:00 64 20 139/73 94 NIV Bilevel 60.00 09/20/21 16:00 73 18 122/63 93 NIV Bilevel 60.00 09/20/21 16:00 95 NIV Bilevel 60 09/20/21 15:01 Vapotherm 25.00 70 09/20/21 15:00 67 16 135/75 92 NIV Bilevel 60.00 09/20/21 14:00 57 18 135/73 96 NIV Bilevel 60.00 09/20/21 13:00 59 09/20/21 13:00 55 20 120/76 92 NIV Bilevel 60.00 09/20/21 12:00 95 NIV Bilevel 60 09/20/21 12:00 54 20 171/92 92 NIV Bilevel 60.00 09/20/21 11:35 36.0 09/20/21 11:24 93 Vapotherm 25.00 70 09/20/21 11:00 62 16 148/87 96 NIV Bilevel 60.00 09/20/21 10:00 53 20 135/76 95 NIV Bilevel 60.00 I & O 09/21/21 07:00 Intake Total 1450 ml Output Total 4700 ml Balance -3250 ml Height & Weight Height: 5'2.00" Weight: 201lbs. 6.0oz. 91.350298py; 35.70 BMI Method: General Appearance: Mild Distress HEENT: Pharyngeal Erythema Neck: Supple Respiratory: Decreased Breath Sounds Cardiovascular: Regular Rate, Rhythm, Gallop/S4 Capillary Refill: Less Than 3 Seconds Gastrointestinal: normal bowel sounds, non tender, soft Extremity: Non Tender, No Calf Tenderness, No Pedal Edema Neurologic/Psychiatric: Alert, Oriented x3 Skin: Warm/Dry Other comments PE PER RN Results Lab Laboratory Tests 09/19/21 16:25 09/20/21 05:04 09/21/21 04:51 Assessment/Plan Assessment/Plan 1. Acute hypoxic respiratory failure requiring BiPAP/Vapotherm due to underlying COVID-pneumonia. 2. Acute pulmonary edema causing hypoxia as well 3. Moderate obesity 4. Hypertension 5. Type 2 diabetes mellitus 6. Hyperlipidemia 7. Chronic pain syndrome Recommendations #1 continue to wean FiO2 as tolerated 2. Keep blood sugars less than 200 with sliding scale coverage 3. Hypertension management per primary care physician 4. We will continue Decadron, Actemra and IV antibiotics for possible secondary bacterial infection. 5. DVT prophylaxis with Lovenox. 6. Albuterol nebulizer treatment as needed. 7. Continue monitor her electrolytes and blood sugar. Next Discussed with [facility] and video visit made and also discussed with the patient. Coordination of care with bedside consultants and IM physicians. Critical Care: Critically Ill Patient Time spent with patient (mins): 25 YURIDIA WHYTE MD Sep 21, 2021 09:56
[2021-09-21] MEDS: cefTRIAXone 1 GM PRE-MIX 50 ML IV SCH (12:46)
--- NOTE | 2021-09-21 14:44 | Progress Note ---
Subjective Date Seen by a Provider: Sep 21, 2021 Time Seen by a Provider: 14:39 Subjective/Events-last exam Fwup acute respiratory failure, pulmonary edema, COVID-19 pneumonia, HTN, DMII. Sitting up in chair on vapotherm. Used BIPAP overnight. Diuresed well this morning after IV lasix. Focused Exam Lactate Level 09/19/21 16:25: Lactic Acid Level 1.01 Objective Exam Vital Signs Date Time Temp Pulse Resp B/P (MAP) Pulse Ox O2 Delivery O2 Flow Rate FiO2 09/21/21 14:00 71 23 138/76 93 Vapotherm 20.00 50.00 09/21/21 13:00 67 23 141/81 94 Vapotherm 20.00 50.00 09/21/21 12:45 54 09/21/21 12:00 57 119/74 91 Vapotherm 20.00 50.00 09/21/21 12:00 93 Vapotherm 20.00 50 09/21/21 11:00 67 11 131/69 93 Vapotherm 20.00 50.00 09/21/21 10:52 Vapotherm 20.00 50.00 09/21/21 10:49 92 Vapotherm 20.00 50 09/21/21 10:45 93 Vapotherm 20.00 60 09/21/21 10:00 87 24 147/79 92 Vapotherm 20.00 60.00 09/21/21 09:00 71 139/69 91 Vapotherm 20.00 60.00 09/21/21 08:54 36.6 Vapotherm 20.00 60.00 09/21/21 08:52 93 Vapotherm 20.00 60 09/21/21 08:42 36.6 61 91 60 09/21/21 08:00 66 18 139/76 92 NIV Bilevel 60.00 09/21/21 07:00 59 09/21/21 07:00 64 23 130/69 93 NIV Bilevel 60.00 09/21/21 06:58 92 Vapotherm 20.00 60 09/21/21 06:52 91 Vapotherm 30.00 60 09/21/21 06:00 55 20 172/77 92 NIV Bilevel 60.00 09/21/21 05:00 53 21 189/90 95 NIV Bilevel 60.00 09/21/21 04:00 45 20 156/78 94 NIV Bilevel 60.00 09/21/21 03:53 95 NIV Bilevel 60 09/21/21 03:05 49 25 96 60.00 09/21/21 03:00 50 16 165/79 95 NIV Bilevel 60.00 09/21/21 02:00 50 25 159/85 95 NIV Bilevel 60.00 09/21/21 01:00 49 20 153/70 95 NIV Bilevel 60.00 09/21/21 01:00 49 09/21/21 00:07 95 NIV Bilevel 60 09/21/21 00:00 53 22 129/68 95 NIV Bilevel 60.00 09/20/21 23:22 54 26 95 60.00 09/20/21 23:00 57 20 135/72 96 NIV Bilevel 60.00 09/20/21 22:00 60 24 129/72 96 NIV Bilevel 60.00 09/20/21 21:31 36.6 NIV Bilevel 60.00 09/20/21 21:00 75 32 123/69 90 Vapotherm 30.00 60.00 09/20/21 20:00 70 30 138/82 90 Vapotherm 30.00 60.00 09/20/21 19:40 Vapotherm 30.00 60 09/20/21 19:39 92 Vapotherm 25.00 60 09/20/21 19:36 71 18 143/82 92 Vapotherm 30.00 60.00 09/20/21 19:00 63 09/20/21 19:00 Vapotherm 25.00 70.00 09/20/21 19:00 63 32 126/49 94 Vapotherm 25.00 70.00 09/20/21 18:00 75 16 146/74 92 NIV Bilevel 60.00 09/20/21 17:00 64 20 139/73 94 NIV Bilevel 60.00 09/20/21 16:00 73 18 122/63 93 NIV Bilevel 60.00 09/20/21 16:00 95 NIV Bilevel 60 09/20/21 15:01 Vapotherm 25.00 70 09/20/21 15:00 67 16 135/75 92 NIV Bilevel 60.00 I & O 09/21/21 06:59 Intake Total 1450 ml Output Total 4700 ml Balance -3250 ml Capillary Refill : Less Than 3 Seconds General Appearance: No Apparent Distress Neck: Supple Respiratory: Decreased Breath Sounds, Rhonci (left) Cardiovascular: Regular Rate, Rhythm, Gallop/S4 Gastrointestinal: normal bowel sounds, non tender, soft Extremity: Non Tender, No Calf Tenderness, No Pedal Edema Neurologic/Psychiatric: Alert, Oriented x3 Results Lab Laboratory Tests 09/20/21 20:44: Glucometer 213H 09/21/21 04:30: Blood Gas Puncture Site RIGHT RADIAL, Blood Gas Patient Temperature 36.0, Arterial Blood pH 7.42, Arterial Blood Partial Pressure CO2 51H, Arterial Blood Partial Pressure O2 117H, Arterial Blood HCO3 33H, Arterial Blood Total CO2 34.1H, Arterial Blood Oxygen Saturation 98, Arterial Blood Base Excess 7.7H, Ananth Test POSITIVE, Blood Gas Ventilator Setting NO, Blood Gas Inspired Oxygen 60% BIPAP 09/21/21 04:51: White Blood Count 6.9, Red Blood Count 4.58, Hemoglobin 13.6, Hematocrit 42, Mean Corpuscular Volume 92, Mean Corpuscular Hemoglobin 30, Mean Corpuscular Hemoglobin Concent 32, Red Cell Distribution Width 13.2, Platelet Count 222, Mean Platelet Volume 10.0, Immature Granulocyte % (Auto) 1, Neutrophils (%) (Auto) 81H, Lymphocytes (%) (Auto) 10L, Monocytes (%) (Auto) 9, Eosinophils (%) (Auto) 0, Basophils (%) (Auto) 0, Neutrophils # (Auto) 5.6, Lymphocytes # (Auto) 0.7L, Monocytes # (Auto) 0.6, Eosinophils # (Auto) 0.0, Basophils # (Auto) 0.0, Immature Granulocyte # (Auto) 0.0, Sodium Level 137, Potassium Level 4.0, Chloride Level 98, Carbon Dioxide Level 29, Anion Gap 10, Blood Urea Nitrogen 25H, Creatinine 0.86, Estimat Glomerular Filtration Rate 67, BUN/Creatinine Ratio 29, Glucose Level 131H, Calcium Level 9.0, Corrected Calcium 9.6, Phosphorus Level 3.1, Magnesium Level 1.9, Total Bilirubin 0.4, Aspartate Amino Transf (AST/SGOT) 18, Alanine Aminotransferase (ALT/SGPT) 15, Alkaline Phosphatase 71, Total Protein 6.7, Albumin 3.3 09/21/21 05:56: Glucometer 119H 09/21/21 10:09: Glucometer 214H Microbiology 09/19/21 MRSA Screen - Final, Complete MRSA not isolated 09/19/21 Blood Culture - Preliminary, Resulted No growth Assessment/Plan Assessment/Plan Assess & Plan/Chief Complaint 1. Acute Respiratory Failure--still on Vapotherm, using BiPAP at night, CXR still shows mixed pulmonary edema and infiltrates 2. Pulmonary Edema--diuresing well with lasix 3. COVID-19 Pneumonia--on Decadron, IS, lovenox for DVT prophylaxis, Actemra, and Rocephin/Zithromax for secondary bacterial pneumonia as well as albuterol and incruse 4. Hypertension--back on lisinopril, restart amlodopine, has labetolol prn 5. DMII--accuchecks with SSI, did have some spike in blood sugar after decadron Discussed status with granddaughter Clinical Quality Measures Admission Status Admission Dx 1. Acute Respiratory Failure--admit to ICU on BIPAP 2. Flash Pulmonary Edema--IV lasix and monitor diuresis and CXR, continue nitropaste 3. Hypertensive Urgency--on nitropaste, resume lisinopril in AM 4. COVID-19 with infiltrates on CXR--Decadron, lovenox for DVT prophylaxis, IS, Albuterol and Incruse, start actemra as is high risk, cover with rocephin and zithromax for secondary bacterial pneumonia 5. DMII--on accuchecks with SSI DEZ MONTES DO Sep 21, 2021 14:44
[2021-09-21] MEDS: ENOXAPARIN 40 MG/0.4 ML (LOVENOX) SYR SC SCH (20:24)
[2021-09-21] MEDS: amLODIPine 5 MG (NORVASC) TAB PO SCH (20:24)
[2021-09-22 04:39] LABS: BASOPHILS % (AUTO) 0 % (0-10); EOSINOPHILS % (AUTO) 0 % (0-10); HEMATOCRIT 42 % (35-52); HEMOGLOBIN 13.5 g/dL (11.5-16.0); LYMPHOCYTES # (AUTO) 0.9 10^3/uL (1.0-4.0); LYMPHOCYTES % (AUTO) 10 % (12-44); MEAN CORPUSCULAR HEMOGLOBIN 30 pg (25-34); MEAN CORPUSCULAR HGB CONC 32 g/dL (32-36); MEAN CORPUSCULAR VOLUME 92 fL (80-99); MEAN PLATELET VOLUME 9.4 fL (9.0-12.2); MONOCYTES # (AUTO) 0.8 10^3/uL (0.0-1.0); MONOCYTES % (AUTO) 8 % (0-12); NEUTROPHILS # (AUTO) 7.3 10^3/uL (1.8-7.8); NEUTROPHILS % (AUTO) 81 % (42-75); PLATELET COUNT 228 10^3/uL (130-400); WHITE BLOOD COUNT 8.9 10^3/uL (4.3-11.0)
[2021-09-22 04:47] LABS: ALBUMIN 3.3 GM/DL (3.2-4.5)
[2021-09-22 04:50] LABS: TOTAL PROTEIN 6.5 GM/DL (6.4-8.2)
[2021-09-22 04:51] LABS: BILIRUBIN,TOTAL 0.4 MG/DL (0.1-1.0)
[2021-09-22 04:53] LABS: CREATININE SERUM 0.73 MG/DL (0.60-1.30); PHOSPHORUS 3.4 MG/DL (2.3-4.7)
[2021-09-22] MEDS: RT-ALBUTEROL HFA 8.5 GM INHALER IH SCH ×6 (05:59→22:30)
[2021-09-22] MEDS: LABETALOL HCL 20 MG/4 ML VIAL IV PRN (06:27)
[2021-09-22] MEDS: CATHETER FLUSH 10 ML SYR IVP SCH ×3 (06:27→21:45)
[2021-09-22] MEDS: inSUlin ASPART (NovoLOG) 1 UNIT/0.01 ML (CHARGE PER UNIT) SC SCH ×4 (06:28→21:44)
--- NOTE | 2021-09-22 06:47 | Diagnostic Imaging Report ---
Indication: Dyspnea, followup COVID pneumonia. Comparison: 09/21/2021. Discussion: Single portable upright view of the chest was obtained. Cardiomegaly is stable. Interstitial infiltrates within the upper lungs is increased. Improved aeration of the left midlung. No pleural fluid or pneumothorax. No osseous abnormality. Impression: 1. Waxing and waning pulmonary infiltrates. 2. Stable cardiomegaly. Dictated by: Dictated on workstation # [id number]
[2021-09-22] MEDS: UMECLIDINIUM BROMIDE (INCRUSE ELLIPTA) 7'S IH SCH (07:08)
[2021-09-22] MEDS: FUROSEMIDE 40 MG/4 ML INJ (LASIX) IVP SCH (08:01)
[2021-09-22] MEDS: ACYCLOVIR 400 MG TABLET (ZOVIRAX) PO SCH ×2 (08:01→21:44)
[2021-09-22] MEDS: FAMOTIDINE 20MG/2ML IV (PEPCID) IVP SCH (08:01)
--- NOTE | 2021-09-22 08:43 | Tele-ICU Progress Note ---
Progress Note video rounds completed 85 y/o male admitted with Covid PNA and secondary bacterial PNA Had flash pulmonary edema and hypertensive urgency receiving vapotherm and BIPAP, now on nasal cannula PE: very comfortable appearing, sitting upin bed eating breakfast Pulse: 65 NSR BP: 154/88 O2 sat 93% PLAN: continue decadron and IV antibiotics/nebs Focused Exam Lactate Level 09/19/21 16:25: Lactic Acid Level 1.01 Height, Weight, BMI Height: 5'2.00" Weight: 201lbs. 6.0oz. 91.879380ie; 35.70 BMI Method: Laboratory Tests 09/22/21 04:25 Results Results/Procedures Lab Laboratory Tests 09/21/21 04:51 09/22/21 04:25 Results Labs Labs Laboratory Tests 09/21/21 10:09: Glucometer 214H 09/21/21 15:49: Glucometer 177H 09/21/21 20:00: Glucometer 220H 09/22/21 04:25: White Blood Count 8.9, Red Blood Count 4.58, Hemoglobin 13.5, Hematocrit 42, Mean Corpuscular Volume 92, Mean Corpuscular Hemoglobin 30, Mean Corpuscular Hemoglobin Concent 32, Red Cell Distribution Width 13.5, Platelet Count 228, Mean Platelet Volume 9.4, Immature Granulocyte % (Auto) 1, Neutrophils (%) (Auto) 81H, Lymphocytes (%) (Auto) 10L, Monocytes (%) (Auto) 8, Eosinophils (%) (Auto) 0, Basophils (%) (Auto) 0, Neutrophils # (Auto) 7.3, Lymphocytes # (Auto) 0.9L, Monocytes # (Auto) 0.8, Eosinophils # (Auto) 0.0, Basophils # (Auto) 0.0, Immature Granulocyte # (Auto) 0.1, Sodium Level 140, Potassium Level 4.0, Chloride Level 101, Carbon Dioxide Level 28, Anion Gap 11, Blood Urea Nitrogen 22H, Creatinine 0.73, Estimat Glomerular Filtration Rate 82, BUN/Creatinine Rat io 30, Glucose Level 121H, Calcium Level 9.0, Corrected Calcium 9.6, Phosphorus Level 3.4, Magnesium Level 2.0, Total Bilirubin 0.4, Aspartate Amino Transf (AST/SGOT) 25, Alanine Aminotransferase (ALT/SGPT) 24, Alkaline Phosphatase 62, Total Protein 6.5, Albumin 3.3 Microbiology 09/19/21 MRSA Screen - Final, Complete MRSA not isolated 09/19/21 Blood Culture - Preliminary, Resulted No growth TONYA MACARIO MD Sep 22, 2021 08:43
--- NOTE | 2021-09-22 11:10 | Physical Therapy Evaluation ---
PT Evaluation-General Medical Diagnosis Admission Date Sep 19, 2021 at 17:44 Medical Diagnosis: Ruthie CERRATO Onset Date: Sep 19, 2021 Therapy Diagnosis Therapy Diagnosis: Gait deficit, strength deficit Height/Weight Height (Feet): 5 Height (Inches): 2.00 Weight (Pounds): 201 Weight (Ounces): 6.0 Precautions Precautions/Isolations: Airborne Isolation, Fall Prevention Weight Bear Status Right Lower Extremity: Right Full Weight Bearing Left Lower Extremity: Left Full Weight Bearing Referral Physician: Dr. Flores Reason for Referral: Evaluation/Treatment Medical History Pertinent Medical History: DM, HTN Reviewed History: Yes Social History Home: Single Level Current Living Status: Alone Entry Into Home: Stairs With Railing PT Steps Into Home: 5 Prior Prior Level of Function SCALE: Activities may be completed with or without assistive devices. 1-Qibwfgtuwr-eilhqeu completes the activity by him/herself with no assistance from a helper. 5-Set-up or Clean-up Assistance-helper sets up or cleans up; patient completes activity. [place] assists only prior to or following the activity. 4-Supervision or Touching Assistance-helper provides verbal cues and/or touching/steadying and/or contact guard assistance as patient completes activity. Assistance may be provided throughout the activity or intermittently. 3-Partial/Moderate Assistance-helper does LESS THAN HALF the effort. [place] lifts, holds or supports trunk or limbs, but provides less than half the effort. 2-Substantial/Maximal Assistance-helper does MORE THAN HALF the effort. [place] lifts or holds trunk or limbs and provides more than half the effort. 3-Axjpjbijm-xelbee does ALL the effort. Patient does none of the effort to complete the activity. Or, the assistance of 2 or more helpers is required for the patient to complete the activity. If activity was not attempted, code reason: 7-Patient Refused. 9-Not Applicable-not attempted and the patient did not perform the activity before the current illness, exacerbation or injury. 10-Not Attempted due to Environmental Limitations-(lack of equipment, weather restraints, etc.). 88-Not Attempted due to Medical Conditions or Safety Concerns. Bed Mobility: 6 Transfers (B,C,W/C): 6 Gait: 6 Stairs: 6 Indoor Mobility (Ambulation): Independent Stairs: Independent Prior Device Use: Cane PT Evaluation-Current Subjective Patient lying supine in bed upon PT arrival, agreeable to treatment. Reports 0/10 pain currently. Objective Patient Orientation: Person, Place, Time, Situation Attachments: Oxygen, Joseph Catheter, IV ROM/Strength ROM Lower Extremities WFLs bilaterally all planes Strength Lower Extremities 4/5 bilaterally all planes Sensory Vision: Functional Hearing: Functional Sensation Right Lower Extremit: Intact Sensation Left Lower Extremity: Intact Transfers Roll Left to Right (QC): 4 Sit to Lying (QC): 4 Lying to Sitting/Side of Bed(Q: 4 Sit to Stand (QC): 4 Chair/Kib-ly-Ejwji Xfer(QC): 4 Gait Does the Patient Walk?: Yes Mode of Locomotion: Walk Anticipated Mode of Locomotion: Walk Walk 10 feet (QC): 15 Gait Assistive Device: FWW Balance Sitting Static: Normal Sitting Dynamic: Normal Standing Static: Good Standing Dynamic: Good Assessment/Needs Patient tolerated treatment well. Fatigues quicker than expected, however balance, gait and mobility all good. Patient performs all observed bed mobility and transfers with CGA. Patient on 5 L O2 via nasal canula. Patient ambulates 15 feet with FWW, with CGA and verbal cues for safety, progression, balance. Patient in chair post treatment with all needs met, nursing in the room and call light in reach. Rehab Potential: Good Equipment Needs None at this time PT [facility] Goals Fci Goals PT [facility] Goals Time Frame: Oct 20, 2021 Roll Left & Right (QC): 6 Sit to Lying (QC): 6 Lying-Sitting on Side/Bed(QC): 6 Sit to Stand (QC): 6 Chair/Nig-vi-Avvvp Xfer(QC): 6 Toilet Transfer (QC): 6 Does the Patient Walk: Yes Walk 10 feet (QC): 6 Walk 50ft with 2 Turns (QC): 6 Walk 150 ft (QC): 6 1 Step (curb) (QC): 6 4 Steps (QC): 6 PT Plan Problem List Problem List: Activity Tolerance, Functional Strength, Safety, Balance, Gait, Transfer, Bed Mobility, ROM Treatment/Plan Treatment Plan: Continue Plan of Care Treatment Plan: Bed Mobility, Education, Functional Activity Rajni, Functional Strength, Group Therapy, Gait, Safety, Therapeutic Exercise, Transfers Treatment Duration: Nov 17, 2021 Frequency: 6 times per week Estimated Hrs Per Day: .25 hour per day Safety Risks/Education Patient Education: Gait Training, Transfer Techniques Teaching Recipient: Patient Teaching Methods: Demonstration, Discussion Response to Teaching: Verbalize Understanding, Return Demonstration Time/GCodes Time In: 1037 Time Out: 1100 Total Billed Treatment Time: 23 Total Billed Treatment Visit, Jaz AMAYA JOHN A PT Sep 22, 2021 11:10
--- NOTE | 2021-09-22 12:05 | Progress Note - Hospitalist ---
Subjective HPI/CC On Admission Date Seen by Provider: Sep 22, 2021 Subjective/Events-last exam Pt now off vapotherm. Was on CPAP overnight which is new for her. Currently on NC. Reports feeling much better. No complaints. Focused Exam Lactate Level 09/19/21 16:25: Lactic Acid Level 1.01 Objective Exam Vital Signs Vital Signs Date Time Temp Pulse Resp B/P (MAP) Pulse Ox O2 Delivery O2 Flow Rate FiO2 09/22/21 11:13 91 Nasal Cannula 6.00 09/22/21 11:00 65 29 177/89 09/22/21 07:59 35.9 09/22/21 04:00 60 Capillary Refill : Less Than 3 Seconds General Appearance: No Apparent Distress, Obese Respiratory: No Accessory Muscle Use, Decreased Breath Sounds, Other (on 6lpm HFNC) Cardiovascular: Regular Rate, Rhythm, No Murmur Gastrointestinal: Normal Bowel Sounds, Non Tender, Soft Extremity: No Calf Tenderness, No Pedal Edema Neurologic/Psychiatric: Alert, Oriented x3 Results/Procedures Lab Laboratory Tests 09/22/21 04:25 Patient resulted labs reviewed. Assessment/Plan Assessment and Plan Assess & Plan/Chief Complaint 1. Acute Respiratory Failure--down to HFNC, doing much better 2. Pulmonary Edema--diuresing well with lasix- 7L negative so far- likely switch to oral lasix tomorrow 3. COVID-19 Pneumonia--on Decadron, IS, lovenox for DVT prophylaxis, Actemra, and Rocephin/Zithromax for secondary bacterial pneumonia as well as albuterol and incruse 4. Hypertension--lisinopril, amlodopine, has labetolol prn 5. DMII--accuchecks with SSI, did have some spike in blood sugar after decadron but generally well controlled Critical Care Critically Ill Patient JOLANTA NEVES MD Sep 22, 2021 12:05
[2021-09-22] MEDS: cefTRIAXone 1 GM PRE-MIX 50 ML IV SCH (12:27)
[2021-09-22] MEDS: amLODIPine 5 MG (NORVASC) TAB PO SCH (21:44)
[2021-09-22] MEDS: ENOXAPARIN 40 MG/0.4 ML (LOVENOX) SYR SC SCH (21:44)
[2021-09-23] MEDS: RT-ALBUTEROL HFA 8.5 GM INHALER IH SCH ×6 (02:21→22:55)
[2021-09-23 04:32] LABS: BASOPHILS % (AUTO) 0 % (0-10); EOSINOPHILS % (AUTO) 0 % (0-10); HEMATOCRIT 45 % (35-52); HEMOGLOBIN 14.6 g/dL (11.5-16.0); LYMPHOCYTES % (AUTO) 12 % (12-44); MEAN CORPUSCULAR HEMOGLOBIN 30 pg (25-34); MEAN CORPUSCULAR HGB CONC 32 g/dL (32-36); MEAN CORPUSCULAR VOLUME 92 fL (80-99); MEAN PLATELET VOLUME 9.2 fL (9.0-12.2); MONOCYTES # (AUTO) 0.9 10^3/uL (0.0-1.0); MONOCYTES % (AUTO) 10 % (0-12); NEUTROPHILS % (AUTO) 78 % (42-75); PLATELET COUNT 239 10^3/uL (130-400)
[2021-09-23 04:49] LABS: ALBUMIN 3.5 GM/DL (3.2-4.5); POTASSIUM 4.1 MMOL/L (3.6-5.0)
[2021-09-23 04:50] LABS: CALCIUM 9.1 MG/DL (8.5-10.1)
[2021-09-23 04:51] LABS: TOTAL PROTEIN 6.8 GM/DL (6.4-8.2)
[2021-09-23 04:53] LABS: BILIRUBIN,TOTAL 0.5 MG/DL (0.1-1.0)
[2021-09-23 04:55] LABS: CREATININE SERUM 0.75 MG/DL (0.60-1.30); PHOSPHORUS 3.5 MG/DL (2.3-4.7)
[2021-09-23 04:58] LABS: MAGNESIUM 2.2 MG/DL (1.6-2.4)
[2021-09-23] MEDS: inSUlin ASPART (NovoLOG) 1 UNIT/0.01 ML (CHARGE PER UNIT) SC SCH ×4 (06:26→19:54)
[2021-09-23] MEDS: CATHETER FLUSH 10 ML SYR IVP SCH ×3 (06:26→19:48)
[2021-09-23] MEDS: UMECLIDINIUM BROMIDE (INCRUSE ELLIPTA) 7'S IH SCH (08:02)
[2021-09-23] MEDS: ACYCLOVIR 400 MG TABLET (ZOVIRAX) PO SCH ×2 (09:48→19:49)
[2021-09-23] MEDS: FUROSEMIDE 40 MG/4 ML INJ (LASIX) IVP SCH (09:48)
[2021-09-23] MEDS: FAMOTIDINE 20MG/2ML IV (PEPCID) IVP SCH (09:48)
--- NOTE | 2021-09-23 10:28 | Progress Note - Hospitalist ---
Subjective HPI/CC On Admission Date Seen by Provider: Sep 23, 2021 Subjective/Events-last exam Pt reports feeling much better. Breathing better. Eating well. Discussed plan to transfer to med/surg. Recommended snyder removal but she declines. Agreeable to removal tomorrow. Objective Exam Vital Signs Vital Signs Date Time Temp Pulse Resp B/P (MAP) Pulse Ox O2 Delivery O2 Flow Rate FiO2 09/23/21 08:01 93 Nasal Cannula 6.00 09/23/21 08:00 67 20 180/96 09/23/21 03:18 36.2 09/22/21 04:00 60 Capillary Refill : Less Than 3 Seconds General Appearance: No Apparent Distress, Chronically ill, Obese Respiratory: Lungs Clear, No Respiratory Distress Cardiovascular: Regular Rate, Rhythm, No Murmur Extremity: No Calf Tenderness, No Pedal Edema Neurologic/Psychiatric: Alert, Oriented x3 Results/Procedures Lab Laboratory Tests 09/23/21 04:21 Patient resulted labs reviewed. Assessment/Plan Assessment and Plan Assess & Plan/Chief Complaint 1. Acute Respiratory Failure--down to HFNC, doing much better- transfer to med/surg 2. Pulmonary Edema--diuresing well with lasix- 8.5L negative so far- switch to oral lasix, DC snyder tomorrow 3. COVID-19 Pneumonia--on Decadron, IS, lovenox for DVT prophylaxis, s/p Actemra, and Rocephin/Zithromax for secondary bacterial pneumonia as well as albuterol and incruse 4. Hypertension--lisinopril, amlodopine 5. DMII--accuchecks with SSI, did have some spike in blood sugar after decadron but generally well controlled Critical Care Critically Ill Patient JOLANTA NEVES MD Sep 23, 2021 10:28
[2021-09-23] MEDS: cefTRIAXone 1 GM PRE-MIX 50 ML IV SCH (13:40)
[2021-09-23] MEDS: ENOXAPARIN 40 MG/0.4 ML (LOVENOX) SYR SC SCH (19:49)
[2021-09-23] MEDS: ATENOLOL 25 MG (TENORMIN) TAB PO SCH (19:49)
[2021-09-23] MEDS: amLODIPine 5 MG (NORVASC) TAB PO SCH (19:49)
[2021-09-23] MEDS ORDERED: FAMOTIDINE 20 MG (PEPCID) TABLET PO SCH (21:00)
[2021-09-23] MEDS ORDERED: NON-FORMULARY MEDICATION 1 EA EA (Simvastatin 40 MG) PO SCH (21:00)
[2021-09-24 00:17] VITALS: BP 173/88
[2021-09-24] MEDS ORDERED: RT-ALBUTEROL HFA 8.5 GM INHALER IH SCH (03:00)
[2021-09-24] MEDS: CATHETER FLUSH 10 ML SYR IVP SCH ×3 (05:24→22:21)
[2021-09-24 05:48] LABS: BASOPHILS % (AUTO) 0 % (0-10); EOSINOPHILS % (AUTO) 0 % (0-10); HEMATOCRIT 46 % (35-52); HEMOGLOBIN 14.7 g/dL (11.5-16.0); LYMPHOCYTES # (AUTO) 1.1 10^3/uL (1.0-4.0); LYMPHOCYTES % (AUTO) 12 % (12-44); MEAN CORPUSCULAR HEMOGLOBIN 30 pg (25-34); MEAN CORPUSCULAR HGB CONC 32 g/dL (32-36); MEAN CORPUSCULAR VOLUME 93 fL (80-99); MEAN PLATELET VOLUME 9.5 fL (9.0-12.2); MONOCYTES # (AUTO) 0.9 10^3/uL (0.0-1.0); MONOCYTES % (AUTO) 9 % (0-12); NEUTROPHILS # (AUTO) 7.1 10^3/uL (1.8-7.8); NEUTROPHILS % (AUTO) 77 % (42-75); PLATELET COUNT 273 10^3/uL (130-400); WHITE BLOOD COUNT 9.2 10^3/uL (4.3-11.0)
[2021-09-24 06:01] LABS: ALBUMIN 3.4 GM/DL (3.2-4.5); POTASSIUM 4.7 MMOL/L (3.6-5.0)
[2021-09-24 06:02] LABS: CALCIUM 9.3 MG/DL (8.5-10.1)
[2021-09-24 06:03] LABS: TOTAL PROTEIN 6.7 GM/DL (6.4-8.2)
[2021-09-24 06:05] LABS: BILIRUBIN,TOTAL 0.6 MG/DL (0.1-1.0)
[2021-09-24 06:07] LABS: CREATININE SERUM 0.92 MG/DL (0.60-1.30)
[2021-09-24] MEDS: inSUlin ASPART (NovoLOG) 1 UNIT/0.01 ML (CHARGE PER UNIT) SC SCH ×4 (06:10→21:11)
[2021-09-24 07:51] VITALS: BP 172/92
[2021-09-24] MEDS: FAMOTIDINE 20 MG (PEPCID) TABLET PO SCH (08:17)
[2021-09-24] MEDS: lisINopril 40 MG (PRINIVIL) TABLET PO SCH (08:17)
[2021-09-24] MEDS: ATENOLOL 25 MG (TENORMIN) TAB PO SCH ×3 (08:17→21:11)
[2021-09-24] MEDS: FUROSEMIDE 40 MG (LASIX) TAB PO SCH (08:17)
[2021-09-24] MEDS: ACYCLOVIR 400 MG TABLET (ZOVIRAX) PO SCH ×2 (08:17→20:28)
[2021-09-24] MEDS: UMECLIDINIUM BROMIDE (INCRUSE ELLIPTA) 7'S IH SCH (11:17)
[2021-09-24] MEDS: RT-ALBUTEROL HFA 8.5 GM INHALER IH SCH ×2 (11:17→21:05)
[2021-09-24] MEDS: cefTRIAXone 1 GM PRE-MIX 50 ML IV SCH (12:41)
--- NOTE | 2021-09-24 14:40 | Physical Therapy Daily Note ---
PT Daily Note-Current Subjective Patient sitting in chair upon PT arrival, agreeable to treatment. Mental Status Patient Orientation: Person, Place, Time, Situation Attachments: Oxygen Transfers SCALE: Activities may be completed with or without assistive devices. 0-Fozhdalmgm-afltztx completes the activity by him/herself with no assistance from a helper. 5-Set-up or Clean-up Assistance-helper sets up or cleans up; patient completes activity. [place] assists only prior to or following the activity. 4-Supervision or Touching Assistance-helper provides verbal cues and/or touching/steadying and/or contact guard assistance as patient completes activity. Assistance may be provided throughout the activity or intermittently. 3-Partial/Moderate Assistance-helper does LESS THAN HALF the effort. [place] lifts, holds or supports trunk or limbs, but provides less than half the effort. 2-Substantial/Maximal Assistance-helper does MORE THAN HALF the effort. [place] lifts or holds trunk or limbs and provides more than half the effort. 9-Qdbgabypp-ygqcja does ALL the effort. Patient does none of the effort to complete the activity. Or, the assistance of 2 or more helpers is required for the patient to complete the activity. If activity was not attempted, code reason: 7-Patient Refused. 9-Not Applicable-not attempted and the patient did not perform the activity before the current illness, exacerbation or injury. 10-Not Attempted due to Environmental Limitations-(lack of equipment, weather restraints, etc.). 88-Not Attempted due to Medical Conditions or Safety Concerns. Sit to Stand (QC): 5 Chair/Irl-bt-Khddr Xfer(QC): 4 Toilet Transfer (QC): 5 Weight Bearing Right Lower Extremity: Right Full Weight Bearing Left Lower Extremity: Left Full Weight Bearing Gait Training Does the Patient Walk?: Yes Distance: 90 Walk 10 feet (QC): 4 Walk 50 ft with 2 Turns(QC): 4 Gait Persons Needed: 1 Gait Assistive Device: FWW Assessment Current Status: Fair Progress Patient tolerated treatment well. Demonstrates good overall improvement in transfers and tolerance to activity. Patient ambulates 90 feet in room with FWW, with SBA and verbal cues for safety, progression, posture and obstacles. Patient in chair post treatment with all needs met, nursing notified, call light in reach. PT Skilled Nursing Goals Motor Checker Goals PT Motor Checker Goals Time Frame: Oct 20, 2021 Roll Left & Right (QC): 6 Sit to Lying (QC): 6 Lying-Sitting on Side/Bed(QC): 6 Sit to Stand (QC): 6 Chair/Gqb-ch-Qvses Xfer(QC): 6 Toilet Transfer (QC): 6 Does the Patient Walk: Yes Walk 10 feet (QC): 6 Walk 50ft with 2 Turns (QC): 6 Walk 150 ft (QC): 6 1 Step (curb) (QC): 6 4 Steps (QC): 6 PT Plan Treatment/Plan Treatment Plan: Continue Plan of Care Treatment Plan: Bed Mobility, Education, Functional Activity Rajni, Functional Strength, Group Therapy, Gait, Safety, Therapeutic Exercise, Transfers Treatment Duration: Nov 17, 2021 Frequency: 6 times per week Estimated Hrs Per Day: .25 hour per day Patient and/or Family Agrees t: Yes Safety Risks/Education Patient Education: Gait Training Teaching Recipient: Patient Teaching Methods: Demonstration, Discussion Response to Teaching: Verbalize Understanding, Return Demonstration Time/GCodes Time In: 1409 Time Out: 1421 Total Billed Treatment Time: 12 Total Billed Treatment Visit, RONNA Mehta PT Sep 24, 2021 14:40
--- NOTE | 2021-09-24 15:18 | Progress Note - Hospitalist ---
Subjective HPI/CC On Admission Date Seen by Provider: Sep 24, 2021 Time Seen by Provider: 12:10 Subjective/Events-last exam She is feeling better. She is sitting in her chair. She is not short of breath. She has been moving around in her room. She has no complaints. Objective Exam Vital Signs Vital Signs Date Time Temp Pulse Resp B/P (MAP) Pulse Ox O2 Delivery O2 Flow Rate FiO2 09/24/21 12:50 57 09/24/21 11:51 36.0 20 163/78 96 Nasal Cannula 6.00 09/24/21 07:51 44 Capillary Refill : Less Than 3 Seconds General Appearance: No Apparent Distress, WD/WN Respiratory: Lungs Clear, No Respiratory Distress Cardiovascular: Regular Rate, Rhythm, No Murmur Gastrointestinal: Normal Bowel Sounds, Soft Extremity: Normal Inspection, No Pedal Edema Neurologic/Psychiatric: Alert, Normal Mood/Affect Skin: Normal Color, Warm/Dry Results/Procedures Lab Laboratory Tests 09/24/21 05:28 Patient resulted labs reviewed. Assessment/Plan Assessment and Plan Assess & Plan/Chief Complaint 1. Acute Respiratory Failure--now on 6L, doing much better 2. Pulmonary Edema--diuresing well with lasix- 10L negative so far- now on oral lasix, snyder removed 3. COVID-19 Pneumonia--on Decadron, IS, lovenox for DVT prophylaxis, s/p Actemra, and Rocephin/Zithromax for secondary bacterial pneumonia as well as albuterol and incruse 4. Hypertension--lisinopril, amlodopine 5. DMII--accuchecks with SSI, did have some spike in blood sugar after decadron but generally well controlled Diagnosis/Problems Diagnosis/Problems (1) Respiratory failure Status: Acute Qualifiers: Chronicity: acute Respiratory failure complication: hypoxia Qualified Codes: J96.01 - Acute respiratory failure with hypoxia (2) COVID-19 Status: Acute (3) Obesity Status: Chronic (4) Diabetes Status: Chronic Qualifiers: Diabetes mellitus type: type 2 ROBERTA FOFANA MD Sep 24, 2021 15:18
[2021-09-24] MEDS: ENOXAPARIN 40 MG/0.4 ML (LOVENOX) SYR SC SCH (20:28)
[2021-09-24] MEDS: amLODIPine 5 MG (NORVASC) TAB PO SCH (20:28)
[2021-09-25] MEDS: CATHETER FLUSH 10 ML SYR IVP SCH ×2 (06:00→13:30)
[2021-09-25] MEDS: inSUlin ASPART (NovoLOG) 1 UNIT/0.01 ML (CHARGE PER UNIT) SC SCH ×2 (06:16→11:03)
[2021-09-25 06:44] LABS: BASOPHILS % (AUTO) 0 % (0-10); EOSINOPHILS % (AUTO) 0 % (0-10); HEMATOCRIT 49 % (35-52); HEMOGLOBIN 15.6 g/dL (11.5-16.0); LYMPHOCYTES # (AUTO) 1.2 10^3/uL (1.0-4.0); LYMPHOCYTES % (AUTO) 12 % (12-44); MEAN CORPUSCULAR HEMOGLOBIN 29 pg (25-34); MEAN CORPUSCULAR HGB CONC 32 g/dL (32-36); MEAN CORPUSCULAR VOLUME 91 fL (80-99); MEAN PLATELET VOLUME 9.5 fL (9.0-12.2); MONOCYTES # (AUTO) 0.8 10^3/uL (0.0-1.0); MONOCYTES % (AUTO) 8 % (0-12); NEUTROPHILS # (AUTO) 8.3 10^3/uL (1.8-7.8); NEUTROPHILS % (AUTO) 78 % (42-75); PLATELET COUNT 320 10^3/uL (130-400); WHITE BLOOD COUNT 10.6 10^3/uL (4.3-11.0)
[2021-09-25] MEDS: UMECLIDINIUM BROMIDE (INCRUSE ELLIPTA) 7'S IH SCH (07:08)
[2021-09-25] MEDS: RT-ALBUTEROL HFA 8.5 GM INHALER IH SCH (07:08)
[2021-09-25 07:24] LABS: ALBUMIN 3.7 GM/DL (3.2-4.5); BILIRUBIN,TOTAL 0.6 MG/DL (0.1-1.0); CALCIUM 9.4 MG/DL (8.5-10.1); CREATININE SERUM 0.83 MG/DL (0.60-1.30); POTASSIUM 4.3 MMOL/L (3.6-5.0); TOTAL PROTEIN 7.2 GM/DL (6.4-8.2)
[2021-09-25] MEDS: ACYCLOVIR 400 MG TABLET (ZOVIRAX) PO SCH (09:31)
[2021-09-25] MEDS: lisINopril 40 MG (PRINIVIL) TABLET PO SCH (09:31)
[2021-09-25] MEDS: FUROSEMIDE 40 MG (LASIX) TAB PO SCH (09:31)
[2021-09-25] MEDS: FAMOTIDINE 20 MG (PEPCID) TABLET PO SCH (09:31)
[2021-09-25] MEDS: ATENOLOL 25 MG (TENORMIN) TAB PO SCH (09:39)
[2021-09-25 11:55] VITALS: BP 133/71
[2021-09-25] MEDS ORDERED: ACYC400T21 PO (12:00)
[2021-09-25] MEDS ORDERED: CEFD300C3 PO (12:00)
[2021-09-25] MEDS ORDERED: RT-ALBUINH IH (12:00)
[2021-09-25] MEDS ORDERED: FURO-124 PO (12:01)
[2021-09-25] MEDS ORDERED: POTA-179 PO (12:02)
--- NOTE | 2021-09-25 12:28 | D/C HH Face to Face Order ---
D/C Face to Face Orders Reconcile Patient Problems Problems Reviewed?: Yes Instructions for Patient Via [facility], Patient Instructions/FollowUp: Fwup 1 week Physician to follow Patient: Tommy Discharge Diet for Home: ADA Diet, Cardiac Diet Patient Data-Allergies,Ht & Wt Patient Allergies: Coded Allergies: No Known Drug Allergies (Unverified , 03/20/20) Height (Feet): 5 Height (Inches): 2.00 Weight (Pounds): 201 Weight (Ounces): 6.0 Home Health Need/Face to Face Date of Face to Face: Sep 25, 2021 Clinical Findings: Generalized weakness and fatigue, Immune-compromised, Muscle weakness, Shortness of breath I have seen Pt qvyh-er-pwth: Yes Discharged To: Home Diagnosis/Conditions: COVID-19 Pulmonary Edema Respiratory Failure--oxygen requiring Hypertension Diabetes mellitus II Patient is Homebound due to: Muscle weakness, Shortness of breath/distress Homebound Status Due to the above stated illness, injury or surgical procedure (medical condition or diagnosis) and associated clinical findings, the patient is homebound because of his/her inability to leave home except with aid of a supportive device and/or person AND leaving the home requires a considerable and taxing effort or is medically contraindicated. Pt req the following assistanc: Aid of another person, Walker Home Health Nursing Orders Home Health Services Order: Nursing Services, Cloth Folder Hand-Evaluate & Treat, Physical Therapy-Evaluate & Treat Home Health Infusion Therapy Line Start Date: Sep 19, 2021 Therapy Orders CMP in 1 week Certify Stmt I certify that this patient is under my care and that I, a nurse practitioner or a physician; a department assistant working with me, had a face to face encounter that - meets the physician face to face encounter requirements with this patient as dated. DEZ MONTES DO Sep 25, 2021 12:28
[2021-09-25 17:30] VITALS: BP 133/71
--- NOTE | 2021-09-25 17:53 | Discharge Summary ---
Diagnosis/Chief Complaint Date of Admission Sep 19, 2021 at 17:44 Date of Discharge Discharge Date: Sep 25, 2021 Discharge Diagnosis 1. Acute Respiratory Failure--down to 3L NC, needed 4L with exertion on home O2 qualifier test 2. Pulmonary Edema--improved, diuresed well with lasix 3. COVID-19 Pneumonia--on Decadron, IS, lovenox for DVT prophylaxis, Actemra, and Rocephin/Zithromax for secondary bacterial pneumonia as well as albuterol and incruse 4. Hypertension with Hypertensive Urgency on Admit--back on home meds 5. DMII with hyperglycemia due to steroids and illness--accuchecks with SSI 6. Weakness--home with home health Reason Hospital Visit This is an 85 year old female who presented to the emergency room due to worsening shortness of air. She started feeling ill with bodyaches and fatigue about 6 days ago. She then developed cough. She had 2 positive at home COVID tests. She had made an appointment at my office but started having worsening cough with shortness of air so she presented to the emergency room where she was found to be hypoxic with an oxygen saturation of 78%. She was initially put on oxygen via NC and this raised her oxygen saturation to 93%. Her CXR showed bilateral infiltrates vs pulmonary edema. She was given IVFs because she was clinically dry and then her respiratory status worsened and her oxygen saturation dropped requiring BIPAP. A repeat CXR showed worsening pulmonary edema. It was felt that she likely had flash pulmonary edema. She was given IV lasix 40mg x1 and placed on a nitropatch due to a blood pressure of 202/109. She was admitted to the ICU for further evaluation and treatment. Discharge Summary Hospital Course Was the Problem List Reviewed?: Yes Hospital Course This is an 85 year old female who presented to the emergency room due to worsening shortness of air. She started feeling ill with bodyaches and fatigue about 6 days prior to presentation. She then developed cough. She had 2 positive at home COVID tests. She had made an appointment at my office but started having worsening cough with shortness of air so she presented to the emergency room where she was found to be hypoxic with an oxygen saturation of 78%. She was initially put on oxygen via NC and this raised her oxygen saturation to 93%. Her CXR showed bilateral infiltrates vs pulmonary edema. She was given IVFs because she was clinically dry and then her respiratory status worsened and her oxygen saturation dropped requiring BIPAP. A repeat CXR showed worsening pulmonary edema. It was felt that she likely had flash pulmonary edema. She was given IV lasix 40mg x1 and placed on a nitropatch due to a blood pressure of 202/109. She was admitted to the ICU for further evaluation and treatment. She was continued on BIPAP for the first 24hrs. Her blood pressure improved with the nitropatch. She was also started on Decadron for COVID 19 with lovenox for DVT prophylaxis. She was covered with rocephin and zithromax for secondary bacterial pneumonia. She was able to be on vapotherm the 2nd hospital day with BIPAP at night. She was started on Actemra with Zovirax due to being high risk for COVID progression. She was also started on albuterol, incruse and IS. She continued to diurese well with IV lasix and her vapotherm was weaned to a nasal cannula and she was able to be transferred out of the ICU to the medical floor. She was initially on oxygen at 6L via NC but was down to 3L by the time of discharge. Her CXR is improving and she is feeling much better. Her home O2 qualifier showed that she needed oxygen at 3L via NC at rest and 4L via NC with exertion. Her blood sugar did spike due to overall illness and decadron and this was treated with insulin. She was restarted on her home blood pressure regimen prior to discharge as well. She does request home health on discharge due to weakness but wants to go home and feels like she is able to go home with home health. She will follow up with me in my office in 1 week. Labs Laboratory Tests 09/22/21 20:21: Glucometer 155H 09/23/21 04:21: Neutrophils (%) (Auto) 78H, Blood Urea Nitrogen 26H, Glucose Level 113H, Aspartate Amino Transf (AST/SGOT) 37H 09/23/21 11:08: Glucometer 120H 09/23/21 16:47: Glucometer 144H 09/24/21 05:28: Neutrophils (%) (Auto) 77H, Blood Urea Nitrogen 31H, Aspartate Amino Transf (AST/SGOT) 51H, Alanine Aminotransferase (ALT/SGPT) 81H 09/24/21 10:28: 09/24/21 16:26: Glucometer 119H 09/24/21 20:25: Glucometer 198H 09/25/21 06:06: 09/25/21 06:15: Red Blood Count 5.37H, Neutrophils (%) (Auto) 78H, Neutrophils # (Auto) 8.3H, Immature Granulocyte # (Auto) 0.2H, Chloride Level 96L, Anion Gap 15H, Blood Urea Nitrogen 38H, Aspartate Amino Transf (AST/SGOT) 44H, Alanine Aminotransferase (ALT/SGPT) 89H 09/25/21 10:55: Procedures None. Discharge Physical Examination Allergies: Coded Allergies: No Known Drug Allergies (Unverified , 03/20/20) Vitals & I&Os Vital Signs Date Time Temp Pulse Resp B/P (MAP) Pulse Ox O2 Delivery O2 Flow Rate FiO2 09/25/21 11:55 37.0 55 16 133/71 (91) 93 Nasal Cannula 3.00 09/24/21 07:51 44 General Appearance: Alert, Oriented X3 Respiratory: Clear to Auscultation Cardiovascular: Regular Rate Abdominal: Normal Bowel Sounds, Soft, No Tenderness Extremities: No Clubbing, No Cyanosis, No Edema Psych/Mental Status: Mental Status NL Discharge Home Medications Reviewed and agree with Discharge Medication list on patient's Discharge Instruction sheet Instructions to Patient/Family Please see electronic discharge instructions given to patient. DEZ MONTES DO Sep 25, 2021 17:53
== END 2021-09-25 17:30 | disposition home health service (06) | DRG 177 ==
LOC: EDUNIT# 16:01 → ER 16:04 → ICU 17:44 → 4TH 09-23 10:06
PROVIDERS: ADMIT Family Medicine; ATTEND Family Medicine
PROC: 5A09457 Assistance with Respiratory Ventilation, 24-96 Consecutive Hours, Continuous Positive Airway Pressure (ICD-10-PCS; principal; 2021-09-19)
PROC: 8E0ZXY6 Isolation (ICD-10-PCS; 2021-09-19)
PROC: 5A0935A Assistance with Respiratory Ventilation, Less than 24 Consecutive Hours, High Flow/Velocity Cannula (ICD-10-PCS; 2021-09-21)
DX: U07.1 COVID-19 (principal); J12.82 Pneumonia due to coronavirus disease 2019; J15.9 Unspecified bacterial pneumonia; J81.0 Acute pulmonary edema; J96.01 Acute respiratory failure with hypoxia; I10 Essential (primary) hypertension; E11.65 Type 2 diabetes mellitus with hyperglycemia; R53.1 Weakness; I16.0 Hypertensive urgency; T38.0X5A Adverse effect of glucocorticoids and synthetic analogues, initial encounter; G89.4 Chronic pain syndrome; E66.01 Morbid (severe) obesity due to excess calories; Z79.82 Long term (current) use of aspirin; Z79.899 Other long term (current) drug therapy; E78.00 Pure hypercholesterolemia, unspecified; M19.90 Unspecified osteoarthritis, unspecified site; Z68.35 Body mass index [BMI] 35.0-35.9, adult
CPT/HCPCS: 36415; 51702; 71045; 80053; 82805; 82947; 83605; 83735; 83880; 84100; 84145; 84484; 85025; 85379; 86141; 87040; 87081; 87636; 93005; 94640; 94660; 94760; 94761; 96361; 96365; 96375

== ENCOUNTER → 2022-01-07 | Outpatient (CLI) | payer MEDICARE, OTHER ==
[~2022-01-07] MED LIST changes: +ACYC400T21 PO; +CATHETER FLUSH 10 ML SYR IV PRN; +CEFD300C3 PO; +FURO-124 PO; +IOHEXOL 350 MG/ML 100 ML (OMNIPAQUE 350) VIAL IV ONE; +NS 100 ML (IVPB) BAG IV ONE; +POTA-179 PO; +RISA150S2 SC; +RT-ALBUINH IH
--- NOTE | 2022-01-07 17:19 | Diagnostic Imaging Report ---
EXAMINATION: CT angiogram of the chest with contrast, 01/07/2022. TECHNIQUE: Multiple contiguous axial images were obtained through the chest after uneventful bolus administration of intravenous contrast. 3D reconstructed CTA MIP acquisitions were also performed. Auto Exposure Controls were utilized during the CT exam to meet ALARA standards for radiation dose reduction. INDICATION: Elevated D-dimer and hypoxia since Friday. Prior history of skin carcinoma. FINDINGS: There is marked lobularity and enlargement of the left thyroid lobe, better characterized sonographically and non-emergently. There is a moderate-sized left pleural effusion. No pleural effusion on the right. There is a small pericardial effusion. There is diffuse atelectasis versus infiltrate at the left lung base. Scattered atelectasis or infiltrate seen diffusely throughout the remaining lungs with nodularities noted throughout the right upper lobe. These should be followed using the Fleischner criteria. The largest abnormality is noted on image #49, approximately a centimeter in size. A similar oval density is noted on image #64 in the right middle lobe. The thoracic aorta is unremarkable. There are no central or proximal segmental pulmonary emboli. Visualized upper abdominal structures demonstrate no acute abnormalities. There is, however, a focal protuberance along the posterior aspect of the left kidney, nonspecific but not cystic in nature. Nonemergent follow-up is recommended. There is no acute osseous abnormality. Kyphotic deformity of the spine with diffuse multilevel degenerative findings noted. There is mild prominence of the lymph nodes within the right hilum. IMPRESSION: 1. Left pleural effusion with small pericardial effusion. 2. Mild adenopathy in the right perihilar region, which could be reactive given scattered areas of infiltrate throughout both lungs. However, given history of carcinoma, follow-up is recommended. 3. Nodular densities in the right upper lobe and right middle lobe. Short-term follow-up recommended to assure resolution. 4. Lobular lesions in the left thyroid lobe. Nonemergent sonographic characterization recommended. 5. No evidence for a central or proximal segmental pulmonary embolus. 6. Findings in the left kidney; see above discussion. Dictated by: Dictated on workstation # [id number]
== END ==
LOC: RAD 16:16
PROVIDERS: ATTEND Family Medicine
DX: J90 Pleural effusion, not elsewhere classified (principal); I31.39 Other pericardial effusion (noninflammatory); E07.89 Other specified disorders of thyroid; R91.8 Other nonspecific abnormal finding of lung field; R59.0 Localized enlarged lymph nodes; R79.1 Abnormal coagulation profile; Z85.828 Personal history of other malignant neoplasm of skin
CPT/HCPCS: 71275

== ENCOUNTER → 2022-01-07 | Outpatient (CLI) | payer MEDICARE, OTHER ==
[~2022-01-07] MED LIST changes: -CATHETER FLUSH 10 ML SYR IV PRN; -IOHEXOL 350 MG/ML 100 ML (OMNIPAQUE 350) VIAL IV ONE; -NS 100 ML (IVPB) BAG IV ONE
[2022-01-07 10:14] LABS: BASOPHILS # (AUTO) 0.1 10^3/uL (0.0-0.1); BASOPHILS % (AUTO) 1 % (0-10); EOSINOPHILS # (AUTO) 0.2 10^3/uL (0.0-0.3); EOSINOPHILS % (AUTO) 2 % (0-10); HEMATOCRIT 46 % (35-52); HEMOGLOBIN 14.5 g/dL (11.5-16.0); LYMPHOCYTES # (AUTO) 1.7 10^3/uL (1.0-4.0); LYMPHOCYTES % (AUTO) 16 % (12-44); MEAN CORPUSCULAR HEMOGLOBIN 30 pg (25-34); MEAN CORPUSCULAR HGB CONC 32 g/dL (32-36); MEAN CORPUSCULAR VOLUME 93 fL (80-99); MEAN PLATELET VOLUME 9.4 fL (9.0-12.2); MONOCYTES # (AUTO) 1.2 10^3/uL (0.0-1.0); MONOCYTES % (AUTO) 11 % (0-12); NEUTROPHILS # (AUTO) 7.3 10^3/uL (1.8-7.8); NEUTROPHILS % (AUTO) 70 % (42-75); PLATELET COUNT 274 10^3/uL (130-400); WHITE BLOOD COUNT 10.5 10^3/uL (4.3-11.0)
--- NOTE | 2022-01-07 10:32 | Diagnostic Imaging Report ---
INDICATION: Dyspnea. Compared 09/22/2021. FINDINGS: Left pleural effusion new or increased. Interstitial opacities and Maria De Jesus B-lines new. The heart size upper limits. Vascularity not grossly over distended. IMPRESSION: Increasing or new left pleural effusion. Progressive interstitial opacities likely edema. No pneumothorax. Dictated by: Dictated on workstation # [id number]
[2022-01-07 10:33] LABS: ALANINE AMINOTRANSFERASE 16 U/L (0-55); ALKALINE PHOSPHATASE 77 U/L (40-136); BILIRUBIN,TOTAL 0.6 MG/DL (0.1-1.0); BUN/CREATININE RATIO 22; CALCIUM 10.1 MG/DL (8.5-10.1); CARBON DIOXIDE 27 MMOL/L (21-32); CHLORIDE 101 MMOL/L (98-107); CREATININE SERUM 0.82 MG/DL (0.60-1.30); GFR ESTIMATED 70; GLUCOSE 105 MG/DL (70-105); POTASSIUM 4.3 MMOL/L (3.6-5.0); SODIUM 141 MMOL/L (135-145); TOTAL PROTEIN 7.9 GM/DL (6.4-8.2)
[2022-01-07 10:43] LABS: CREATINE KINASE MB 0.9 NG/ML (<6.6)
== END ==
LOC: RAD 09:43
PROVIDERS: ATTEND Family Medicine
DX: J90 Pleural effusion, not elsewhere classified (principal)
CPT/HCPCS: 36415; 71046; 80053; 82553; 83880; 84484; 85025; 85379

== ENCOUNTER 2022-01-10 13:00 | Outpatient (RCR) | payer MEDICARE, OTHER ==
[~2022-01-10 13:00] MED LIST changes: +ALBU8.5H6 IH; -RT-ALBUINH IH
== END 2022-01-21 14:47 | disposition home or self-care (01) ==
PROVIDERS: ATTEND Family Medicine
DX: M54.16 Radiculopathy, lumbar region (principal)

== ENCOUNTER → 2022-01-16 | Outpatient (CLI) | payer MEDICARE, OTHER ==
[~2022-01-16] MED LIST changes: -ALBU8.5H6 IH; +RT-ALBUINH IH
--- NOTE | 2022-01-16 14:39 | Diagnostic Imaging Report ---
INDICATION: Renal failure. COMPARISON: None. FINDINGS: Both kidneys are normal in size and echogenicity. The right kidney measures 9.2 cm in length and the left is 9.6 cm. The cortical thickness and the cortical medullary differentiation is well maintained. Hypoechoic benign-appearing cyst is noted within the inferior pole of the left kidney and measures 1.2 x 1.2 x 1.3 cm. No suspicious solid masses are seen. There is no evidence of hydronephrosis nor calculus. Limited views of the pelvis demonstrate mildly distended urinary bladder. No large intraluminal masses or calculi are present. There is no ascites. IMPRESSION: Hypoechoic benign-appearing left renal cyst. Otherwise, unremarkable renal sonogram. Dictated by: Dictated on workstation # [id number]
--- NOTE | 2022-01-16 17:17 | Diagnostic Imaging Report ---
PROCEDURE: US Thyroid. TECHNIQUE: Multiple real-time grayscale images were obtained of the thyroid in various projections. INDICATION: Thyroid nodule COMPARISON: CT chest of 01/07/2022 FINDINGS: Right thyroid lobe: The right thyroid lobe measures 4.7 x 1.9 x 1.7 cm. There are multiple nodules throughout the right thyroid lobe. All the nodules are solid. The most suspicious nodule is solid, hypoechoic, has well-circumscribed margins, is widen and tall and no echogenic foci, measuring 1.2 x 0.6 x 0.9 cm. This is compatible with a TI RADS 4 nodule and is located in the mid aspect. Isthmus: The thyroid isthmus measures 0.4 cm in thickness. Left thyroid lobe: The left thyroid lobe measures 5.0 x 2.8 x 2.3 cm. Multiple nodules are present left thyroid lobe. The largest is in the lower pole, is solid, circumscribed, isoechoic, wider than tall and has no echogenic foci. This nodule measures 2.4 x 2.2 x 1.8 cm and is TI RADS 3. A similar exophytic nodule extends off the lower pole left thyroid lobe which corresponds to the nodule seen on CT. IMPRESSION:Bilateral thyroid nodules range from mild to moderately suspicious. At the moment, none of the nodules meet criteria for recommended FNA. Therefore, followup thyroid ultrasound in 12 months is recommended. ACR TI-RADS: TR4 . TI-RADS Recommendations:TR4 - Moderately Suspicious:FNA if >1.5 cm; Follow if > 1.0 cm at 1, 2, 3 and 5 years. Dictated by: Dictated on workstation # [id number]
== END ==
LOC: RAD 10:14
PROVIDERS: ATTEND Family Medicine
DX: E04.2 Nontoxic multinodular goiter (principal); N28.9 Disorder of kidney and ureter, unspecified
CPT/HCPCS: 76536; 76770; C8929; 93306

== ENCOUNTER 2022-01-23 10:47 | Day surgery (SDC) | payer MEDICARE, OTHER ==
[2022-01-23] VITALS (8 sets, daily range): BP systolic 114–123; BP diastolic 56–83
[~2022-01-23] VITALS: Ht 160 cm; Wt 86.2 kg
[~2022-01-23 10:47] MED LIST changes: +ALBU8.5H6 IH; -RT-ALBUINH IH
[2022-01-23] MEDS ORDERED: LIDOCAINE 1% INJ 30 ML (XYLOCAINE) VIAL ONE (10:58)
[2022-01-23] MEDS ORDERED: HEParin (CATH LAB) 2,000 ML IV ONE (10:59)
[2022-01-23] MEDS ORDERED: NS IV 1000 ML 1,000 ML ONE (10:59)
[2022-01-23] MEDS ORDERED: NS IV 1000 ML 1,000 ML IV SCH ×2 (11:00→13:15)
[2022-01-23 11:30] LABS: BILIRUBIN,URINE NEGATIVE (NEGATIVE); CLARITY,URINE CLEAR; COLOR,URINE YELLOW; GLUCOSE, URINE (UA) NEGATIVE (NEGATIVE); KETONES,URINE NEGATIVE (NEGATIVE); LEUKOCYTE ESTERASE ,URINE 2+ (NEGATIVE); NITRITE,URINE NEGATIVE (NEGATIVE); PROTEIN,URINE TRACE (NEGATIVE)
--- NOTE | 2022-01-23 11:31 | Diagnostic Imaging Report ---
INDICATION: Aortic stenosis. Frontal chest obtained at 11:21 a.m. and compared to 01/07/2022. FINDINGS: There is cardiomegaly. There is increasing left pleural fluid compared to the prior study with some left basilar atelectatic change versus infiltrate. The right lung is clear. There is no pneumothorax. IMPRESSION: Cardiomegaly. Increasing left pleural fluid compared to the prior study with left basilar atelectatic change versus infiltrate. Dictated by: Dictated on workstation # [id number]
[2022-01-23 11:32] LABS: HEMATOCRIT 46 % (35-52); HEMOGLOBIN 14.2 g/dL (11.5-16.0); MEAN CORPUSCULAR HEMOGLOBIN 29 pg (25-34); MEAN CORPUSCULAR HGB CONC 31 g/dL (32-36); MEAN CORPUSCULAR VOLUME 94 fL (80-99); MEAN PLATELET VOLUME 9.8 fL (9.0-12.2); PLATELET COUNT 310 10^3/uL (130-400); WHITE BLOOD COUNT 9.6 10^3/uL (4.3-11.0)
[2022-01-23] MEDS ORDERED: FURO40TA4 PO (11:35)
[2022-01-23] MEDS ORDERED: POTA-179 PO (11:35)
[2022-01-23 11:39] LABS: BACTERIA,URINE NEGATIVE /HPF
[2022-01-23 11:40] LABS: HYALINE CASTS, URINE 0-2 /LPF
[2022-01-23 11:43] LABS: PROTHROMBIN TIME PATIENT 13.6 SEC (12.2-14.7)
[2022-01-23 11:47] LABS: ALBUMIN 3.9 GM/DL (3.2-4.5); BILIRUBIN,TOTAL 0.4 MG/DL (0.1-1.0); CALCIUM 10.1 MG/DL (8.5-10.1); CREATININE SERUM 1.08 MG/DL (0.60-1.30); POTASSIUM 4.6 MMOL/L (3.6-5.0); TOTAL PROTEIN 8.1 GM/DL (6.4-8.2)
[2022-01-23] MEDS ORDERED: MIDAZOLAM 2 MG/2 ML (VERSED) VIAL ONE (12:27)
[2022-01-23] MEDS ORDERED: VERAPAMIL 5 MG/2 ML (CALAN) VIAL IV ONE (12:27)
[2022-01-23] MEDS ORDERED: NITRO DRIP 25000 MCG/D5W 250 ML IV ONE (12:27)
[2022-01-23] MEDS ORDERED: HEParin 1000 UNIT/ML (10ML VIAL) FOR BOLUS ONE (12:27)
[2022-01-23] MEDS ORDERED: fentaNYL INJ 100 MCG/2 ML AMP ONE (12:27)
--- NOTE | 2022-01-23 12:33 | Cardiac Procedure Note-CS/ASA ---
Pre-Procedure Note Pre-Op Procedure Note Date of Available H&P: Jan 21, 2022 Date H&P Reviewed: Jan 23, 2022 Time H&P Reviewed: 12:34 History & Physical: H&P Reviewed, Patient Examed, No changes noted Pre-Operative Diagnosis: Aortic stenosis Conscious Sedation Pre-Proced Time 12:34 ASA Score 3 For ASA 3 and 4: Consider anesthesia and medical clearance. Also, for patients with a history of failed moderate sedation consider anesthesia. Airway Lungs Heart ASA score ASA 1: a normal healthy patient ASA 2: a patient with a mild systemic disease (mid diabetes, controlled hypertension, obesity ASA 3: a patient with a severe systemic disease that limits activity (angina, COPD, prior Myocardial infarction) ASA 4: a patient with an incapacitating disease that is a constant threat to life (CHF, renal failure) ASA 5: a moribund patient not expected to survive 24 hrs. (ruptured aneurysm) ASA 6: a declared brain- patient whose organs are being harvested. For emergent operations, add the letter E after the classification Mallampati Classification Grade 3 Sedation Plan Analgesia, Amnesia, Plan communicated to team members, Discussed options with patient/fam, Discussed risks with patient/fam The patient is an appropriate candidate to undergo the planned procedure, sedation, and anesthesia. The patient immediately re-assessed prior to indication. KYUNG HADDAD MD Jan 23, 2022 12:33
--- NOTE | 2022-01-23 13:16 | Discharge Inst-Post CATH ---
Discharge Inst-CATH/EP Problems Reviewed?: Yes Post Cardiac Cath/EP D/C Inst Follow Up/Plan Appointment with Dr Adames in 4 weeks <b>CARDIAC CATH/EP PROCEDURE DISCHARGE INSTRUCTIONS</b> ACTIVITY * Go Home directly and rest. * Limit activity of the leg (or wrist if it was used) for 7 days including aerobics, swimming, jogging, bicycling, etc. * Restrict stair-climbing for 7 days if possible, if not, climb up with your non-cath leg, then bring together on the same step. * Avoid lifting, pushing, pulling or excessive movement of the affected extremity for 7 days. * Customary sexual activity may be resumed after 2 days-use caution not to use a position that strains or causes pain to the affected extremity. * No driving for 24 hours. * NO SMOKING. * Avoid straining for bowel movements for 7 days. * Gentle walking on level ground is allowed. * Returning to work will depend on the type of procedure and the results. Your doctor will discuss this with you. CALL YOUR DOCTOR FOR ANY OF THE FOLLOWING: *If bleeding from the puncture site occurs- Apply gentle pressure to site with clean cloth and call your doctor or EMS. * If a knot or lump forms under the skin, increases in size, or causes pain. * If bruising appears to be worsening or moving further down your leg instead of disappearing. * Temperature above 101 F. CARE OF YOUR GROIN INCISION; * Bruising or purple discoloration of the skin near the puncture site is common. * You may shower only, no bathtub bathing for 5 days. Be careful to avoid slipping as your leg may feel stiff. * If a closure device was used on your femoral artery, please see the attached guide regarding care of the device and your leg. * Leave dressing on FOR 24 hours. CARE OF YOUR WRIST INCISION; * Bruising or purple discoloration of the skin near the puncture site is common. * You may shower. * DO NOT submerge wrist. * Leave dressing on FOR 24 hours. KYUNG ADAMES MD Jan 23, 2022 13:16
--- NOTE | 2022-01-23 13:20 | Cardiac Cath Report ---
Cardiac Cath Report Physician (s)/International Logistics Manager (s) Physician KYUNG HADDAD MD Pre-Procedure Diagnosis Pre-Procedure Diagnosis: Aortic stenosis Post-Procedure Note Procedure Start Date: Jan 23, 2022 Name of Procedure: Coronary angiogram Findings/Procedure Note PROCEDURE NOTE: 86-year-old lady with severe aortic stenosis, referred for evaluation for TAVR, scheduled for cardiac catheterization possible angioplasty. After explaining the procedure to the patient, all pros and cons were explained, all questions were answered. The patient signed the consent and then she was placed on the cardiac catheterization laboratory. Groin was prepped SL fashion local anesthesia was used. Sheath placed in the right radial artery, I had to use baby J-wire to advance through the radial artery, [place] catheter was advanced and engaged the right coronary system, I was unable to engage the left system, I exchanged the catheter using long J-wire and placed [place] left 3.5 diagnostic catheter in the left system and angiogram was done. At the end of the procedure the sheath was removed. Vascular band was used FINDINGS: Hemodynamics LV did not cross the aortic valve Aorta 86/65 mean of 84 ANATOMY: Left Main is free of obstructive disease Left Anterior Descending has mild disease nonobstructive disease Left Circumflex has mild disease nonobstructive disease Right Coronary Artery has mild disease nonobstructive disease CONCLUSION: 1. Mild coronary artery disease nonobstructive disease DISCUSSION AND RECOMMENDATION: Patient will be referred for evaluation for TAVR Anesthesia Type: Conscious Sedation Estimated blood loss (mL): 15 ml Contrast Amount: 38 ml Total Radiation Dose: 356 mGy Post-Procedure Diagnosis Post-operative diagnosis: Aortic valve stenosis Chest pain Coronary artery disease Hypertension KYUNG HADDAD MD Jan 23, 2022 13:20
[2022-01-24] MEDS ORDERED: ASPIRIN E.C. 81 MG (ECOTRIN) TAB PO SCH (09:00)
== END 2022-01-23 16:25 | disposition home or self-care (01) ==
LOC: CATH 10:47 → SDC 13:31 → CATH 16:25
PROVIDERS: ATTEND Internal Medicine Cardiovascular Disease
DX: I35.0 Nonrheumatic aortic (valve) stenosis (principal); I25.10 Atherosclerotic heart disease of native coronary artery without angina pectoris; I10 Essential (primary) hypertension; E78.2 Mixed hyperlipidemia; E11.9 Type 2 diabetes mellitus without complications; J44.9 Chronic obstructive pulmonary disease, unspecified; Z99.81 Dependence on supplemental oxygen; Z79.899 Other long term (current) drug therapy
CPT/HCPCS: 71045; 80053; 80061; 81000; 85027; 85610; 85730; 87081; 87088; 93005; 93454; C1769; C1894; 36415

== ENCOUNTER → 2022-04-10 | Outpatient (CLI) | payer MEDICARE, OTHER ==
[~2022-04-10] VITALS: Ht 160 cm; Wt 87.3 kg
[~2022-04-10] MED LIST changes: +FURO40TA4 PO; +LIDOCAINE 1% INJ 30 ML (XYLOCAINE) VIAL INJ ONE
[2022-04-10 13:53] LABS: INR 0.9 (0.8-1.4); PROTHROMBIN TIME PATIENT 12.5 SEC (12.2-14.7)
[2022-04-10 13:58] LABS: ALBUMIN 3.9 GM/DL (3.2-4.5); TOTAL PROTEIN 7.8 GM/DL (6.4-8.2)
[2022-04-10 15:00] VITALS: BP 139/86
--- NOTE | 2022-04-10 15:16 | Diagnostic Imaging Report ---
Indication: Status post left-sided thoracentesis for left pleural effusion. Time of Exam: 2:58 PM Correlation is made with prior chest radiograph from 01/23/2022. Heart is enlarged. There has been significant reduction in left-sided pleural effusion, status post thoracentesis. No pneumothorax is identified. Lungs are clear. Impression: Significant reduction in left-sided pleural effusion which is now trace, status post thoracentesis. No pneumothorax is identified. Dictated by: Dictated on workstation # [id number]
[2022-04-10 16:44] LABS: ALBUMIN,BODY FLUID 2.2 G/DL; BODY FLUID TRIGLYCERIDES 9 MG/DL; GLUCOSE,BODY FLUID 103 MG/DL; LDH,BODY FLUID 100 U/L; TOTAL PROTEIN,BODY FLUID 3.6 G/DL
[2022-04-10 16:45] LABS: BODY FLUID SOURCE PLEURAL
[2022-04-10 16:46] LABS: BODY FLUID APPEARENCE CLEAR; BODY FLUID COLOR PALE YELLOW
--- NOTE | 2022-04-11 08:54 | Diagnostic Imaging Report ---
INDICATION: Left pleural effusion. Patient presents for ultrasound-guided thoracentesis. Patient was brought to the procedure room, placed on the bed in a sitting upright position. Posterior left thorax was evaluated with ultrasound to evaluate appropriate entry site. The skin of the left posterior thorax was then prepped and draped in usual sterile fashion. Small amount of 1% lidocaine was utilized for local anesthesia. Thoracentesis catheter was advanced into the posterior pleural space on the left. Approximately 350 mL of fluid was removed. Catheter was withdrawn and hemostasis was obtained. Patient tolerated the procedure well and was sent for postprocedure chest x-ray in satisfactory condition. IMPRESSION: Successful ultrasound-guided left-sided thoracentesis obtaining 350 mL of fluid. Dictated by: Dictated on workstation # [id number]
== END ==
LOC: RAD 14:00
PROVIDERS: ATTEND Internal Medicine Critical Care Medicine
DX: J90 Pleural effusion, not elsewhere classified (principal); Z12.89 Encounter for screening for malignant neoplasm of other sites
CPT/HCPCS: 32555; 71045; 82040; 82042; 82465; 82945; 83615 ×2; 83986; 84155; 84157; 84478; 85610; 87015; 87070; 87075; 87101; 87116; 87205; 87206; 89051; A7048; 36415

== ENCOUNTER → 2022-06-21 | Outpatient (RCR) | payer MEDICARE, OTHER ==
[~2022-06-21] MED LIST changes: -LIDOCAINE 1% INJ 30 ML (XYLOCAINE) VIAL INJ ONE; +SENN-271 PO; -SENN1TAB76 PO
== END | disposition home or self-care (01) ==
LOC: CR 06-10 08:48
PROVIDERS: ATTEND Thoracic Surgery (Cardiothoracic Vascular Surgery)
DX: Z29.8 Encounter for other specified prophylactic measures (principal); Z95.4 Presence of other heart-valve replacement
CPT/HCPCS: 93798

== ENCOUNTER 2022-07-19 09:17 | Outpatient (RCR) | payer MEDICARE, OTHER | END 2022-07-21 | disposition home or self-care (01) | LOC: CR 09:17 | PROVIDERS: ATTEND Thoracic Surgery (Cardiothoracic Vascular Surgery) | DX: Z29.8 Encounter for other specified prophylactic measures (principal); Z95.2 Presence of prosthetic heart valve | CPT/HCPCS: 93798 ==

== ENCOUNTER → 2022-08-21 | Outpatient (RCR) | payer MEDICARE, OTHER | END | disposition home or self-care (01) | LOC: CR 07-22 07:32 | PROVIDERS: ATTEND Thoracic Surgery (Cardiothoracic Vascular Surgery) | DX: Z29.8 Encounter for other specified prophylactic measures (principal); Z95.2 Presence of prosthetic heart valve | CPT/HCPCS: 93798 ==

== ENCOUNTER → 2022-09-05 | Outpatient (CLI) | payer MEDICARE, OTHER ==
--- NOTE | 2022-09-05 11:36 | Diagnostic Imaging Report ---
EXAMINATION: CT chest without contrast. TECHNIQUE: Multiple contiguous axial images were obtained through the chest without the use of intravenous contrast. All CT scans use one or more of the following dose optimizing techniques: automated exposure control, MA and/or KvP adjustment based on patient size and exam type or iterative reconstruction. HISTORY: Pleural effusion and shortness of breath, abnormal chest CT report. COMPARISON: 01/07/2022 FINDINGS: Previously seen groundglass and linear opacities have improved but remain. No consolidation. There is a small left pleural effusion. No pneumothorax. No suspicious nodules. There is no axillary or supraclavicular lymphadenopathy. There is no mediastinal lymphadenopathy. There has been an aortic valve replacement. Heart size is normal. There are moderate coronary artery calcifications. No pericardial effusion. Aorta is normal in caliber. Limited views of the upper abdomen show a hemorrhagic cyst in left kidney. There are no suspicious osseus lesions. IMPRESSION: 1. Improvement but persistent linear opacities and groundglass with a small left pleural effusion favored to represent scarring from prior infection. Dictated by: Dictated on workstation # [id number]
== END ==
LOC: RAD 09:39
PROVIDERS: ATTEND Internal Medicine Critical Care Medicine
DX: J90 Pleural effusion, not elsewhere classified (principal); R91.8 Other nonspecific abnormal finding of lung field
CPT/HCPCS: 71250

== ENCOUNTER 2022-09-09 09:39 | Outpatient (RCR) | payer MEDICARE, OTHER | END 2022-09-20 | disposition home or self-care (01) | LOC: CR 09:39 | PROVIDERS: ATTEND Thoracic Surgery (Cardiothoracic Vascular Surgery) | DX: Z29.8 Encounter for other specified prophylactic measures (principal); Z95.2 Presence of prosthetic heart valve | CPT/HCPCS: 93798 ==

== ENCOUNTER 2022-10-18 13:15 | Outpatient (RCR) | payer MEDICARE, OTHER | END 2022-10-20 | disposition home or self-care (01) | LOC: CR3 13:15 | PROVIDERS: ATTEND Thoracic Surgery (Cardiothoracic Vascular Surgery) | DX: Z29.8 Encounter for other specified prophylactic measures (principal) ==

== ENCOUNTER 2023-01-14 09:12 | Emergency (ER) | payer MEDICARE, OTHER ==
--- NOTE | 2023-01-14 09:30 | ED Fall/Injury ---
General Chief Complaint: Trauma-Non Activation Stated Complaint: FALL | LOWER BACK AND LEG SORENESS | UTI History of Present Illness Date Seen by Provider: Jan 14, 2023 Time Seen by Provider: 09:30 Initial Comments 87-year-old female presents with lower back pain and leg soreness. Patient reports that she slid "fell out of bed last night and has pain in her bilateral upper legs, bilateral hips and lower back. Patient did not hit her head. She is able to ambulate. There is no obvious deformity Allergies and Home Medications Allergies Coded Allergies: No Known Drug Allergies (Unverified , 03/20/20) Patient Home Medication List Home Medication List Reviewed: Yes Amlodipine Besylate (Amlodipine Besylate) 5 Mg Tablet, 5 MG PO DAILY, (Reported) Entered as Reported by: AYLIN HUANG on 08/17/20 1006 Aspirin (Aspirin) 81 Mg Tab.chew, 81 MG PO DAILY, (Reported) Entered as Reported by: ANALI SNELL on 03/19/17 1033 Atenolol (Atenolol) 100 Mg Tablet, 100 MG PO BID, (Reported) Entered as Reported by: ANALI SNELL on 03/20/20 1122 Cholecalciferol (Vitamin D3) (Vitamin D3) 25 Mcg Capsule, 25 MCG PO DAILY, (Reported) Entered as Reported by: ANALI SNELL on 03/20/20 1122 Furosemide (Furosemide) 40 Mg Tablet, 40 MG PO EVERY OTHER DAY, (Reported) Entered as Reported by: SCOTT PITTS on 01/23/22 1135 Lisinopril (Lisinopril) 40 Mg Tablet, 40 MG PO DAILY, (Reported) Entered as Reported by: AYLIN HUANG on 08/17/20 1006 Multivitamin (Multivitamin) 1 Each Tablet, 1 EACH PO DAILY, (Reported) Entered as Reported by: ANALI SNELL on 03/20/20 1122 Potassium Chloride (Potassium Chloride) 20 Meq Tab.er.prt, 20 MEQ PO EVERY OTHER DAY, (Reported) Entered as Reported by: SCOTT PITTS on 01/23/22 1135 Simvastatin (Simvastatin) 40 Mg Tablet, 40 MG PO HS, (Reported) Entered as Reported by: ANALI SNELL on 03/19/17 1033 Review of Systems Review of Systems Constitutional: see HPI Respiratory: no symptoms reported Cardiovascular: no symptoms reported Musculoskeletal: see HPI Skin: no symptoms reported Past Zokkfwj-Mjplsw-Dlyqwt Hx Immunizations Up To Date First/Initial COVID19 Vaccinat: 2020 Second COVID19 Vaccination Amari: 2020 Seasonal Allergies Seasonal Allergies: No Past Medical History Surgeries: Yes ( D&C, BILATERAL FEET, CATARACTS,bilat KNEE SCOPE) Respiratory: No Pneumonia Currently Using CPAP: No (WEARS O2) Currently Using BIPAP: No Cardiac: Yes High Cholesterol, Hypertension, Valvular Heart Disease Neurological: No Reproductive Disorders: No Sexually Transmitted Disease: No HIV/AIDS: No Genitourinary: No Gastrointestinal: No Musculoskeletal: Yes Arthritis, Chronic Back Pain Endocrine: Yes Diabetes, Non-Insulin dep HEENT: Yes (GLASSES, cataracts removed) Loss of Vision: Denies Hearing Impairment: Denies Cancer: Yes (HAS HAD SKIN CANCER REMOVED) Skin Did You Recieve Any Treatments: Yes What Type of Treatment Did You: Surgical Intervention Psychosocial: No Integumentary: Yes Psoriasis Blood Disorders: No Adverse Reaction/Blood Tranf: No (N/A) Family Medical History Patient reports no known family medical history. Physical Exam Vital Signs Vital Signs - First Documented 01/14/23 09:20 Temp 36.6 Pulse 76 Resp 17 B/P (MAP) 152/85 (107) Pulse Ox 96 O2 Delivery Nasal Cannula O2 Flow Rate 2.00 Capillary Refill : Height, Weight, BMI Height: 5'2.00" Weight: 201lbs. 6.0oz. 91.600148jq; 34.10 BMI Method: General Appearance: WD/WN, no apparent distress, obese Cardiovascular: normal peripheral pulses, regular rate, rhythm Respiratory: lungs clear, normal breath sounds Gastrointestinal: non tender, soft Back: No vertebral tenderness Extremities: normal range of motion, other (Mild tenderness left upper legs but no obvious deformity or decreased range of motion) Neurologic/Psychiatric: alert, normal mood/affect, oriented x 3 Skin: normal color, warm/dry Progress/Results/Core Measures Results/Orders My Orders Orders - KATERYNA SCHNEIDER DO Ct Lumbar Spine Wo (01/14/23 09:35) Pelvis/Isma Hips 5> Views (01/14/23 09:35) Vital Signs/I&O 01/14/23 09:20 Temp 36.6 Pulse 76 Resp 17 B/P (MAP) 152/85 (107) Pulse Ox 96 O2 Delivery Nasal Cannula O2 Flow Rate 2.00 Progress Progress Note : Progress Note Patient's x-rays were ordered reviewed with initial interpretation negative by me with final interpretation per radiology report. Patient's lumbar CT was ordered reviewed with no acute findings per radiology report. Patient's physical exam showed no significant findings. Patient with likely mild contusion and some bilateral muscle sprains of her upper legs and thighs. Discussed with her supportive care. She does have a known urinary tract infection and is already prescribed Cipro which I recommended she take as directed. There is no further indications for work-up with that with a known diagnosis and antibiotics prescribed. Patient was stable and discharged home. Diagnostic Imaging Diagonstic Imaging: CT Plain Films/CT/US/NM/MRI: other Comments Date of Exam:01/14/23 CT LUMBAR SPINE WO PROCEDURE: CT lumbar spine without contrast. TECHNIQUE: Multiple contiguous axial images were obtained through the lumbar spine without the use of intravenous contrast. Sagittal and coronal reformations were then performed. Auto Exposure Controls were utilized during the CT exam to meet ALARA standards for radiation dose reduction. INDICATION: Back pain. Fall. COMPARISON: None. FINDINGS: No acute fracture or dislocation is seen in the lumbar spine. Small Schmorl's node is seen in the superior endplate of L3. No suspicious focal osseous lesions. Vacuum disc is seen throughout the lumbar spine. Degenerative changes are present with disc osteophyte complexes and facet hypertrophy. There is high-grade spinal canal stenosis at the L2-L3, L3-L4, and L4-L5 levels. No high density material is seen within the spinal canal. The paraspinal soft tissues are unremarkable. IMPRESSION: 1. No acute fracture or dislocation in the lumbar spine. 2. 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 Reviewed: Reviewed by Me, Reviewed/Discussed Departure Impression Primary Impression: Fall from bed, initial encounter Additional Impressions: Contusion, back Qualified Codes: S20.229A - Contusion of unspecified back wall of thorax, initial encounter Strain of lower extremity Disposition: HOME, SELF-CARE Condition: Stable Departure-Patient Inst. Referrals: DEZ MONTES DO (PCP/Family) Primary Care Physician Patient Instructions: Contusion (DC), Lower Extremity Muscle Strain Add. Discharge Instructions: 4% topical lidocaine with menthol cream gel or patch to lower back and legs as needed as directed on package.. Voltaren/diclofenac cream or gel to lower back/legs as needed as directed on package All discharge instructions reviewed with patient and/or family. Voiced understanding. KATERYNA SCHNEIDER DO Jan 14, 2023 09:30
--- NOTE | 2023-01-14 10:15 | Diagnostic Imaging Report ---
PROCEDURE: CT lumbar spine without contrast. TECHNIQUE: Multiple contiguous axial images were obtained through the lumbar spine without the use of intravenous contrast. Sagittal and coronal reformations were then performed. Auto Exposure Controls were utilized during the CT exam to meet ALARA standards for radiation dose reduction. INDICATION: Back pain. Fall. COMPARISON: None. FINDINGS: No acute fracture or dislocation is seen in the lumbar spine. Small Schmorl's node is seen in the superior endplate of L3. No suspicious focal osseous lesions. Vacuum disc is seen throughout the lumbar spine. Degenerative changes are present with disc osteophyte complexes and facet hypertrophy. There is high-grade spinal canal stenosis at the L2-L3, L3-L4, and L4-L5 levels. No high density material is seen within the spinal canal. The paraspinal soft tissues are unremarkable. IMPRESSION: 1. No acute fracture or dislocation in the lumbar spine. 2. 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 Dictated by: Dictated on workstation # [id number]
--- NOTE | 2023-01-14 10:20 | Diagnostic Imaging Report ---
EXAMINATION: Bilateral hips 5 or more views (w/pelvis when done) HISTORY: Pelvic injury COMPARISON: None available. FINDINGS: Alignment is normal. There is mild bilateral hip osteoarthritis. No fracture seen in the pelvis or either hip. IMPRESSION: 1. No fracture in the pelvis or either hip. Dictated by: Dictated on workstation # [id number]
[2023-01-14 10:47] VITALS: BP 129/72
== END 2023-01-14 10:52 | disposition home or self-care (01) ==
LOC: EDUNIT# 09:12 → ER 09:15
DX: S86.912A Strain of unspecified muscle(s) and tendon(s) at lower leg level, left leg, initial encounter (principal); S30.0XXA Contusion of lower back and pelvis, initial encounter; W06.XXXA Fall from bed, initial encounter
CPT/HCPCS: 72131; 73523